=== PATIENT | female | born 1960 | race African-American/Black ===

== ENCOUNTER 2020-05-22 04:11 | Inpatient (IN) | payer MEDICAID, OTHER ==
[~2020-05-22] VITALS: Ht 162.6 cm; Wt 116.5 kg
[2020-05-22] MEDS ORDERED: ALBUTEROL SULF 2.5 MG/0.5ML(0.5%) NEB SOLN ONE (04:29)
[2020-05-22] MEDS ORDERED: ALBUTEROL SULF 2.5 MG/0.5ML(0.5%) NEB SOLN NEB ONE (04:30)
[2020-05-22] MEDS ORDERED: fentaNYL CITRATE 100 MCG/2 ML VL IV ONE (04:45)
[2020-05-22 05:14] LABS: Hematocrit 41.5 % (36.0-46.0); Hemoglobin 13.9 g/dL (12.2-16.2); Mean Corpuscular Hemoglobin 26.5 pg (28.0-32.0); Mean Corpuscular Hgb Conc. 33.5 g/dL (32.0-36.0); Mean Corpuscular Volume 79.2 fL (80.0-100.0); Platelet Count (auto) 163 10^3/uL (140-450); Red Blood Cells 5.24 10^6/uL (4.0-5.20); Red Cell Distribution Width 15.7 % (11.8-14.3); White Blood Cell 25.8 10^3/uL (4.4-10.8)
[2020-05-22 05:20] LABS: Basophils % (manual) 0 (0.0-2.0); Blast Cells 0; Metamyelocytes % 0; Myelocytes % 0; Promyelocytes % 0
[2020-05-22 05:32] LABS: Chloride 98 mmol/L (98-107); Potassium 3.7 mmol/L (3.5-5.1); Sodium 134 mmol/L (136-145)
[2020-05-22] MEDS ORDERED: fentaNYL CITRATE 100 MCG/2 ML VL IV STA (05:38)
[2020-05-22 05:41] LABS: Alanine Aminotransferase 26 U/L (13-56); Albumin 3.1 g/dL (3.4-5.0); Alkaline Phosphatase 82 U/L (45-117); Anion Gap 10 (5-15); Aspartate Aminotransferase 10 U/L (15-37); BUN/Creatinine Ratio 12.2; Bilirubin, Total 0.7 mg/dL (0.2-1.0); Blood Urea Nitrogen 12 mg/dL (7-18); Calcium 8.5 mg/dL (8.5-10.1); Carbon Dioxide 26 mmol/L (21-32); GFR African American 74 mL/min; GFR Non-African American 62 mL/min; Total Protein 7.6 g/dL (6.4-8.2)
[2020-05-22 05:46] LABS: INR 0.98 (0.9-1.15); Partial Thromboplastin Time 21.1 sec (23.0-31.2)
[2020-05-22 05:50] LABS: Band Neutrophils % (manual) 1; Eosinophils % (manual) 1 (0-7); Lymphocytes % (manual) 5 (10.0-50.0); Monocytes % (manual) 10 (0-12); Reactive Lymphocytes 1
[2020-05-22 05:57] LABS: Glucose 401 mg/dL (74-106)
[2020-05-22] MEDS ORDERED: IOHEXOL 350 MG/ML 100ML IJ ONE (06:06)
[2020-05-22] MEDS ORDERED: CEFEPIME 2 GM in SODIUM CHL 0.9% 50 ML IV ONE (06:15)
[2020-05-22] MEDS ORDERED: ENOXAPARIN SOD 100 MG/1 ML SYRINGE SC ONE (07:45)
[2020-05-22] MEDS ORDERED: levoFLOXacin 750MG 150 ML IV ONE (07:45)
[2020-05-22] MEDS ORDERED: MORPHINE SULF INJ 2 MG/ML SYRINGE 1ML IV ONE (07:45)
[2020-05-22] MEDS ORDERED: ONDANSETRON HCL 4 MG/2 ML VIAL IV ONE (07:45)
[2020-05-22] MEDS ORDERED: LORazepam 2MG/ML-1ML VIAL IV ONE (09:00)
[2020-05-22] MEDS ORDERED: NITROGLYCERIN 0.4 MG SL TAB SL PRN (10:30)
[2020-05-22] MEDS ORDERED: MORPHINE SULF INJ 2 MG/ML SYRINGE 1ML IV PRN (10:30)
[2020-05-22] MEDS ORDERED: REMDESIVIR PER PHARMACY 0 ML IV SCH (10:45)
[2020-05-22] MEDS ORDERED: DEXTROSE (50%) 50ML SYRG IV PRN ×2 (10:45→12:30)
[2020-05-22] MEDS ORDERED: ACETAMINOPHEN 325 MG TAB PO PRN (10:45)
[2020-05-22] MEDS ORDERED: HYDROmorphone HCL 2 MG/ML VL IV ONE (10:45)
[2020-05-22] MEDS ORDERED: ACCU-CHEK COMFORT CURVE STRIP VI SCH (11:30)
[2020-05-22] MEDS ORDERED: InsuLIN REG 1unit/0.01ml Soln (100units/ml) SC SCH (11:30)
[2020-05-22 11:58] LABS: CRP High Sensitivity 17.7 mg/dL (< 0.3)
[2020-05-22] MEDS ORDERED: ALBUAER3 IN (12:07)
[2020-05-22] MEDS ORDERED: DOCU1CAP31 PO (12:07)
[2020-05-22] MEDS ORDERED: LOSA25TA38 PO (12:07)
[2020-05-22] MEDS ORDERED: GLIM-5 PO (12:07)
[2020-05-22] MEDS: PIPERACILLIN-TAZOB 3.375GM 100 ML IV SCH ×2 (12:23→18:37)
[2020-05-22] MEDS ORDERED: INSULIN LANTUS (GLARGINE) 1 /0.01ml (100units/ml) SC ONE (12:30)
[2020-05-22 12:49] LABS: Urine Bacteria NONE SEEN /hpf (None Seen); Urine Blood 1+ /uL (Negative); Urine Specific Gravity 1.041 (1.001-1.035); Urine WBC 8 /hpf (0 - 5)
[2020-05-22 13:43] VITALS: BP 130/76
[2020-05-22] MEDS ORDERED: IOHEXOL 300 MG/ML 100ML BOTTLE IJ ONE (14:01)
[2020-05-22] MEDS ORDERED: REMDESIVIR 200 MG in NS 210ml LOADING DOSE ADULT IV ONE (15:00)
[2020-05-22] MEDS: ACCU-CHEK COMFORT CURVE STRIP VI SCH ×2 (16:31→20:25)
[2020-05-22] MEDS: InsuLIN REG 1unit/0.01ml Soln (100units/ml) SC SCH ×2 (16:35→20:36)
[2020-05-22] MEDS ORDERED: IPRATROPIUM BROM 0.5 MG/2.5ML INH SOL NEB SCH (18:45)
[2020-05-22] MEDS ORDERED: ALBUTEROL SULF 2.5 MG/0.5ML(0.5%) NEB SOLN NEB SCH (18:45)
[2020-05-22] MEDS: BUDESONIDE (INHALATION) 180 MCG IH IN SCH (19:04)
[2020-05-22] MEDS: ENOXAPARIN SOD 100 MG/1 ML SYRINGE SC SCH (22:01)
[2020-05-23] MEDS: ALBUTEROL SULF HFA 90MCG INH 200DOSE IN PRN ×3 (00:19→18:55)
[2020-05-23] MEDS: HYDROmorphone HCL 2 MG/ML VL IV PRN ×4 (00:20→22:00)
[2020-05-23] MEDS: InsuLIN REG 1unit/0.01ml Soln (100units/ml) SC SCH ×6 (04:00→20:00)
[2020-05-23] MEDS: ACCU-CHEK COMFORT CURVE STRIP VI SCH ×7 (04:06→23:56)
[2020-05-23 05:50] LABS: Basophils # (auto) 0 10 ^3/uL (0-0.2); Eosinophils # (auto) 0.2 10 ^3/uL (0-0.8); Lymphocytes # (auto) 1.1 10 ^3/uL (0.4-5.4); Red Cell Distribution Width 16.3 % (11.8-14.3)
[2020-05-23 05:52] LABS: Basophils % (auto) 0.2 % (0.0-2.0); Eosinophils % (auto) 0.8 % (0.0-7.0); Hematocrit 35.1 % (36.0-46.0); Hemoglobin 11.7 g/dL (12.2-16.2); Lymphocytes % (auto) 5.2 % (10.0-50.0); Mean Corpuscular Hemoglobin 26.2 pg (28.0-32.0); Mean Corpuscular Hgb Conc. 33.4 g/dL (32.0-36.0); Mean Corpuscular Volume 78.6 fL (80.0-100.0); Monocytes # (auto) 2.4 10 ^3/uL (0-1.3); Monocytes % (auto) 11.3 % (0.0-12.0); Neutrophils # (auto) 17.4 10 ^3/uL (1.6-8.6); Neutrophils % (auto) 82.5 % (37.0-80.0); Nucleated Red Blood Cells % 0.1 %; Platelet Count (auto) 156 10^3/uL (140-450); Red Blood Cells 4.47 10^6/uL (4.0-5.20)
[2020-05-23] MEDS ORDERED: VANCOMYCIN PER PHARMACY 0 MG IV SCH (06:00)
[2020-05-23] MEDS: PIPERACILLIN-TAZOB 3.375GM 100 ML IV SCH ×5 (06:01→23:44)
[2020-05-23 06:07] LABS: Albumin 2.4 g/dL (3.4-5.0); BUN/Creatinine Ratio 13.6; Calcium 8.2 mg/dL (8.5-10.1); Potassium 3.6 mmol/L (3.5-5.1)
[2020-05-23 06:10] LABS: Bilirubin, Total 0.5 mg/dL (0.2-1.0); Total Protein 6.5 g/dL (6.4-8.2)
[2020-05-23] MEDS ORDERED: IVERMECTIN 3 MG TAB PO ONE (07:00)
[2020-05-23] MEDS ORDERED: VANCOMYCIN 1GM/250ML 250 ML IV ONE (08:00)
[2020-05-23] MEDS: ONDANSETRON HCL 4 MG/2 ML VIAL IV PRN (10:03)
[2020-05-23] MEDS: DexAMETHasone SOD PHOS 10MG/1ML VIAL INJ IV SCH (10:04)
[2020-05-23] MEDS: ASCORBIC ACID 1,000 MG TAB PO SCH (10:06)
[2020-05-23] MEDS: ZINC SULFATE 220mg CAP or TAB PO SCH (10:06)
[2020-05-23] MEDS: FAMOTIDINE (10MG/ML) 2ML VL IV SCH (10:06)
[2020-05-23] MEDS: CHOLECALCIFEROL (VITD3) 2,000 UNIT CAP/TAB PO SCH (10:07)
[2020-05-23] MEDS: ENOXAPARIN SOD 100 MG/1 ML SYRINGE SC SCH ×2 (10:07→15:18)
[2020-05-23] MEDS: BUDESONIDE (INHALATION) 180 MCG IH IN SCH ×2 (10:39→18:54)
[2020-05-23] MEDS: REMDESIVIR 100mg 100 MG in SODIUM CHL 0.9% 230 ML IV SCH (15:48)
[2020-05-23] MEDS: VANCOMYCIN 750mg/250ml 250 ML IV SCH ×2 (16:17→23:45)
[2020-05-24] MEDS: ACCU-CHEK COMFORT CURVE STRIP VI SCH ×6 (04:00→23:52)
[2020-05-24] MEDS: InsuLIN REG 1unit/0.01ml Soln (100units/ml) SC SCH ×7 (04:13→23:49)
[2020-05-24] MEDS: PIPERACILLIN-TAZOB 3.375GM 100 ML IV SCH ×4 (06:31→23:52)
[2020-05-24] MEDS: BUDESONIDE (INHALATION) 180 MCG IH IN SCH ×2 (06:33→21:51)
[2020-05-24] MEDS: ALBUTEROL SULF HFA 90MCG INH 200DOSE IN PRN ×2 (06:33→21:51)
[2020-05-24] MEDS: HYDROmorphone HCL 2 MG/ML VL IV PRN ×3 (06:50→18:23)
[2020-05-24 08:57] LABS: Albumin 2.1 g/dL (3.4-5.0); Calcium 7.9 mg/dL (8.5-10.1); Potassium 3.8 mmol/L (3.5-5.1)
[2020-05-24 09:01] LABS: BUN/Creatinine Ratio 14.9; Bilirubin, Total 0.4 mg/dL (0.2-1.0); Total Protein 6.2 g/dL (6.4-8.2)
[2020-05-24] MEDS: VANCOMYCIN 750mg/250ml 250 ML IV SCH (09:30)
[2020-05-24] MEDS: FAMOTIDINE (10MG/ML) 2ML VL IV SCH (09:40)
[2020-05-24] MEDS: ASCORBIC ACID 1,000 MG TAB PO SCH (09:40)
[2020-05-24] MEDS: ZINC SULFATE 220mg CAP or TAB PO SCH (09:40)
[2020-05-24] MEDS: DexAMETHasone SOD PHOS 10MG/1ML VIAL INJ IV SCH (09:40)
[2020-05-24] MEDS: CHOLECALCIFEROL (VITD3) 2,000 UNIT CAP/TAB PO SCH (09:40)
[2020-05-24] MEDS: ENOXAPARIN SOD 100 MG/1 ML SYRINGE SC SCH ×2 (09:40→20:58)
[2020-05-24] MEDS: REMDESIVIR 100mg 100 MG in SODIUM CHL 0.9% 230 ML IV SCH (15:35)
[2020-05-24] MEDS: VANCOMYCIN 1GM/250ML 250 ML IV SCH ×2 (16:00→23:54)
[2020-05-24 22:00] VITALS: BP 118/68
[2020-05-25] MEDS: InsuLIN REG 1unit/0.01ml Soln (100units/ml) SC SCH ×6 (04:31→23:23)
[2020-05-25] MEDS: ACCU-CHEK COMFORT CURVE STRIP VI SCH ×6 (04:32→23:25)
[2020-05-25 05:00] VITALS: BP 133/60
[2020-05-25] MEDS: PIPERACILLIN-TAZOB 3.375GM 100 ML IV SCH ×4 (05:11→23:25)
[2020-05-25 07:03] LABS: Basophils # (auto) 0 10 ^3/uL (0-0.2); Basophils % (auto) 0.3 % (0.0-2.0); Eosinophils # (auto) 0 10 ^3/uL (0-0.8); Hematocrit 30.5 % (36.0-46.0); Monocytes # (auto) 1.3 10 ^3/uL (0-1.3); Nucleated Red Blood Cells % 0.1 %; Platelet Count (auto) 168 10^3/uL (140-450)
[2020-05-25 07:05] LABS: Eosinophils % (auto) 0.2 % (0.0-7.0); Hemoglobin 10.2 g/dL (12.2-16.2); Lymphocytes # (auto) 1.2 10 ^3/uL (0.4-5.4); Lymphocytes % (auto) 10.4 % (10.0-50.0); Mean Corpuscular Hemoglobin 26.4 pg (28.0-32.0); Mean Corpuscular Hgb Conc. 33.5 g/dL (32.0-36.0); Mean Corpuscular Volume 78.8 fL (80.0-100.0); Neutrophils # (auto) 9.3 10 ^3/uL (1.6-8.6); Neutrophils % (auto) 78.1 % (37.0-80.0); Red Blood Cells 3.87 10^6/uL (4.0-5.20); Red Cell Distribution Width 16.3 % (11.8-14.3); White Blood Cell 11.8 10^3/uL (4.4-10.8)
[2020-05-25] MEDS: ALBUTEROL SULF HFA 90MCG INH 200DOSE IN PRN ×3 (07:10→19:41)
[2020-05-25] MEDS: BUDESONIDE (INHALATION) 180 MCG IH IN SCH ×2 (07:10→19:41)
[2020-05-25 07:19] LABS: Potassium 3.8 mmol/L (3.5-5.1)
[2020-05-25 07:29] LABS: Albumin 2.1 g/dL (3.4-5.0); BUN/Creatinine Ratio 15.8; Calcium 8.3 mg/dL (8.5-10.1)
[2020-05-25 07:32] LABS: Bilirubin, Total 0.4 mg/dL (0.2-1.0); Total Protein 5.8 g/dL (6.4-8.2)
[2020-05-25] MEDS: VANCOMYCIN 1GM/250ML 250 ML IV SCH ×3 (08:35→21:20)
[2020-05-25 09:00] VITALS: BP 120/75
[2020-05-25] MEDS: ENOXAPARIN SOD 100 MG/1 ML SYRINGE SC SCH ×2 (09:14→21:20)
[2020-05-25] MEDS: FAMOTIDINE (10MG/ML) 2ML VL IV SCH (09:14)
[2020-05-25] MEDS: DexAMETHasone SOD PHOS 10MG/1ML VIAL INJ IV SCH (09:14)
[2020-05-25] MEDS: CHOLECALCIFEROL (VITD3) 2,000 UNIT CAP/TAB PO SCH (09:15)
[2020-05-25] MEDS: ASCORBIC ACID 1,000 MG TAB PO SCH (09:15)
[2020-05-25] MEDS: ZINC SULFATE 220mg CAP or TAB PO SCH (09:15)
[2020-05-25 13:00] VITALS: BP 114/60
[2020-05-25] MEDS: REMDESIVIR 100mg 100 MG in SODIUM CHL 0.9% 230 ML IV SCH (15:25)
[2020-05-25 17:00] VITALS: BP 145/65
[2020-05-25] MEDS: ONDANSETRON HCL 4 MG/2 ML VIAL IV PRN (18:57)
[2020-05-25 20:14] VITALS: BP 145/65
[2020-05-25 22:00] VITALS: BP 126/55
[2020-05-26] MEDS: InsuLIN REG 1unit/0.01ml Soln (100units/ml) SC SCH ×5 (04:00→19:30)
[2020-05-26] MEDS: ACCU-CHEK COMFORT CURVE STRIP VI SCH ×5 (04:21→19:31)
[2020-05-26 05:00] VITALS: BP 124/22
[2020-05-26] MEDS: PIPERACILLIN-TAZOB 3.375GM 100 ML IV SCH ×3 (05:12→17:50)
[2020-05-26] MEDS: BUDESONIDE (INHALATION) 180 MCG IH IN SCH ×2 (07:08→21:52)
[2020-05-26] MEDS: ALBUTEROL SULF HFA 90MCG INH 200DOSE IN PRN ×2 (07:08→21:52)
[2020-05-26 09:00] VITALS: BP 105/67
[2020-05-26] MEDS: VANCOMYCIN 1GM/250ML 250 ML IV SCH ×3 (09:15→21:12)
[2020-05-26] MEDS: ASCORBIC ACID 1,000 MG TAB PO SCH (09:16)
[2020-05-26] MEDS: DexAMETHasone SOD PHOS 10MG/1ML VIAL INJ IV SCH (09:16)
[2020-05-26] MEDS: ENOXAPARIN SOD 100 MG/1 ML SYRINGE SC SCH (09:16)
[2020-05-26] MEDS: ZINC SULFATE 220mg CAP or TAB PO SCH (09:16)
[2020-05-26] MEDS: FAMOTIDINE (10MG/ML) 2ML VL IV SCH (09:16)
[2020-05-26] MEDS: CHOLECALCIFEROL (VITD3) 2,000 UNIT CAP/TAB PO SCH (09:16)
[2020-05-26 10:27] LABS: Hematocrit 32.6 % (36.0-46.0); Red Blood Cells 4.14 10^6/uL (4.0-5.20)
[2020-05-26 10:29] LABS: Hemoglobin 10.8 g/dL (12.2-16.2); Mean Corpuscular Hemoglobin 26.1 pg (28.0-32.0); Mean Corpuscular Hgb Conc. 33.2 g/dL (32.0-36.0); Mean Corpuscular Volume 78.6 fL (80.0-100.0); Platelet Count (auto) 217 10^3/uL (140-450); White Blood Cell 11.5 10^3/uL (4.4-10.8)
[2020-05-26 10:32] LABS: Band Neutrophils % (manual) 0; Basophils % (manual) 0 (0.0-2.0); Blast Cells 0; Eosinophils % (manual) 0 (0-7); Myelocytes % 0; Promyelocytes % 0; Reactive Lymphocytes 0
[2020-05-26 10:50] LABS: Albumin 2.1 g/dL (3.4-5.0); Calcium 8.2 mg/dL (8.5-10.1); Potassium 3.7 mmol/L (3.5-5.1)
[2020-05-26 10:55] LABS: BUN/Creatinine Ratio 20.5; Bilirubin, Total 0.3 mg/dL (0.2-1.0); Total Protein 5.8 g/dL (6.4-8.2)
[2020-05-26 11:55] LABS: Lymphocytes % (manual) 13 (10.0-50.0); Metamyelocytes % 2; Monocytes % (manual) 14 (0-12)
[2020-05-26 13:00] VITALS: BP 119/61
[2020-05-26] MEDS: REMDESIVIR 100mg 100 MG in SODIUM CHL 0.9% 230 ML IV SCH (15:32)
[2020-05-26 16:42] LABS: Urine Bacteria FEW /hpf (None Seen); Urine Blood 3+ /uL (Negative); Urine Budding Yeast FEW /hpf (None Seen); Urine Specific Gravity 1.016 (1.001-1.035); Urine WBC 61 /hpf (0 - 5)
[2020-05-26 17:00] VITALS: BP 138/75
[2020-05-26] MEDS: APIXABAN 5 MG TAB PO SCH (21:13)
[2020-05-26 22:00] VITALS: BP 150/72
[2020-05-27] MEDS: ACCU-CHEK COMFORT CURVE STRIP VI SCH ×6 (00:13→20:41)
[2020-05-27] MEDS: PIPERACILLIN-TAZOB 3.375GM 100 ML IV SCH ×5 (00:13→23:53)
[2020-05-27] MEDS: InsuLIN REG 1unit/0.01ml Soln (100units/ml) SC SCH ×6 (00:16→20:39)
[2020-05-27 05:00] VITALS: BP 145/58
[2020-05-27 06:27] LABS: Potassium 3.9 mmol/L (3.5-5.1)
[2020-05-27] MEDS: BUDESONIDE (INHALATION) 180 MCG IH IN SCH ×2 (06:34→19:40)
[2020-05-27] MEDS: ALBUTEROL SULF HFA 90MCG INH 200DOSE IN PRN ×2 (06:34→19:41)
[2020-05-27 06:36] LABS: Albumin 2.1 g/dL (3.4-5.0); BUN/Creatinine Ratio 17.5; Bilirubin, Total 0.3 mg/dL (0.2-1.0); Calcium 7.8 mg/dL (8.5-10.1); Total Protein 5.5 g/dL (6.4-8.2)
[2020-05-27 09:00] VITALS: BP 139/78
[2020-05-27] MEDS: CHOLECALCIFEROL (VITD3) 2,000 UNIT CAP/TAB PO SCH (10:09)
[2020-05-27] MEDS: ZINC SULFATE 220mg CAP or TAB PO SCH (10:09)
[2020-05-27] MEDS: ASCORBIC ACID 1,000 MG TAB PO SCH (10:09)
[2020-05-27] MEDS: APIXABAN 5 MG TAB PO SCH ×2 (10:09→20:41)
[2020-05-27] MEDS: DexAMETHasone SOD PHOS 10MG/1ML VIAL INJ IV SCH (10:09)
[2020-05-27] MEDS: PANTOPRAZOLE 40 MG/10 ML VIAL INJ IV SCH (10:09)
[2020-05-27] MEDS: VANCOMYCIN 1GM/250ML 250 ML IV SCH ×3 (10:09→20:45)
[2020-05-27 13:00] VITALS: BP 148/80
[2020-05-27] MEDS ORDERED: DEXTROSE (50%) 50ML SYRG IV PRN (14:45)
[2020-05-27 17:00] VITALS: BP 150/76
[2020-05-27 22:00] VITALS: BP 127/74
[2020-05-28] VITALS (7 sets, daily range): BP systolic 130–161; BP diastolic 73–96
[2020-05-28] MEDS: ACCU-CHEK COMFORT CURVE STRIP VI SCH ×4 (05:12→21:38)
[2020-05-28] MEDS: InsuLIN REG 1unit/0.01ml Soln (100units/ml) SC SCH ×4 (05:12→21:44)
[2020-05-28] MEDS: PIPERACILLIN-TAZOB 3.375GM 100 ML IV SCH (05:12)
[2020-05-28] MEDS: ALBUTEROL SULF HFA 90MCG INH 200DOSE IN PRN ×2 (08:45→18:58)
[2020-05-28] MEDS: BUDESONIDE (INHALATION) 180 MCG IH IN SCH ×2 (08:45→18:58)
[2020-05-28] MEDS: VANCOMYCIN 1GM/250ML 250 ML IV SCH (10:00)
[2020-05-28] MEDS: PANTOPRAZOLE 40 MG/10 ML VIAL INJ IV SCH (10:00)
[2020-05-28] MEDS: DexAMETHasone SOD PHOS 10MG/1ML VIAL INJ IV SCH (10:00)
[2020-05-28] MEDS: ASCORBIC ACID 1,000 MG TAB PO SCH (10:01)
[2020-05-28] MEDS: APIXABAN 5 MG TAB PO SCH ×2 (10:01→21:30)
[2020-05-28] MEDS: ZINC SULFATE 220mg CAP or TAB PO SCH (10:01)
[2020-05-28] MEDS: CHOLECALCIFEROL (VITD3) 2,000 UNIT CAP/TAB PO SCH (10:02)
[2020-05-29 05:00] VITALS: BP 146/81
[2020-05-29] MEDS: InsuLIN REG 1unit/0.01ml Soln (100units/ml) SC SCH ×2 (05:57→11:30)
[2020-05-29] MEDS: ACCU-CHEK COMFORT CURVE STRIP VI SCH ×2 (05:57→11:30)
[2020-05-29] MEDS: BUDESONIDE (INHALATION) 180 MCG IH IN SCH (07:01)
[2020-05-29 09:00] VITALS: BP 143/72
[2020-05-29] MEDS: DexAMETHasone SOD PHOS 10MG/1ML VIAL INJ IV SCH (09:43)
[2020-05-29] MEDS: ASCORBIC ACID 1,000 MG TAB PO SCH (09:43)
[2020-05-29] MEDS: APIXABAN 5 MG TAB PO SCH (09:43)
[2020-05-29] MEDS: ZINC SULFATE 220mg CAP or TAB PO SCH (09:43)
[2020-05-29] MEDS: PANTOPRAZOLE 40 MG/10 ML VIAL INJ IV SCH (09:43)
[2020-05-29] MEDS: CHOLECALCIFEROL (VITD3) 2,000 UNIT CAP/TAB PO SCH (09:44)
[2020-05-29 12:30] VITALS: BP 133/69
[2020-05-29 13:21] VITALS: BP 143/72
[2020-06-02] MEDS ORDERED: APIXABAN 5 MG TAB PO SCH (10:00)
== END 2020-05-29 15:33 | disposition home or self-care (01) | DRG 720 ==
LOC: ER 04:11 → EDBD 04:11 → TELE 04:12 → TELE-WESTW 05-24 17:14
PROVIDERS: ADMIT Nurse Practitioner Acute Care; ATTEND Family Medicine
PROC: XW033E5 Introduction of Remdesivir Anti-infective into Peripheral Vein, Percutaneous Approach, New Technology Group 5 (ICD-10-PCS; principal; 2020-05-22)
DX: A41.89 Other specified sepsis (principal); U07.1 COVID-19; J12.82 Pneumonia due to coronavirus disease 2019; I26.99 Other pulmonary embolism without acute cor pulmonale; J96.01 Acute respiratory failure with hypoxia; J98.11 Atelectasis; E66.01 Morbid (severe) obesity due to excess calories; E78.5 Hyperlipidemia, unspecified; D25.9 Leiomyoma of uterus, unspecified; J44.0 Chronic obstructive pulmonary disease with (acute) lower respiratory infection; Z79.01 Long term (current) use of anticoagulants; Z79.4 Long term (current) use of insulin; Z86.718 Personal history of other venous thrombosis and embolism; Z95.828 Presence of other vascular implants and grafts; Z68.41 Body mass index [BMI] 40.0-44.9, adult; I10 Essential (primary) hypertension
CPT/HCPCS: 36415; 36600; 51702; 71045; 71275; 74177; 80053; 80202; 81001; 82306; 82728; 82805; 82962; 83036; 83605; 83615; 83735; 83880; 84443; 84484; 85007; 85025; 85027; 85379; 85610; 85730; 86141; 87040; 87077; 87081; 87186; 87426; 87804; 93005; 93306; 93970; 94640; 97116; C9113; G0378; J1100; J1815; J1956; J2405; J2543; J3490

== ENCOUNTER 2022-11-02 14:45 | Inpatient (IN) | payer MEDICAID ==
[~2022-11-02] VITALS: Ht 152.4 cm; Wt 114.0 kg
[~2022-11-02 14:45] MED LIST: ALBUAER3 IN; DOCU-209 PO; GLIM-38 PO; LOSA25TA15 PO
[2022-11-02] MEDS ORDERED: SODIUM CHLORIDE 0.9% 1,000 ML IV ONE (15:00)
[2022-11-02 16:01] LABS: Basophils # (auto) 0 10 ^3/uL (0-0.2); Basophils % (auto) 0.2 % (0.0-2.0); Eosinophils # (auto) 0 10 ^3/uL (0-0.8); Hemoglobin 13.2 g/dL (12.2-16.2); Lymphocytes # (auto) 1.3 10 ^3/uL (0.4-5.4); Lymphocytes % (auto) 9.2 % (10.0-50.0); Mean Corpuscular Hgb Conc. 32.9 g/dL (32.0-36.0); Mean Corpuscular Volume 78.8 fL (80.0-100.0); Monocytes # (auto) 1.8 10 ^3/uL (0-1.3); Monocytes % (auto) 12.5 % (0.0-12.0); Neutrophils # (auto) 11.4 10 ^3/uL (1.6-8.6); Neutrophils % (auto) 78.1 % (37.0-80.0); Nucleated Red Blood Cells % 0.1 %; Red Blood Cells 5.08 10^6/uL (4.0-5.20); Red Cell Distribution Width 16.9 % (11.8-14.3); White Blood Cell 14.6 10^3/uL (4.4-10.8)
[2022-11-02 16:24] LABS: Albumin 2.8 g/dL (3.4-5.0); Anion Gap 10 (5-15); Blood Urea Nitrogen 8 mg/dL (7-18); Calcium 7.8 mg/dL (8.5-10.1); Carbon Dioxide 28 mmol/L (21-32); Chloride 99 mmol/L (98-107); Glucose 98 mg/dL (74-106); Potassium 3.3 mmol/L (3.5-5.1); Sodium 137 mmol/L (136-145)
[2022-11-02 16:35] LABS: Alanine Aminotransferase 54 U/L (13-56); Alkaline Phosphatase 97 U/L (45-117); Aspartate Aminotransferase 67 U/L (15-37); Bilirubin, Total 0.6 mg/dL (0.2-1.0); Blood Alcohol < 3.0 mg/dL (<10); GFR African American 61 mL/min; GFR Non-African American 51 mL/min; Total Protein 6.6 g/dL (6.4-8.2)
[2022-11-02 17:02] LABS: Lactic Acid w/Reflex 2.1 mmol/L (0.4-2.0)
[2022-11-02] MEDS ORDERED: ONDANSETRON HCL 4 MG/2 ML VIAL IV PRN (17:15)
[2022-11-02] MEDS ORDERED: LACTATED RINGER'S 1,000 ML IV ONE ×2 (17:15→17:30)
[2022-11-02] MEDS ORDERED: DOCUSATE SOD 100 MG CAP PO PRN (17:15)
[2022-11-02] MEDS ORDERED: cefTRIAXone 1GM/50ML D5W 50 ML IV ONE (17:15)
[2022-11-02] MEDS ORDERED: hydrALAZINE HCL 20 MG/ML VL IV PRN (17:30)
[2022-11-02 18:26] LABS: Erythrocyte Sedimentation Rate 72 mm/hr (0-20)
[2022-11-02 21:00] VITALS: BP 147/80; PULSE 117; RESP 20; O2SAT 95
[2022-11-02] MEDS: DOCUSATE SOD 100 MG CAP PO SCH (22:00)
[2022-11-02] MEDS: SODIUM CHLOR 0.9% PF (SALINE LOCK) 10ML VIAL/SYR IV SCH (23:00)
[2022-11-03 00:19] VITALS: O2SAT 92
[2022-11-03] MEDS: ACETAMINOPHEN 325 MG TAB PO PRN ×3 (03:14→19:53)
[2022-11-03 03:55] LABS: Urine Bacteria MOD /hpf (None Seen); Urine Blood 2+ /uL (Negative); Urine Clarity HAZY (Clear); Urine Color Yellow (Yellow); Urine Protein, UAD 2+ (Negative); Urine Specific Gravity 1.016 (1.001-1.035); Urine WBC 3 /hpf (0 - 5)
[2022-11-03 04:09] LABS: Alcohol, Urine < 3.0 mg/dL (0-10); Amphetamine Screen, Urine NEGATIVE (NEGATIVE); Barbiturate Scree,Urine NEGATIVE (NEGATIVE); Benzodiazephine Screen, Urine NEGATIVE (NEGATIVE); Cannabinoid Screen, Urine NEGATIVE (NEGATIVE); Cocaine Screen, Urine NEGATIVE (NEGATIVE); Opiate Scree,Urine NEGATIVE (NEGATIVE); Phencyclidine Screen, Urine NEGATIVE (NEGATIVE)
[2022-11-03 04:11] LABS: Creatinine, Urine 269 mg/dL (30.0-125.0); Sodium Urine 8 mmol/L (40-220)
[2022-11-03 06:00] VITALS: O2SAT 95
[2022-11-03] MEDS: SODIUM CHLOR 0.9% PF (SALINE LOCK) 10ML VIAL/SYR IV SCH ×3 (06:00→22:15)
[2022-11-03 07:35] VITALS: PULSE 60; RESP 14; O2SAT 98
[2022-11-03] MEDS ORDERED: cefTRIAXone 1GM/50ML D5W 50 ML IV SCH (10:00)
[2022-11-03] MEDS: DOCUSATE SOD 100 MG CAP PO SCH ×2 (10:00→22:15)
[2022-11-03] MEDS ORDERED: LOSARTAN POTASSIUM 25 MG TAB PO SCH (10:00)
[2022-11-03] MEDS: ENOXAPARIN SOD 40 MG/0.4 ML SYRINGE SC SCH (10:05)
[2022-11-03] MEDS ORDERED: DEXTROSE (50%) 50ML SYRG IV PRN (11:00)
[2022-11-03 11:14] LABS: Basophils # (auto) 0 10 ^3/uL (0-0.2); Eosinophils # (auto) 0 10 ^3/uL (0-0.8); Hematocrit 38.9 % (36.0-46.0)
[2022-11-03 11:17] LABS: Basophils % (auto) 0.3 % (0.0-2.0); Lymphocytes % (auto) 6.1 % (10.0-50.0); Mean Corpuscular Hemoglobin 26.4 pg (28.0-32.0); Mean Corpuscular Hgb Conc. 33.4 g/dL (32.0-36.0); Mean Corpuscular Volume 79.1 fL (80.0-100.0); Monocytes % (auto) 12.3 % (0.0-12.0); Neutrophils # (auto) 12.9 10 ^3/uL (1.6-8.6); Neutrophils % (auto) 81.3 % (37.0-80.0); Red Blood Cells 4.91 10^6/uL (4.0-5.20); Red Cell Distribution Width 16.5 % (11.8-14.3); White Blood Cell 15.8 10^3/uL (4.4-10.8)
[2022-11-03 11:52] LABS: BUN/Creatinine Ratio 9.6 (10.0-20.0); Magnesium 2.2 mg/dL (1.6-2.6); Potassium 3.4 mmol/L (3.5-5.1)
[2022-11-03] MEDS: ACCU-CHEK COMFORT CURVE STRIP VI SCH ×3 (12:04→22:20)
[2022-11-03] MEDS: InsuLIN REG 1unit/0.01ml Soln (100units/ml) SC SCH ×3 (12:04→22:25)
[2022-11-03] MEDS ORDERED: amLODIPine BESYLATE 5 MG TAB PO ONE (13:45)
[2022-11-03] MEDS: SODIUM CHLORIDE 0.9% 1,000 ML IV SCH (14:23)
[2022-11-03] MEDS ORDERED: GLIP10TA9 PO (16:22)
[2022-11-03] MEDS ORDERED: LOSA50TA46 PO (16:23)
[2022-11-03] MEDS ORDERED: ATOR10TA52 PO (16:25)
[2022-11-03] MEDS ORDERED: GABA-339 PO (16:26)
[2022-11-03] MEDS ORDERED: SEMA2INJ3 SC (16:29)
[2022-11-03] MEDS ORDERED: TRAM-711 PO (16:31)
[2022-11-03] MEDS ORDERED: DICL1GEL73 TOP (16:55)
[2022-11-03 18:05] VITALS: O2SAT 96
[2022-11-03] MEDS: PIPERACILLIN-TAZOB 3.375GM 100 ML IV SCH (18:46)
[2022-11-03 22:20] VITALS: BP 119/61; PULSE 99; RESP 26; TEMP 98; O2SAT 91
[2022-11-03 23:00] VITALS: BP 119/61; PULSE 99; RESP 18; TEMP 98; O2SAT 91
[2022-11-03 23:01] LABS: COVID19 ANTIGEN SOFIA FIA NEGATIVE (NEGATIVE); Rapid Influenza A Negative (Negative); Rapid Influenza B Negative (Negative)
[2022-11-04] VITALS (11 sets, daily range): BP systolic 84–129; BP diastolic 40–60; PULSE 71–100; RESP 16–20; TEMP 98.7–100.9; O2SAT 92–100
[2022-11-04] MEDS: PIPERACILLIN-TAZOB 3.375GM 100 ML IV SCH ×3 (02:15→17:33)
[2022-11-04] MEDS: SODIUM CHLORIDE 0.9% 1,000 ML IV SCH ×3 (03:05→20:45)
[2022-11-04 05:55] LABS: Basophils # (auto) 0 10 ^3/uL (0-0.2); Eosinophils # (auto) 0 10 ^3/uL (0-0.8); Mean Corpuscular Hemoglobin 26.1 pg (28.0-32.0); Monocytes # (auto) 1.4 10 ^3/uL (0-1.3)
[2022-11-04 05:57] LABS: Basophils % (auto) 0.2 % (0.0-2.0); Eosinophils % (auto) 0.1 % (0.0-7.0); Hematocrit 35.4 % (36.0-46.0); Hemoglobin 11.7 g/dL (12.2-16.2); Lymphocytes # (auto) 0.9 10 ^3/uL (0.4-5.4); Lymphocytes % (auto) 6.6 % (10.0-50.0); Mean Corpuscular Hgb Conc. 33.2 g/dL (32.0-36.0); Mean Corpuscular Volume 78.5 fL (80.0-100.0); Monocytes % (auto) 9.6 % (0.0-12.0); Neutrophils # (auto) 11.8 10 ^3/uL (1.6-8.6); Neutrophils % (auto) 83.5 % (37.0-80.0); White Blood Cell 14.2 10^3/uL (4.4-10.8)
[2022-11-04 06:03] LABS: Albumin 2.1 g/dL (3.4-5.0); Calcium 7.6 mg/dL (8.5-10.1)
[2022-11-04 06:08] LABS: BUN/Creatinine Ratio 8.2 (10.0-20.0); Bilirubin, Total 0.6 mg/dL (0.2-1.0); Total Protein 6.8 g/dL (6.4-8.2)
[2022-11-04] MEDS: SODIUM CHLOR 0.9% PF (SALINE LOCK) 10ML VIAL/SYR IV SCH ×3 (06:24→22:23)
[2022-11-04] MEDS: ACCU-CHEK COMFORT CURVE STRIP VI SCH ×4 (06:24→22:24)
[2022-11-04] MEDS: InsuLIN REG 1unit/0.01ml Soln (100units/ml) SC SCH ×4 (06:35→22:00)
[2022-11-04 06:36] LABS: Potassium 2.9 mmol/L (3.5-5.1)
[2022-11-04] MEDS ORDERED: POTASSIUM CHL 20 Meq TABLET PO ONE ×2 (07:00→10:45)
[2022-11-04] MEDS: ENOXAPARIN SOD 40 MG/0.4 ML SYRINGE SC SCH (09:01)
[2022-11-04] MEDS: amLODIPine BESYLATE 5 MG TAB PO SCH (09:02)
[2022-11-04] MEDS: ACETAMINOPHEN 325 MG TAB PO PRN (09:03)
[2022-11-04] MEDS: DOCUSATE SOD 100 MG CAP PO SCH ×2 (09:03→22:00)
[2022-11-04] MEDS: ALBUTEROL MEDNEB 2.5 mg/3ml NEB NEB PRN (10:19)
[2022-11-04] MEDS ORDERED: VANCOMYCIN PER PHARMACY 0 MG IV SCH (11:45)
[2022-11-04] MEDS ORDERED: VANCOMYCIN 1GM/250ML 250 ML IV ONE (12:00)
[2022-11-04] MEDS: HYDROcodone-ACET 5/325MG TAB PO PRN ×2 (17:11→22:16)
[2022-11-04 18:56] LABS: BUN/Creatinine Ratio 9.9 (10.0-20.0); Calcium 7.6 mg/dL (8.5-10.1); Potassium 3.1 mmol/L (3.5-5.1)
[2022-11-05] VITALS (14 sets, daily range): BP systolic 112–133; BP diastolic 55–70; PULSE 78–101; RESP 18–22; TEMP 97.9–99.2; O2SAT 94–99
[2022-11-05] MEDS: PIPERACILLIN-TAZOB 3.375GM 100 ML IV SCH ×3 (02:27→20:30)
[2022-11-05] MEDS ORDERED: VANCOMYCIN 1GM/250ML 250 ML IV SCH (04:00)
[2022-11-05] MEDS: SODIUM CHLOR 0.9% PF (SALINE LOCK) 10ML VIAL/SYR IV SCH ×3 (06:11→22:05)
[2022-11-05 06:23] LABS: Eosinophils # (auto) 0.1 10 ^3/uL (0-0.8); Monocytes # (auto) 1.2 10 ^3/uL (0-1.3); Monocytes % (auto) 8.1 % (0.0-12.0); White Blood Cell 15.4 10^3/uL (4.4-10.8)
[2022-11-05 06:25] LABS: Basophils # (auto) 0.1 10 ^3/uL (0-0.2); Basophils % (auto) 0.4 % (0.0-2.0); Eosinophils % (auto) 0.8 % (0.0-7.0); Hematocrit 33.5 % (36.0-46.0); Hemoglobin 11.1 g/dL (12.2-16.2); Lymphocytes # (auto) 1.4 10 ^3/uL (0.4-5.4); Lymphocytes % (auto) 9.3 % (10.0-50.0); Mean Corpuscular Hemoglobin 26.1 pg (28.0-32.0); Mean Corpuscular Volume 78.9 fL (80.0-100.0); Neutrophils # (auto) 12.5 10 ^3/uL (1.6-8.6); Neutrophils % (auto) 81.4 % (37.0-80.0); Red Blood Cells 4.24 10^6/uL (4.0-5.20); Red Cell Distribution Width 17.2 % (11.8-14.3)
[2022-11-05 06:27] LABS: Albumin 1.9 g/dL (3.4-5.0); Calcium 7.4 mg/dL (8.5-10.1); Potassium 3.2 mmol/L (3.5-5.1)
[2022-11-05 06:31] LABS: BUN/Creatinine Ratio 9.4 (10.0-20.0); Bilirubin, Total 0.6 mg/dL (0.2-1.0); Total Protein 6.6 g/dL (6.4-8.2)
[2022-11-05] MEDS: SODIUM CHLORIDE 0.9% 1,000 ML IV SCH ×2 (06:45→16:45)
[2022-11-05] MEDS: ACCU-CHEK COMFORT CURVE STRIP VI SCH ×4 (06:45→21:03)
[2022-11-05] MEDS: InsuLIN REG 1unit/0.01ml Soln (100units/ml) SC SCH ×4 (06:46→22:09)
[2022-11-05] MEDS: amLODIPine BESYLATE 5 MG TAB PO SCH (09:35)
[2022-11-05] MEDS: ENOXAPARIN SOD 40 MG/0.4 ML SYRINGE SC SCH (09:35)
[2022-11-05] MEDS: DOCUSATE SOD 100 MG CAP PO SCH ×2 (09:35→20:44)
[2022-11-05 09:45] LABS: Hepatitis B Surface Antibody Negative (Negative)
[2022-11-05] MEDS ORDERED: POTASSIUM CHL 20 Meq TABLET PO ONE ×2 (10:00→11:30)
[2022-11-05 10:10] LABS: Hepatitis A Total Antibody Negative (Negative)
[2022-11-05] MEDS ORDERED: ALBUTEROL SULF 2.5 MG/0.5ML(0.5%) NEB SOLN ONE ×2 (10:27→23:05)
[2022-11-05 11:08] LABS: Hepatitis B Surface Antigen Negative (Negative)
[2022-11-05 11:09] LABS: Hepatitis B Core Total AB Negative (Negative); Hepatitis C Antibody Negative (Negative)
[2022-11-05] MEDS: ACETAMINOPHEN 325 MG TAB PO PRN (21:03)
[2022-11-05] MEDS ORDERED: IPRATROPIUM BROM 0.5 MG/2.5ML INH SOL ONE (23:05)
[2022-11-06] VITALS (9 sets, daily range): BP systolic 130–159; BP diastolic 59–80; PULSE 88–101; RESP 18–20; TEMP 98–98.2; O2SAT 93–96
[2022-11-06] MEDS: PIPERACILLIN-TAZOB 3.375GM 100 ML IV SCH ×3 (02:13→18:54)
[2022-11-06] MEDS: SODIUM CHLORIDE 0.9% 1,000 ML IV SCH ×3 (02:17→23:20)
[2022-11-06 05:31] LABS: Calcium 7.8 mg/dL (8.5-10.1); Potassium 3.1 mmol/L (3.5-5.1)
[2022-11-06 05:35] LABS: Albumin 1.9 g/dL (3.4-5.0); BUN/Creatinine Ratio 8.5 (10.0-20.0)
[2022-11-06 05:38] LABS: Bilirubin, Total 0.7 mg/dL (0.2-1.0); Total Protein 6.9 g/dL (6.4-8.2)
[2022-11-06] MEDS: SODIUM CHLOR 0.9% PF (SALINE LOCK) 10ML VIAL/SYR IV SCH ×3 (05:56→21:24)
[2022-11-06] MEDS: ACCU-CHEK COMFORT CURVE STRIP VI SCH ×4 (05:56→21:21)
[2022-11-06] MEDS: InsuLIN REG 1unit/0.01ml Soln (100units/ml) SC SCH ×4 (06:05→21:27)
[2022-11-06 06:11] LABS: Hematocrit 33.4 % (36.0-46.0); Lymphocytes # (auto) 1.3 10 ^3/uL (0.4-5.4); Mean Corpuscular Volume 78.6 fL (80.0-100.0); Monocytes # (auto) 1.5 10 ^3/uL (0-1.3); Red Blood Cells 4.25 10^6/uL (4.0-5.20)
[2022-11-06 06:13] LABS: Basophils # (auto) 0.1 10 ^3/uL (0-0.2); Basophils % (auto) 0.4 % (0.0-2.0); Eosinophils # (auto) 0.1 10 ^3/uL (0-0.8); Eosinophils % (auto) 0.9 % (0.0-7.0); Hemoglobin 11.1 g/dL (12.2-16.2); Lymphocytes % (auto) 8.1 % (10.0-50.0); Mean Corpuscular Hemoglobin 26.1 pg (28.0-32.0); Mean Corpuscular Hgb Conc. 33.3 g/dL (32.0-36.0); Monocytes % (auto) 9.1 % (0.0-12.0); Neutrophils # (auto) 13.3 10 ^3/uL (1.6-8.6); Neutrophils % (auto) 81.5 % (37.0-80.0); White Blood Cell 16.4 10^3/uL (4.4-10.8)
[2022-11-06] MEDS: DOCUSATE SOD 100 MG CAP PO SCH ×2 (09:46→21:23)
[2022-11-06] MEDS: amLODIPine BESYLATE 5 MG TAB PO SCH (09:47)
[2022-11-06] MEDS: ENOXAPARIN SOD 40 MG/0.4 ML SYRINGE SC SCH ×2 (09:48→21:30)
[2022-11-06] MEDS ORDERED: POTASSIUM CHL 20 Meq TABLET PO ONE (10:00)
[2022-11-06 13:02] LABS: Urine Bacteria NONE SEEN /hpf (None Seen); Urine Blood 1+ /uL (Negative); Urine Clarity Clear (Clear); Urine Color Yellow (Yellow); Urine Protein, UAD TRACE (Negative); Urine Specific Gravity 1.012 (1.001-1.035); Urine Urobilinogen Normal (Negative); Urine WBC 4 /hpf (0 - 5)
[2022-11-07] VITALS (9 sets, daily range): BP systolic 110–126; BP diastolic 50–65; PULSE 88–101; RESP 16–20; TEMP 96.9–98.3; O2SAT 91–98
[2022-11-07] MEDS: PIPERACILLIN-TAZOB 3.375GM 100 ML IV SCH ×3 (01:41→18:43)
[2022-11-07] MEDS: ACCU-CHEK COMFORT CURVE STRIP VI SCH ×4 (06:08→22:10)
[2022-11-07] MEDS: SODIUM CHLOR 0.9% PF (SALINE LOCK) 10ML VIAL/SYR IV SCH ×3 (06:08→22:11)
[2022-11-07 06:22] LABS: Hematocrit 30.8 % (36.0-46.0); Hemoglobin 10.4 g/dL (12.2-16.2); Mean Corpuscular Hemoglobin 26.4 pg (28.0-32.0); Mean Corpuscular Hgb Conc. 33.7 g/dL (32.0-36.0); Mean Corpuscular Volume 78.4 fL (80.0-100.0); Red Blood Cells 3.93 10^6/uL (4.0-5.20); White Blood Cell 19.1 10^3/uL (4.4-10.8)
[2022-11-07] MEDS: InsuLIN REG 1unit/0.01ml Soln (100units/ml) SC SCH ×4 (06:27→22:19)
[2022-11-07 06:34] LABS: Potassium 3.1 mmol/L (3.5-5.1)
[2022-11-07 06:53] LABS: Basophils % (manual) 0 (0.0-2.0); Blast Cells 0; Promyelocytes % 0; Reactive Lymphocytes 0
[2022-11-07 06:57] LABS: Albumin 1.8 g/dL (3.4-5.0); BUN/Creatinine Ratio 7.5 (10.0-20.0); Bilirubin, Total 0.6 mg/dL (0.2-1.0); Calcium 7.8 mg/dL (8.5-10.1); Total Protein 6.5 g/dL (6.4-8.2)
[2022-11-07] MEDS ORDERED: POTASSIUM EFFERVESENT TAB 25 MEQ PO ONE (08:30)
[2022-11-07] MEDS: ENOXAPARIN SOD 40 MG/0.4 ML SYRINGE SC SCH ×2 (08:36→22:11)
[2022-11-07] MEDS: amLODIPine BESYLATE 5 MG TAB PO SCH (08:38)
[2022-11-07] MEDS: DOCUSATE SOD 100 MG CAP PO SCH ×2 (10:00→22:00)
[2022-11-07 11:14] LABS: Band Neutrophils % (manual) 7; Eosinophils % (manual) 2 (0-7); Lymphocytes % (manual) 7 (10.0-50.0); Metamyelocytes % 3; Monocytes % (manual) 5 (0-12); Myelocytes % 4; Platelet Estimate Adequate
[2022-11-07 13:52] LABS: Calcium 8.1 mg/dL (8.5-10.1); Magnesium 2.5 mg/dL (1.6-2.6); Potassium 3.7 mmol/L (3.5-5.1)
[2022-11-07] MEDS ORDERED: IOHEXOL 350 MG/ML 100ML IJ ONE (17:10)
[2022-11-07] MEDS: SODIUM CHLORIDE 0.9% 1,000 ML IV SCH (17:57)
[2022-11-08] VITALS (10 sets, daily range): BP systolic 114–122; BP diastolic 56–64; PULSE 79–116; RESP 15–19; TEMP 97.4–98.5; O2SAT 93–100
[2022-11-08] MEDS: PIPERACILLIN-TAZOB 3.375GM 100 ML IV SCH ×3 (02:29→17:04)
[2022-11-08] MEDS: ACETAMINOPHEN 325 MG TAB PO PRN (02:30)
[2022-11-08] MEDS: SODIUM CHLORIDE 0.9% 1,000 ML IV SCH (02:30)
[2022-11-08] MEDS: InsuLIN REG 1unit/0.01ml Soln (100units/ml) SC SCH ×5 (06:13→23:12)
[2022-11-08] MEDS: SODIUM CHLOR 0.9% PF (SALINE LOCK) 10ML VIAL/SYR IV SCH ×3 (06:13→23:09)
[2022-11-08] MEDS: ACCU-CHEK COMFORT CURVE STRIP VI SCH ×4 (06:14→23:10)
[2022-11-08 07:06] LABS: Hemoglobin 10.2 g/dL (12.2-16.2)
[2022-11-08 07:08] LABS: Basophils # (auto) 0 10 ^3/uL (0-0.2); Basophils % (auto) 0.2 % (0.0-2.0); Eosinophils # (auto) 0.3 10 ^3/uL (0-0.8); Eosinophils % (auto) 1.6 % (0.0-7.0); Hematocrit 30.9 % (36.0-46.0); Lymphocytes # (auto) 1.7 10 ^3/uL (0.4-5.4); Mean Corpuscular Hemoglobin 25.8 pg (28.0-32.0); Mean Corpuscular Volume 78.4 fL (80.0-100.0); Monocytes # (auto) 1.4 10 ^3/uL (0-1.3); Monocytes % (auto) 8.6 % (0.0-12.0); Neutrophils # (auto) 13.4 10 ^3/uL (1.6-8.6); Neutrophils % (auto) 79.6 % (37.0-80.0); Red Blood Cells 3.95 10^6/uL (4.0-5.20); Red Cell Distribution Width 16.8 % (11.8-14.3); White Blood Cell 16.8 10^3/uL (4.4-10.8)
[2022-11-08 07:45] LABS: Potassium 3.4 mmol/L (3.5-5.1)
[2022-11-08 08:00] LABS: Albumin 1.6 g/dL (3.4-5.0); Bilirubin, Total 0.4 mg/dL (0.2-1.0); Calcium 7.9 mg/dL (8.5-10.1); Total Protein 6.4 g/dL (6.4-8.2)
[2022-11-08] MEDS: DOCUSATE SOD 100 MG CAP PO SCH ×2 (10:00→22:00)
[2022-11-08] MEDS: amLODIPine BESYLATE 5 MG TAB PO SCH (10:44)
[2022-11-08] MEDS: ENOXAPARIN SOD 40 MG/0.4 ML SYRINGE SC SCH ×2 (10:44→23:10)
[2022-11-08] MEDS ORDERED: POTASSIUM CHL 20 Meq TABLET PO ONE (12:45)
[2022-11-08] MEDS ORDERED: ALBUTEROL SULF 2.5 MG/0.5ML(0.5%) NEB SOLN ONE (23:49)
[2022-11-08] MEDS: ALBUTEROL MEDNEB 2.5 mg/3ml NEB NEB PRN (23:55)
[2022-11-09] VITALS (10 sets, daily range): BP systolic 124–157; BP diastolic 46–102; PULSE 82–94; RESP 15–20; TEMP 97.4–98.3; O2SAT 91–100
[2022-11-09] MEDS: PIPERACILLIN-TAZOB 3.375GM 100 ML IV SCH ×3 (02:56→17:55)
[2022-11-09] MEDS: ACCU-CHEK COMFORT CURVE STRIP VI SCH ×4 (06:07→22:26)
[2022-11-09] MEDS: SODIUM CHLOR 0.9% PF (SALINE LOCK) 10ML VIAL/SYR IV SCH ×3 (06:07→22:30)
[2022-11-09] MEDS: InsuLIN REG 1unit/0.01ml Soln (100units/ml) SC SCH ×4 (06:07→22:27)
[2022-11-09 07:11] LABS: Basophils # (auto) 0.1 10 ^3/uL (0-0.2); Eosinophils # (auto) 0.3 10 ^3/uL (0-0.8); Eosinophils % (auto) 1.9 % (0.0-7.0); Hematocrit 32.2 % (36.0-46.0); Monocytes # (auto) 1.2 10 ^3/uL (0-1.3); Monocytes % (auto) 7.6 % (0.0-12.0)
[2022-11-09 07:14] LABS: Basophils % (auto) 0.7 % (0.0-2.0); Hemoglobin 10.6 g/dL (12.2-16.2); Lymphocytes # (auto) 1.8 10 ^3/uL (0.4-5.4); Lymphocytes % (auto) 11.8 % (10.0-50.0); Mean Corpuscular Hemoglobin 25.8 pg (28.0-32.0); Mean Corpuscular Hgb Conc. 32.8 g/dL (32.0-36.0); Mean Corpuscular Volume 78.5 fL (80.0-100.0); Nucleated Red Blood Cells % 0.2 %; Red Blood Cells 4.11 10^6/uL (4.0-5.20); Red Cell Distribution Width 16.9 % (11.8-14.3); White Blood Cell 15.3 10^3/uL (4.4-10.8)
[2022-11-09 07:25] LABS: Potassium 3.6 mmol/L (3.5-5.1)
[2022-11-09 07:56] LABS: Albumin 1.8 g/dL (3.4-5.0); BUN/Creatinine Ratio 9.7 (10.0-20.0); Bilirubin, Total 0.3 mg/dL (0.2-1.0); Total Protein 6.4 g/dL (6.4-8.2)
[2022-11-09] MEDS: levoFLOXacin 750MG 150 ML IV SCH (09:20)
[2022-11-09] MEDS: ENOXAPARIN SOD 40 MG/0.4 ML SYRINGE SC SCH ×2 (09:20→22:31)
[2022-11-09] MEDS: amLODIPine BESYLATE 5 MG TAB PO SCH (09:20)
[2022-11-09] MEDS: DOCUSATE SOD 100 MG CAP PO SCH ×2 (10:00→22:00)
[2022-11-09 15:06] LABS: Base Excess 3.3 mmol/L (-2.0-2.0)
[2022-11-09] MEDS: Pro-Stat SF 30ml Vanilla PO SCH (17:55)
[2022-11-10] VITALS (9 sets, daily range): BP systolic 131–154; BP diastolic 55–93; PULSE 87–97; RESP 16–20; TEMP 97.5–98; O2SAT 95–100
[2022-11-10] MEDS: PIPERACILLIN-TAZOB 3.375GM 100 ML IV SCH ×2 (02:13→11:58)
[2022-11-10] MEDS: SODIUM CHLOR 0.9% PF (SALINE LOCK) 10ML VIAL/SYR IV SCH ×2 (05:56→14:00)
[2022-11-10] MEDS: InsuLIN REG 1unit/0.01ml Soln (100units/ml) SC SCH ×3 (06:01→17:00)
[2022-11-10] MEDS: ACCU-CHEK COMFORT CURVE STRIP VI SCH ×3 (06:01→17:00)
[2022-11-10 06:12] LABS: Hematocrit 34.2 % (36.0-46.0); Hemoglobin 11.4 g/dL (12.2-16.2); Mean Corpuscular Hemoglobin 26.3 pg (28.0-32.0); Mean Corpuscular Hgb Conc. 33.3 g/dL (32.0-36.0); Mean Corpuscular Volume 78.9 fL (80.0-100.0); Red Blood Cells 4.34 10^6/uL (4.0-5.20); Red Cell Distribution Width 16.9 % (11.8-14.3); White Blood Cell 14.2 10^3/uL (4.4-10.8)
[2022-11-10 06:22] LABS: Basophils % (manual) 0 (0.0-2.0); Metamyelocytes % 0; Myelocytes % 0; Promyelocytes % 0
[2022-11-10 06:23] LABS: BUN/Creatinine Ratio 9.7 (10.0-20.0); Blast Cells 0; Calcium 8.3 mg/dL (8.5-10.1); Potassium 3.6 mmol/L (3.5-5.1); Reactive Lymphocytes 0
[2022-11-10] MEDS: Pro-Stat SF 30ml Vanilla PO SCH ×2 (08:00→18:00)
[2022-11-10] MEDS: DOCUSATE SOD 100 MG CAP PO SCH (10:00)
[2022-11-10] MEDS ORDERED: LOSARTAN POTASSIUM 50 MG TAB PO SCH (10:00)
[2022-11-10] MEDS: levoFLOXacin 750MG 150 ML IV SCH (10:14)
[2022-11-10] MEDS: amLODIPine BESYLATE 5 MG TAB PO SCH (10:18)
[2022-11-10] MEDS: ENOXAPARIN SOD 40 MG/0.4 ML SYRINGE SC SCH (10:19)
[2022-11-10 10:47] LABS: Band Neutrophils % (manual) 1; Eosinophils % (manual) 4 (0-7); Lymphocytes % (manual) 12 (10.0-50.0); Monocytes % (manual) 7 (0-12)
[2022-11-10 10:48] LABS: Platelet Estimate Increased
[2022-11-10] MEDS ORDERED: LEVO500T91 PO (17:11)
[2022-11-10] MEDS ORDERED: FERROUS SULFATE 325mg EC TAB PO SCH (18:00)
== END 2022-11-10 20:15 | disposition home health service (06) | DRG 720 ==
LOC: ER 14:45 → OVERFLOW 17:15 → EAST 11-03 22:15 → TELE-EAST 11-04 12:06 → EAST 11-09 16:33
PROVIDERS: ADMIT Internal Medicine; ATTEND Student in an Organized Health Care Education/Training Program
DX: A41.9 Sepsis, unspecified organism (principal); J96.01 Acute respiratory failure with hypoxia; G93.41 Metabolic encephalopathy; N17.9 Acute kidney failure, unspecified; J18.9 Pneumonia, unspecified organism; E11.649 Type 2 diabetes mellitus with hypoglycemia without coma; E11.40 Type 2 diabetes mellitus with diabetic neuropathy, unspecified; D50.9 Iron deficiency anemia, unspecified; N39.0 Urinary tract infection, site not specified; I10 Essential (primary) hypertension; Z20.822 Contact with and (suspected) exposure to COVID-19; E66.01 Morbid (severe) obesity due to excess calories; E87.6 Hypokalemia; R74.01 Elevation of levels of liver transaminase levels; J44.9 Chronic obstructive pulmonary disease, unspecified; Z68.42 Body mass index [BMI] 45.0-49.9, adult; Z88.5 Allergy status to narcotic agent; Z79.899 Other long term (current) drug therapy; Z80.8 Family history of malignant neoplasm of other organs or systems
CPT/HCPCS: 36415; 70450; 71045; 71275; 76775; 80048; 80053; 80061; 80307; 80320; 81001; 82565; 82570; 82728; 82962; 83036; 83540; 83550; 83605; 83735; 83880; 84300; 84484; 85007; 85025; 85027; 85379; 85652; 86141; 86704; 86706; 86708; 86803; 87040; 87081; 87086; 87340; 87426; 87804; 93306; 93970; 94640; 97110; 97116; 97163; 97530; 99291; G0378; J0696; J1815; J1956; J2405; J2543

== ENCOUNTER 2024-01-11 10:57 | Inpatient (IN) | payer MEDICAID ==
[~2024-01-11] VITALS: Ht 149.9 cm; Wt 126.2 kg
[~2024-01-11 10:57] MED LIST changes: +ATOR10TA52 PO; +DICL1GEL73 TOP; +GABA-339 PO; -GLIM-38 PO; +GLIP10TA9 PO; +LEVO500T91 PO; +LOSA-534 PO; -LOSA25TA15 PO; +SEMA2INJ3 SC; +TRAM-711 PO
--- NOTE | 2024-01-11 11:07 | ED.PDOC ---
SOB-HPI HPI Comments 63 year old female presents to the ED with chief complaint of SOB. Patient reports that she was going to have surgery today for a hysterectomy in [place], however, due to being noted to have Afib, she was monitored then advised to see her PCP for further work up. Patient relays that she visited her PCP who reviewed her paperwork from [place] and was advised to come to the ED for further evaluation. Patient states she has been experiencing SOB with associated leg swelling for a few days now. Patient notes she has history of COPD and asthma. Patient denies any N/V/D, fever, chills, dizziness, headache, or chest pain. 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 Family History Family History: Reviewed,noncontributory to illness Social History Smoker: Non-Smoker Alcohol: Denies ETOH Use Drugs: Marijuana Lives In: Home Constitutional: denies: chills, diaphoresis, fatigue, fever, malaise, sweats, weakness, others EENTM: denies: blurred vision, double vision, ear bleeding, ear discharge, ear drainage, ear pain, ear ringing, eye pain, eye redness, hearing loss, mouth pain, mouth swelling, nasal discharge, nose bleeding, nose congestion, nose p ain, photophobia, tearing, throat pain, throat swelling, voice changes, others Respiratory: reports: shortness of breath; denies: cough, hemoptysis, orthopnea, SOB at rest, SOB with excertion, stridor, wheezing, others Cardiovascular: reports: edema; denies: chest pain, dizzy spells, diaphoresis, Dyspnea on exertion, irregular heart beat, left arm pain, lightheadedness, palpitations, PND, syncope, others Gastrointestinal: denies: abdomen distended, abdominal pain, blood streaked bowels, constipated, diarrhea, dysphagia, difficulty swallowing, hematemesis, melena, nausea, poor appetite, poor fluid intake, rectal bleeding, rectal pain, vomiting, others Genitourinary: denies: abnormal vagina bleeding, burning, dyspareunia, dysuria, flank pain, frequency, hematuria, incontinence, pain, , vagina discharge, urgency, others Neurological: denies: dizziness, fainting, headache, left sided numbness, left sided weakness, numbness, paresthesia, pre-existing deficit, right sided numbness, right sided weakness, seizure, speech problems, tingling, tremors, weakness, others Musculoskeletal: denies: back pain, gout, joint pain, joint swelling, muscle pain, muscle stiffness, neck pain, others Integumetry: denies: bruises, change in color, change in hair/nails, dryness, laceration, lesions, lumps, rash, wounds, others Allergic/Immunocompromised: denies: Difficulty Healing, Frequent Infections, Hives, Itching, others Hematologic/Lymphatic: denies: anemia, blood clots, easy bleeding, easy bruising, swollen glands, others Endocrine: denies: excessive hunger, excessive sweating, excessive thirst, excessive urination, flushing, intolerance to cold, intolerance to heat, unexplained weight gain, unexplained weight loss, others Psychiatric: denies: anxiety, bipolar disorder, depression, hopeless, panic disorder, schizophrenia, sleepless, suicidal, others All Other Systems: Reviewed and Negative Physical Exam General Appearance: No Apparent Distress, Obese HEENT: Normal ENT Inspection, PERRL/EOMI Neck: Full Range of Motion, Non-Tender, Normal, Normal Inspection Respiratory: Chest Non-Tender, Lungs Clear, No Accessory Muscle Use, No Resp iratory Distress, Normal Breath Sounds, Rhonchi (Fine rhonchi in bilateral lung crocker) Cardiovascular: No Edema, No JVD, No Murmur, No Gallop, Normal Peripheral Pulses, Regular Rate/Rhythm Breast Exam: Deferred Gastrointestinal: No Organomegaly, Non Tender, No Pulsatile Mass, Normal Bowel Sounds, Soft Genitalia: Deferred Pelvic: Deferred Rectal: Deferred Extremities: No calf tenderness, Normal capillary refill, Normal inspection, Normal range of motion, Non-tender, No pedal edema Musculoskeletal : Apperance: Normal Neurologic: Alert, hr administrator II-XII nml as Tested, No Motor Deficits, Normal Affect, Normal Mood, No Sensory Deficits Cerebellar Function: Normal Reflexes: Normal Skin: Dry, Normal Color, Warm Lymphatic: No Adenopathy Was a procedure done? Was a procedure done?: No Differential Dx Differential Diagnosis: Asthma, Bronchitis, COPD X-Ray, Labs, Meds, VS Vital Signs Date Time Temp Pulse Resp B/P (MAP) Pulse Ox O2 Delivery O2 Flow Rate FiO2 01/11/24 12:00 129 16 94 Room Air* 0 21 01/11/24 12:00 89 01/11/24 11:43 98.2 76 20 150/97 (114) 96 98.2 01/11/24 11:23 14 98 Room Air* 0 21 01/11/24 11:18 97.2 115 19 149/93 (111) 97 01/11/24 11:14 141 Lab Test 01/11/24 12:58 01/11/24 11:11 Range/Units Troponin I High Sensitivity 3 L < 3 L </=34 ng/L White Blood Count 10.4 4.4-10.8 10^3/uL Red Blood Count 5.17 4.0-5.20 10^6/uL Hemoglobin 13.9 12.2-16.2 g/dL Hematocrit 41.9 36.0-46.0 % Mean Corpuscular Volume 81.0 80.0-100.0 fL Mean Corpuscular Hemoglobin 26.8 L 28.0-32.0 pg Mean Corpuscular Hemoglobin Concent 33.1 32.0-36.0 g/dL Red Cell Distribution Width 16.8 H 11.8-14.3 % Platelet Count 307 140-450 10^3/uL Mean Platelet Volume 7.5 6.9-10.8 fL Neutrophils (%) (Auto) 59.8 37.0-80.0 % Lymphocytes (%) (Auto) 28.5 10.0-50.0 % Monocytes (%) (Auto) 8.6 0.0-12.0 % Eosinophils (%) (Auto) 2.5 0.0-7.0 % Basophils (%) (Auto) 0.6 0.0-2.0 % Neutrophils # (Auto) 6.2 1.6-8.6 10 ^3/uL Lymphocytes # (Auto) 3.0 0.4-5.4 10 ^3/uL Monocytes # (Auto) 0.9 0-1.3 10 ^3/uL Eosinophils # (Auto) 0.3 0-0.8 10 ^3/uL Basophils # (Auto) 0.1 0-0.2 10 ^3/uL Nucleated Red Blood Cells 0.1 % D-Dimer, Quantitative 0.80 H 0.0-0.49 mg/L FEU Sodium Level 141 136-145 mmol/L Potassium Level 3.9 3.5-5.1 mmol/L Chloride Level 107 98-107 mmol/L Carbon Dioxide Level 26 20-31 mmol/L Anion Gap 8 5-15 Blood Urea Nitrogen 12 9-23 mg/dL Creatinine 1.02 0.550-1.02 mg/dL Glomerular Filtration Rate Calc 62 >90 mL/min BUN/Creatinine Ratio 11.8 10.0-20.0 Serum Glucose 171 H 74-106 mg/dL Calcium Level 9.5 8.7-10.4 mg/dL Total Bilirubin 0.5 0.2-1.0 mg/dL Aspartate Amino Transferase (AST) 11 L 13-40 U/L Alanine Aminotransferase (ALT) 21 7-40 U/L Alkaline Phosphatase 92 46-116 U/L Total Protein 6.9 5.7-8.2 g/dL Albumin 4.3 3.2-4.8 g/dL Current Medications Medications (Trade) Dose Ordered Sig/Mahogany Route Start Time Stop Time Status Last Admin Albuterol (Ventolin Medneb) 5 mg ONCE ONCE NEB 01/11/24 11:15 01/11/24 11:16 DC 01/11/24 11:24 Diltiazem HCl (Cardizem Injection) 15 mg ONCE ONCE IV 01/11/24 11:30 01/11/24 11:31 DC 01/11/24 11:57 Chest XR: No acute disease. CT Angio Chest: No pulmonary embolism. No aortic aneurysm or dissection. Bibasilar atelectasis. Otherwise, no evidence of acute intrathoracic abnormalities. Mesenteric lymphadenopathy which may be reactive. Mild gastric wall thickening. Correlate for gastritis. Mild cardiomegaly with trace pericardial effusion. Images Reviewed?: Images reviewed and evaluated by me Time of 1ST Reevaluation: 12:04 Reevaluation 1ST: Unchanged Patient Education/Counseling: Diagnosis, Treatment Family Education/Counseling: No Family Present Departure 1 Departure Time of Disposition: 15:07 Impression: Primary Impression: Atrial fibrillation Additional Impression: COPD exacerbation Disposition: 09 ADMITTED INPATIENT Admit to: Tele Condition: Guarded Comments Patient was given albuterol treatment Solu-Medrol 125 mg IV and patient will be admitted to the hospital and also had a CT angio that was negative patient was in atrial fibrillation upon arrival was given 15 mg of diltiazem Critical Care Note Critical Care Time?: No Stability Stability form required: No Heart Score Heart Score: Heart Score Response (Comments) Value History N/A 0 EKG N/A 0 Age N/A 0 Risk Factors N/A 0 Troponin N/A 0 Total 0 I personally scribed for FERNIE ELIAS MD ([email or web address]) on 01/11/24 at 11:07. Electronically submitted by Hemant Mistry ([email or web address]). I personally scribed for FERNIE ELIAS MD ([email or web address]) on 01/11/24 at 11:42. Electronically submitted by Hemant Mistry ([email or web address]). I personally scribed for FERNIE ELIAS MD ([email or web address]) on 01/11/24 at 15:05. Electronically submitted by Hemant Mistry ([email or web address]). FERNIE ELIAS MD Jan 11, 2024 11:07
[2024-01-11 11:24] LABS: Basophils # (auto) 0.1 10 ^3/uL (0-0.2); Basophils % (auto) 0.6 % (0.0-2.0); Eosinophils # (auto) 0.3 10 ^3/uL (0-0.8); Hemoglobin 13.9 g/dL (12.2-16.2); Monocytes # (auto) 0.9 10 ^3/uL (0-1.3); White Blood Cell 10.4 10^3/uL (4.4-10.8)
[2024-01-11] MEDS: ALBUTEROL SULF 2.5 MG/0.5ML(0.5%) NEB SOLN NEB ONE (11:24)
[2024-01-11 11:26] LABS: Eosinophils % (auto) 2.5 % (0.0-7.0); Hematocrit 41.9 % (36.0-46.0); Lymphocytes % (auto) 28.5 % (10.0-50.0); Mean Corpuscular Hemoglobin 26.8 pg (28.0-32.0); Mean Corpuscular Hgb Conc. 33.1 g/dL (32.0-36.0); Monocytes % (auto) 8.6 % (0.0-12.0); Neutrophils # (auto) 6.2 10 ^3/uL (1.6-8.6); Neutrophils % (auto) 59.8 % (37.0-80.0); Nucleated Red Blood Cells % 0.1 %; Platelet Count (auto) 307 10^3/uL (140-450); Red Blood Cells 5.17 10^6/uL (4.0-5.20); Red Cell Distribution Width 16.8 % (11.8-14.3)
--- NOTE | 2024-01-11 11:38 | DVH ---
CHEST RADIOGRAPH Indication:sob Technique: Single frontal view of the chest was obtained COMPARISON: XY CHEST PORTABLE on DOS: 11/02/22, CHEST PORTABLE on DOS: 05/26/20, CHEST PORTABLE on DOS: 05/24/20 FINDINGS: Lines and Tubes: None Lungs: Clear Pleura: No effusion. No pneumothorax. Cardiomediastinal contours: Unremarkable Bones: Unremarkable IMPRESSION: No acute disease.
[2024-01-11 11:45] LABS: Alanine Aminotransferase 21 U/L (7-40); Alkaline Phosphatase 92 U/L (46-116); Anion Gap 8 (5-15); Aspartate Aminotransferase 11 U/L (13-40); BUN/Creatinine Ratio 11.8 (10.0-20.0); Blood Urea Nitrogen 12 mg/dL (9-23); Calcium 9.5 mg/dL (8.7-10.4); Carbon Dioxide 26 mmol/L (20-31); Chloride 107 mmol/L (98-107); Glucose 171 mg/dL (74-106); Potassium 3.9 mmol/L (3.5-5.1); Sodium 141 mmol/L (136-145)
[2024-01-11 11:46] LABS: Albumin 4.3 g/dL (3.2-4.8); Bilirubin, Total 0.5 mg/dL (0.2-1.0); Total Protein 6.9 g/dL (5.7-8.2)
[2024-01-11] MEDS: dilTIAZem 25 MG/5 ML VIAL IV ONE (11:57)
[2024-01-11 12:00] VITALS: PULSE 129; RESP 16; O2SAT 94
--- NOTE | 2024-01-11 13:47 | DVH ---
CHEST RADIOGRAPH Indication:Shortness of breath Technique: Single frontal view of the chest was obtained Comparison: XY CHEST PORTABLE on DOS: 01/11/24, XY CHEST PORTABLE on DOS: 11/02/22, CHEST PORTABLE on D OS: 05/26/20, CHEST PORTABLE on DOS: 05/24/20, CHEST PORTABLE on DOS: 05/22/20 FINDINGS: Lines and Tubes: None Lungs: No focal consolidation. Pleura: No effusion. No pneumothorax. Cardiomediastinal contours: Mild cardiomegaly Bones: No acute osseous abnormality. IMPRESSION: No acute cardiopulmonary disease.
--- NOTE | 2024-01-11 14:54 | DVH ---
EXAM: CT CT ANGIO CHEST CONTRAST HISTORY: sob COMPARISON: CT CT ANGIO CHEST CONTRAST on DOS: 11/07/22, CT ANGIO CHEST CONTRAST on DOS: 05/22/20 TECHNIQUE: Axial images of the chest were obtained and reformatted in coronal and sagittal planes pos tcontrast. 3D maximum intensity projection images provided and evaluated.. All CT scans at this medical facility are performed using dose modulation techniques as appropriate t o a performed exam including the following: Automated exposure control was utilized; adjustment of th e MA and/or KV according to patient size; and use of iterative reconstruction technique. CT Dose: CTDI volume is 29.2 mGy. Dose-length product is 932.89 mGy*cm FINDINGS: The thyroid gland is unremarkable. No pulmonary embolism. No aortic aneurysm or dissection. Mild cardiomegaly with trace pericardial effusion. Mesenteric lymphadenopathy measuring up to 11 mm. No pneumothorax, pleural effusion or focal airspace consolidation. Bibasilar atelectasis. Mild gastric wall thickening. Otherwise, partial view of the upper abdomen is unremarkable. The soft tissues are unremarkable. No destructive osseous lesions are noted. IMPRESSION: No pulmonary embolism. No aortic aneurysm or dissection. Bibasilar atelectasis. Otherwise, no evidence of acute intrathoracic abnormalities. Mesenteric lymphadenopathy which may be reactive. Mild gastric wall thickening. Correlate for gastritis. Mild cardiomegaly with trace pericardial effusion.
[2024-01-11] MEDS ORDERED: ONDANSETRON HCL 4 MG/2 ML VIAL IV PRN (16:00)
[2024-01-11] MEDS ORDERED: NITROGLYCERIN 0.4 MG SL TAB SL PRN (16:00)
[2024-01-11] MEDS ORDERED: HYDROcodone-ACET 5/325MG TAB PO PRN (16:00)
[2024-01-11] MEDS ORDERED: DOCUSATE SOD 100 MG CAP PO PRN (16:00)
[2024-01-11] MEDS ORDERED: DEXTROSE (50%) 50ML SYRG IV PRN (16:00)
[2024-01-11] MEDS ORDERED: MORPHINE SULFATE INJ 2 MG/ml SYRG IV PRN (16:00)
[2024-01-11] MEDS ORDERED: AMIT-399 PO (16:01)
--- NOTE | 2024-01-11 16:06 | DVHHP2 ---
History of Present Illness Reason for Visit: New onset atrial fibrillation History of Present Illness Miriam Agrawal is a 63-year-old female with past medical history of COPD, asthma, diabetes, neuropathy, PE's, and hypertension, who was sent to the hospital by her primary care provider for new onset atrial fibrillation with RV R. Patient went to [place] today to have a hysterectomy. During the pre-op assessment they noticed her to be in atrial fibrillation with RVR. They canceled her surgery and told her to go to the hospital or her primary care provider to be seen by a web marketing assistant. Patient went to her primary care provider and she sent her to the hospital. Patient is currently not being followed by a web marketing assistant. Patient states that she did not feel any symptoms this morning, but as they day went on she began to feel palpitations and fluttering in her chest. Cardiovascular: HTN Pulmonary: Asthma, COPD, Pulmonary embolus Endocrine: Diabetes Past Surgical History: Cataract Removal, , Other (IVC filter) Family History: None Smoke: No ALCOHOL: rare Drugs: None Lives: with Family Domestic Violence: Neg Review of Systems Constitutional: No: Fever, Chills, Sweats, Weakness, Malaise, Other Eyes: No: Pain, Vision change, Conjunctivae inflammation, Eyelid inflammation, Other, Redness ENT: No: Ear pain, Ear discharge, Nose pain, Nose discharge, Nose congestion, Mouth pain, Mouth swelling, Throat pain, Throat swelling, Other Respiratory: No: Cough, Dry, Shortness of breath, SOB with excertion, Wheezing, Hemoptysis, Pleuritic Pain, Sputum, Wheezing, Other Cardiovascular: Palpitations; No: Chest Pain, Orthopnea, Paroxysmal Noc. Dyspnea, Edema, Lt Headedness, Other Gastrointestinal: No: Nausea, Vomiting, Abdominal Pain, Diarrhea, Constipation, Melena, Hematochezia, Other Genitourinary: No Dysuria, No Frequency, No Incontinence, No Hematuria, No Retention, No Other Musculoskeletal: No: other, neck pain, shoulder pain, arm pain, back pain, hand pain, leg pain, foot pain Skin: No: Rash, Lesions, Jaundice, Bruising, Other Neurological: No: Weakness, Numbness, Incoordination, Change in speech, Confusion, Seizures, Other Allergies: Coded Allergies: Codeine (Verified Allergy, Unknown, 05/22/20) Medications Current Medications Medications Dose Ordered Sig/Mahogany Route Start Time Stop Time Status Last Admin Dose Admin Sodium Chloride 10 ml Q8HR IV 01/11/24 22:00 UNV Acetaminophen/ Hydrocodone Bitart 1 tab Q4HP PRN PO 01/11/24 16:00 UNV Ondansetron HCl 4 mg Q4HP PRN IV 01/11/24 16:00 UNV Docusate Sodium 100 mg BIDPRN PRN PO 01/11/24 16:00 UNV Acetaminophen 650 mg Q6HP PRN PO 01/11/24 16:00 UNV Nitroglycerin 0.4 mg Q5MINP PRN SL 01/11/24 16:00 UNV Morphine Sulfate 2 mg Q30M PRN IV 01/11/24 16:00 UNV Diagnostic Test (Pha) 1 strip ACHS 01/11/24 17:00 UNV Insulin Human Regular AC SC 01/11/24 17:00 UNV Dextrose 50 ml UD PRN IV 01/11/24 16:00 UNV Losartan Potassium 50 mg DAILY PO 01/12/24 10:00 UNV Patient Own Medication 1 tab DAILY PO 01/12/24 10:00 UNV Patient Own Medication 20 mg BID PO 01/11/24 22:00 UNV Exam Vital Signs Vital Signs Date Time Temp Pulse Resp B/P (MAP) Pulse Ox O2 Delivery O2 Flow Rate FiO2 01/11/24 12:00 129 16 94 Room Air* 0 21 01/11/24 11:43 98.2 150/97 (114) 98.2 General Appearance: Alert, Oriented X3, Cooperative, moderate distress HEENT: Atraumatic, PERRLA Respiratory: Clear to auscultation Cardiovascular: Regular rate, Normal S1, Normal S2 Abdominal: Normal bowel sounds, Soft, No tenderness Extremities: No clubbing, No cyanosis, No edema, Normal pulses Skin: No rashes, No breakdown, No significant lesion Neuro: Normal gait, Normal speech, Strength at 5/5 X4 ext Psych/Mental Status: Mental status NL, Mood NL Labs/Xrays Labs Test 01/11/24 15:00 01/11/24 11:11 Range/Units Troponin I High Sensitivity 3 L </=34 ng/L White Blood Count 10.4 4.4-10.8 10^3/uL Red Blood Count 5.17 4.0-5.20 10^6/uL Hemoglobin 13.9 12.2-16.2 g/dL Hematocrit 41.9 36.0-46.0 % Mean Corpuscular Volume 81.0 80.0-100.0 fL Mean Corpuscular Hemoglobin 26.8 L 28.0-32.0 pg Mean Corpuscular Hemoglobin Concent 33.1 32.0-36.0 g/dL Red Cell Distribution Width 16.8 H 11.8-14.3 % Platelet Count 307 140-450 10^3/uL Mean Platelet Volume 7.5 6.9-10.8 fL Neutrophils (%) (Auto) 59.8 37.0-80.0 % Lymphocytes (%) (Auto) 28.5 10.0-50.0 % Monocytes (%) (Auto) 8.6 0.0-12.0 % Eosinophils (%) (Auto) 2.5 0.0-7.0 % Basophils (%) (Auto) 0.6 0.0-2.0 % Neutrophils # (Auto) 6.2 1.6-8.6 10 ^3/uL Lymphocytes # (Auto) 3.0 0.4-5.4 10 ^3/uL Monocytes # (Auto) 0.9 0-1.3 10 ^3/uL Eosinophils # (Auto) 0.3 0-0.8 10 ^3/uL Basophils # (Auto) 0.1 0-0.2 10 ^3/uL Nucleated Red Blood Cells 0.1 % D-Dimer, Quantitative 0.80 H 0.0-0.49 mg/L FEU Sodium Level 141 136-145 mmol/L Potassium Level 3.9 3.5-5.1 mmol/L Chloride Level 107 98-107 mmol/L Carbon Dioxide Level 26 20-31 mmol/L Anion Gap 8 5-15 Blood Urea Nitrogen 12 9-23 mg/dL Creatinine 1.02 0.550-1.02 mg/dL Glomerular Filtration Rate Calc 62 >90 mL/min BUN/Creatinine Ratio 11.8 10.0-20.0 Serum Glucose 171 H 74-106 mg/dL Calcium Level 9.5 8.7-10.4 mg/dL Total Bilirubin 0.5 0.2-1.0 mg/dL Aspartate Amino Transferase (AST) 11 L 13-40 U/L Alanine Aminotransferase (ALT) 21 7-40 U/L Alkaline Phosphatase 92 46-116 U/L Total Protein 6.9 5.7-8.2 g/dL Albumin 4.3 3.2-4.8 g/dL EXAM: CT CT ANGIO CHEST CONTRAST FINDINGS: The thyroid gland is unremarkable. No pulmonary embolism. No aortic aneurysm or dissection. Mild cardiomegaly with trace pericardial effusion. Mesenteric lymphadenopathy measuring up to 11 mm. No pneumothorax, pleural effusion or focal airspace consolidation. Bibasilar atelectasis. Mild gastric wall thickening. Otherwise, partial view of the upper abdomen is unremarkable. The soft tissues are unremarkable. No destructive osseous lesions are noted. IMPRESSION: No pulmonary embolism. No aortic aneurysm or dissection. Bibasilar atelectasis. Otherwise, no evidence of acute intrathoracic abnormalities. Mesenteric lymphadenopathy which may be reactive. Mild gastric wall thickening. Correlate for gastritis. Mild cardiomegaly with trace pericardial effusion. CHEST RADIOGRAPH FINDINGS: Lines and Tubes: None Lungs: No focal consolidation. Pleura: No effusion. No pneumothorax. Cardiomediastinal contours: Mild cardiomegaly Bones: No acute osseous abnormality. IMPRESSION: No acute cardiopulmonary disease. Assessment/Plan Assessment/Plan Assessment: New onset atrial fibrillation with RVR, Elevated D-dimer, Hypertension, Diabetes, COPD, Obesity, Plan: Admit to Tele, Cardiology consult, ECHO, Start metoprolol, Breathing treatments as needed, A1c, Accu checks Q AC&HS with sliding scale, Home medications reconciled, Plan discussed with: Patient My Orders Orders - ASHELY ARCHIBALD Procedure Category Date Status Time Admit ADMIT 01/11/24 Transmitted 15:48 Code Status CODE 01/11/24 Transmitted 15:48 Sodium Chloride Lock PHA 01/11/24 Logged (Saline Lock Ns) 22:00 Hydrocodone-Acet PHA 01/11/24 Logged 5/325mg Tab ([place] 16:00 Ondansetron Hcl PHA 01/11/24 Logged (Zofran) 16:00 Docusate Sodium PHA 01/11/24 Logged Capsule (Colace 16:00 Complete Blood Count LAB 01/12/24 Verified 04:00 Comprehensive LAB 01/12/24 Verified Metabolic Panel 04:00 Cardiac DIET 01/11/24 Transmitted Diet-2gna,Lofat,Lochol Dinner Echo 2d Mode Cardiac US 01/11/24 Logged DOP 15:48 Condition: Serious NICKI 01/11/24 In Process 15:48 Acetaminophen Tablet PHA 01/11/24 Logged (Tylenol Tablet) 16:00 Nitroglycerin PHA 01/11/24 Logged Sublingual (Ntrostat 16:00 Morphine Sulfate PHA 01/11/24 Transmitted Injection 16:00 Stat Ekg For Chest NICKI 01/11/24 In Process Pain 15:48 Notify Of Changes NICKI 01/11/24 In Process From Base 15:48 Respiratory Therapy Director For NICKI 01/11/24 In Process 24 Hours 15:48 Emergency Dysrhythmia NICKI 01/11/24 In Process Protocol 15:48 Rhythm Strips Once NICKI 01/11/24 In Process Every Shift 15:48 Oxygen By Nasal RT 01/11/24 Transmitted Cannula 15:48 Glucose Blood PHA 01/11/24 Transmitted (Accu-Chek Comfort 17:00 Bedtime Insulin Scale PHA 01/11/24 Transmitted 22:00 Moderate Insulin Ss PHA 01/11/24 Transmitted 17:00 Dextrose 50% Syringe PHA 01/11/24 Transmitted 16:00 * Cardiology Consult CONS 01/11/24 Transmitted 15:48 Losartan Tablet PHA 01/12/24 Transmitted (Cozaar Tablet) 10:00 (Nf) Atorvastatin PHA 01/12/24 Transmitted Calcium 10:00 (Nf) Glipizide PHA 01/11/24 Transmitted 22:00 Hemoglobin A1c LAB 01/12/24 Verified 04:00 Date of Service: Jan 11, 2024 Billing Provider: ASHELY ARCHIBALD Common Visit Codes: [id number] INP/OBS CARE (HIGH) ASHELY ARCHIBALD Jan 11, 2024 16:06
[2024-01-11] MEDS ORDERED: ALBUTEROL SULF 2.5 MG/0.5ML(0.5%) NEB SOLN NEB PRN (16:15)
[2024-01-11] MEDS ORDERED: IPRATROPIUM BROM 0.5 MG/2.5ML INH SOL NEB PRN (16:15)
[2024-01-11 16:17] VITALS: BP 150/97; PULSE 76; RESP 20; TEMP 98.2; O2SAT 96
[2024-01-11] MEDS: ACCU-CHEK COMFORT CURVE STRIP VI SCH (17:33)
[2024-01-11] MEDS: InsuLIN REG 1unit/0.01ml Soln (100units/ml) SC SCH ×2 (17:33→21:53)
[2024-01-11] MEDS: glipiZIDE 5 MG TAB PO SCH (18:05)
--- NOTE | 2024-01-11 19:10 | ECG ---
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
[2024-01-11 19:50] VITALS: O2SAT 96
[2024-01-11] MEDS ORDERED: AMLO1TAB22 PO (20:42)
[2024-01-11] MEDS ORDERED: PREG25CA28 PO (20:42)
[2024-01-11] MEDS ORDERED: PERCOT PO (20:42)
[2024-01-11] MEDS ORDERED: MELO7.5T7 PO (20:42)
[2024-01-11] MEDS: ACETAMINOPHEN 325 MG TAB PO PRN (21:07)
[2024-01-11] MEDS: METOPROLOL TARTRATE 25 MG TAB PO SCH (21:43)
[2024-01-11] MEDS: SODIUM CHLOR 0.9% PF (SALINE LOCK) 10ML VIAL/SYR IV SCH (21:44)
[2024-01-11] MEDS: ATORVASTATIN 20 MG TAB PO SCH (21:44)
[2024-01-11] MEDS: PREGABALIN 25 MG CAP PO SCH (22:14)
[2024-01-11] MEDS: AMITRIPTYLINE HCL 10 MG TAB PO SCH (22:15)
[2024-01-11 22:17] VITALS: BP 136/68; PULSE 85; RESP 20; TEMP 97.8; O2SAT 94
[2024-01-12] VITALS (11 sets, daily range): BP systolic 112–137; BP diastolic 49–71; PULSE 64–85; RESP 17–20; TEMP 92.2–98.2; O2SAT 92–99
[2024-01-12] MEDS ORDERED: CHOL20007 OR (03:21)
[2024-01-12] MEDS ORDERED: GLIP10TA9 PO (03:32)
[2024-01-12] MEDS ORDERED: LOSA-534 PO (03:35)
[2024-01-12 05:16] LABS: Basophils # (auto) 0.1 10 ^3/uL (0-0.2); Eosinophils # (auto) 0.3 10 ^3/uL (0-0.8); Hematocrit 40.1 % (36.0-46.0); Hemoglobin 13.4 g/dL (12.2-16.2); Lymphocytes # (auto) 2.1 10 ^3/uL (0.4-5.4); Lymphocytes % (auto) 25.4 % (10.0-50.0); Mean Corpuscular Hgb Conc. 33.4 g/dL (32.0-36.0); Mean Corpuscular Volume 80.9 fL (80.0-100.0); Monocytes # (auto) 0.9 10 ^3/uL (0-1.3); Monocytes % (auto) 10.9 % (0.0-12.0); Neutrophils # (auto) 4.8 10 ^3/uL (1.6-8.6); Neutrophils % (auto) 58.7 % (37.0-80.0); Nucleated Red Blood Cells % 0.1 %; Platelet Count (auto) 255 10^3/uL (140-450); Red Blood Cells 4.96 10^6/uL (4.0-5.20); Red Cell Distribution Width 16.9 % (11.8-14.3); White Blood Cell 8.2 10^3/uL (4.4-10.8)
[2024-01-12 05:27] LABS: Alanine Aminotransferase 19 U/L (7-40); Albumin 4.1 g/dL (3.2-4.8); Alkaline Phosphatase 80 U/L (46-116); Anion Gap 7 (5-15); Aspartate Aminotransferase 10 U/L (13-40); BUN/Creatinine Ratio 9.6 (10.0-20.0); Bilirubin, Total 0.5 mg/dL (0.2-1.0); Blood Urea Nitrogen 9 mg/dL (9-23); Calcium 9.2 mg/dL (8.7-10.4); Carbon Dioxide 27 mmol/L (20-31); Chloride 109 mmol/L (98-107); Glucose 81 mg/dL (74-106); Potassium 3.8 mmol/L (3.5-5.1); Sodium 143 mmol/L (136-145)
[2024-01-12 05:28] LABS: Total Protein 6.4 g/dL (5.7-8.2)
[2024-01-12] MEDS: LOSARTAN POTASSIUM 50 MG TAB PO SCH (08:43)
[2024-01-12] MEDS: amLODIPine BESYLATE 5 MG TAB PO SCH (08:44)
[2024-01-12] MEDS: OXYCODONE W/ ACETAMINOPHEN 5/325MG TABLET PO PRN (08:48)
[2024-01-12] MEDS: CYANOCOBALAMIN (B-12) 1000 MCG/1 ML VIAL IM ONE (12:04)
[2024-01-12 12:48] LABS: Urine Bacteria None Seen /hpf (None Seen)
[2024-01-12 13:45] LABS: Urine Blood Negative /uL (Negative); Urine Clarity Clear (Clear); Urine Color Light-Yellow (Yellow); Urine Protein, UAD Negative (Negative); Urine Specific Gravity 1.019 (1.001-1.035); Urine Urobilinogen Normal (Negative); Urine WBC 1 /hpf (0 - 5)
[2024-01-12 13:46] LABS: Amphetamine Screen, Urine Neg (NEGATIVE); Barbiturate Scree,Urine Neg (NEGATIVE); Benzodiazephine Screen, Urine Neg (NEGATIVE); Cannabinoid Screen, Urine Neg (NEGATIVE); Cocaine Screen, Urine Neg (NEGATIVE); Opiate Scree,Urine Neg (NEGATIVE); Phencyclidine Screen, Urine Neg (NEGATIVE)
[2024-01-12] MEDS: AMIODARONE HCL 200 MG TAB PO ONE (13:56)
--- NOTE | 2024-01-12 16:12 | DVHINCON2 ---
Date Seen: Jan 12, 2024 Referring Physician Catrachito Bean NP Reason for Consultation New onset atrial fibrillation with rapid ventricular rate History of Present Illness Patient is 63 years old female with past medical history not limited to asthma, COPD, pulmonary embolism, on inferior vena caval filter-IVC, hypertension, diabetes mellitus, diabetic neuropathy, microcytic anemia, morbid obesity was sent to the ER from primary care physician's office. As per patient patient went to [facility] for hysterectomy and on vital checkup patient's heart rate was high and patient was sent to ER. ER found patient with atrial fibrillation with rapid ventricular rate. Then patient was sent to her PCP and PCP recommended patient to go to the ER. In the ER patient was found to have atrial fibrillation with rapid ventricular rate. Patient was given IV Cardizem and EKG reverted to sinus rhythm. Patient denied any chest pain, short of breath, palpitation, dizziness, loss of consciousness, cough, constipation, diarrhea, dysarthria. Initial lab workup revealed D-dimer 0.8, WBC 10.4, hemoglobin 13.9, platelet 304, sodium 14.1, potassium 3.9, serum creatinine 1.02, HGB A1c 6, magnesium 2, AST/ALT/alkaline phosphatase within normal limits, TSH to 189, troponin I 3> 3> 3. CT angio revealed No pulmonary embolism. No aortic aneurysm or dissection. Bibasilar atelectasis. Otherwise, no evidence of acute intrathoracic abnormalities. mesenteric lymphadenopathy which may be reactive. Mild gastric wall thickening. Correlate for gastritis. Mild cardiomegaly with trace pericardial effusion. CXR-No acute cardiopulmonary disease. Home medications albuterol inhaler, amitriptyline 10 mg p.o. daily, amlodipine 5 mg daily, atorvastatin 10 mg daily, cholecalciferol 2000 unit daily, glipizide 10 mg p.o. daily, docusate 100 mg p.o. b.i.d., losartan 50 mg p.o. daily, meloxicam 7.5 mg daily, oxycodone with the acetaminophen, pregabalin 25 mg p.o. b.i.d., semaglutide 2 mg per 3 mL injection 2 mg subcutaneously every week, Past Medical History asthma, COPD, pulmonary embolism, hypertension, diabetes mellitus, diabetic neuropathy, microcytic anemia, morbid obesity Past Surgical History Cataract surgery, , inferior vena cava filter, Family History: Diabetes mellitus G8 MOTHER G8 FATHER FH: Parkinson's disease G8 MOTHER FH: uterine cancer G8 MOTHER Ischemic heart disease G8 FATHER Kidney stones G8 FATHER Social History Lives with daughter, ex-smoker, occasional alcoholic, no drug abuser Allergies: Coded Allergies: Codeine (Verified Allergy, Unknown, 05/22/20) Home Meds Reported Medications Losartan Potassium (Losartan Potassium) 50 Mg Tab, 50 MG PO BID for 30 Days, MG 01/12/24 Glipizide (Glipizide) 10 Mg Tab, 10 MG PO QID for 30 Days, MG 01/12/24 Cholecalciferol (VITAMIN D3) 2,000 Unit Tab, 65686 UNIT OR QWEEKLY, TAB 01/12/24 Oxycodone W/ Acetaminophen (Percocet 5/325MG) 1 Tab Tb, 5-325 MG PO BIDPRN PRN 01/11/24 Pregabalin (Pregabalin) 25 Mg Cap, 1-2 CAP PO BID 01/11/24 Meloxicam (Meloxicam) 7.5 Mg Tab, 1 TAB PO DAILY 01/11/24 Amlodipine Besylate (Amlodipine Besylate) 5 Mg Tab, 1 TAB PO DAILY 01/11/24 Amitriptyline HCl (Amitriptyline HCl) 10 Mg Tab, 1 TAB PO HS 01/11/24 Diclofenac Sodium (Topical) (Diclofenac Sodium) 1 % Gel, 1 % TOP TID 11/03/22 Semaglutide (Ozempic) 2 Mg/3 Ml Inj, 2 MG SC QWEEKLY 11/03/22 Atorvastatin Calcium (ATORVASTATIN CALCIUM) 10 Mg Tab, 1 TAB PO DAILY 11/03/22 Docusate Sodium (Dok) 100 Mg Cap, 100 MG PO BID 05/22/20 Albuterol Sulfate (VENTOLIN MDI) 90 Mcg Ih, 2 PUFF IN QIDP PRN for SHORTNESS OF BREATH 05/22/20 Discontinued Reported Medications Losartan Potassium (Losartan Potassium) 50 Mg Tab, 50 MG PO DAILY 11/03/22 Glipizide (Glipizide) 10 Mg Tab, 20 MG PO BID, MG 11/03/22 Tramadol HCl (Tramadol Hydrochloride) 50 Mg Tab, 100 MG PO BID, TAB 11/03/22 Gabapentin (Gabapentin) 600 Mg Tab, 600 MG PO TID, MG 11/03/22 Discontinued Scripts Levofloxacin Hemihydrate (LEVAQUIN 500 MG) 500 Mg Tab, 1 TAB PO DAILY, #5 TAB Prov:MILE MCDONALD MD 11/10/22 Current Medications Current Medications Medications (Trade) Dose Ordered Sig/Mahogany Route PRN Reason Start Time Stop Time Status Last Admin Sodium Chloride (Saline Lock Ns) 10 ml Q8HR IV 01/11/24 22:00 01/12/24 14:02 Acetaminophen/ Hydrocodone Bitart ([place] 5/325MG Tab) 1 tab Q4HP PRN PO MODERATE PAIN (4-6 PAIN SCALE) 01/11/24 16:00 Ondansetron HCl (Zofran) 4 mg Q4HP PRN IV NAUSEA / VOMITING 01/11/24 16:00 Docusate Sodium (Colace Capsule) 100 mg BIDPRN PRN PO FOR CONSTIPATION 01/11/24 16:00 Acetaminophen (Tylenol Tablet) 650 mg Q6HP PRN PO PAIN SCALE 1-3 OR TEMP>100.4 01/11/24 16:00 01/11/24 21:07 Nitroglycerin (Ntrostat Sublingual) 0.4 mg Q5MINP PRN SL FOR CHEST PAIN 01/11/24 16:00 Morphine Sulfate 2 mg Q30M PRN IV FOR CHEST PAIN 01/11/24 16:00 Diagnostic Test (Pha) (Accu-Chek Comfort Curve T) 1 strip ACHS 01/11/24 17:00 01/12/24 11:10 Insulin Human Regular (InsuLIN R) HS SC 01/11/24 22:00 01/11/24 21:53 Insulin Human Regular (InsuLIN R) AC SC 01/11/24 17:00 Dextrose 50 ml UD PRN IV Blood Sugar LESS THAN 60 01/11/24 16:00 Losartan Potassium (Cozaar Tablet) 50 mg DAILY PO 01/12/24 10:00 01/12/24 08:43 Atorvastatin Calcium (Lipitor) 10 mg HS PO 01/11/24 22:00 01/12/24 12:34 DC 01/11/24 21:44 Glipizide (Glucotrol Tablet) 20 mg IBID PO 01/11/24 18:00 01/12/24 08:33 DC 01/12/24 06:22 Metoprolol Tartrate (Lopressor Tablet) 25 mg BID PO 01/11/24 22:00 01/12/24 08:42 Albuterol (Ventolin Medneb) 2.5 mg Q6HPRN PRN NEB SHORTNESS OF BREATH 01/11/24 16:15 Ipratropium [place] (Atrovent Medneb) 0.5 mg Q6HPRN PRN NEB SHORTNESS OF BREATH 01/11/24 16:15 Amitriptyline HCl (Elavil Tablet) 10 mg HS PO 01/11/24 22:00 01/11/24 22:15 Amlodipine Besylate (Norvasc Tablet) 5 mg DAILY PO 01/12/24 10:00 01/12/24 08:44 Oxycodone/ Acetaminophen (Percocet 5/ 325MG Tablet) 1 tab BIDPRN PRN PO PAIN SCALE 7 THRU 10 01/11/24 20:45 01/12/24 08:48 Patient Own Medication 1 tab DAILY PO 01/12/24 10:00 Pregabalin (Lyrica Capsule) 25 mg BID PO 01/11/24 22:00 01/12/24 08:43 Cyanocobalamin (Vitamin B-12) 1,000 mcg DAILY PO 01/13/24 10:00 Apixaban (Eliquis) 5 mg BID PO 01/12/24 22:00 01/12/24 13:09 DC Atorvastatin Calcium (Lipitor) 40 mg HS PO 01/12/24 22:00 Apixaban (Eliquis) 5 mg BID PO 01/12/24 22:00 Amiodarone HCl (Cordarone Tablet) 200 mg DAILY PO 01/13/24 10:00 Review of Systems Patient was seen today at the bedside. Patient reports doing okay, denies acute complaints Cardiovascular- deny acute chest pain or shortness of breath or cough or palpitation Respiratory- denies cough or short of breath or wheezing Gastrointestinal- denies any rectal bleeding, nausea or vomiting Musculoskeletal-denies acute joint swelling or tenderness or redness Neurological- denies acute dysarthria, dysphagia, change in vision Psychiatry- denies depression or SI or HI Skin- denies acute rash or purpura Vital Signs Vital Signs Date Time Temp Pulse Resp B/P (MAP) Pulse Ox O2 Delivery O2 Flow Rate FiO2 01/12/24 13:00 92.2 64 19 117/71 (86) 98 92.2 01/12/24 11:20 Room Air 01/12/24 11:20 0 21 Physical Exam General examination- awake, alert, oriented, conversant HEENT- PEERLA, no acute nasal discharge Cardiovascular- S1-S2 audible, rate and rhythm regular, no murmur Respiratory- CTAB, no wheeze or rhonchi Gastrointestinal-nontender, bowel sound+. Nondistended Musculoskeletal-no acute joint swelling or tenderness or redness# Lower extremity- no leg edema Neurological- cranial nerves intact, no acute dysarthria or dysphagia Psychiatry- denies depression or SI or HI Skin- no acute rash or purpura Labs/Diagnostic Data Labs Test 01/12/24 12:30 01/12/24 11:00 01/12/24 04:43 01/11/24 15:00 Range/Units Urine Color Light-yellow Yellow Urine Clarity Clear Clear Urine pH 6.0 5.0-9.0 Urine Specific [place] 1.019 1.001-1.035 Urine Protein Negative Negative Urine Ketones Negative Negative Urine Blood Negative Negative /uL Urine Nitrite Negative Negative Urine Bilirubin Negative Negative Urine Urobilinogen Normal Negative mg/dL Urine Leukocyte Esterase Negative Negative /uL Urine RBC 1 0 - 4 /hpf Urine WBC 1 0 - 5 /hpf Urine Squamous Epithelial Cells Few <5 /hpf Urine Bacteria None seen None Seen /hpf Urine Glucose Normal Normal mg/dL Urine Opiates Screen Neg NEGATIVE Urine Fentanyl Screen Neg NEGATIVE Urine Barbiturates Screen Neg NEGATIVE Urine Phencyclidine Screen Neg NEGATIVE Urine Amphetamines Screen Neg NEGATIVE Urine Benzodiazepines Screen Neg NEGATIVE Urine Cocaine Screen Neg NEGATIVE Urine Cannabinoids Screen Neg NEGATIVE POC Glucose 92 70-106 mg/dl White Blood Count 8.2 4.4-10.8 10^3/uL Red Blood Count 4.96 4.0-5.20 10^6/uL Hemoglobin 13.4 12.2-16.2 g/dL Hematocrit 40.1 36.0-46.0 % Mean Corpuscular Volume 80.9 80.0-100.0 fL Mean Corpuscular Hemoglobin 27.0 L 28.0-32.0 pg Mean Corpuscular Hemoglobin Concent 33.4 32.0-36.0 g/dL Red Cell Distribution Width 16.9 H 11.8-14.3 % Platelet Count 255 140-450 10^3/uL Mean Platelet Volume 7.6 6.9-10.8 fL Neutrophils (%) (Auto) 58.7 37.0-80.0 % Lymphocytes (%) (Auto) 25.4 10.0-50.0 % Monocytes (%) (Auto) 10.9 0.0-12.0 % Eosinophils (%) (Auto) 4.0 0.0-7.0 % Basophils (%) (Auto) 1.0 0.0-2.0 % Neutrophils # (Auto) 4.8 1.6-8.6 10 ^3/uL Lymphocytes # (Auto) 2.1 0.4-5.4 10 ^3/uL Monocytes # (Auto) 0.9 0-1.3 10 ^3/uL Eosinophils # (Auto) 0.3 0-0.8 10 ^3/uL Basophils # (Auto) 0.1 0-0.2 10 ^3/uL Nucleated Red Blood Cells 0.1 % Sodium Level 143 136-145 mmol/L Potassium Level 3.8 3.5-5.1 mmol/L Chloride Level 109 H 98-107 mmol/L Carbon Dioxide Level 27 20-31 mmol/L Anion Gap 7 5-15 Blood Urea Nitrogen 9 9-23 mg/dL Creatinine 0.94 0.550-1.02 mg/dL Glomerular Filtration Rate Calc 68 >90 mL/min BUN/Creatinine Ratio 9.6 L 10.0-20.0 Serum Glucose 81 74-106 mg/dL Hemoglobin A1c 6.0 H <5.7 % A1C Calcium Level 9.2 8.7-10.4 mg/dL Magnesium Level 2.0 1.6-2.6 mg/dL Total Bilirubin 0.5 0.2-1.0 mg/dL Aspartate Amino Transferase (AST) 10 L 13-40 U/L Alanine Aminotransferase (ALT) 19 7-40 U/L Alkaline Phosphatase 80 46-116 U/L Total Protein 6.4 5.7-8.2 g/dL Albumin 4.1 3.2-4.8 g/dL Vitamin B12 Level 277 211-911 pg/mL Vitamin D 25-Hydroxy 87.8 30.0-100 ng/mL Thyroid Stimulating Hormone (TSH) 2.89 0.55-4.78 uIU/mL Troponin I High Sensitivity 3 L </=34 ng/L Test 01/11/24 11:11 Range/Units D-Dimer, Quantitative 0.80 H 0.0-0.49 mg/L FEU Signed PATIENT: WILIAM PRASAD ACCT: [id number] UNIT: [id number] : 1960 LOC: ER ROOM / BED: / AGE / SEX: 63 / F ADM STATUS: REG ER SERVICE 1408 ORDERING PHYSICIAN: FERNIE ELIAS MD PROCEDURE(s): CTACH - CT ANGIO CHEST CONTRAST REASON: sob ORDER NUMBER(s): [id number], ACCESSION NUMBER(s): [id number] EXAM: CT CT ANGIO CHEST CONTRAST HISTORY: sob COMPARISON: CT CT ANGIO CHEST CONTRAST on DOS: 11/07/22, CT ANGIO CHEST CONTRAST on DOS: 05/22/20 TECHNIQUE: Axial images of the chest were obtained and reformatted in coronal and sagittal planes postcontrast. 3D maximum intensity projection images provided and evaluated.. All CT scans at this medical facility are performed using dose modulation techniques as appropriate to a performed exam including the following: Automated exposure control was utilized; adjustment of the MA and/or KV according to patient size; and use of iterative reconstruction technique. CT Dose: CTDI volume is 29.2 mGy. Dose-length product is 932.89 mGy*cm FINDINGS: The thyroid gland is unremarkable. No pulmonary embolism. No aortic aneurysm or dissection. Mild cardiomegaly with trace pericardial effusion. Mesenteric lymphadenopathy measuring up to 11 mm. No pneumothorax, pleural effusion or focal airspace consolidation. Bibasilar atelectasis. Mild gastric wall thickening. Otherwise, partial view of the upper abdomen is unremarkable. The soft tissues are unremarkable. No destructive osseous lesions are noted. IMPRESSION: No pulmonary embolism. No aortic aneurysm or dissection. Bibasilar atelectasis. Otherwise, no evidence of acute intrathoracic abnormalities. Mesenteric lymphadenopathy which may be reactive. Mild gastric wall thickening. Correlate for gastritis. Mild cardiomegaly with trace pericardial effusion. ATED BY: NANCY LONDON DO DICTATED DATE/TIME: 01/11/24 145 SIGNED BY: NANCY LONDON DO SIGNED DATE/TIME: 10/08/24 1452 CC: Diagnostic Imaging Report : [id number] Signed PATIENT: WILIAM PRASAD ACCT: [id number] UNIT: [id number] : 1960 LOC: ER ROOM / BED: / AGE / SEX: 63 / F ADM STATUS: REG ER SERVICE 1211 ORDERING PHYSICIAN: FERNIE ELIAS MD PROCEDURE(s): CXRP - CHEST PORTABLE REASON: Shortness of breath ORDER NUMBER(s): [id number], ACCESSION NUMBER(s): [id number] CHEST RADIOGRAPH Indication:Shortness of breath Technique: Single frontal view of the chest was obtained Comparison: XY CHEST PORTABLE on DOS: 01/11/24, XY CHEST PORTABLE on DOS: 11/02/22, CHEST PORTABLE on DOS: 05/26/20, CHEST PORTABLE on DOS: 05/24/20, CHEST PORTABLE on DOS: 05/22/20 FINDINGS: Lines and Tubes: None Lungs: No focal consolidation. Pleura: No effusion. No pneumothorax. Cardiomediastinal contours: Mild cardiomegaly Bones: No acute osseous abnormality. IMPRESSION: No acute cardiopulmonary disease. ATED BY: NANCY LONDON DO DICTATED DATE/TIME: 01/11/24 134 SIGNED BY: NANCY LONDON DO SIGNED DATE/TIME: 01/11/24 1344 CC: Assessment New onset atrial fibrillation with RVR-reverted to sinus rhythm after IV Cardizem h/o pulmonary embolism, on inferior vena caval filter-IVC- ruled out acute pulmonary embolism asthma-no acute exacerbation COPD-no acute exacerbation hypertension, diabetes mellitus, diabetic neuropathy, microcytic anemia, morbid obesity Plan/Recommendation Pending echo 2D-plan is to rule out any valvular or myocardial abnormality that could lead to this arrhythmia. Ordered amiodarone 200 mg p.o. daily Ordered Eliquis 5 mg b.i.d. Continue metoprolol 25 mg p.o. b.i.d. Atorvastatin 40 mg p.o. q.h.s. Amlodipine 5 mg p.o. daily Insulin sliding scale as per primary care team Other treatment as per primary care team Plan is to continue with the current management as prescribed. Cardiology team will follow up this patient outpatient. Discussed with Dr. Balderrama. Thank you for the opportunity to consult with your patient. Please call cardiology team he have any concern or question Critical Care time spent 37 minutes. Plan discussed with: Patient, RN, primary team Plan discussed with: Patient, Other (RN, PRIMARY TEAM) Date of Service: Jan 12, 2024 Billing Provider: MIHIR BALDERRAMA MD Cardiology Common Codes: [id number] INP/OBS CARE (High) SHERRIE MABRY RESIDENT Jan 12, 2024 16:12
--- NOTE | 2024-01-12 16:58 | DVHPNRES ---
Progress Note Date Seen: Jan 12, 2024 Resident Creating Document: VERONICA QUINTERO RESIDENT Medical Necessity Reason Pt with a Central, PICC or Fol: No Subjective Review of Systems This is a 63-year-old female with past medical history of COPD, asthma, diabetes, neuropathy, PE's, and hypertension, who was sent to the hospital by her primary care provider for new onset atrial fibrillation with RVR. Patient went to [place] yesterday to have a hysterectomy. During the pre-op assessment they noticed her to be in atrial fibrillation with RVR. They canceled her surgery and told her to go to the hospital or her primary care provider to be seen by a mortgage loan processor. Patient states that she did not feel any symptoms this morning, but as they day went on she began to feel palpitations and fluttering in her chest. Patient was seen and examined on the bedside. She is alert oriented x3. currently in sinus rhythm with controlled heart rate 80. No active complaint Review of system: Constitutional: No: Fever, Chills, Sweats, Weakness, Malaise, Other Eyes: No: Pain, Vision change, Conjunctivae inflammation, Eyelid inflammation, Other, Redness ENT: No: Ear pain, Ear discharge, Nose pain, Nose discharge, Nose congestion, Mouth pain, Mouth swelling, Throat pain, Throat swelling, Other Respiratory: Shortness of breath, improving No: Cough, Dry,Wheezing, Hemoptysis, Pleuritic Pain, Sputum, Wheezing, Other Cardiovascular: No: Chest Pain, Palpitations, Orthopnea, Paroxysmal Noc. Dyspnea, Edema, Lt Headedness, Other Gastrointestinal: No: Nausea, Vomiting, Abdominal Pain, Diarrhea, Constipation, Melena, Hematochezia, Other Musculoskeletal: No: other, neck pain, shoulder pain, arm pain, back pain, hand pain, leg pain, foot pain Neurological:; No: Weakness, Numbness, Incoordination, Change in speech, Confusion, Seizures Objective vital signs Vital Sign Date Time Temp Pulse Resp B/P (MAP) Pulse Ox O2 Delivery O2 Flow Rate FiO2 01/12/24 16:21 97.9 72 18 126/64 (84) 97 97.9 01/12/24 11:20 Room Air 01/12/24 11:20 0 21 Total Intake and Output 01/11/24 01/11/24 01/12/24 15:00 23:00 07:00 Intake Total 0 ml Balance 0 ml medications Current Medications Medications Dose Ordered Sig/Mahogany Route Start Time Stop Time Status Last Admin Dose Admin Sodium Chloride 10 ml Q8HR IV 01/11/24 22:00 01/12/24 14:02 10 ML Acetaminophen/ Hydrocodone Bitart 1 tab Q4HP PRN PO 01/11/24 16:00 Ondansetron HCl 4 mg Q4HP PRN IV 01/11/24 16:00 Docusate Sodium 100 mg BIDPRN PRN PO 01/11/24 16:00 Acetaminophen 650 mg Q6HP PRN PO 01/11/24 16:00 01/11/24 21:07 650 MG Nitroglycerin 0.4 mg Q5MINP PRN SL 01/11/24 16:00 Morphine Sulfate 2 mg Q30M PRN IV 01/11/24 16:00 Diagnostic Test (Pha) 1 strip ACHS 01/11/24 17:00 01/12/24 11:10 1 STRIP Insulin Human Regular HS SC 01/11/24 22:00 01/11/24 21:53 2 UNITS Insulin Human Regular AC SC 01/11/24 17:00 Dextrose 50 ml UD PRN IV 01/11/24 16:00 Losartan Potassium 50 mg DAILY PO 01/12/24 10:00 01/12/24 08:43 50 MG Metoprolol Tartrate 25 mg BID PO 01/11/24 22:00 01/12/24 08:42 25 MG Albuterol 2.5 mg Q6HPRN PRN NEB 01/11/24 16:15 Ipratropium [place] 0.5 mg Q6HPRN PRN NEB 01/11/24 16:15 Amitriptyline HCl 10 mg HS PO 01/11/24 22:00 01/11/24 22:15 10 MG Amlodipine Besylate 5 mg DAILY PO 01/12/24 10:00 01/12/24 08:44 5 MG Oxycodone/ Acetaminophen 1 tab BIDPRN PRN PO 01/11/24 20:45 01/12/24 08:48 1 TAB Patient Own Medication 1 tab DAILY PO 01/12/24 10:00 Pregabalin 25 mg BID PO 01/11/24 22:00 01/12/24 08:43 25 MG Cyanocobalamin 1,000 mcg DAILY PO 01/13/24 10:00 Atorvastatin Calcium 40 mg HS PO 01/12/24 22:00 Apixaban 5 mg BID PO 01/12/24 22:00 Amiodarone HCl 200 mg DAILY PO 01/13/24 10:00 Examination Physical examination: General Appearance: Alert, Oriented X3, Cooperative, No acute distress HEENT: Atraumatic, PERRLA, EOMI, Mucous membrane moist/pink Respiratory: Clear to auscultation, Normal air movement Cardiovascular: Regular rate, Normal S1, Normal S2, No murmurs, no chest wall tenderness Abdominal: Normal bowel sounds, Soft, No tenderness, No hepatospenomegaly, No masses Extremities: No clubbing, No cyanosis, No edema, Normal pulses, No tenderness/swelling Skin: No rashes, No breakdown, No significant lesion Neuro:, Normal speech, Strength at 5/5 X4 ext, Normal tone, Sensation intact. Psych/Mental Status: Mental status NL, Mood NL laboratory and microbiology Laboratory Tests 01/12/24 04:43 Test 01/12/24 04:43 Range/Units Serum Glucose 81 74-106 mg/dL Labs and/or images reviewed: Labs reviewed by me, Image(s) reviewed by me Problem List/Assessment/Plan Problem List/Assessment/Plan Assessment and plan: # New onset atrial fibrillation with RVR with secondary hypercoagulable state. - Currently in sinus rhythm with controlled heart rate 80 - [id number] score is 5 - Amiodarone 200 mg daily and Eliquis 5 mg b.i.d. - Metoprolol tartrate 25 mg b.i.d. - Atorvastatin 40 mg q.h.s. daily - Cardiology on board. # Pulmonary embolism ruled out - History of provoked pulmonary embolism and patient was on Eliquis for six- month. - D-dimer was 0.80 - CT angio ruled out the possibility of pulmonary embolism and demonstrated reactive mesenteric lymphadenopathy ,bibasilar atelectasis and mild cardiomegaly with trace pericardial effusion. # Hypertensive heart disease with chronic diastolic heart failure - Echo on 2022 revealed ejection fraction 50% with mild diastolic dysfunction. - Amlodipine 5 mg p.o. daily and losartan potassium 50 mg daily p.o. # History of COPD - med neb treatment with albuterol and ipratropium q.6 p.r.n. # Type 2 Diabetes mellitus; HbA1C- 6 - moderate sliding scale of insulin - counseled patient regarding healthy diet, lifestyle modification and physical exercise # Morbid obesity ( BMI- 55.5 kg/m2) - Counseled patient regarding healthy diet and physical exercise. # DVT prophylaxis - Patient is on Eliquis Goal of care discussed with the patient for more than 15 minutes full code Plan of treatment discussed with Dr. Russell Plan discussed with: Patient, Other My Orders My Orders Orders - VERONICA QUINTERO Procedure Category Date Status Time Cyanocobalamin PHA 01/13/24 In Process (Vitamin B-12) 10:00 Date of Service: Jan 12, 2024 Billing Provider: LIONEL RUSSELL MD Common Visit Codes: [id number] INP/OBS CARE(HIGH) VERONICA QUINTERO RESIDENT Jan 12, 2024 16:58 LIONEL RUSSELL MD Jan 13, 2024 08:12
--- NOTE | 2024-01-12 21:14 | DVHSR ---
APPROVED REPORT EXAM: LIMITED Two-dimensional and M-mode echocardiogram with Doppler and color Doppler. Blood Pressure: 122/62 mmHg INDICATION new onset afib with rvr RISK FACTORS Obesity: Height: 4'11, Weight: 274 DIMENSIONS LVDd4.5 (3.8-5.7cm)LA (2D)2.9 (1.9-4.0cm)Aortic Root2.8 (2.0-3.7cm) LVDs3.0 (2.5-4.0cm)LA (MM) (1.9-4.0cm)Aortic Cusp Exc1.7 (1.5-2.0cm) EF (%) 63.0 (55-70%)Rt. Atrium3.6 (1.9-4.0cm)Asc. Aorta2.8 cm IVSd1.1 (0.7-1.1cm)RV (D) (1.8-2.4cm) PWd1.0 (0.7-1.1cm) Mitral Valve MitralMitral Stenosis E wave0.60m/sMV Mean GR.mmHg A wave0.93m/sMV Peak GR.110mmHg E/A ratio0.62D MVAcm2 DECEL [id number] 1/2 Tim[place] Aortic Valve Aortic ValveAortic Stenosis LVOT Diameter1.9 (1.8-2.4cm)Doppler AVAcm2 Pulmonic Valve V20.69m/s Tricuspid Valve [id number] Other Information Quality : LimitedRhythm : Technically limited study due to patient position.body habitus. Conclusion Technically challenging study due to patient body habitus and position. Overall preserved left ventricular systolic function estimated ejection fraction 55%. There is a gra de 1 diastolic dysfunction. Normal right ventricular size and dimension. Normal right ventricular systolic function. Normal biatrial size and dimension. Normal aortic valve structure and function. Normal mitral valve structure and function. Normal tricuspid valve structure and function. The pulmonary valve is grossly normal. No pericardial effusion.
[2024-01-12] MEDS: ATORVASTATIN 20 MG TAB PO SCH (21:38)
[2024-01-12] MEDS: APIXABAN 5 MG TAB PO SCH (21:39)
[2024-01-12] MEDS ORDERED: APIXABAN 5 MG TAB PO SCH (22:00)
[2024-01-13 01:00] VITALS: BP 137/50; PULSE 69; RESP 20; TEMP 98; O2SAT 94
[2024-01-13 05:00] VITALS: BP 116/71; PULSE 70; RESP 20; TEMP 97.9; O2SAT 95
--- NOTE | 2024-01-13 07:47 | DVHDSRES ---
Discharge Summary Date of Admission Resident Creating Document: VERONICA QUINTERO RESIDENT Jan 11, 2024 at 16:01 Date of Discharge: Jan 13, 2024 Admitting Diagnosis # New onset atrial fibrillation with RVR with secondary hypercoagulable state. Wounds: No wound was present. Labs/Diagnostic Data: Laboratory Results Test 01/13/24 06:08 01/12/24 12:30 01/12/24 04:43 01/11/24 15:00 POC Glucose 90 mg/dl (70-106) Urine Color Light-yellow (Yellow) Urine Clarity Clear (Clear) Urine pH 6.0 (5.0-9.0) Urine Specific Jbphh 1.019 (1.001-1.035) Urine Protein Negative (Negative) Urine Ketones Negative (Negative) Urine Blood Negative /uL (Negative) Urine Nitrite Negative (Negative) Urine Bilirubin Negative (Negative) Urine Urobilinogen Normal mg/dL (Negative) Urine Leukocyte Esterase Negative /uL (Negative) Urine RBC 1 /hpf (0 - 4) Urine WBC 1 /hpf (0 - 5) Urine Squamous Epithelial Cells Few /hpf (<5) Urine Bacteria None seen /hpf (None Seen) Urine Glucose Normal mg/dL (Normal) Urine Opiates Screen Neg (NEGATIVE) Urine Fentanyl Screen Neg (NEGATIVE) Urine Barbiturates Screen Neg (NEGATIVE) Urine Phencyclidine Screen Neg (NEGATIVE) Urine Amphetamines Screen Neg (NEGATIVE) Urine Benzodiazepines Screen Neg (NEGATIVE) Urine Cocaine Screen Neg (NEGATIVE) Urine Cannabinoids Screen Neg (NEGATIVE) White Blood Count 8.2 10^3/uL (4.4-10.8) Red Blood Count 4.96 10^6/uL (4.0-5.20) Hemoglobin 13.4 g/dL (12.2-16.2) Hematocrit 40.1 % (36.0-46.0) Mean Corpuscular Volume 80.9 fL (80.0-100.0) Mean Corpuscular Hemoglobin 27.0 pg (28.0-32.0) Mean Corpuscular Hemoglobin Concent 33.4 g/dL (32.0-36.0) Red Cell Distribution Width 16.9 % (11.8-14.3) Platelet Count 255 10^3/uL (140-450) Mean Platelet Volume 7.6 fL (6.9-10.8) Neutrophils (%) (Auto) 58.7 % (37.0-80.0) Lymphocytes (%) (Auto) 25.4 % (10.0-50.0) Monocytes (%) (Auto) 10.9 % (0.0-12.0) Eosinophils (%) (Auto) 4.0 % (0.0-7.0) Basophils (%) (Auto) 1.0 % (0.0-2.0) Neutrophils # (Auto) 4.8 10 ^3/uL (1.6-8.6) Lymphocytes # (Auto) 2.1 10 ^3/uL (0.4-5.4) Monocytes # (Auto) 0.9 10 ^3/uL (0-1.3) Eosinophils # (Auto) 0.3 10 ^3/uL (0-0.8) Basophils # (Auto) 0.1 10 ^3/uL (0-0.2) Nucleated Red Blood Cells 0.1 % Sodium Level 143 mmol/L (136-145) Potassium Level 3.8 mmol/L (3.5-5.1) Chloride Level 109 mmol/L (98-107) Carbon Dioxide Level 27 mmol/L (20-31) Anion Gap 7 (5-15) Blood Urea Nitrogen 9 mg/dL (9-23) Creatinine 0.94 mg/dL (0.550-1.02) Glomerular Filtration Rate Calc 68 mL/min (>90) BUN/Creatinine Ratio 9.6 (10.0-20.0) Serum Glucose 81 mg/dL (74-106) Hemoglobin A1c 6.0 % A1C (<5.7) Calcium Level 9.2 mg/dL (8.7-10.4) Magnesium Level 2.0 mg/dL (1.6-2.6) Total Bilirubin 0.5 mg/dL (0.2-1.0) Aspartate Amino Transferase (AST) 10 U/L (13-40) Alanine Aminotransferase (ALT) 19 U/L (7-40) Alkaline Phosphatase 80 U/L (46-116) Total Protein 6.4 g/dL (5.7-8.2) Albumin 4.1 g/dL (3.2-4.8) Vitamin B12 Level 277 pg/mL (211-911) Vitamin D 25-Hydroxy 87.8 ng/mL (30.0-100) Thyroid Stimulating Hormone (TSH) 2.89 uIU/mL (0.55-4.78) Troponin I High Sensitivity 3 ng/L (</=34) Test 01/11/24 11:11 D-Dimer, Quantitative 0.80 mg/L FEU (0.0-0.49) Other Laboratory Tests 01/12/24 04:43 Brief Hx & Hospital Course: This is a 63-year-old female with past medical history of COPD, asthma, diabetes, neuropathy, PE's, and hypertension, who was sent to the hospital by her primary care provider for new onset atrial fibrillation with RVR. Patient went to [place] yesterday to have a hysterectomy. During the pre-op assessment they noticed her to be in atrial fibrillation with RVR. They canceled her surgery and told her to go to the hospital or her primary care provider to be seen by a research professional. Patient states that she did not feel any symptoms this morning, but as they day went on she began to feel palpitations and fluttering in her chest. Patient's heart rate was 140 and rhythm was irregular was treated with 1 dose of IV Cardizem in the ED. Patient was converted to sinus rhythm with controlled rate 80 and cardiology was also on the case and recommended amiodarone 200 mg daily and Eliquis 5 mg b.i.d and resumed all her home medications. Discharge plan was discussed with the patient and all questions were answered. Patient is being discharged to home with amiodarone 200 mg day and Eliquis 500 mg b.i.d. and advised to reschedule the date of hysterectomy and discontinue eliquis 48 hr before surgery. Patient was also advised to follow up with PCP in 1 week. Physical examination: General Appearance: Alert, Oriented X3, Cooperative, No acute distress HEENT: Atraumatic, PERRLA, EOMI, Mucous membrane moist/pink Respiratory: Clear to auscultation, Normal air movement Cardiovascular: Regular rate, Normal S1, Normal S2, No murmurs, no chest wall tenderness Abdominal: Normal bowel sounds, Soft, No tenderness, No hepatospenomegaly, No masses Extremities: No clubbing, No cyanosis, No edema, Normal pulses, No tenderness/swelling Skin: No rashes, No breakdown, No significant lesion Neuro: Normal gait, Normal speech, Strength at 5/5 X4 ext, Normal tone, Sensation intact. Psych/Mental Status: Mental status NL, Mood NL Consults/Reason for consult Cardiology was consulted. Operations or Procedures EXAM: CT CT ANGIO CHEST CONTRAST HISTORY: sob COMPARISON: CT CT ANGIO CHEST CONTRAST on DOS: 11/07/22, CT ANGIO CHEST CONTRAST on DOS: 05/22/20 TECHNIQUE: Axial images of the chest were obtained and reformatted in coronal and sagittal planes postcontrast. 3D maximum intensity projection images provided and evaluated.. All CT scans at this medical facility are performed using dose modulation techniques as appropriate to a performed exam including the following: Automated exposure control was utilized; adjustment of the MA and/or KV according to patient size; and use of iterative reconstruction technique. CT Dose: CTDI volume is 29.2 mGy. Dose-length product is 932.89 mGy*cm FINDINGS: The thyroid gland is unremarkable. No pulmonary embolism. No aortic aneurysm or dissection. Mild cardiomegaly with trace pericardial effusion. Mesenteric lymphadenopathy measuring up to 11 mm. No pneumothorax, pleural effusion or focal airspace consolidation. Bibasilar atelectasis. Mild gastric wall thickening. Otherwise, partial view of the upper abdomen is unremarkable. The soft tissues are unremarkable. No destructive osseous lesions are noted. IMPRESSION: No pulmonary embolism. No aortic aneurysm or dissection. Bibasilar atelectasis. Otherwise, no evidence of acute intrathoracic abnormalities. Mesenteric lymphadenopathy which may be reactive. Mild gastric wall thickening. Correlate for gastritis. Mild cardiomegaly with trace pericardial effusion. CHEST RADIOGRAPH Indication:Shortness of breath Technique: Single frontal view of the chest was obtained Comparison: XY CHEST PORTABLE on DOS: 01/11/24, XY CHEST PORTABLE on DOS: 11/02/22, CHEST PORTABLE on DOS: 05/26/20, CHEST PORTABLE on DOS: 05/24/20, CHEST PORTABLE on DOS: 05/22/20 FINDINGS: Lines and Tubes: None Lungs: No focal consolidation. Pleura: No effusion. No pneumothorax. Cardiomediastinal contours: Mild cardiomegaly Bones: No acute osseous abnormality. IMPRESSION: No acute cardiopulmonary disease. Condition at Discharge: Stable Final Diagnosis/Problems List # New onset atrial fibrillation with RVR with secondary hypercoagulable state. # Pulmonary embolism ruled out # Hypertensive heart disease with chronic diastolic heart failure # History of COPD # Type 2 Diabetes mellitus; HbA1C- 6 # Morbid obesity ( BMI- 55.5 kg/m2) Discharge Disposition: Home Discharge Instruct/Medications Diet: Consistent carbohydrate Activity: No Restrictions, As Tolerated Follow Up/Referral: - Follow up with PCP and Cardiology in 1 week. Medications: - Amiodarone 200 mg daily - Eliquis 5 mg 12 hrly Discharge Statement: "Patient was advised to return to the ER or call 911 if any headaches, dizziness, shortness of breath, chest pain, abdominal pain, bleeding, fevers, or worsening of medical condition. Patient was counseled about treatment plan, medications, possible side effects, patientverbalized understanding. All questions were answered to the best of my ability. This discharge took greater then 30 minutes in planning, reviewing documentation, counseling the patient, and discussing with other team members." ASSESSMENT ASSESSMENT Assessment # New onset atrial fibrillation with RVR with secondary hypercoagulable state. # Pulmonary embolism ruled out # Hypertensive heart disease with chronic diastolic heart failure # History of COPD # Type 2 Diabetes mellitus; HbA1C- 6 # Morbid obesity ( BMI- 55.5 kg/m2) Date of Service: Jan 13, 2024 Billing Provider: LIONEL ASENCIO MD Common Visit Codes: 72621-XMO/OBS DISCH DAY >30min VERONICA QUINTERO RESIDENT Jan 13, 2024 07:46 LIONEL ASENCIO MD Jan 14, 2024 16:50
[2024-01-13 08:10] VITALS: PULSE 69; PULSE 72; RESP 20; O2SAT 96
[2024-01-13 08:36] VITALS: BP 120/73; PULSE 72; RESP 20; TEMP 98.8; O2SAT 96
[2024-01-13 08:42] VITALS: O2SAT 97
[2024-01-13] MEDS ORDERED: AMIO200T13 PO (08:51)
[2024-01-13] MEDS ORDERED: MET25T PO (08:51)
[2024-01-13] MEDS ORDERED: APIX5TAB PO (08:51)
[2024-01-13] MEDS: AMIODARONE HCL 200 MG TAB PO SCH (10:53)
[2024-01-13] MEDS: CYANOCOBALAMIN 500 MCG TAB PO SCH (11:01)
--- NOTE | 2024-01-13 11:55 | DVHPN2 ---
Progress Note Date Seen: Jan 13, 2024 Resident Creating Document: SHERRIE MABRY Medical Necessity Reason Pt with a Central, PICC or Fol: No Subjective Review of Systems Patient is 63 years old female with past medical history not limited to asthma, COPD, pulmonary embolism, on inferior vena caval filter-IVC, hypertension, diabetes mellitus, diabetic neuropathy, microcytic anemia, morbid obesity was sent to the ER from primary care physician's office. As per patient patient went to [facility] for hysterectomy and on vital checkup patient's heart rate was high and patient was sent to ER. ER found patient with atrial fibrillation with rapid ventricular rate. Then patient was sent to her PCP and PCP recommended patient to go to the ER. In the ER patient was found to have atrial fibrillation with rapid ventricular rate. Patient was given IV Cardizem and EKG reverted to sinus rhythm. Patient denied any chest pain, short of breath, palpitation, dizziness, loss of consciousness, cough, constipation, diarrhea, dysarthria. Initial lab workup revealed D-dimer 0.8, WBC 10.4, hemoglobin 13.9, platelet 304, sodium 14.1, potassium 3.9, serum creatinine 1.02, HGB A1c 6, magnesium 2, AST/ALT/alkaline phosphatase within normal limits, TSH to 189, troponin I 3> 3> 3. CT angio revealed No pulmonary embolism. No aortic aneurysm or dissection. Bibasilar atelectasis. Otherwise, no evidence of acute intrathoracic abnormalities. mesenteric lymphadenopathy which may be reactive. Mild gastric wall thickening. Correlate for gastritis. Mild cardiomegaly with trace pericardial effusion. CXR-No acute cardiopulmonary disease. Home medications albuterol inhaler, amitriptyline 10 mg p.o. daily, amlodipine 5 mg daily, atorvastatin 10 mg daily, cholecalciferol 2000 unit daily, glipizide 10 mg p.o. daily, docusate 100 mg p.o. b.i.d., losartan 50 mg p.o. daily, meloxicam 7.5 mg daily, oxycodone with the acetaminophen, pregabalin 25 mg p.o. b.i.d., semaglutide 2 mg per 3 mL injection 2 mg subcutaneously every week, Past Medical History-asthma, COPD, pulmonary embolism, hypertension, diabetes mellitus, diabetic neuropathy, microcytic anemia, morbid obesity Past Surgical History-Cataract surgery, , inferior vena cava filter, Social History-Lives with daughter, ex-smoker, occasional alcoholic, no drug abuser Allergies: Codeine Patient was seen today at the bedside. Patient reports doing well, denies acute symptom patient reports ready to go home Cardiovascular- deny acute chest pain or shortness of breath or cough or palpitation Respiratory- denies cough or short of breath or wheezing Gastrointestinal- denies any rectal bleeding, nausea or vomiting Musculoskeletal-denies acute joint swelling or tenderness or redness Neurological- denies acute dysarthria, dysphagia, change in vision Psychiatry- denies depression or SI or HI Skin- denies acute rash or purpura Objective vital signs Vital Sign Date Time Temp Pulse Resp B/P (MAP) Pulse Ox O2 Delivery O2 Flow Rate FiO2 01/13/24 11:00 126/76 01/13/24 10:57 78 01/13/24 08:42 97 Room Air* 0 21 01/13/24 08:36 98.8 20 98.8 Total Intake and Output 01/12/24 01/12/24 01/13/24 15:00 23:00 07:00 Intake Total 1000 ml 300 ml Balance 1000 ml 300 ml medications Current Medications Medications Dose Ordered Sig/Mahogany Route Start Time Stop Time Status Last Admin Dose Admin Sodium Chloride 10 ml Q8HR IV 01/11/24 22:00 01/13/24 05:27 10 ML Acetaminophen/ Hydrocodone Bitart 1 tab Q4HP PRN PO 01/11/24 16:00 Ondansetron HCl 4 mg Q4HP PRN IV 01/11/24 16:00 Docusate Sodium 100 mg BIDPRN PRN PO 01/11/24 16:00 Acetaminophen 650 mg Q6HP PRN PO 01/11/24 16:00 01/11/24 21:07 650 MG Nitroglycerin 0.4 mg Q5MINP PRN SL 01/11/24 16:00 Morphine Sulfate 2 mg Q30M PRN IV 01/11/24 16:00 Diagnostic Test (Pha) 1 strip ACHS 01/11/24 17:00 01/13/24 06:12 1 STRIP Insulin Human Regular HS SC 01/11/24 22:00 01/12/24 21:46 2 UNITS Insulin Human Regular AC SC 01/11/24 17:00 Dextrose 50 ml UD PRN IV 01/11/24 16:00 Losartan Potassium 50 mg DAILY PO 01/12/24 10:00 01/13/24 10:57 50 MG Metoprolol Tartrate 25 mg BID PO 01/11/24 22:00 01/13/24 10:57 25 MG Albuterol 2.5 mg Q6HPRN PRN NEB 01/11/24 16:15 Ipratropium [place] 0.5 mg Q6HPRN PRN NEB 01/11/24 16:15 Amitriptyline HCl 10 mg HS PO 01/11/24 22:00 01/12/24 21:53 10 MG Amlodipine Besylate 5 mg DAILY PO 01/12/24 10:00 01/13/24 11:00 5 MG Oxycodone/ Acetaminophen 1 tab BIDPRN PRN PO 01/11/24 20:45 01/12/24 21:53 1 TAB Patient Own Medication 1 tab DAILY PO 01/12/24 10:00 Pregabalin 25 mg BID PO 01/11/24 22:00 01/13/24 10:57 25 MG Cyanocobalamin 1,000 mcg DAILY PO 01/13/24 10:00 01/13/24 11:01 1,000 MCG Atorvastatin Calcium 40 mg HS PO 01/12/24 22:00 01/12/24 21:38 40 MG Apixaban 5 mg BID PO 01/12/24 22:00 01/13/24 10:59 5 MG Amiodarone HCl 200 mg DAILY PO 01/13/24 10:00 01/13/24 10:53 200 MG Examination General examination- awake, alert, oriented, conversant HEENT- PEERLA, no acute nasal discharge Cardiovascular- S1-S2 audible, rate and rhythm regular, no murmur Respiratory- CTAB, no wheeze or rhonchi Gastrointestinal-nontender, bowel sound+. Nondistended Musculoskeletal-no acute joint swelling or tenderness or redness# Lower extremity- no leg edema Neurological- cranial nerves intact, no acute dysarthria or dysphagia Psychiatry- denies depression or SI or HI Skin- no acute rash or purpura laboratory and microbiology Laboratory Tests 01/12/24 04:43 Test 01/12/24 04:43 Range/Units Serum Glucose 81 74-106 mg/dL Signed PATIENT: WILIAM PRASAD ACCT: [id number] UNIT: [id number] : 1960 LOC: ER ROOM / BED: / AGE / SEX: 63 / F ADM STATUS: REG ER SERVICE ORDERING PHYSICIAN: FERNIE ELIAS MD PROCEDURE(s): CTACH - CT ANGIO CHEST CONTRAST REASON: sob ORDER NUMBER(s): [id number], ACCESSION NUMBER(s): [id number] EXAM: CT CT ANGIO CHEST CONTRAST HISTORY: sob COMPARISON: CT CT ANGIO CHEST CONTRAST on DOS: 11/07/22, CT ANGIO CHEST CONTRAST on DOS: 05/22/20 TECHNIQUE: Axial images of the chest were obtained and reformatted in coronal and sagittal planes postcontrast. 3D maximum intensity projection images provided and evaluated.. All CT scans at this medical facility are performed using dose modulation techniques as appropriate to a performed exam including the following: Automated exposure control was utilized; adjustment of the MA and/or KV according to patient size; and use of iterative reconstruction technique. CT Dose: CTDI volume is 29.2 mGy. Dose-length product is 932.89 mGy*cm FINDINGS: The thyroid gland is unremarkable. No pulmonary embolism. No aortic aneurysm or dissection. Mild cardiomegaly with trace pericardial effusion. Mesenteric lymphadenopathy measuring up to 11 mm. No pneumothorax, pleural effusion or focal airspace consolidation. Bibasilar atelectasis. Mild gastric wall thickening. Otherwise, partial view of the upper abdomen is unremarkable. The soft tissues are unremarkable. No destructive osseous lesions are noted. IMPRESSION: No pulmonary embolism. No aortic aneurysm or dissection. Bibasilar atelectasis. Otherwise, no evidence of acute intrathoracic abnormalities. Mesenteric lymphadenopathy which may be reactive. Mild gastric wall thickening. Correlate for gastritis. Mild cardiomegaly with trace pericardial effusion. ATED BY: NANCY LONDON DO DICTATED DATE/TIME: 01/11/241451 SIGNED BY: NANCY LONDON DO SIGNED DATE/TIME: 01/11/241451 CC: Diagnostic Imaging Report : [id number] Signed PATIENT: WILIAM PRASAD ACCT: [id number] UNIT: [id number] : 1960 LOC: ER ROOM / BED: / AGE / SEX: 63 / F ADM STATUS: REG ER SERVICE 1211 ORDERING PHYSICIAN: FERNIE ELIAS MD PROCEDURE(s): CXRP - CHEST PORTABLE REASON: Shortness of breath ORDER NUMBER(s): [id number], ACCESSION NUMBER(s): [id number] CHEST RADIOGRAPH Indication:Shortness of breath Technique: Single frontal view of the chest was obtained Comparison: XY CHEST PORTABLE on DOS: 01/11/24, XY CHEST PORTABLE on DOS: 11/02/22, CHEST PORTABLE on DOS: 05/26/20, CHEST PORTABLE on DOS: 05/24/20, CHEST PORTABLE on DOS: 05/22/20 FINDINGS: Lines and Tubes: None Lungs: No focal consolidation. Pleura: No effusion. No pneumothorax. Cardiomediastinal contours: Mild cardiomegaly Bones: No acute osseous abnormality. IMPRESSION: No acute cardiopulmonary disease. ATED BY: NANCY LONDON DO DICTATED DATE/TIME: 01/11/24 134 SIGNED BY: NANCY LONDON DO SIGNED DATE/TIME: 01/11/24 134 PATIENT: WILIAM PRASAD ACCT: [id number] UNIT: [id number] : 1960 [facility] AGE / SEX: 63 / F ADM STATUS: ADM IN SERVICE 1548 ORDERING PHYSICIAN: ASHELY ARCHIBALD PROCEDURE(s): ECIDC - ECHO 2D MODE CARDIAC DOP REASON: New onset atrial fibrillation with RVR ORDER NUMBER(s): [id number], ACCESSION NUMBER(s): [id number] APPROVED REPORT EXAM: LIMITED Two-dimensional and M-mode echocardiogram with Doppler and color Doppler. Blood Pressure: 122/62 mmHg INDICATION new onset afib with rvr RISK FACTORS Obesity: Height: 4'11, Weight: 274 DIMENSIONS LVDd 4.5 (3.8-5.7cm) LA (2D) 2.9 (1.9-4.0cm) Aortic Root 2.8 (2.0- 3.7cm) LVDs 3.0 (2.5-4.0cm) LA (MM) (1.9-4.0cm) Aortic Cusp Exc 1.7 (1.5- 2.0cm) EF (%) 63.0 (55-70%) Rt. Atrium 3.6 (1.9-4.0cm) Asc. Aorta 2.8 cm IVSd 1.1 (0.7-1.1cm) RV (D) (1.8-2.4cm) PWd 1.0 (0.7-1.1cm) Mitral Valve Mitral Mitral Stenosis E wave 0.60m/s MV Mean GR. mmHg A wave 0.93m/s MV Peak GR. 110mmHg E/A ratio 0.6 2D MVA cm2 DECEL Time 185ms PRESS 1/2 Time ms Aortic Valve Aortic Valve Aortic Stenosis LVOT Diameter 1.9 (1.8-2.4cm) Doppler DIAZ cm2 Pulmonic Valve V2 0.69m/s Tricuspid Valve RVSP 3mmHg Other Information Quality : Limited Rhythm : Technically limited study due to patient position.body habitus. Conclusion Technically challenging study due to patient body habitus and position. Overall preserved left ventricular systolic function estimated ejection fraction 55%. There is a grade 1 diastolic dysfunction. Normal right ventricular size and dimension. Normal right ventricular systolic function. Normal biatrial size and dimension. Normal aortic valve structure and function. Normal mitral valve structure and function. Normal tricuspid valve structure and function. The pulmonary valve is grossly normal. No pericardial effusion. SIGNED BY: MIHIR BALDERRAMA MD SIGNED DATE/TIME: 01/12/24 3858 CC: Problem List/Assessment/Plan Problem List/Assessment/Plan New onset atrial fibrillation with RVR-reverted to sinus rhythm after IV Cardizem h/o pulmonary embolism, on inferior vena caval filter-IVC- ruled out acute pulmonary embolism asthma-no acute exacerbation COPD-no acute exacerbation hypertension, diabetes mellitus, diabetic neuropathy, microcytic anemia, morbid obesity Plan/Recommendation Echo 2D-Overall preserved left ventricular systolic function estimated ejection fraction 55%. There is a grade 1 diastolic dysfunction. Ordered amiodarone 200 mg p.o. daily Ordered Eliquis 5 mg b.i.d. Continue metoprolol 25 mg p.o. b.i.d. Atorvastatin 40 mg p.o. q.h.s. Amlodipine 5 mg p.o. daily Insulin sliding scale as per primary care team Other treatment as per primary care team Plan is to continue with the current management as prescribed. Patient can be discharged home. Patient was advised to follow up with Cardiology outpatient. Discussed with Dr. Balderrama. Thank you for the opportunity to consult with your patient. Please call cardiology team he have any concern or question Plan discussed with: Patient, RN, primary team Plan discussed with: Patient, Other (RN, PRIMARY TEAM) Plan discussed with: Patient, Other (RN) My Orders My Orders Orders - SHERRIE MABRY Procedure Category Date Status Time Atorvastatin (Lipitor) PHA 01/12/24 In Process 22:00 Apixaban (Eliquis) PHA 01/12/24 In Process 22:00 Amiodarone Tablet PHA 01/13/24 In Process (Cordarone Tablet) 10:00 Date of Service: Jan 14, 2024 Billing Provider: MIHIR BALDERRAMA MD Common Visit Codes: [id number] INP/OBS CARE(HIGH) SHERRIE MABRY Jan 13, 2024 11:55 MIHIR BALDERRAMA MD Jan 14, 2024 08:47
[2024-01-13 12:34] VITALS: BP 135/69; PULSE 71; RESP 18; TEMP 98.6; O2SAT 96
== END 2024-01-13 13:50 | disposition home or self-care (01) | DRG 201 ==
LOC: ER 10:57 → TELE 16:01 → TELE-WESTW 22:20
PROVIDERS: ADMIT Internal Medicine; ATTEND Surgery
DX: I48.91 Unspecified atrial fibrillation (principal); D68.59 Other primary thrombophilia; E11.40 Type 2 diabetes mellitus with diabetic neuropathy, unspecified; Z68.43 Body mass index [BMI] 50.0-59.9, adult; I50.32 Chronic diastolic (congestive) heart failure; D50.9 Iron deficiency anemia, unspecified; I11.0 Hypertensive heart disease with heart failure; E66.01 Morbid (severe) obesity due to excess calories; R79.89 Other specified abnormal findings of blood chemistry; J98.11 Atelectasis; Z90.710 Acquired absence of both cervix and uterus; Z88.5 Allergy status to narcotic agent; Z79.1 Long term (current) use of non-steroidal anti-inflammatories (NSAID); Z79.899 Other long term (current) drug therapy; Z79.84 Long term (current) use of oral hypoglycemic drugs; Z79.85 Long-term (current) use of injectable non-insulin antidiabetic drugs; Z86.711 Personal history of pulmonary embolism; Z83.3 Family history of diabetes mellitus; Z82.0 Family history of epilepsy and other diseases of the nervous system; Z80.49 Family history of malignant neoplasm of other genital organs; Z87.891 Personal history of nicotine dependence
CPT/HCPCS: 36415; 71045; 71275; 80053; 80307; 81001; 82306; 82607; 82962; 83036; 83735; 84443; 84484; 85025; 85379; 93005; 93306; 94640; 96372; 96374; G0378; J1815

== ENCOUNTER → 2024-03-22 | Outpatient (CLI) | payer MEDICAID ==
[~2024-03-22] VITALS: Ht 149.9 cm; Wt 126.1 kg
[~2024-03-22] MED LIST changes: +AMIO200T13 PO; +AMIT-399 PO; +AMLO1TAB22 PO; +APIX5TAB PO; +CHOL20007 OR; -GABA-339 PO; -LEVO500T91 PO; +MELO7.5T7 PO; +MET25T PO; +PERCOT PO; +PREG25CA28 PO; -TRAM-711 PO
[2024-03-22] MEDS: REGADENOSON 0.4 MG/5 ML SYRG IV ONE ×2 (14:28→14:39)
--- NOTE | 2024-03-22 15:39 | DVHSR ---
APPROVED REPORT Exam: Nuclear Stress Test BMI: 0 Stress Test Details HR Max Heart Rate (APMHR): 156.552571 bpm Target HR (85% APMHR): 132.621357 bpm BP ECG Stress ECG Conclusion Resting ECG shows normal sinus rhythm with low voltage criteria. No dynamic EKG changes was noted at peak stress level to suggest ischemia. Resting images shows near homogeneous uptake of radioactive tracer throughout the myocardium without evidence of myocardial infarction. Stress images shows near homogeneous uptake of radioactive tracer throughout the myocardium without e vidence of myocardial ischemia. Well-preserved left ventricular systolic function at 76%. Impression: Negative stress test for ischemia, low risk study NM EXAM: Myocardial Perfusion REST/STRESS Imaging Protocol: Rest Tc-99m/Stress Tc-99m 1 day Resting Data Rest SPECT myocardial perfusion imaging was performed in supine position 60 minutes following the int ravenous injection of 12.9 mCi of Tc-99m Sestamibi. Time of rest injection: 1310 Time of rest imagin Administration Route: IV Administration Site: Left AC Pharmacologic Stress Pharmacologic stress test was performed by injecting Regadenoson 0.4 mg IV push followed by the intra venous injection of 31.2 mCi of Tc-99m Sestamibi. Time of stress injection: 1441 Time of stress imagin Administration Route: IV Administration Site: Left AC Gated Stress SPECT was performed 60 minutes after stress injection. The images were gated to evaluate regional wall motion and calculate left ventricular ejection fracti on. Stress only was performed in the Supine position. Nuclear Conclusion ECG Findings: negative for ischemia Clinical Findings: negative for ischemia Nuclear Findings: negative for ischemia Exercise Capacity: normal Left Ventricular Function: normal Risk Study: low Resting ECG shows normal sinus rhythm with low voltage criteria. No dynamic EKG changes was noted at peak stress level to suggest ischemia. Resting images shows near homogeneous uptake of radioactive tracer throughout the myocardium without evidence of myocardial infarction. Stress images shows near homogeneous uptake of radioactive tracer throughout the myocardium without e vidence of myocardial ischemia. Well-preserved left ventricular systolic function at 76%. Impression: Negative stress test for ischemia, low risk study
== END | disposition home or self-care (01) ==
LOC: XYW 12:57
PROVIDERS: ATTEND Student in an Organized Health Care Education/Training Program
DX: Z01.810 Encounter for preprocedural cardiovascular examination (principal); R94.31 Abnormal electrocardiogram [ECG] [EKG]; I48.0 Paroxysmal atrial fibrillation; D25.9 Leiomyoma of uterus, unspecified
CPT/HCPCS: 78452; 93017; A9500; J2785

== ENCOUNTER 2024-05-22 15:37 | Inpatient (IN) | payer MEDICAID ==
[~2024-05-22] VITALS: Ht 149.9 cm; Wt 117.2 kg
--- NOTE | 2024-05-22 16:14 | ED.PDOC ---
SOB-HPI HPI Comments 64-year-old female with PMHx COPD, A-Fib brought in by EMS presents with a chief complaint of SOB x 4 days with associated cough and hemoptysis. Patient was being seen at [facility] down the street and staff called EMS due to patient sating at 79% on room air. Patient mentions that she has been coughing since April and that it "really has not gone away". Patient was given a total of 3 breathing treatments with some improvement in symptoms. Patient is complaining of blood coming from her cough and states that she has a history of pneumonia. Patient is also reporting 10/10 head pressure pain. 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 Family History Family History: Reviewed,noncontributory to illness Social History Smoker: Non-Smoker Alcohol: Denies ETOH Use Drugs: Marijuana Lives In: Home Constitutional: denies: chills, diaphoresis, fatigue, fever, malaise, sweats, weakness, others EENTM: denies: blurred vision, double vision, ear bleeding, ear discharge, ear drainage, ear pain, ear ringing, eye pain, eye redness, hearing loss, mouth pain, mouth swelling, nasal discharge, nose bleeding, nose congestion, nose pain, photophobia, tearing, throat pain, throat swelling, voice changes, others Respiratory: reports: cough, hemoptysis, shortness of breath; denies: orthopnea, SOB at rest, SOB with excertion, stridor, wheezing, others Cardiovascular: denies: chest pain, dizzy spells, diaphoresis, Dyspnea on exertion, edema, irregular heart beat, left arm pain, lightheadedness, palpitations, PND, syncope, others Gastrointestinal: denies: abdomen distended, abdominal pain, blood streaked bowels, constipated, diarrhea, dysphagia, difficulty swallowing, hematemesis, melena, nausea, poor appetite, poor fluid intake, rectal bleeding, rectal pain, vomiting, others Genitourinary: denies: abnormal vagina bleeding, burning, dyspareunia, dysuria, flank pain, frequency, hematuria, incontinence, pain, , vagina discharge, urgency, others Neurological: denies: dizziness, fainting, headache, left sided numbness, left sided weakness, numbness, paresthesia, pre-existing deficit, right sided numbness, right sided weakness, seizure, speech problems, tingling, tremors, weakness, others Musculoskeletal: denies: back pain, gout, joint pain, joint swelling, muscle pain, muscle stiffness, neck pain, others Integumetry: denies: bruises, change in color, change in hair/nails, dryness, laceration, lesions, lumps, rash, wounds, others Allergic/Immunocompromised: denies: Difficulty Healing, Frequent Infections, Hives, Itching, others Hematologic/Lymphatic: denies: anemia, blood clots, easy bleeding, easy bruising, swollen glands, others Endocrine: denies: excessive hunger, excessive sweating, excessive thirst, excessive urination, flushing, intolerance to cold, intolerance to heat, unexplained weight gain, unexplained weight loss, others Psychiatric: denies: anxiety, bipolar disorder, depression, hopeless, panic disorder, schizophrenia, sleepless, suicidal, others All Other Systems: Reviewed and Negative Physical Exam General Appearance: Mild Distress, Obese HEENT: NOT DONE Neck: NOT DONE Respiratory: Respiratory Distress, Rhonchi Cardiovascular: NOT DONE Breast Exam: Deferred Gastrointestinal: Non Tender, No Pulsatile Mass, Normal Bowel Sounds, Soft Genitalia: Deferred Pelvic: Deferred Rectal: Deferred Extremities: No calf tenderness, Normal capillary refill, Normal inspection, Normal range of motion, Non-tender, No pedal edema Neurologic: Alert, analyst market intelligence II-XII nml as Tested, No Motor Deficits, Normal Affect, Normal Mood, No Sensory Deficits Cerebellar Function: Normal Reflexes: NOT DONE Skin: Dry, Normal Color Lymphatic: NOT DONE Was a procedure done? Was a procedure done?: No Differential Dx Differential Diagnosis: Anxiety, Asthma, Bronchitis, COPD, Myocardial infarction, Pneumonia X-Ray, Labs, Meds, VS Vital Signs Date Time Temp Pulse Resp B/P (MAP) Pulse Ox O2 Delivery O2 Flow Rate FiO2 05/22/24 18:11 93 05/22/24 16:43 19 95 Non-Rebreather 10 N/A 05/22/24 16:30 99.1 98 16 119/66 (83) 98 99.1 05/22/24 16:30 98 16 98 Non-Rebreather 10 N/A 05/22/24 15:37 99.5 110 20 165/89 (114) 97 Lab Test 05/22/24 17:11 Range/Units White Blood Count 15.9 H 4.4-10.8 10^3/uL Red Blood Count 4.35 4.0-5.20 10^6/uL Hemoglobin 11.2 L 12.2-16.2 g/dL Hematocrit 33.8 L 36.0-46.0 % Mean Corpuscular Volume 77.6 L 80.0-100.0 fL Mean Corpuscular Hemoglobin 25.6 L 28.0-32.0 pg Mean Corpuscular Hemoglobin Concent 33.0 32.0-36.0 g/dL Red Cell Distribution Width 17.2 H 11.8-14.3 % Platelet Count 247 140-450 10^3/uL Mean Platelet Volume 7.9 6.9-10.8 fL Neutrophils (%) (Auto) 37.0-80.0 % Lymphocytes (%) (Auto) 10.0-50.0 % Monocytes (%) (Auto) 0.0-12.0 % Basophils (%) (Auto) 0.0-2.0 % Neutrophils # (Auto) 1.6-8.6 10 ^3/uL Lymphocytes # (Auto) 0.4-5.4 10 ^3/uL Monocytes # (Auto) 0-1.3 10 ^3/uL Differential Total Cells Counted 100.0 100 Neutrophils % (Manual) 82 H 37.0-80.0 Band Neutrophils % (Manual) 4 Lymphocytes % (Manual) 8 L 10.0-50.0 Monocytes % (Manual) 6 0-12 Eosinophils % (Manual) 0 0-7 Basophils % (Manual) 0 0.0-2.0 Metamyelocytes % (manual) 0 Myelocytes % (Manual) 0 Promyelocytes % (Manual) 0 Blast Cells % (Manual) 0 Reactive Lymphocytes 0 Platelet Estimate Adequate Microcytosis Slight Sodium Level 137 136-145 mmol/L Potassium Level 3.3 L 3.5-5.1 mmol/L Chloride Level 100 98-107 mmol/L Carbon Dioxide Level 27 20-31 mmol/L Anion Gap 10 5-15 Blood Urea Nitrogen 15 9-23 mg/dL Creatinine 1.24 H 0.550-1.02 mg/dL Glomerular Filtration Rate Calc 49 >90 mL/min BUN/Creatinine Ratio 12.1 10.0-20.0 Serum Glucose 205 H 74-106 mg/dL Calcium Level 9.3 8.7-10.4 mg/dL Total Bilirubin 0.9 0.2-1.0 mg/dL Aspartate Amino Transferase (AST) 11 L 13-40 U/L Alanine Aminotransferase (ALT) 25 7-40 U/L Alkaline Phosphatase 63 46-116 U/L B-Type Natriuretic Peptide 164.66 0-100 pg/mL Total Protein 6.9 5.7-8.2 g/dL Albumin 4.3 3.2-4.8 g/dL Current Medications Medications (Trade) Dose Ordered Sig/Mahogany Route Start Time Stop Time Status Last Admin Albuterol (Ventolin Medneb) 2.5 mg ONCE ONCE NEB 05/22/24 16:30 05/22/24 16:31 DC 05/22/24 16:37 Ipratropium [place] (Atrovent Medneb) 0.5 mg ONCE ONCE NEB 05/22/24 16:30 05/22/24 16:31 DC 05/22/24 16:37 Methylprednisolone Sodium Succinate (Solu Medrol) 125 mg ONCE ONCE IM 05/22/24 16:30 05/22/24 16:31 DC 05/22/24 16:40 X-Ray, Labs, Meds, VS Comment Imaging: X-rays and CT scans were reviewed and interpreted by this provider, imaging shows no fractures and no pathological disease. Pending radiology review. Laboratory: Labs reviewed and interpreted by this provider. Elevated white count Patient has prior medical visits reviewed. Med reconciliation performed Vital signs reviewed Patient will be admitted for hypoxia, COPD exacerbation Patient maintained 93% oxygenation on 10 L Patient will be given breathing treatments he was azithromycin Solu-Medrol Time of 1ST Reevaluation: 16:38 Reevaluation 1ST: Unchanged Patient Education/Counseling: Diagnosis, Treatment, Prognosis Family Education/Counseling: Diagnosis, Treatment, Prognosis Departure 1 Departure Time of Disposition: 18:22 Impression: Primary Impression: COPD exacerbation Additional Impressions: Shortness of breath Hypoxia Disposition: ADMITTED INPATIENT Condition: Stable Discharged With: Self Critical Care Note Critical Care Time?: No Stability Stability form required: No Heart Score Heart Score: Heart Score Response (Comments) Value History N/A 0 EKG N/A 0 Age N/A 0 Risk Factors N/A 0 Troponin N/A 0 Total 0 I personally scribed for LAVON LARSON ([email or web address]) on 05/22/24 at 16:14. Electronically submitted by Jimi Noble ([email or web address]). LAVON LARSON May 22, 2024 16:14
[2024-05-22 16:30] VITALS: PULSE 98; RESP 16; O2SAT 98
[2024-05-22] MEDS: IPRATROPIUM BROM 0.5 MG/2.5ML INH SOL NEB ONE ×2 (16:37→18:48)
[2024-05-22] MEDS: ALBUTEROL SULF 2.5 MG/0.5ML(0.5%) NEB SOLN NEB ONE ×2 (16:37→18:47)
[2024-05-22] MEDS: methylPREDNISolone SOD SUCC 125 MG/2 ML VL IM ONE (16:40)
--- NOTE | 2024-05-22 17:02 | DVH ---
EXAM: XR Chest, 1 View CLINICAL INDICATION: sob TECHNIQUE: Frontal view of the chest. COMPARISON: XY CHEST PORTABLE on DOS: 01/11/24, XY CHEST PORTABLE on DOS: 01/11/24, XY CHEST PORTABLE on DOS: 11/02/22, CHEST PORTABLE on DOS: 05/26/20, CHEST PORTABLE on DOS: 05/24/20 FINDINGS: LUNGS AND PLEURAL SPACES: See below. HEART: Cardiomegaly with mild congestion. MEDIASTINUM: Unremarkable. Normal mediastinal contour. BONES/JOINTS: Unremarkable. No acute fracture. OTHER FINDINGS: . . . .. IMPRESSION: Cardiomegaly with mild congestion.
[2024-05-22 17:29] LABS: Hemoglobin 11.2 g/dL (12.2-16.2)
[2024-05-22 17:30] LABS: Hematocrit 33.8 % (36.0-46.0); Mean Corpuscular Hemoglobin 25.6 pg (28.0-32.0); Mean Corpuscular Volume 77.6 fL (80.0-100.0); Platelet Count (auto) 247 10^3/uL (140-450); Red Blood Cells 4.35 10^6/uL (4.0-5.20); Red Cell Distribution Width 17.2 % (11.8-14.3); White Blood Cell 15.9 10^3/uL (4.4-10.8)
[2024-05-22 17:40] LABS: Basophils % (manual) 0 (0.0-2.0); Blast Cells 0; Eosinophils % (manual) 0 (0-7); Metamyelocytes % 0; Myelocytes % 0; Promyelocytes % 0; Reactive Lymphocytes 0
[2024-05-22 17:43] LABS: Alanine Aminotransferase 25 U/L (7-40); Albumin 4.3 g/dL (3.2-4.8); Alkaline Phosphatase 63 U/L (46-116); Anion Gap 10 (5-15); BUN/Creatinine Ratio 12.1 (10.0-20.0); Blood Urea Nitrogen 15 mg/dL (9-23); Calcium 9.3 mg/dL (8.7-10.4); Carbon Dioxide 27 mmol/L (20-31); Chloride 100 mmol/L (98-107); Sodium 137 mmol/L (136-145)
[2024-05-22 17:44] LABS: Bilirubin, Total 0.9 mg/dL (0.2-1.0); Total Protein 6.9 g/dL (5.7-8.2)
[2024-05-22 17:45] LABS: Aspartate Aminotransferase 11 U/L (13-40); Glucose 205 mg/dL (74-106); Potassium 3.3 mmol/L (3.5-5.1)
[2024-05-22 18:05] LABS: Band Neutrophils % (manual) 4; Lymphocytes % (manual) 8 (10.0-50.0); Monocytes % (manual) 6 (0-12); Platelet Estimate Adequate
[2024-05-22] MEDS ORDERED: methylPREDNISolone SOD SUCC 125 MG/2 ML VL IM ONE (18:30)
[2024-05-22] MEDS: AZITHROMYCIN 500MG/ 250ML 250 ML IV ONE (18:38)
[2024-05-22 18:48] VITALS: O2SAT 98
[2024-05-22] MEDS ORDERED: ONDANSETRON HCL 4 MG/2 ML VIAL IV PRN (19:00)
[2024-05-22] MEDS: POTASSIUM CHL 20 Meq TABLET PO ONE (20:01)
[2024-05-22] MEDS: FUROSEMIDE 20 MG/2 ML VIAL IV ONE (20:02)
[2024-05-22 20:42] VITALS: BP 110/51; PULSE 87; RESP 22; TEMP 99.1; O2SAT 98
[2024-05-22] MEDS: METOPROLOL TARTRATE 25 MG TAB PO SCH (22:34)
[2024-05-22 23:48] LABS: Urine Bacteria FEW /hpf (None Seen); Urine Blood Negative /uL (Negative); Urine Clarity Turbid (Clear); Urine Color Light-Yellow (Yellow); Urine Protein, UAD TRACE (Negative); Urine Specific Gravity 1.011 (1.001-1.035); Urine Squamous Epithelial Cell MOD /hpf (<5); Urine Urobilinogen Normal (Negative); Urine WBC 1 /HPF (0-5)
[2024-05-23] VITALS (10 sets, daily range): BP systolic 131; BP diastolic 75; PULSE 65–86; RESP 19–24; TEMP 98.3; O2SAT 92–98
--- NOTE | 2024-05-23 00:34 | DVHHP2 ---
History of Present Illness Reason for Visit: Shortness for breath History of Present Illness 64-year-old female presents for evaluation of shortness for breath. Patient reports a four day history of worsening shortness for breath not being relieved by her inhaler at home. She has a history of COPD. She also reports chest tig htness/pressure and a nonproductive cough. Denies fever or chills. No other acute complaints at the moment. Past Medical History Diabetes mellitus, hypertension, COPD, asthma Past Surgical History Denies Family History Noncontributory Smoke: No ALCOHOL: none Drugs: None Lives: with Family Review of Systems Review of Systems Review of systems are currently negative otherwise addressed HPI. Allergies: Coded Allergies: Codeine (Verified Allergy, Unknown, 03/22/24) Medications Current Medications Medications Dose Ordered Sig/Mahogany Route Start Time Stop Time Status Last Admin Dose Admin Albuterol 2.5 mg Q6HPRN PRN NEB 05/22/24 19:00 Ipratropium [place] 0.5 mg Q6HPRN PRN NEB 05/22/24 19:00 Aspirin 81 mg DAILY PO 05/23/24 10:00 Amlodipine Besylate 5 mg DAILY PO 05/23/24 10:00 Metoprolol Tartrate 25 mg BID PO 05/22/24 22:00 05/22/24 22:34 25 MG Amiodarone HCl 200 mg DAILY PO 05/23/24 10:00 Losartan Potassium 25 mg DAILY PO 05/23/24 10:00 Furosemide 20 mg DAILY IV 05/23/24 10:00 Ondansetron HCl 4 mg Q4HP PRN IV 05/22/24 19:00 Enoxaparin Sodium 40 mg DAILY SC 05/23/24 10:00 Acetaminophen 650 mg Q6HP PRN PO 05/22/24 19:00 Exam Vital Signs Vital Signs Date Time Temp Pulse Resp B/P (MAP) Pulse Ox O2 Delivery O2 Flow Rate FiO2 05/23/24 00:00 67 20 128/68 (88) 97 05/22/24 20:42 99.1 8.0 64 99.1 05/22/24 19:30 Oxymizer Exam Gen: 64-year-old female in mild distress, morbidly obese Skin: Warm, dry, normal color and texture, no rash. HEENT: Normocephalic atraumatic, mucous membranes moist and pink. Neck: Cervical and supraclavicular nodes normal without enlargement, trachea is midline, thyroid gland is normal without masses. Pulmonary: Bilateral wheeze Cardiac: Regular rate and rhythm. No murmur Abdomen: Soft, nontender, nondistended, bowel sounds present all 4 quadrants, no guarding, no rigidity, no organomegaly. Extremities: No cyanosis, clubbing, no edema Neuro: Cranial nerves II through XII grossly intact, normal affect and speech, no focal motor deficits. Labs/Xrays ORDERING PHYSICIAN: LAVON LARSON PROCEDURE(s): CXRP - CHEST PORTABLE REASON: sob ORDER NUMBER(s): [id number], ACCESSION NUMBER(s): [id number] EXAM: XR Chest, 1 View CLINICAL INDICATION: sob TECHNIQUE: Frontal view of the chest. COMPARISON: XY CHEST PORTABLE on DOS: 01/11/24, XY CHEST PORTABLE on DOS: 01/11/24, XY CHEST PORTABLE on DOS: 11/02/22, CHEST PORTABLE on DOS: 05/26/20, CHEST PORTABLE on DOS: 05/24/20 FINDINGS: LUNGS AND PLEURAL SPACES: See below. HEART: Cardiomegaly with mild congestion. MEDIASTINUM: Unremarkable. Normal mediastinal contour. BONES/JOINTS: Unremarkable. No acute fracture. OTHER FINDINGS: . . . .. IMPRESSION: Cardiomegaly with mild congestion. Labs Test 05/22/24 20:49 05/22/24 17:11 Range/Units Urine Color Light-yellow Yellow Urine Clarity Turbid H Clear Urine pH 5.0 5.0-9.0 Urine Specific [place] 1.011 1.001-1.035 Urine Protein Trace H Negative Urine Ketones Negative Negative Urine Blood Negative Negative /uL Urine Nitrite Negative Negative Urine Bilirubin Negative Negative Urine Urobilinogen Normal Negative mg/dL Urine Leukocyte Esterase Negative Negative /uL Urine RBC <1 0 - 4 /hpf Urine Microscopic WBC 1 0-5 /HPF Urine Squamous Epithelial Cells Mod <5 /hpf Urine Bacteria Few H None Seen /hpf Urine Glucose Trace Normal mg/dL White Blood Count 15.9 H 4.4-10.8 10^3/uL Red Blood Count 4.35 4.0-5.20 10^6/uL Hemoglobin 11.2 L 12.2-16.2 g/dL Hematocrit 33.8 L 36.0-46.0 % Mean Corpuscular Volume 77.6 L 80.0-100.0 fL Mean Corpuscular Hemoglobin 25.6 L 28.0-32.0 pg Mean Corpuscular Hemoglobin Concent 33.0 32.0-36.0 g/dL Red Cell Distribution Width 17.2 H 11.8-14.3 % Platelet Count 247 140-450 10^3/uL Mean Platelet Volume 7.9 6.9-10.8 fL Neutrophils (%) (Auto) 37.0-80.0 % Lymphocytes (%) (Auto) 10.0-50.0 % Monocytes (%) (Auto) 0.0-12.0 % Basophils (%) (Auto) 0.0-2.0 % Neutrophils # (Auto) 1.6-8.6 10 ^3/uL Lymphocytes # (Auto) 0.4-5.4 10 ^3/uL Monocytes # (Auto) 0-1.3 10 ^3/uL Differential Total Cells Counted 100.0 100 Neutrophils % (Manual) 82 H 37.0-80.0 Band Neutrophils % (Manual) 4 Lymphocytes % (Manual) 8 L 10.0-50.0 Monocytes % (Manual) 6 0-12 Eosinophils % (Manual) 0 0-7 Basophils % (Manual) 0 0.0-2.0 Metamyelocytes % (manual) 0 Myelocytes % (Manual) 0 Promyelocytes % (Manual) 0 Blast Cells % (Manual) 0 Reactive Lymphocytes 0 Platelet Estimate Adequate Microcytosis Slight Sodium Level 137 136-145 mmol/L Potassium Level 3.3 L 3.5-5.1 mmol/L Chloride Level 100 98-107 mmol/L Carbon Dioxide Level 27 20-31 mmol/L Anion Gap 10 5-15 Blood Urea Nitrogen 15 9-23 mg/dL Creatinine 1.24 H 0.550-1.02 mg/dL Glomerular Filtration Rate Calc 49 >90 mL/min BUN/Creatinine Ratio 12.1 10.0-20.0 Serum Glucose 205 H 74-106 mg/dL Calcium Level 9.3 8.7-10.4 mg/dL Total Bilirubin 0.9 0.2-1.0 mg/dL Aspartate Amino Transferase (AST) 11 L 13-40 U/L Alanine Aminotransferase (ALT) 25 7-40 U/L Alkaline Phosphatase 63 46-116 U/L B-Type Natriuretic Peptide 164.66 0-100 pg/mL Total Protein 6.9 5.7-8.2 g/dL Albumin 4.3 3.2-4.8 g/dL Assessment/Plan Assessment/Plan Assessment Acute on chronic hypoxic respiratory failure COPD exacerbation Cardiomegaly Morbid obesity Hypertension Plan Admit the patient to telemetry to the hospitalist Resume home medications IV Lasix Continue treatment per orders. Plan discussed with: Patient My Orders Orders - TORRES BECKMAN Procedure Category Date Status Time Albuterol Medneb PHA 05/22/24 In Process (Ventolin Medneb) 19:00 Ipratropium Medneb PHA 05/22/24 In Process (Atrovent Medneb) 19:00 Aspirin Tablet PHA 05/23/24 In Process 10:00 Amlodipine Tablet PHA 05/23/24 In Process (Norvasc Tablet) 10:00 Metoprolol Tartrate PHA 05/22/24 In Process Tablet (Lopressor Ta 22:00 Amiodarone Tablet PHA 05/23/24 In Process (Cordarone Tablet) 10:00 Losartan Tablet PHA 05/23/24 In Process (Cozaar Tablet) 10:00 Furosemide Injection PHA 05/23/24 In Process (Lasix Injection) 10:00 Echo 2d Mode Cardiac US 05/22/24 Logged DOP 18:53 Admit ADMIT 05/22/24 Transmitted 18:53 Ondansetron Hcl PHA 05/22/24 In Process (Zofran) 19:00 Enoxaparin Sodium PHA 05/23/24 In Process (Lovenox) 10:00 Complete Blood Count LAB 05/23/24 Logged 04:00 Cardiac DIET 05/23/24 Transmitted Diet-2gna,Lofat,Lochol Breakfast Condition: Stable NICKI 05/22/24 In Process 18:53 Acetaminophen Tablet PHA 05/22/24 In Process (Tylenol Tablet) 19:00 Bedrest With Bathroom NICKI 05/22/24 In Process Privileg 18:53 Basic Metabolic Panel LAB 05/23/24 Logged 04:00 Date of Service: May 22, 2024 Billing Provider: TORRES BECKMAN Common Visit Codes: [id number] INP/OBS CARE (HIGH) TORRES BECKMANP May 23, 2024 00:34
[2024-05-23 01:31] LABS: COVID19 ANTIGEN SOFIA FIA NEGATIVE (NEGATIVE); Rapid Influenza A Negative (Negative); Rapid Influenza B Negative (Negative)
[2024-05-23] MEDS: ALBUTEROL SULF 2.5 MG/0.5ML(0.5%) NEB SOLN NEB PRN (06:19)
[2024-05-23] MEDS: IPRATROPIUM BROM 0.5 MG/2.5ML INH SOL NEB PRN (06:19)
[2024-05-23 07:41] LABS: Hematocrit 35.1 % (36.0-46.0); Hemoglobin 11.3 g/dL (12.2-16.2); Mean Corpuscular Hemoglobin 25.4 pg (28.0-32.0); Mean Corpuscular Hgb Conc. 32.3 g/dL (32.0-36.0); Mean Corpuscular Volume 78.8 fL (80.0-100.0); Platelet Count (auto) 219 10^3/uL (140-450); Red Blood Cells 4.46 10^6/uL (4.0-5.20); Red Cell Distribution Width 17.7 % (11.8-14.3); White Blood Cell 16.5 10^3/uL (4.4-10.8)
[2024-05-23 07:48] LABS: Band Neutrophils % (manual) 0; Basophils % (manual) 0 (0.0-2.0); Blast Cells 0; Eosinophils % (manual) 0 (0-7); Metamyelocytes % 0; Myelocytes % 0; Promyelocytes % 0; Reactive Lymphocytes 0
[2024-05-23 08:11] LABS: Lymphocytes % (manual) 2 (10.0-50.0); Monocytes % (manual) 3 (0-12); Platelet Estimate Adequate
[2024-05-23 09:18] LABS: Anion Gap 8 (5-15)
[2024-05-23 09:24] LABS: Calcium 9.5 mg/dL (8.7-10.4); Carbon Dioxide 29 mmol/L (20-31); Chloride 101 mmol/L (98-107); Potassium 4.9 mmol/L (3.5-5.1); Sodium 138 mmol/L (136-145)
[2024-05-23 09:30] LABS: Glucose 290 mg/dL (74-106)
[2024-05-23] MEDS: ASPirin 81 mg TAB PO SCH (10:00)
[2024-05-23] MEDS: LOSARTAN POTASSIUM 25 MG TAB PO SCH (10:12)
[2024-05-23] MEDS: AMIODARONE HCL 200 MG TAB PO SCH (10:12)
[2024-05-23] MEDS: ENOXAPARIN SOD 40 MG/0.4 ML SYRINGE SC SCH (10:13)
[2024-05-23] MEDS: amLODIPine BESYLATE 5 MG TAB PO SCH (10:13)
[2024-05-23] MEDS: FUROSEMIDE 20 MG/2 ML VIAL IV SCH (10:13)
[2024-05-23] MEDS: IPRATROPIUM BROM 0.5 MG/2.5ML INH SOL ONE (11:42)
[2024-05-23] MEDS: ALBUTEROL SULF 2.5 MG/0.5ML(0.5%) NEB SOLN ONE (11:42)
[2024-05-23] MEDS: ALBUTEROL SULF 2.5 MG/0.5ML(0.5%) NEB SOLN NEB SCH (11:44)
[2024-05-23] MEDS: IPRATROPIUM BROM 0.5 MG/2.5ML INH SOL NEB SCH (11:44)
[2024-05-23 11:57] LABS: BUN/Creatinine Ratio 18.2 (10.0-20.0); Blood Urea Nitrogen 22 mg/dL (9-23)
--- NOTE | 2024-05-23 13:56 | DVHPN2 ---
Subjective 64-year-old female with a history of COPD on home O2, diabetes, hypertension, atrial fibrillation came with 4 days of shortness of breaths and cough She has COPD exacerbation She has also some mild pulmonary edema, she denies history of heart failure Changes from previous H/P or p: Changes Objective Vitals Vital Signs Date Time Temp Pulse Resp B/P (MAP) Pulse Ox O2 Delivery O2 Flow Rate FiO2 05/23/24 12:00 65 24 92 Oxymizer 8 N/A 05/23/24 12:00 126/64 (84) 05/22/24 20:42 99.1 99.1 Intake/Output Intake and Output 05/23/24 07:00 Intake Total 500 ml Balance 500 ml Intake IV Total 500 ml General Appearance: Alert, Oriented X3, Cooperative Lungs: Other (Diffuse wheezing) Cardiovascular: Regular rate, Normal S1, Normal S2 Abdomen: Normal bowel sounds, Soft, No tenderness Extremities: No edema Medications Current Medications Medications Dose Ordered Sig/Mahogany Route Start Time Stop Time Status Last Admin Dose Admin Aspirin 81 mg DAILY PO 05/23/24 10:00 Amlodipine Besylate 5 mg DAILY PO 05/23/24 10:00 05/23/24 10:13 5 MG Metoprolol Tartrate 25 mg BID PO 05/22/24 22:00 05/23/24 10:13 25 MG Amiodarone HCl 200 mg DAILY PO 05/23/24 10:00 05/23/24 10:12 200 MG Losartan Potassium 25 mg DAILY PO 05/23/24 10:00 05/23/24 10:12 25 MG Furosemide 20 mg DAILY IV 05/23/24 10:00 05/23/24 10:13 20 MG Ondansetron HCl 4 mg Q4HP PRN IV 05/22/24 19:00 Enoxaparin Sodium 40 mg DAILY SC 05/23/24 10:00 05/23/24 10:13 40 MG Acetaminophen 650 mg Q6HP PRN PO 05/22/24 19:00 Albuterol 2.5 mg Q6HR NEB 05/23/24 12:00 05/23/24 11:44 2.5 MG Ipratropium [place] 0.5 mg Q6HR NEB 05/23/24 12:00 05/23/24 11:44 0.5 MG Laboratory Results Laboratory Tests 05/23/24 06:33 05/23/24 08:50 Chemistry Test 05/22/24 17:11 05/23/24 08:50 Albumin 4.3 g/dL (3.2-4.8) Calcium Level 9.3 mg/dL (8.7-10.4) 9.5 mg/dL (8.7-10.4) Total Protein 6.9 g/dL (5.7-8.2) Coagulation Test 05/23/24 00:46 D-Dimer, Quantitative 0.45 mg/L FEU (0.0-0.49) Cardiac Markers Test 05/22/24 17:11 B-Type Natriuretic Peptide 164.66 pg/mL (0-100) LFT Test 05/22/24 17:11 Alanine Aminotransferase (ALT) 25 U/L (7-40) Alkaline Phosphatase 63 U/L (46-116) Aspartate Amino Transferase (AST) 11 U/L (13-40) L Total Bilirubin 0.9 mg/dL (0.2-1.0) Urinalysis Test 05/22/24 20:49 Urine Color Light-yellow (Yellow) Urine Clarity Turbid (Clear) H Urine pH 5.0 (5.0-9.0) Urine Specific [place] 1.011 (1.001-1.035) Urine Protein Trace (Negative) H Urine Ketones Negative (Negative) Urine Blood Negative /uL (Negative) Urine Nitrite Negative (Negative) Urine Bilirubin Negative (Negative) Urine Urobilinogen Normal mg/dL (Negative) Urine Leukocyte Esterase Negative /uL (Negative) Urine RBC <1 /hpf (0 - 4) Urine Microscopic WBC 1 /HPF (0-5) Urine Squamous Epithelial Cells Mod /hpf (<5) Urine Bacteria Few /hpf (None Seen) H Urine Glucose Trace mg/dL (Normal) Assessment/Plan Assessment/Plan Acute hypoxic respiratory failure COPD exacerbation Rule out heart failure Pulmonary edema Atrial fibrillation, chronic, controlled rate Morbid obesity Type 2 diabetes Hypertension Plan Oxygen as needed Oxymizer Med neb treatments IV steroids Lasix IV Echocardiogram Resume the home medications IV Zithromax Continue amiodarone and Eliquis Full code Advance directives discussed for 20 minutes Plan discussed with: Patient My Orders Orders - ANABELL WYATT MD Procedure Category Date Status Time Albuterol Medneb PHA 05/23/24 In Process (Ventolin Medneb) 12:00 Ipratropium Medneb PHA 05/23/24 In Process (Atrovent Medneb) 12:00 Date of Service: May 23, 2024 Billing Provider: ANABELL WYATT MD Common Visit Codes: [id number] INP/OBS CARE(HIGH) Secondary Visit Codes: [id number] CARE PLAN 30 MINUTES ANABELL WYATT MD May 23, 2024 13:56
[2024-05-23] MEDS ORDERED: DEXTROSE (50%) 50ML SYRG IV PRN (14:00)
[2024-05-23] MEDS: AZITHROMYCIN 500MG/ 250ML 250 ML IV ONE (14:30)
[2024-05-23] MEDS: methylPREDNISolone SOD SUCC 125 MG/2 ML VL IV ONE (14:30)
[2024-05-23] MEDS: ACCU-CHEK COMFORT CURVE STRIP VI SCH (16:59)
[2024-05-23] MEDS: InsuLIN REG 1unit/0.01ml Soln (100units/ml) SC SCH ×2 (17:15→22:56)
[2024-05-23] MEDS: methylPREDNISolone SOD SUCC 125 MG/2 ML VL IV SCH (22:54)
[2024-05-24] VITALS (18 sets, daily range): BP systolic 116–142; BP diastolic 55–77; PULSE 60–86; RESP 15–19; TEMP 97.9–98.4; O2SAT 92–100
[2024-05-24] MEDS ORDERED: ACET325T82 PO (00:45)
[2024-05-24] MEDS ORDERED: TIZA4CAP PO (00:45)
[2024-05-24] MEDS ORDERED: APIX5TAB PO (00:45)
[2024-05-24] MEDS ORDERED: METH-1181 PO (00:45)
[2024-05-24] MEDS ORDERED: IBUP-1454 PO (00:45)
[2024-05-24] MEDS: OXYCODONE W/ ACETAMINOPHEN 5/325MG TABLET PO PRN (00:52)
[2024-05-24] MEDS: PANTOPRAZOLE 40 MG TAB PO SCH (06:15)
[2024-05-24] MEDS ORDERED: AZITHROMYCIN 500MG/ 250ML 250 ML IV SCH (10:00)
--- NOTE | 2024-05-24 12:04 | DVHPN2 ---
Subjective Feels somewhat better She is still on 5 L nasal cannula Oxymizer Changes from previous H/P or p: Changes Objective Vitals Vital Signs Date Time Temp Pulse Resp B/P (MAP) Pulse Ox O2 Delivery O2 Flow Rate FiO2 05/24/24 11:53 72 18 99 05/24/24 11:43 Oxymizer 5.0 05/24/24 11:43 N/A 05/24/24 11:30 130/57 05/24/24 09:00 98.0 98.0 Intake/Output Intake and Output 05/24/24 07:00 Intake Total 700 ml Balance 700 ml Intake Oral 700 ml # Voids 1 General Appearance: Alert, Oriented X3, Cooperative Lungs: Other (Diffuse wheezing) Cardiovascular: Regular rate, Normal S1, Normal S2 Abdomen: Normal bowel sounds, Soft, No tenderness Extremities: No edema Medications Current Medications Medications Dose Ordered Sig/[place]og[place] Route Start Time Stop Time Status Last Admin Dose Admin Aspirin 81 mg DAILY PO 05/23/24 10:00 Amlodipine Besylate 5 mg DAILY PO 05/23/24 10:00 05/24/24 11:29 5 MG Metoprolol Tartrate 25 mg BID PO 05/22/24 22:00 05/24/24 11:28 25 MG Amiodarone HCl 200 mg DAILY PO 05/23/24 10:00 05/24/24 11:27 200 MG Losartan Potassium 25 mg DAILY PO 05/23/24 10:00 05/24/24 11:29 25 MG Furosemide 20 mg DAILY IV 05/23/24 10:00 05/24/24 11:30 20 MG Ondansetron HCl 4 mg Q4HP PRN IV 05/22/24 19:00 Acetaminophen 650 mg Q6HP PRN PO 05/22/24 19:00 Albuterol 2.5 mg Q6HR NEB 05/23/24 12:00 05/24/24 11:43 2.5 MG Ipratropium [place] 0.5 mg Q6HR NEB 05/23/24 12:00 05/24/24 11:43 0.5 MG Methylprednisolone Sodium Succinate 80 mg BID IV 05/23/24 22:00 05/24/24 11:31 80 MG Azithromycin 250 ml @ 125 mls/hr DAILY IV 05/24/24 10:00 Hold Pantoprazole Sodium 40 mg DAILY@0600 PO 05/24/24 06:00 05/24/24 06:15 40 MG Diagnostic Test (Pha) 1 strip ACHS 05/23/24 17:00 05/24/24 11:51 1 STRIP Insulin Human Regular HS SC 05/23/24 22:00 05/23/24 22:56 10 UNITS Insulin Human Regular AC SC 05/23/24 17:00 05/24/24 11:52 9 UNITS Dextrose 50 ml UD PRN IV 05/23/24 14:00 Oxycodone/ Acetaminophen 1 tab Q6HP PRN PO 05/23/24 14:00 05/24/24 00:52 1 TAB Laboratory Results Laboratory Tests 05/23/24 06:33 05/23/24 08:50 Urinalysis Test 05/22/24 20:49 Urine Color Light-yellow (Yellow) Urine Clarity Turbid (Clear) H Urine pH 5.0 (5.0-9.0) Urine Specific [place] 1.011 (1.001-1.035) Urine Protein Trace (Negative) H Urine Ketones Negative (Negative) Urine Blood Negative /uL (Negative) Urine Nitrite Negative (Negative) Urine Bilirubin Negative (Negative) Urine Urobilinogen Normal mg/dL (Negative) Urine Leukocyte Esterase Negative /uL (Negative) Urine RBC <1 /hpf (0 - 4) Urine Microscopic WBC 1 /HPF (0-5) Urine Squamous Epithelial Cells Mod /hpf (<5) Urine Bacteria Few /hpf (None Seen) H Urine Glucose Trace mg/dL (Normal) Assessment/Plan Assessment/Plan Acute hypoxic respiratory failure COPD exacerbation Rule out heart failure Pulmonary edema Atrial fibrillation, chronic, controlled rate Morbid obesity Type 2 diabetes Hypertension Plan Oxygen as needed Oxymizer Med neb treatments IV steroids Lasix IV Echocardiogram Resume the home medications IV Zithromax Continue amiodarone and Eliquis Full code Advance directives discussed for 20 minutes 05/24/2024: Continue current management with IV steroids and IV antibiotics and oxygen Tapered down the oxygen as tolerated She had a recent echocardiogram which was normal Monitor closely The rest of the management will depend on the hospital course Plan discussed with: Patient My Orders Orders - ANABELL WYATT MD Procedure Category Date Status Time Code Status CODE 05/23/24 Transmitted 13:46 Methylprednisolone PHA 05/23/24 In Process Sod Succ (Solu Medrol 22:00 Azithromycin 500mg/ PHA 05/24/24 In Process 250ml (Zithromax 50 10:00 Pantoprazole Tablet PHA 05/24/24 In Process (Protonix Tablet) 06:00 Glucose Blood PHA 05/23/24 In Process (Accu-Chek Comfort 17:00 Insulin R (Human) PHA 05/23/24 In Process (Insulin R) 22:00 Insulin R (Human) PHA 05/23/24 In Process (Insulin R) 17:00 Dextrose 50% Syringe PHA 05/23/24 In Process 14:00 Oxycodone W/ Acet PHA 05/23/24 In Process 5/325mg Tab (Percocet 14:00 Date of Service: May 24, 2024 Billing Provider: ANABELL WYATT MD Common Visit Codes: [id number] INP/OBS CARE(HIGH) ANABELL WYATT MD May 24, 2024 12:04
[2024-05-24] MEDS: AZITHROMYCIN 500MG/ 250ML 250 ML IV SCH (17:50)
[2024-05-25] VITALS (18 sets, daily range): BP systolic 113–133; BP diastolic 52–68; PULSE 53–103; RESP 17–20; TEMP 97.6–98.2; O2SAT 60–100
[2024-05-25 05:38] LABS: Basophils # (auto) 0 10 ^3/uL (0-0.2); Eosinophils # (auto) 0 10 ^3/uL (0-0.8); Hemoglobin 11.2 g/dL (12.2-16.2); Monocytes # (auto) 0.6 10 ^3/uL (0-1.3); Nucleated Red Blood Cells % 0.4 %
[2024-05-25 05:41] LABS: Hematocrit 34.3 % (36.0-46.0); Lymphocytes # (auto) 0.6 10 ^3/uL (0.4-5.4); Lymphocytes % (auto) 4.7 % (10.0-50.0); Mean Corpuscular Hemoglobin 25.7 pg (28.0-32.0); Mean Corpuscular Hgb Conc. 32.5 g/dL (32.0-36.0); Mean Corpuscular Volume 78.8 fL (80.0-100.0); Monocytes % (auto) 5.1 % (0.0-12.0); Neutrophils # (auto) 11.1 10 ^3/uL (1.6-8.6); Neutrophils % (auto) 90.2 % (37.0-80.0); Platelet Count (auto) 282 10^3/uL (140-450); Red Blood Cells 4.35 10^6/uL (4.0-5.20); Red Cell Distribution Width 17.1 % (11.8-14.3); White Blood Cell 12.3 10^3/uL (4.4-10.8)
[2024-05-25 07:25] LABS: Alanine Aminotransferase 18 U/L (7-40); Albumin 4.5 g/dL (3.2-4.8); Alkaline Phosphatase 58 U/L (46-116); Anion Gap 11 (5-15); BUN/Creatinine Ratio 28.5 (10.0-20.0); Calcium 9.1 mg/dL (8.7-10.4); Carbon Dioxide 26 mmol/L (20-31); Chloride 100 mmol/L (98-107); Potassium 4.3 mmol/L (3.5-5.1); Sodium 137 mmol/L (136-145)
[2024-05-25 07:26] LABS: Bilirubin, Total 0.4 mg/dL (0.2-1.0)
[2024-05-25 07:31] LABS: Glucose 328 mg/dL (74-106)
[2024-05-25 07:32] LABS: Aspartate Aminotransferase < 8 U/L (13-40); Blood Urea Nitrogen 39 mg/dL (9-23); Magnesium 2.6 mg/dL (1.6-2.6)
[2024-05-25 07:35] LABS: Total Protein 7.1 g/dL (5.7-8.2)
[2024-05-25] MEDS: ACETAMINOPHEN 325 MG TAB PO PRN (11:03)
--- NOTE | 2024-05-25 12:05 | DVHPN2 ---
Subjective Better She is on 4 L nasal cannula Changes from previous H/P or p: Changes Objective Vitals Vital Signs Date Time Temp Pulse Resp B/P (MAP) Pulse Ox O2 Delivery O2 Flow Rate FiO2 05/25/24 11:27 94 Nasal Cannula 4.0 05/25/24 11:27 100 18 05/25/24 11:27 36 05/25/24 10:45 129/68 05/25/24 09:00 97.7 97.7 Intake/Output Intake and Output 05/25/24 07:00 Intake Total 2205 ml Balance 2205 ml Intake Oral 1955 ml IV Total 250 ml # Voids 4 # Bowel Movements 2 General Appearance: Alert, Oriented X3, Cooperative Lungs: Other (Diffuse wheezing) Cardiovascular: Regular rate, Normal S1, Normal S2 Abdomen: Normal bowel sounds, Soft, No tenderness Extremities: No edema Medications Current Medications Medications Dose Ordered Sig/Mahogany Route Start Time Stop Time Status Last Admin Dose Admin Aspirin 81 mg DAILY PO 05/23/24 10:00 Amlodipine Besylate 5 mg DAILY PO 05/23/24 10:00 05/25/24 10:45 5 MG Metoprolol Tartrate 25 mg BID PO 05/22/24 22:00 05/24/24 11:28 25 MG Amiodarone HCl 200 mg DAILY PO 05/23/24 10:00 05/25/24 10:44 200 MG Losartan Potassium 25 mg DAILY PO 05/23/24 10:00 05/25/24 10:44 25 MG Furosemide 20 mg DAILY IV 05/23/24 10:00 05/25/24 10:45 20 MG Ondansetron HCl 4 mg Q4HP PRN IV 05/22/24 19:00 Acetaminophen 650 mg Q6HP PRN PO 05/22/24 19:00 05/25/24 11:03 650 MG Albuterol 2.5 mg Q6HR NEB 05/23/24 12:00 05/25/24 11:21 2.5 MG Ipratropium [place] 0.5 mg Q6HR NEB 05/23/24 12:00 05/25/24 11:21 0.5 MG Methylprednisolone Sodium Succinate 80 mg BID IV 05/23/24 22:00 05/25/24 10:47 80 MG Pantoprazole Sodium 40 mg DAILY@0600 PO 05/24/24 06:00 05/25/24 06:37 40 MG Diagnostic Test (Pha) 1 strip ACHS 05/23/24 17:00 05/25/24 11:59 1 STRIP Insulin Human Regular HS SC 05/23/24 22:00 05/24/24 21:34 10 UNITS Insulin Human Regular AC SC 05/23/24 17:00 05/25/24 06:36 15 UNITS Dextrose 50 ml UD PRN IV 05/23/24 14:00 Oxycodone/ Acetaminophen 1 tab Q6HP PRN PO 05/23/24 14:00 05/24/24 17:51 1 TAB Azithromycin 250 ml @ 125 mls/hr DAILY IV 05/24/24 16:00 05/25/24 10:45 125 MLS/HR Laboratory Results Laboratory Tests 05/25/24 04:30 Chemistry Test 05/25/24 04:30 Albumin 4.5 g/dL (3.2-4.8) Calcium Level 9.1 mg/dL (8.7-10.4) Magnesium Level 2.6 mg/dL (1.6-2.6) Total Protein 7.1 g/dL (5.7-8.2) LFT Test 05/25/24 04:30 Alanine Aminotransferase (ALT) 18 U/L (7-40) Alkaline Phosphatase 58 U/L (46-116) Aspartate Amino Transferase (AST) < 8 U/L (13-40) L Total Bilirubin 0.4 mg/dL (0.2-1.0) Urinalysis Test 05/22/24 20:49 Urine Color Light-yellow (Yellow) Urine Clarity Turbid (Clear) H Urine pH 5.0 (5.0-9.0) Urine Specific [place] 1.011 (1.001-1.035) Urine Protein Trace (Negative) H Urine Ketones Negative (Negative) Urine Blood Negative /uL (Negative) Urine Nitrite Negative (Negative) Urine Bilirubin Negative (Negative) Urine Urobilinogen Normal mg/dL (Negative) Urine Leukocyte Esterase Negative /uL (Negative) Urine RBC <1 /hpf (0 - 4) Urine Microscopic WBC 1 /HPF (0-5) Urine Squamous Epithelial Cells Mod /hpf (<5) Urine Bacteria Few /hpf (None Seen) H Urine Glucose Trace mg/dL (Normal) Assessment/Plan Assessment/Plan Acute hypoxic respiratory failure COPD exacerbation Rule out heart failure Pulmonary edema Atrial fibrillation, chronic, controlled rate Morbid obesity Type 2 diabetes Hypertension Plan Oxygen as needed Oxymizer Med neb treatments IV steroids Lasix IV Echocardiogram Resume the home medications IV Zithromax Continue amiodarone and Eliquis Full code Advance directives discussed for 20 minutes 05/24/2024: Continue current management with IV steroids and IV antibiotics and oxygen Tapered down the oxygen as tolerated She had a recent echocardiogram which was normal Monitor closely The rest of the management will depend on the hospital course 05/25/2024: Continue the current management Continue to taper down the oxygen as tolerated Monitor closely Plan discussed with: Patient My Orders Orders - ANABELL WYATT MD Procedure Category Date Status Time Azithromycin 500mg/ PHA 05/24/24 In Process 250ml (Zithromax 50 16:00 Cardiac DIET 05/25/24 Transmitted Diet-2gna,Lofat,Lochol Breakfast Date of Service: May 25, 2024 Billing Provider: ANABELL WYATT MD Common Visit Codes: [id number] INP/OBS CARE(MOD) ANABELL WYATT MD May 25, 2024 12:05
[2024-05-26] VITALS (18 sets, daily range): BP systolic 116–141; BP diastolic 46–73; PULSE 61–103; RESP 17–20; TEMP 97.7–98.4; O2SAT 95–100
[2024-05-26] MEDS: INSULIN LANTUS (GLARGINE) 1 /0.01ml (100units/ml) SC ONE (13:00)
[2024-05-26] MEDS: ENOXAPARIN SOD 40 MG/0.4 ML SYRINGE SC ONE (18:14)
--- NOTE | 2024-05-26 20:58 | DVHPN2 ---
Subjective Better She is on 3 L nasal cannula Changes from previous H/P or p: Changes Objective Vitals Vital Signs Date Time Temp Pulse Resp B/P (MAP) Pulse Ox O2 Delivery O2 Flow Rate FiO2 05/26/24 20:00 69 19 95 Nasal Cannula* 5 40 05/26/24 17:05 98.4 136/73 (94) 98.4 Intake/Output Intake and Output 05/26/24 07:00 Intake Total 1600 ml Balance 1600 ml Intake Oral 1600 ml # Voids 3 General Appearance: Alert, Oriented X3, Cooperative Lungs: Other (Diffuse wheezing) Cardiovascular: Regular rate, Normal S1, Normal S2 Abdomen: Normal bowel sounds, Soft, No tenderness Extremities: No edema Medications Current Medications Medications Dose Ordered Sig/Mahogany Route Start Time Stop Time Status Last Admin Dose Admin Aspirin 81 mg DAILY PO 05/23/24 10:00 Amlodipine Besylate 5 mg DAILY PO 05/23/24 10:00 05/26/24 09:44 5 MG Metoprolol Tartrate 25 mg BID PO 05/22/24 22:00 05/26/24 09:46 25 MG Amiodarone HCl 200 mg DAILY PO 05/23/24 10:00 05/26/24 09:43 200 MG Losartan Potassium 25 mg DAILY PO 05/23/24 10:00 05/26/24 09:45 25 MG Furosemide 20 mg DAILY IV 05/23/24 10:00 05/25/24 10:45 20 MG Ondansetron HCl 4 mg Q4HP PRN IV 05/22/24 19:00 Acetaminophen 650 mg Q6HP PRN PO 05/22/24 19:00 05/25/24 11:03 650 MG Albuterol 2.5 mg Q6HR NEB 05/23/24 12:00 05/26/24 18:28 2.5 MG Ipratropium [place] 0.5 mg Q6HR NEB 05/23/24 12:00 05/26/24 18:28 0.5 MG Pantoprazole Sodium 40 mg DAILY@0600 PO 05/24/24 06:00 05/26/24 06:36 40 MG Diagnostic Test (Pha) 1 strip ACHS 05/23/24 17:00 05/26/24 18:11 1 STRIP Insulin Human Regular HS SC 05/23/24 22:00 05/25/24 22:24 8 UNITS Insulin Human Regular AC SC 05/23/24 17:00 05/26/24 18:10 15 UNITS Dextrose 50 ml UD PRN IV 05/23/24 14:00 Oxycodone/ Acetaminophen 1 tab Q6HP PRN PO 05/23/24 14:00 05/25/24 21:05 1 TAB Azithromycin 250 ml @ 125 mls/hr DAILY IV 05/24/24 16:00 05/26/24 09:46 125 MLS/HR Methylprednisolone Sodium Succinate 40 mg BID IV 05/26/24 22:00 Insulin Glargine 20 units BID@0700,2200 SC 05/27/24 07:00 Enoxaparin Sodium 40 mg DAILY SC 05/27/24 10:00 Laboratory Results Laboratory Tests 05/25/24 04:30 Urinalysis Test 05/22/24 20:49 Urine Color Light-yellow (Yellow) Urine Clarity Turbid (Clear) H Urine pH 5.0 (5.0-9.0) Urine Specific [place] 1.011 (1.001-1.035) Urine Protein Trace (Negative) H Urine Ketones Negative (Negative) Urine Blood Negative /uL (Negative) Urine Nitrite Negative (Negative) Urine Bilirubin Negative (Negative) Urine Urobilinogen Normal mg/dL (Negative) Urine Leukocyte Esterase Negative /uL (Negative) Urine RBC <1 /hpf (0 - 4) Urine Microscopic WBC 1 /HPF (0-5) Urine Squamous Epithelial Cells Mod /hpf (<5) Urine Bacteria Few /hpf (None Seen) H Urine Glucose Trace mg/dL (Normal) Assessment/Plan Assessment/Plan Acute hypoxic respiratory failure COPD exacerbation Rule out heart failure Pulmonary edema Atrial fibrillation, chronic, controlled rate Morbid obesity Type 2 diabetes Hypertension Plan Oxygen as needed Oxymizer Med neb treatments IV steroids Lasix IV Echocardiogram Resume the home medications IV Zithromax Continue amiodarone and Eliquis Full code Advance directives discussed for 20 minutes 05/24/2024: Continue current management with IV steroids and IV antibiotics and oxygen Tapered down the oxygen as tolerated She had a recent echocardiogram which was normal Monitor closely The rest of the management will depend on the hospital course 05/25/2024: Continue the current management Continue to taper down the oxygen as tolerated Monitor closely 05/26/24: Continue current Tx Lower Solu-Medrol Add LAntus SS Plan discussed with: Patient My Orders Orders - ANABELL WYATT MD Procedure Category Date Status Time Insulin Lantus PHA 05/27/24 In Process (Glargine) (Lantus) 07:00 Methylprednisolone PHA 05/26/24 In Process Sod Succ (Solu Medrol 22:00 Pt Request For Service PT 05/26/24 Logged 16:14 Enoxaparin Sodium PHA 05/27/24 In Process (Lovenox) 10:00 Date of Service: May 26, 2024 Billing Provider: ANABELL WYATT MD Common Visit Codes: [id number] INP/OBS CARE(HIGH) ANABELL WYATT MD May 26, 2024 20:58
[2024-05-26] MEDS: methylPREDNISolone SOD SUCC 40 MG/ML VL IV SCH (21:51)
[2024-05-27] VITALS (17 sets, daily range): BP systolic 119–150; BP diastolic 62–76; PULSE 53–99; RESP 12–20; TEMP 97.4–98.5; O2SAT 94–100
[2024-05-27] MEDS: INSULIN LANTUS (GLARGINE) 1 /0.01ml (100units/ml) SC SCH (05:38)
[2024-05-27] MEDS: ENOXAPARIN SOD 40 MG/0.4 ML SYRINGE SC SCH (08:58)
--- NOTE | 2024-05-27 16:09 | DVHPN2 ---
Subjective c/o dry cough and wheezing/did not get her flu vaccine this winter Changes from previous H/P or p: No Changes Objective Vitals Vital Signs Date Time Temp Pulse Resp B/P (MAP) Pulse Ox O2 Delivery O2 Flow Rate FiO2 05/27/24 13:00 98.1 65 17 141/76 (97) 98 98.1 05/27/24 12:31 Nasal Cannula* 3 32 Intake/Output Intake and Output 05/27/24 07:00 Intake Total 525 ml Balance 525 ml Intake Oral 525 ml # Voids 3 # Bowel Movements 1 General Appearance: Alert, Oriented X3, Cooperative Lungs: Other (Diffuse wheezing) Cardiovascular: Regular rate, Normal S1, Normal S2 Abdomen: Normal bowel sounds, Soft, No tenderness Extremities: No edema Medications Current Medications Medications Dose Ordered Sig/Mahogany Route Start Time Stop Time Status Last Admin Dose Admin Aspirin 81 mg DAILY PO 05/23/24 10:00 05/27/24 08:57 81 MG Amlodipine Besylate 5 mg DAILY PO 05/23/24 10:00 05/27/24 08:56 5 MG Metoprolol Tartrate 25 mg BID PO 05/22/24 22:00 05/27/24 08:56 25 MG Amiodarone HCl 200 mg DAILY PO 05/23/24 10:00 05/27/24 08:56 200 MG Losartan Potassium 25 mg DAILY PO 05/23/24 10:00 05/27/24 08:57 25 MG Furosemide 20 mg DAILY IV 05/23/24 10:00 05/27/24 08:58 20 MG Ondansetron HCl 4 mg Q4HP PRN IV 05/22/24 19:00 Acetaminophen 650 mg Q6HP PRN PO 05/22/24 19:00 05/25/24 11:03 650 MG Albuterol 2.5 mg Q6HR NEB 05/23/24 12:00 05/27/24 12:31 2.5 MG Ipratropium [place] 0.5 mg Q6HR NEB 05/23/24 12:00 05/27/24 12:31 0.5 MG Pantoprazole Sodium 40 mg DAILY@0600 PO 05/24/24 06:00 05/27/24 05:31 40 MG Diagnostic Test (Pha) 1 strip ACHS 05/23/24 17:00 05/27/24 11:53 1 STRIP Insulin Human Regular HS SC 05/23/24 22:00 05/26/24 21:57 8 UNITS Insulin Human Regular AC SC 05/23/24 17:00 05/27/24 11:54 15 UNITS Dextrose 50 ml UD PRN IV 05/23/24 14:00 Oxycodone/ Acetaminophen 1 tab Q6HP PRN PO 05/23/24 14:00 05/25/24 21:05 1 TAB Azithromycin 250 ml @ 125 mls/hr DAILY IV 05/24/24 16:00 05/27/24 08:58 125 MLS/HR Methylprednisolone Sodium Succinate 40 mg BID IV 05/26/24 22:00 05/27/24 08:57 40 MG Insulin Glargine 20 units BID@0700,2200 SC 05/27/24 07:00 05/27/24 05:38 20 UNITS Enoxaparin Sodium 40 mg DAILY SC 05/27/24 10:00 05/27/24 08:58 40 MG Laboratory Results Laboratory Tests 05/25/24 04:30 Urinalysis Test 05/22/24 20:49 Urine Color Light-yellow (Yellow) Urine Clarity Turbid (Clear) H Urine pH 5.0 (5.0-9.0) Urine Specific [place] 1.011 (1.001-1.035) Urine Protein Trace (Negative) H Urine Ketones Negative (Negative) Urine Blood Negative /uL (Negative) Urine Nitrite Negative (Negative) Urine Bilirubin Negative (Negative) Urine Urobilinogen Normal mg/dL (Negative) Urine Leukocyte Esterase Negative /uL (Negative) Urine RBC <1 /hpf (0 - 4) Urine Microscopic WBC 1 /HPF (0-5) Urine Squamous Epithelial Cells Mod /hpf (<5) Urine Bacteria Few /hpf (None Seen) H Urine Glucose Trace mg/dL (Normal) Labs and/or images reviewed: Labs reviewed by me, Image(s) reviewed by me Assessment/Plan Assessment/Plan acute respiratory failure copd exacerbation- more likely caused by recent viral urti chf/rt herat failure secondary to above chronic diastolic chf-NORMAL ECHO 01/26 obesity Plan discussed with: Patient, Other Date of Service: May 27, 2024 Billing Provider: JERROD SIDHU MD Common Visit Codes: [id number] INP/OBS CARE(MOD) JERROD SIDHU MD May 27, 2024 16:09
[2024-05-28] VITALS (14 sets, daily range): BP systolic 117–153; BP diastolic 38–69; PULSE 56–114; RESP 16–20; TEMP 97.3–98.2; O2SAT 90–98
--- NOTE | 2024-05-28 19:32 | DVHPN2 ---
Subjective c/o dry cough and wheezing/did not get her flu vaccine this winter Changes from previous H/P or p: No Changes Objective Vitals Vital Signs Date Time Temp Pulse Resp B/P (MAP) Pulse Ox O2 Delivery O2 Flow Rate FiO2 05/28/24 16:30 98.0 74 16 137/68 (91) 95 98.0 05/28/24 11:33 Nasal Cannula 2.0 05/28/24 11:33 28 Intake/Output Intake and Output 05/28/24 07:00 Intake Total 900 ml Balance 900 ml Intake Oral 650 ml IV Total 250 ml # Voids 5 # Bowel Movements 1 General Appearance: Alert, Oriented X3, Cooperative Lungs: Other (Diffuse wheezing/better than yesterday) Cardiovascular: Regular rate, Normal S1, Normal S2 Abdomen: Normal bowel sounds, Soft, No tenderness Extremities: No edema Medications Current Medications Medications Dose Ordered Sig/Mahogany Route Start Time Stop Time Status Last Admin Dose Admin Aspirin 81 mg DAILY PO 05/23/24 10:00 05/27/24 08:57 81 MG Amlodipine Besylate 5 mg DAILY PO 05/23/24 10:00 05/27/24 08:56 5 MG Metoprolol Tartrate 25 mg BID PO 05/22/24 22:00 05/28/24 10:41 25 MG Amiodarone HCl 200 mg DAILY PO 05/23/24 10:00 05/28/24 10:39 200 MG Losartan Potassium 25 mg DAILY PO 05/23/24 10:00 05/27/24 08:57 25 MG Furosemide 20 mg DAILY IV 05/23/24 10:00 05/27/24 08:58 20 MG Ondansetron HCl 4 mg Q4HP PRN IV 05/22/24 19:00 Acetaminophen 650 mg Q6HP PRN PO 05/22/24 19:00 05/25/24 11:03 650 MG Albuterol 2.5 mg Q6HR NEB 05/23/24 12:00 05/28/24 11:32 2.5 MG Ipratropium [place] 0.5 mg Q6HR NEB 05/23/24 12:00 05/28/24 11:33 0.5 MG Pantoprazole Sodium 40 mg DAILY@0600 PO 05/24/24 06:00 05/28/24 06:00 40 MG Diagnostic Test (Pha) 1 strip ACHS 05/23/24 17:00 05/28/24 17:00 1 STRIP Insulin Human Regular HS SC 05/23/24 22:00 05/27/24 21:50 10 UNITS Insulin Human Regular AC SC 05/23/24 17:00 05/28/24 17:00 12 UNITS Dextrose 50 ml UD PRN IV 05/23/24 14:00 Oxycodone/ Acetaminophen 1 tab Q6HP PRN PO 05/23/24 14:00 05/25/24 21:05 1 TAB Azithromycin 250 ml @ 125 mls/hr DAILY IV 05/24/24 16:00 05/28/24 16:13 125 MLS/HR Methylprednisolone Sodium Succinate 40 mg BID IV 05/26/24 22:00 05/28/24 10:39 40 MG Insulin Glargine 20 units BID@0700,2200 SC 05/27/24 07:00 05/28/24 06:11 20 UNITS Enoxaparin Sodium 40 mg DAILY SC 05/27/24 10:00 05/28/24 10:29 40 MG Laboratory Results Laboratory Tests 05/25/24 04:30 Urinalysis Test 05/22/24 20:49 Urine Color Light-yellow (Yellow) Urine Clarity Turbid (Clear) H Urine pH 5.0 (5.0-9.0) Urine Specific [place] 1.011 (1.001-1.035) Urine Protein Trace (Negative) H Urine Ketones Negative (Negative) Urine Blood Negative /uL (Negative) Urine Nitrite Negative (Negative) Urine Bilirubin Negative (Negative) Urine Urobilinogen Normal mg/dL (Negative) Urine Leukocyte Esterase Negative /uL (Negative) Urine RBC <1 /hpf (0 - 4) Urine Microscopic WBC 1 /HPF (0-5) Urine Squamous Epithelial Cells Mod /hpf (<5) Urine Bacteria Few /hpf (None Seen) H Urine Glucose Trace mg/dL (Normal) Assessment/Plan Assessment/Plan acute respiratory failure copd exacerbation- more likely caused by recent viral urti chf/rt herat failure secondary to above chronic diastolic chf-NORMAL ECHO 01/26 obesity Plan discussed with: Patient, Other Date of Service: May 28, 2024 Billing Provider: JERROD SIDHU MD Common Visit Codes: [id number] INP/OBS CARE(MOD) JERROD SIDHU MD May 28, 2024 19:32
[2024-05-29] VITALS (16 sets, daily range): BP systolic 125–140; BP diastolic 66–77; PULSE 52–109; RESP 14–20; TEMP 97.4–98.3; O2SAT 90–98
--- NOTE | 2024-05-29 10:25 | DVH ---
XY CHEST TWO VIEWS ROUTINE CLINICAL HISTORY: f/u on bronchitis/chf COMPARISON: None TECHNIQUE: Frontal and lateral view of the chest was obtained FINDINGS: Lines and Tubes: None Lungs: No focal consolidation. Pleura: No effusion. No pneumothorax. Cardiomediastinal contours: Unremarkable Bones: No acute osseous abnormality. IMPRESSION: No acute cardiopulmonary disease.
--- NOTE | 2024-05-29 12:06 | DVHPN2 ---
Subjective She is feeling better Lung sounds are almost no wheezing She is on 2-3 L nasal cannula She is very weak and therefore she is starting physical therapy today Changes from previous H/P or p: Changes Objective Vitals Vital Signs Date Time Temp Pulse Resp B/P (MAP) Pulse Ox O2 Delivery O2 Flow Rate FiO2 05/29/24 11:52 58 18 98 05/29/24 11:46 Nasal Cannula 2.0 05/29/24 11:46 28 05/29/24 10:34 131/67 05/29/24 08:30 98.3 98.3 Intake/Output Intake and Output 05/29/24 07:00 Intake Total 1150 ml Balance 1150 ml Intake Oral 900 ml IV Total 250 ml # Voids 2 # Bowel Movements 1 General Appearance: Alert, Oriented X3, Cooperative Lungs: Other (Diffuse wheezing/better than yesterday) Cardiovascular: Regular rate, Normal S1, Normal S2 Abdomen: Normal bowel sounds, Soft, No tenderness Extremities: No edema Medications Current Medications Medications Dose Ordered Sig/Mahogany Route Start Time Stop Time Status Last Admin Dose Admin Aspirin 81 mg DAILY PO 05/23/24 10:00 05/27/24 08:57 81 MG Amlodipine Besylate 5 mg DAILY PO 05/23/24 10:00 05/29/24 10:33 5 MG Metoprolol Tartrate 25 mg BID PO 05/22/24 22:00 05/29/24 10:33 25 MG Amiodarone HCl 200 mg DAILY PO 05/23/24 10:00 05/29/24 10:31 200 MG Losartan Potassium 25 mg DAILY PO 05/23/24 10:00 05/29/24 10:33 25 MG Furosemide 20 mg DAILY IV 05/23/24 10:00 05/29/24 10:34 20 MG Ondansetron HCl 4 mg Q4HP PRN IV 05/22/24 19:00 Acetaminophen 650 mg Q6HP PRN PO 05/22/24 19:00 05/25/24 11:03 650 MG Albuterol 2.5 mg Q6HR NEB 05/23/24 12:00 05/29/24 11:46 2.5 MG Ipratropium [place] 0.5 mg Q6HR NEB 05/23/24 12:00 05/29/24 11:46 0.5 MG Pantoprazole Sodium 40 mg DAILY@0600 PO 05/24/24 06:00 05/29/24 06:00 40 MG Diagnostic Test (Pha) 1 strip ACHS 05/23/24 17:00 05/29/24 06:00 1 STRIP Insulin Human Regular HS SC 05/23/24 22:00 05/28/24 21:18 6 UNITS Insulin Human Regular AC SC 05/23/24 17:00 05/29/24 06:02 6 UNITS Dextrose 50 ml UD PRN IV 05/23/24 14:00 Oxycodone/ Acetaminophen 1 tab Q6HP PRN PO 05/23/24 14:00 05/25/24 21:05 1 TAB Azithromycin 250 ml @ 125 mls/hr DAILY IV 05/24/24 16:00 05/29/24 10:34 125 MLS/HR Methylprednisolone Sodium Succinate 40 mg BID IV 05/26/24 22:00 05/29/24 10:35 40 MG Insulin Glargine 20 units BID@0700,2200 SC 05/27/24 07:00 05/29/24 06:02 20 UNITS Enoxaparin Sodium 40 mg DAILY SC 05/27/24 10:00 05/29/24 10:34 40 MG Laboratory Results Laboratory Tests 05/25/24 04:30 Urinalysis Test 05/22/24 20:49 Urine Color Light-yellow (Yellow) Urine Clarity Turbid (Clear) H Urine pH 5.0 (5.0-9.0) Urine Specific [place] 1.011 (1.001-1.035) Urine Protein Trace (Negative) H Urine Ketones Negative (Negative) Urine Blood Negative /uL (Negative) Urine Nitrite Negative (Negative) Urine Bilirubin Negative (Negative) Urine Urobilinogen Normal mg/dL (Negative) Urine Leukocyte Esterase Negative /uL (Negative) Urine RBC <1 /hpf (0 - 4) Urine Microscopic WBC 1 /HPF (0-5) Urine Squamous Epithelial Cells Mod /hpf (<5) Urine Bacteria Few /hpf (None Seen) H Urine Glucose Trace mg/dL (Normal) Assessment/Plan Assessment/Plan Acute hypoxic respiratory failure COPD exacerbation Rule out heart failure Pulmonary edema Atrial fibrillation, chronic, controlled rate Morbid obesity Type 2 diabetes Hypertension Plan Oxygen as needed Oxymizer Med neb treatments IV steroids Lasix IV Echocardiogram Resume the home medications IV Zithromax Continue amiodarone and Eliquis Full code Advance directives discussed for 20 minutes 05/24/2024: Continue current management with IV steroids and IV antibiotics and oxygen Tapered down the oxygen as tolerated She had a recent echocardiogram which was normal Monitor closely The rest of the management will depend on the hospital course 05/25/2024: Continue the current management Continue to taper down the oxygen as tolerated Monitor closely 05/26/24: Continue current Tx Lower Solu-Medrol Add LAntus SS 05/29/2024: Start physical therapy ambulate as tolerated Oxygen as needed IV antibiotics: Discontinue Zithromax, she received 6 doses IV steroids: Lower the dose to 30 mg twice a day Discharge planning for tomorrow Increase Lantus to 25 units twice a day Plan discussed with: Patient Date of Service: May 29, 2024 Billing Provider: ANABELL WYATT MD Common Visit Codes: [id number] INP/OBS CARE(HIGH) ANABELL WYATT MD May 29, 2024 12:06
[2024-05-29] MEDS: methylPREDNISolone SOD SUCC 40 MG/ML VL IV SCH (21:24)
[2024-05-29] MEDS: INSULIN LANTUS (GLARGINE) 1 /0.01ml (100units/ml) SC SCH (21:28)
[2024-05-30] VITALS (13 sets, daily range): BP systolic 123–144; BP diastolic 43–79; PULSE 53–114; RESP 14–20; TEMP 36.2; O2SAT 92–99
[2024-05-30] MEDS ORDERED: METH4PAK PO (11:28)
--- NOTE | 2024-05-30 11:31 | DVHDS2 ---
Discharge Summary Date of Admission May 22, 2024 at 18:53 Date of Discharge: May 30, 2024 Labs/Diagnostic Data: Laboratory Results Test 05/30/24 06:13 05/25/24 04:30 05/23/24 06:33 05/23/24 00:46 POC Glucose 228 mg/dl (70-106) White Blood Count 12.3 10^3/uL (4.4-10.8) Red Blood Count 4.35 10^6/uL (4.0-5.20) Hemoglobin 11.2 g/dL (12.2-16.2) Hematocrit 34.3 % (36.0-46.0) Mean Corpuscular Volume 78.8 fL (80.0-100.0) Mean Corpuscular Hemoglobin 25.7 pg (28.0-32.0) Mean Corpuscular Hemoglobin Concent 32.5 g/dL (32.0-36.0) Red Cell Distribution Width 17.1 % (11.8-14.3) Platelet Count 282 10^3/uL (140-450) Mean Platelet Volume 8.2 fL (6.9-10.8) Neutrophils (%) (Auto) 90.2 % (37.0-80.0) Lymphocytes (%) (Auto) 4.7 % (10.0-50.0) Monocytes (%) (Auto) 5.1 % (0.0-12.0) Eosinophils (%) (Auto) 0.0 % (0.0-7.0) Basophils (%) (Auto) 0.0 % (0.0-2.0) Neutrophils # (Auto) 11.1 10 ^3/uL (1.6-8.6) Lymphocytes # (Auto) 0.6 10 ^3/uL (0.4-5.4) Monocytes # (Auto) 0.6 10 ^3/uL (0-1.3) Eosinophils # (Auto) 0 10 ^3/uL (0-0.8) Basophils # (Auto) 0 10 ^3/uL (0-0.2) Nucleated Red Blood Cells 0.4 % Sodium Level 137 mmol/L (136-145) Potassium Level 4.3 mmol/L (3.5-5.1) Chloride Level 100 mmol/L (98-107) Carbon Dioxide Level 26 mmol/L (20-31) Anion Gap 11 (5-15) Blood Urea Nitrogen 39 mg/dL (9-23) Creatinine 1.37 mg/dL (0.550-1.02) Glomerular Filtration Rate Calc 43 mL/min (>90) BUN/Creatinine Ratio 28.5 (10.0-20.0) Serum Glucose 328 mg/dL (74-106) Calcium Level 9.1 mg/dL (8.7-10.4) Magnesium Level 2.6 mg/dL (1.6-2.6) Total Bilirubin 0.4 mg/dL (0.2-1.0) Aspartate Amino Transferase (AST) < 8 U/L (13-40) Alanine Aminotransferase (ALT) 18 U/L (7-40) Alkaline Phosphatase 58 U/L (46-116) Total Protein 7.1 g/dL (5.7-8.2) Albumin 4.5 g/dL (3.2-4.8) Differential Total Cells Counted 100.0 (100) Neutrophils % (Manual) 95 (37.0-80.0) Band Neutrophils % (Manual) 0 Lymphocytes % (Manual) 2 (10.0-50.0) Monocytes % (Manual) 3 (0-12) Eosinophils % (Manual) 0 (0-7) Basophils % (Manual) 0 (0.0-2.0) Metamyelocytes % (manual) 0 Myelocytes % (Manual) 0 Promyelocytes % (Manual) 0 Blast Cells % (Manual) 0 Reactive Lymphocytes 0 Platelet Estimate Adequate D-Dimer, Quantitative 0.45 mg/L FEU (0.0-0.49) Test 05/23/24 00:37 05/22/24 20:49 05/22/24 17:11 Influenza Type A Antigen Negative (Negative) Influenza Type B Antigen Negative (Negative) SARS-CoV-2 Antigen (Rapid) Negative (NEGATIVE) Urine Color Light-yellow (Yellow) Urine Clarity Turbid (Clear) Urine pH 5.0 (5.0-9.0) Urine Specific [place] 1.011 (1.001-1.035) Urine Protein Trace (Negative) Urine Ketones Negative (Negative) Urine Blood Negative /uL (Negative) Urine Nitrite Negative (Negative) Urine Bilirubin Negative (Negative) Urine Urobilinogen Normal mg/dL (Negative) Urine Leukocyte Esterase Negative /uL (Negative) Urine RBC <1 /hpf (0 - 4) Urine Microscopic WBC 1 /HPF (0-5) Urine Squamous Epithelial Cells Mod /hpf (<5) Urine Bacteria Few /hpf (None Seen) Urine Glucose Trace mg/dL (Normal) Microcytosis Slight B-Type Natriuretic Peptide 164.66 pg/mL (0-100) Other Laboratory Tests 05/25/24 04:30 Brief Hx & Hospital Course: Final diagnoses: Acute hypoxic respiratory failure COPD exacerbation Rule out heart failure Pulmonary edema Atrial fibrillation, chronic, controlled rate Morbid obesity Type 2 diabetes Hypertension 64-year-old female with a history of COPD was admitted for acute respiratory failure and COPD exacerbation with severe wheezing and hypoxia She was treated with IV steroids and IV antibiotics She was given oxygen with a Oxymizer in the beginning and then she improved slowly until she is on 2 L today She already has home O2 The patient can be discharged home today on a tapered dose prednisone She finished a full course of antibiotics here Follow up with the primary care physician in 1 week as soon as possible Resume the home medications Condition at Discharge: Stable Final Diagnosis/Problems List Acute hypoxic respiratory failure COPD exacerbation Rule out heart failure Pulmonary edema Atrial fibrillation, chronic, controlled rate Morbid obesity Type 2 diabetes Hypertension Discharge Disposition: Home SNF Discharge Will this Physician continue t: No Discharge Instruct/Medications Diet: Consistent carbohydrate, Cardiac 2g Na,low cholest Activity: No Restrictions, As Tolerated Follow Up/Referral: PCP as soon as possible Medications: Medrol Dosepak Resume the home meds Discharge Statement: "Patient was advised to return to the ER or call 911 if any headaches, dizziness, shortness of breath, chest pain, abdominal pain, bleeding, fevers, or worsening of medical condition. Patient was counseled about treatment plan, medications, possible side effects, patientverbalized understanding. All questions were answered to the best of my ability. This discharge took greater then 30 minutes in planning, reviewing documentation, counseling the patient, and discussing with other team members." ASSESSMENT ASSESSMENT Assessment Acute hypoxic respiratory failure COPD exacerbation Rule out heart failure Pulmonary edema Atrial fibrillation, chronic, controlled rate Morbid obesity Type 2 diabetes Hypertension Date of Service: May 30, 2024 Billing Provider: ANABELL WYATT MD Common Visit Codes: 26406-LMA/OBS DISCH DAY >30min ANABELL WYATT MD May 30, 2024 11:31
== END 2024-05-30 19:58 | disposition home or self-care (01) | DRG 194 ==
LOC: ER 15:37 → EDUNIT# 15:37 → EDBD 15:37 → OVERFLOW 18:53 → WEST WING 05-23 21:35
PROVIDERS: ADMIT Internal Medicine Geriatric Medicine; ATTEND Internal Medicine Geriatric Medicine
DX: I11.0 Hypertensive heart disease with heart failure (principal); J96.01 Acute respiratory failure with hypoxia; R65.11 Systemic inflammatory response syndrome (SIRS) of non-infectious origin with acute organ dysfunction; J44.1 Chronic obstructive pulmonary disease with (acute) exacerbation; I48.20 Chronic atrial fibrillation, unspecified; E11.9 Type 2 diabetes mellitus without complications; E66.01 Morbid (severe) obesity due to excess calories; Z20.822 Contact with and (suspected) exposure to COVID-19; Z88.5 Allergy status to narcotic agent; Z99.81 Dependence on supplemental oxygen; Z68.43 Body mass index [BMI] 50.0-59.9, adult; I50.31 Acute diastolic (congestive) heart failure
CPT/HCPCS: 36415; 71045; 71046; 80048; 80053; 81001; 82962; 83735; 83880; 85007; 85025; 85027; 85379; 87426; 87804; 94640; 97116; 97163; 97530; G0378; J1815

== ENCOUNTER 2024-08-16 12:31 | Inpatient (IN) | payer MEDICAID ==
[~2024-08-16] VITALS: Ht 149.9 cm; Wt 132.5 kg
[2024-08-16] VITALS (37 sets, daily range): BP systolic 100–151; BP diastolic 57–83; PULSE 103–138; RESP 16–33; TEMP 97–101.3; O2SAT 95–100
[~2024-08-16 12:31] MED LIST changes: +ACET325T82 PO; -CHOL20007 OR; +IBUP-1454 PO; -MELO7.5T7 PO; +METH-1181 PO; +METH4PAK PO; -SEMA2INJ3 SC; +TIZA4CAP PO
[2024-08-16] MEDS: ROCURONIUM 10MG/ML 10ML VIAL IV ONE ×2 (12:37→12:58)
[2024-08-16] MEDS: ETOMIDATE (2MG/ML) 20ML VIAL IV ONE ×2 (12:37→12:58)
[2024-08-16] MEDS: MIDAZOLAM DRIP 50 mg/50mL 50 ML IV SCH (12:38)
--- NOTE | 2024-08-16 12:39 | ED.PDOC ---
Altered Mental Status HPI Comments 64 year old female ANA presents to the ED with chief complaint of ALOC and SOB. EMS reports that the patient was last seen well at 7am with patient complaining of some SOB, but went back to sleep. EMS relays that the patient was found by family 30 minutes ago gurgling in her sleep and unable to respond. EMS states that the patient is not able to move or answer questions, only opening her eyes to painful stimuli. EMS notes patient was at 64% O2 saturation on RA, but went up to 94% on 15L continuous. EMS reports that the patient's BP was 207/102, HR 129, and patient was given Nitroglycerin on route to the ED. Patient unable to answer any questions at this time due to her altered status. Time Seen by MD: 12:34 Primary Care Provider: UNKNOWN Reviewed Notes: Nurses Notes, Advisor Consultant Notes, Medications, Allergies Allergies: Coded Allergies: Codeine (Verified Allergy, Unknown, 03/22/24) Home Meds Active Scripts Methylprednisolone (Medrol Dosepak) 4 Mg Jose, 4 MG PO UD, #21 TAB UAD Prov:ANABELL WYATT MD 05/30/24 Metoprolol Tartrate (Lopressor) 25 Mg Tb, 25 MG PO BID for 60 Days, #120 TAB Prov:CHAPIN ZEPEDA RESIDENT 01/13/24 Apixaban Base (ELIQUIS) 5 Mg Tab, 5 MG PO BID for 30 Days, #60 TAB Prov:CHAPIN ZEPEDA RESIDENT 01/13/24 Amiodarone HCl (Amiodarone HCl) 200 Mg Tab, 200 MG PO DAILY for 90 Days, #90 TAB Prov:CHAPIN ZEPEDA RESIDENT 01/13/24 Reported Medications Acetaminophen (Apap) 325 Mg Tab, 325 MG PO, TAB 05/24/24 Ibuprofen (Ibuprofen) 600 Mg Tab, 600 MG PO, TAB 05/24/24 Apixaban Base (ELIQUIS) 5 Mg Tab, 5 MG PO BID, TAB 05/24/24 Tizanidine Hydrochloride (Zanaflex) 4 Mg Cap, 1 CAP PO QPM, #30 CAP 05/24/24 Methocarbamol (Methocarbamol) 500 Mg Tab, 500 MG PO, TAB 05/24/24 Losartan Potassium (Losartan Potassium) 50 Mg Tab, 50 MG PO BID for 30 Days, MG 01/12/24 Glipizide (Glipizide) 10 Mg Tab, 10 MG PO QID for 30 Days, MG 01/12/24 Oxycodone W/ Acetaminophen (Percocet 5/325MG) 1 Tab Tb, 5-325 MG PO BIDPRN PRN 01/11/24 Pregabalin (Pregabalin) 25 Mg Cap, 1-2 CAP PO BID 01/11/24 Amlodipine Besylate (Amlodipine Besylate) 5 Mg Tab, 1 TAB PO DAILY 01/11/24 Amitriptyline HCl (Amitriptyline HCl) 10 Mg Tab, 1 TAB PO HS 01/11/24 Diclofenac Sodium (Topical) (Diclofenac Sodium) 1 % Gel, 1 % TOP TID 11/03/22 Atorvastatin Calcium (ATORVASTATIN CALCIUM) 10 Mg Tab, 1 TAB PO DAILY 11/03/22 Docusate Sodium (Dok) 100 Mg Cap, 100 MG PO BID 05/22/20 Albuterol Sulfate (VENTOLIN MDI) 90 Mcg Ih, 2 PUFF IN QIDP PRN for SHORTNESS OF BREATH 05/22/20 Information Source: Emergency Med Personnel Mode of Arrival: EMS Severity: Severe, Unresponsive Timing: Hours Duration: Since onset Prehospital treatment: Oxygen Quality: Decreased Alertness, Change in Behavior Recent: None History of: None Past Medical History PAST MEDICAL HISTORY: Asthma, COPD, DM, HTN Surgical History: Denies all surgeries 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 Hx Family History Family History: Reviewed,noncontributory to illness Social History Smoker: Non-Smoker Alcohol: Denies ETOH Use Drugs: Marijuana Lives In: Home Constitutional: denies: chills, diaphoresis, fatigue, fever, malaise, sweats, weakness, others EENTM: denies: blurred vision, double vision, ear bleeding, ear discharge, ear drainage, ear pain, ear ringing, eye pain, eye redness, hearing loss, mouth pain, mouth swelling, nasal discharge, nose bleeding, nose congestion, nose pain, photophobia, tearing, throat pain, throat swelling, voice changes, others Respiratory: reports: shortness of breath; denies: cough, hemoptysis, orthopnea, SOB at rest, SOB with excertion, stridor, wheezing, others Cardiovascular: denies: chest pain, dizzy spells, diaphoresis, Dyspnea on exertion, edema, irregular heart beat, left arm pain, lightheadedness, palpitations, PND, syncope, others Gastrointestinal: denies: abdomen distended, abdominal pain, blood streaked bowels, constipated, diarrhea, dysphagia, difficulty swallowing, hematemesis, melena, nausea, poor appetite, poor fluid intake, rectal bleeding, rectal pain, vomiting, others Genitourinary: denies: abnormal vagina bleeding, burning, dyspareunia, dysuria, flank pain, frequency, hematuria, incontinence, pain, , vagina discharge, urgency, others Neurological: denies: dizziness, fainting, headache, left sided numbness, left sided weakness, numbness, paresthesia, pre-existing deficit, right sided numbness, right sided weakness, seizure, speech problems, tingling, tremors, weakness, others Musculoskeletal: denies: back pain, gout, joint pain, joint swelling, muscle pain, muscle stiffness, neck pain, others Integumetry: denies: bruises, change in color, change in hair/nails, dryness, laceration, lesions, lumps, rash, wounds, others Allergic/Immunocompromised: denies: Difficulty Healing, Frequent Infections, Hives, Itching, others Hematologic/Lymphatic: denies: anemia, blood clots, easy bleeding, easy bruising, swollen glands, others Endocrine: denies: excessive hunger, excessive sweating, excessive thirst, excessive urination, flushing, intolerance to cold, intolerance to heat, unexplained weight gain, unexplained weight loss, others Psychiatric: denies: anxiety, bipolar disorder, depression, hopeless, panic disorder, schizophrenia, sleepless, suicidal, others Unable to Obtain due to: Altered Mental Status All Other Systems: Reviewed and Negative Physical Exam General Appearance: Obese, Severe Distress HEENT: Normal ENT Inspection, Pharynx Normal, TMs Normal Neck: Full Range of Motion, Non-Tender, Normal, Normal Inspection Respiratory: Accessory Muscle Use, Respiratory Distress, Other (Coarse breath sounds ) Cardiovascular: No Edema, No JVD, No Murmur, No Gallop, Normal Peripheral Pulses, Regular Rate/Rhythm Breast Exam: Deferred Gastrointestinal: No Organomegaly, Non Tender, No Pulsatile Mass, Normal Bowel Sounds, Soft Genitalia: Deferred Pelvic: Deferred Rectal: Deferred Extremities: No calf tenderness, Normal capillary refill, Normal inspection, Normal range of motion, Non-tender, No pedal edema Musculoskeletal : Apperance: Normal Neurologic: Disoriented Cerebellar Function: NOT DONE Reflexes: NOT DONE Skin: Dry, Normal Color, Warm Peripheral Pulses: 3+ Radial (R), 3+ Radial (L) Lymphatic: No Adenopathy EKG EKG : Cardiac Rhythm: Afib Was a procedure done? Was a procedure done?: Yes Sedation Sedation?: Yes Informed consent obtained: No Sedation start time: 12:35 Sedation end time: 12:40 Sedation total time: 5 min Central Line Recorder of insertion practice: Cartography Professor Occupation of major general: Attending Physician Indication: CVP monitoring, Volume resuscitation, Suspected infection Room prepared for procedure: Yes Cartography Professor performed hand hygien: Yes Maximal sterile barrier precau: Mask/Eye shield, Sterile gown, Cap, Sterlie gloves, Large sterlie drape Skin Preparation: Chlorhexidine gluconate Skin preparation completely dr: Yes Insertion site: Right, Internal jugular Central line catheter type: Hys-dejrxzzm-rnd dialysis Number of lumens: 3 Post Assessment: Chest X-Ray, Proper placement Informed consent obtained: No Risks/benefits/alt described: No Intubation Indication: Respiratory Insufficiency, Altered Mental Status, Airway Protection Prep: Preoxygenation Pretreated with: Sedation Intubation Approach: Orotracheal Intubation size: cm (8) Informed consent obtained: Yes Risks/benefits/alt described: Yes Notes Patient given 20mg of Etomidate and 100mg of Rocuronium. Differential Diagnosis (ALOC) Differential Diagnosis: Dehydration, Encephalopathy, Sepsis, Hypoxemia, Heart Failure X-Ray, Labs, Meds, VS Vital Signs Date Time Temp Pulse Resp B/P (MAP) Pulse Ox O2 Delivery O2 Flow Rate FiO2 08/16/24 13:04 102.9 08/16/24 12:51 135 08/16/24 12:49 133 16 188/97 (127) 97 100 08/16/24 12:39 138 16 96 Non-Rebreather 15 N/A 08/16/24 12:39 102.9 138 16 161/78 (105) 88 102.9 08/16/24 12:38 161/78 08/16/24 12:37 161/78 08/16/24 12:36 123 08/16/24 12:31 102.9 136 24 171/101 (124) 94 102.9 Lab Test 5/14/25 13:41 08/16/24 12:58 08/16/24 12:57 Range/Units Blood Gas Specimen Type Arterial Blood Gas Sample Site Right radial Blood Gas Patient Temperature 37.0 Arterial Blood Date Drawn [id number] Arterial Blood pH 7.370 7.350-7.450 Arterial Blood Partial Pressure CO2 41.7 32.0-45.0 mmHg Arterial Blood Partial Pressure O2 103.9 83.0-108.0 mmHg Arterial Blood HCO3 23.6 21.0-28.0 mmol/L Arterial Blood Oxygen Saturation 97.3 94.0-98.0 % Arterial Blood Base Excess -1.7 -2.0-3.0 mmol/L Arterial Blood Oxyhemoglobin 96.2 94.0-98.0 % Arterial Blood Carboxyhemoglobin 0.3 L 0.5-1.5 % Arterial Blood Methemoglobin 0.8 0.0-1.5 % Nathan Test Modified Blood Gas Total Hemoglobin 13.10 12.0-16.0 g/dL Blood Gas Set Respiration Rate 16.0 Blood Gas Modality Vent - ac FiO2 % 100.0 Blood Gas Tidal Volume 500.0 Blood Gas PEEP or CPAP 5.0 White Blood Count 23.3 H 4.4-10.8 10^3/uL Red Blood Count 4.61 4.0-5.20 10^6/uL Hemoglobin 11.9 L 12.2-16.2 g/dL Hematocrit 35.8 L 36.0-46.0 % Mean Corpuscular Volume 77.5 L 80.0-100.0 fL Mean Corpuscular Hemoglobin 25.9 L 28.0-32.0 pg Mean Corpuscular Hemoglobin Concent 33.4 32.0-36.0 g/dL Red Cell Distribution Width 19.0 H 11.8-14.3 % Platelet Count 302 140-450 10^3/uL Mean Platelet Volume 7.9 6.9-10.8 fL Neutrophils (%) (Auto) 89.9 H 37.0-80.0 % Lymphocytes (%) (Auto) 3.2 L 10.0-50.0 % Monocytes (%) (Auto) 6.2 0.0-12.0 % Eosinophils (%) (Auto) 0.0 0.0-7.0 % Basophils (%) (Auto) 0.7 0.0-2.0 % Neutrophils # (Auto) 20.9 H 1.6-8.6 10 ^3/uL Lymphocytes # (Auto) 0.7 0.4-5.4 10 ^3/uL Monocytes # (Auto) 1.5 H 0-1.3 10 ^3/uL Eosinophils # (Auto) 0 0-0.8 10 ^3/uL Basophils # (Auto) 0.2 0-0.2 10 ^3/uL Nucleated Red Blood Cells 0.5 % Sodium Level 141 136-145 mmol/L Potassium Level 2.5 *L 3.5-5.1 mmol/L Chloride Level 100 98-107 mmol/L Carbon Dioxide Level 27 20-31 mmol/L Anion Gap 14 5-15 Blood Urea Nitrogen 12 9-23 mg/dL Creatinine 0.98 0.550-1.02 mg/dL Glomerular Filtration Rate Calc 64 >90 mL/min BUN/Creatinine Ratio 12.2 10.0-20.0 Serum Glucose 201 H 74-106 mg/dL Lactic Acid Level 5.0 *H 0.4-2.0 mmol/L Calcium Level 9.8 8.7-10.4 mg/dL Total Bilirubin 1.1 H 0.2-1.0 mg/dL Aspartate Amino Transferase (AST) 27 13-40 U/L Alanine Aminotransferase (ALT) 49 H 7-40 U/L Alkaline Phosphatase 107 46-116 U/L Troponin I High Sensitivity 336 *H </=34 ng/L B-Type Natriuretic Peptide 280.79 0-100 pg/mL Total Protein 7.4 5.7-8.2 g/dL Albumin 4.7 3.2-4.8 g/dL Urine Color Colorless Yellow Urine Clarity Clear Clear Urine pH 7.0 5.0-9.0 Urine Specific [place] 1.007 1.001-1.035 Urine Protein Negative Negative Urine Ketones Trace Negative Urine Blood Negative Negative /uL Urine Nitrite Negative Negative Urine Bilirubin Negative Negative Urine Urobilinogen Normal Negative mg/dL Urine Leukocyte Esterase Negative Negative /uL Urine RBC 1 0 - 4 /hpf Urine Microscopic WBC 1 0-5 /HPF Urine Squamous Epithelial Cells None seen <5 /hpf Urine Bacteria None seen None Seen /hpf Urine Glucose Normal Normal mg/dL Current Medications Medications (Trade) Dose Ordered Sig/[place] Route Start Time Stop Time Status Last Admin Acetaminophen (Tylenol Suppository) 650 mg ONCE ONCE [place] 08/16/24 12:45 08/16/24 12:46 DC 08/16/24 13:04 Rocuronium [place] 100 mg ONCE ONCE IV 08/16/24 12:35 08/16/24 12:50 DC 08/16/24 12:37 Etomidate 20 mg ONCE ONCE IV 08/16/24 12:35 08/16/24 12:50 DC 08/16/24 12:37 Midazolam HCl 50 ml @ 1 mls/hr Q24H IV 08/16/24 13:00 08/16/24 12:38 Ceftriaxone Sodium 50 ml @ 100 mls/hr ONCE ONCE IV 08/16/24 13:30 08/16/24 13:59 DC 08/16/24 13:29 Azithromycin 250 ml @ 125 mls/hr ONCE ONCE IV 08/16/24 13:30 08/16/24 15:29 08/16/24 14:45 Potassium Chloride 100 ml @ 50 mls/hr Q2H IV 08/16/24 14:15 08/16/24 18:14 08/16/24 14:09 Patient altered. Unable to get a good history from the patient. Respiratory distress. Placed on oxygen. Had to intubate the patient. Placed a central line. Was given Rocephin. Was given azithromycin. Potassium is low. Was given potassium. Lactic acid elevated. Sepsis protocol. Had to hold fluids because of possible CHF. WBC elevated. Continue monitoring. Waiting for family. EKG reviewed atrial fibrillation. BNP elevated pain Cardiac marker elevated. Was given Lovenox. Time of 1ST Reevaluation: 13:34 Reevaluation 1ST: Unchanged Patient Education/Counseling: Pt Unresponsive Family Education/Counseling: No Family Present Additional Information The following tests were ordered, and results were reviewed by me: Additional Information was gathered from interviewing the following independent historians: EMS I reviewed and agreed with the following test results read by other providers: I discussed treatment and results with medical personnel and: patient Comprehensive systems review obtained and negative except for what is stated in the HPI. Departure 1 Departure Time of Disposition: 14:44 Impression: Primary Impression: Atrial fibrillation Qualified Codes: I48.0 - Paroxysmal atrial fibrillation Additional Impressions: Metabolic encephalopathy Acute respiratory failure Qualified Codes: J96.01 - Acute respiratory failure with hypoxia Sepsis Qualified Codes: A41.9 - Sepsis, unspecified organism Demand ischemia Hypokalemia Disposition: 09 ADMITTED INPATIENT Admit to: ICU Condition: Guarded Comments Spoke to EMS and examined patient at 1234, discussing treatment plan at this time. Critical Care Note Critical Care Time?: Yes (90 min-critical care time only) Critical care comment: Intubated Stability Stability form required: No Heart Score Heart Score: Heart Score Response (Comments) Value History Slightly Suspicious 0 EKG Normal 0 Age 45-64 1 Risk Factors >3 or Hx ASHD 2 Troponin >3 x's Normal limit 2 Total 5 I personally scribed for ANTONIETTA LARA MD ([email or web address]) on 08/16/24 at 12:39. Electronically submitted by Hemant Mistry ([email or web address]). I personally scribed for ANTONIETTA LARA MD ([email or web address]) on 08/16/24 at 12:43. Electronically submitted by Hemant Mistry ([email or web address]). ANTONIETTA LARA MD August 16, 2024 12:39
[2024-08-16 12:59] LABS: Urine Bacteria None Seen /hpf (None Seen)
[2024-08-16] MEDS: MIDAZOLAM DRIP 50 mg/50mL 50 ML IV ONE (13:00)
[2024-08-16] MEDS: ACETAMINOPHEN 650 MG RECT SUPP PR ONE ×2 (13:04→15:17)
[2024-08-16 13:06] LABS: Urine Blood Negative /uL (Negative); Urine Clarity Clear (Clear); Urine Color Colorless (Yellow); Urine Protein, UAD Negative (Negative); Urine Specific Gravity 1.007 (1.001-1.035); Urine Squamous Epithelial Cell None Seen /hpf (<5); Urine Urobilinogen Normal (Negative); Urine WBC 1 /HPF (0-5)
[2024-08-16] MEDS: SODIUM CHLORIDE 0.9% 1,000 ML IV ONE ×3 (13:24→17:22)
--- NOTE | 2024-08-16 13:28 | DVH ---
EXAM: XY CHEST XRAY 1 VIEW Indication: INTUBATION AND CENTRAL LINE PLACEMENT Technique: Single frontal view of the chest was obtained Comparison: XY CHEST PORTABLE on DOS: 05/22/24, XY CHEST PORTABLE on DOS: 01/11/24, XY CHEST PORTABLE o n DOS: 01/11/24, XY CHEST PORTABLE on DOS: 11/02/22, CHEST PORTABLE on DOS: 05/26/20 FINDINGS: Lines and Tubes: Endotracheal tube projects 1 cm above level the karissa. Recommend retraction. Ente tanvi tube tip projects over the expected region of the stomach. Right internal jugular central venous catheter tip projects over the superior vena cava. Lungs: Multifocal consolidative opacities. Pleura: No effusion. No pneumothorax. Cardiomediastinal contours: Cardiomegaly. Bones: No acute osseous abnormality. IMPRESSION: Multifocal consolidative opacities. Cardiomegaly.
[2024-08-16] MEDS: cefTRIAXone 1GM/50ML D5W 50 ML IV ONE (13:29)
[2024-08-16 13:33] LABS: Eosinophils # (auto) 0 10 ^3/uL (0-0.8); Hemoglobin 11.9 g/dL (12.2-16.2); Lymphocytes # (auto) 0.7 10 ^3/uL (0.4-5.4); Monocytes # (auto) 1.5 10 ^3/uL (0-1.3)
[2024-08-16 13:46] LABS: Albumin 4.7 g/dL (3.2-4.8); Alkaline Phosphatase 107 U/L (46-116); Anion Gap 14 (5-15); Aspartate Aminotransferase 27 U/L (13-40); BUN/Creatinine Ratio 12.2 (10.0-20.0); Basophils # (auto) 0.2 10 ^3/uL (0-0.2); Basophils % (auto) 0.7 % (0.0-2.0); Bilirubin, Total 1.1 mg/dL (0.2-1.0); Blood Urea Nitrogen 12 mg/dL (9-23); Calcium 9.8 mg/dL (8.7-10.4); Carbon Dioxide 27 mmol/L (20-31); Chloride 100 mmol/L (98-107); Hematocrit 35.8 % (36.0-46.0); Lymphocytes % (auto) 3.2 % (10.0-50.0); Mean Corpuscular Hemoglobin 25.9 pg (28.0-32.0); Mean Corpuscular Hgb Conc. 33.4 g/dL (32.0-36.0); Mean Corpuscular Volume 77.5 fL (80.0-100.0); Monocytes % (auto) 6.2 % (0.0-12.0); Neutrophils # (auto) 20.9 10 ^3/uL (1.6-8.6); Neutrophils % (auto) 89.9 % (37.0-80.0); Nucleated Red Blood Cells % 0.5 %; Platelet Count (auto) 302 10^3/uL (140-450); Red Blood Cells 4.61 10^6/uL (4.0-5.20); Sodium 141 mmol/L (136-145); Total Protein 7.4 g/dL (5.7-8.2); White Blood Cell 23.3 10^3/uL (4.4-10.8)
[2024-08-16 13:48] LABS: Alanine Aminotransferase 49 U/L (7-40); Glucose 201 mg/dL (74-106); Potassium 2.5 mmol/L (3.5-5.1)
[2024-08-16 13:51] LABS: Base Excess -1.7 mmol/L (-2.0-3.0)
[2024-08-16] MEDS ORDERED: POTASSIUM CHLORIDE 40 MEQ, LIDOCAINE 1% (LOCAL ANESTH.) 4 ML in SODIUM CHL 0.9% 250 ML IV ONE (14:00)
[2024-08-16] MEDS: POTASSIUM CHL 20MEQ/100ML 100 ML IV ONE (14:04)
[2024-08-16] MEDS: POTASSIUM CHL 20MEQ/100ML 100 ML IV SCH (14:09)
[2024-08-16] MEDS: AZITHROMYCIN 500MG/ 250ML 250 ML IV ONE (14:45)
[2024-08-16] MEDS: PROPOFOL 100 ML IV SCH (15:18)
[2024-08-16] MEDS: ENOXAPARIN SOD 120 MG/0.8 ML SYRINGE SC ONE (15:18)
--- NOTE | 2024-08-16 15:28 | DVH ---
CHEST RADIOGRAPH Indication: PATIENT ATTEMPTED TO PULL OUT ET TUBE Technique: Single frontal view of the chest was obtained COMPARISON: XY CHEST XRAY 1 VIEW on DOS: 08/16/24, XY CHEST PORTABLE on DOS: 05/22/24, XY CHEST PORTABL E on DOS: 01/11/24, XY CHEST PORTABLE on DOS: 01/11/24, XY CHEST PORTABLE on DOS: 11/02/22 FINDINGS: Lines and Tubes: Endotracheal tube is low in position above the level of the karissa. Right central v enous catheter and enteric catheter in satisfactory position. Lungs: Multifocal airspace disease. Pleura: No effusion. No pneumothorax. Cardiomediastinal contours: Unremarkable Bones: Unremarkable IMPRESSION: Recommend retraction of endotracheal tube by 1 cm.
[2024-08-16] MEDS: NOREPINEPHRINE 8 MG/250ML KIT 250 ML IV SCH (15:45)
[2024-08-16] MEDS ORDERED: VANCOMYCIN PER PHARMACY 0 MG IV SCH (16:45)
[2024-08-16] MEDS ORDERED: DEXTROSE (50%) 50ML SYRG IV PRN (16:45)
[2024-08-16] MEDS ORDERED: SODIUM CHLORIDE 0.9% 1,000 ML IV SCH (16:45)
[2024-08-16] MEDS ORDERED: ENOXAPARIN SOD 40 MG/0.4 ML SYRINGE SC ONE (16:45)
--- NOTE | 2024-08-16 16:48 | DVH ---
EXAM: CT HEAD WITHOUT CONTRAST INDICATION: ALOC TECHNIQUE: CT of the head without intravenous contrast. Radiation Dose : 1. Head: CT Dose: CTDI volume is 66.06 mGy. Dose-length product is 1301.58 mGy*cm The dose indicators for CT are the volume Computed Tomography (CT) Dose Index (CTDIvol) and the Dose Length Product (DLP), and are measured in units of mGy and mGy-cm, respectively. These indicators are not patient dose, but values generated from the CT scanner acquisition factors. The report includes radiation exposure data for exposures received during this examination. COMPARISON: CT HEAD WITHOUT CONTRAST on DOS: 11/02/22 FINDINGS: There is no evidence of acute intracranial hemorrhage, extra-axial collection, mass effect, midline s hift, herniation or hydrocephalus. The ventricles, sulci and cisterns are age appropriate. The elizabeth-white differentiation is intact. Mild mucosal opacification of the ethmoid air cells. Endotracheal tube and enteric catheter, partial ly visualized. The surrounding soft tissues and osseous structures are unremarkable. IMPRESSION: No acute intracranial abnormality. Radiation optimization: All CT scans at this facility use at least one of these dose optimization jere hniques: automated exposure control mA and/or kV adjustment per patient size (includes targeted exam s where dose is matched to clinical indication) or iterative reconstruction.
--- NOTE | 2024-08-16 17:08 | DVH ---
Procedure: CT CHEST WITHOUT CONTRAST Study Date and Requested Time: 08/16 04:10 PM history: R/O PNEUMONIA Comparison: Chest radiograph 08/17/2023 Dose: CTDI: 29.08 mGy DLP: 1030.29 mGycm Technique: Multiplanar images obtained through the chest without contrast Findings: Mild prominence of the right thyroid lobe. Otherwise, the thyroid gland is unremarkable. The endotracheal tube extends into the right mainstem bronchus. Recommend pulling back about 3 cm fo r more optimal positioning. Enteric tube is in satisfactory position. Mild cardiomegaly. No evidence of aortic aneurysm. Pulmonary trunk is normal in size. Trace pericardi al effusion. Mediastinal lymphadenopathy measuring up to 1.7 cm. Ground-glass patchy opacities of bilateral lungs with ground-glass and patchy opacities of the left u pper lobe and left lower lobe consolidation. There is elevation of the left hemidiaphragm. No pneumot horax or pleural effusion. Mild gastric wall thickening. Otherwise, Partial view of the upper abdomen is unremarkable. Soft tissues are unremarkable. No destructive osseous lesions are noted. Impression: Malpositioned endotracheal tube within the right mainstem bronchus. Recommend pulling back about 3 c m. Enteric tube is in satisfactory position. Ground-glass and patchy opacities of bilateral lungs with left lower lobe consolidation which may rep resent multifocal pneumonia / pulmonary edema and suggested left lower lobe atelectasis with elevatio n of the left hemidiaphragm. Mediastinal lymphadenopathy which may be reactive/neoplastic. Critical Result: Malpositioned ET tube Findings discussed with ANTONIETTA LARA at 08/16/2024 05:04 PM, and acknowledged receipt and under standing of the findings. ..
[2024-08-16 17:14] LABS: INR 1.08 (0.9-1.15); Prothrombin Time 11.4 sec (9.3-11.8)
[2024-08-16] MEDS: MEROPENEM 1GM IVPB 50 ML IV ONE (17:20)
[2024-08-16] MEDS: PANTOPRAZOLE 40 MG/10 ML VIAL INJ IV ONE (17:21)
[2024-08-16] MEDS: methylPREDNISolone SOD SUCC 40 MG/ML VL IV ONE (17:21)
[2024-08-16 17:29] LABS: Eosinophils # (auto) 0 10 ^3/uL (0-0.8); Monocytes # (auto) 2.1 10 ^3/uL (0-1.3); Monocytes % (auto) 8.3 % (0.0-12.0); Neutrophils # (auto) 21.8 10 ^3/uL (1.6-8.6)
[2024-08-16] MEDS: SODIUM CHLORIDE 0.9% 1,000 ML IV SCH (17:30)
[2024-08-16 17:31] LABS: Basophils # (auto) 0.1 10 ^3/uL (0-0.2); Basophils % (auto) 0.4 % (0.0-2.0); Hemoglobin 10.9 g/dL (12.2-16.2); Lymphocytes # (auto) 1.1 10 ^3/uL (0.4-5.4); Lymphocytes % (auto) 4.3 % (10.0-50.0); Mean Corpuscular Hemoglobin 25.8 pg (28.0-32.0); Mean Corpuscular Hgb Conc. 32.9 g/dL (32.0-36.0); Mean Corpuscular Volume 78.5 fL (80.0-100.0); Nucleated Red Blood Cells % 0.4 %; Platelet Count (auto) 305 10^3/uL (140-450); Red Blood Cells 4.21 10^6/uL (4.0-5.20); Red Cell Distribution Width 19.2 % (11.8-14.3)
[2024-08-16 17:49] LABS: Albumin 4.1 g/dL (3.2-4.8); Alkaline Phosphatase 89 U/L (46-116); Anion Gap 13 (5-15); Aspartate Aminotransferase 24 U/L (13-40); Blood Urea Nitrogen 11 mg/dL (9-23); Calcium 9.2 mg/dL (8.7-10.4); Carbon Dioxide 27 mmol/L (20-31); Chloride 101 mmol/L (98-107); LDL Cholesterol 50 mg/dL (< 100); Sodium 141 mmol/L (136-145); Total Protein 6.5 g/dL (5.7-8.2); Triglycerides 141 mg/dL (< 150)
[2024-08-16 17:50] LABS: Bilirubin, Total 0.8 mg/dL (0.2-1.0); Cholesterol 126 mg/dL (< 200); HDL Cholesterol 53 mg/dL (40-59); Phosphorus 2.9 mg/dL (2.4-5.1)
[2024-08-16 18:07] LABS: Alanine Aminotransferase 42 U/L (7-40); Glucose 233 mg/dL (74-106); Magnesium 1.5 mg/dL (1.6-2.6); Potassium 3.4 mmol/L (3.5-5.1)
[2024-08-16 18:16] LABS: Lactic Acid w/Reflex 3.5 mmol/L (0.4-2.0)
--- NOTE | 2024-08-16 18:22 | DVHHPRES ---
History of Present Illness Resident Creating Document: VERONICA QUINTERO RESIDENT History of Present Illness This is a 64-year-old female with past medical history of COPD on home oxygen, asthma ,TRENT, hypertension, DVT, PE, atrial fibrillation , chronic back pain, questionable heart failure, type 2 diabetes mellitus presented to the ED via EMS with chief complaint of ALOC and SOB. According to the daughter she went to the java technical manager yesterday and java technical manager mentioned that the patient blood pressure is uncontrolled and fluid overload and prescribed new antihypertensive with Bumex and later patient woke up middle of the night with gurgling and again went back to sleep. EMS reports that the patient was last seen well at 7am with patient complaining of some SOB, but went back to sleep. EMS relays that the patient was found by family 30 minutes ago gurgling in her sleep and unable to respond. EMS states that the patient is not able to move or answer questions, only opening her eyes to painful stimuli. EMS notes patient was at 64% O2 saturation on RA, but went up to 94% on 15L continuous. EMS reports that the patient's BP was 207/102, HR 129, and patient was given Nitroglycerin on route to the ED. Patient unable to answer any questions at this time due to her altered status. Patient underwent endotracheal intubation and started on me chanical ventilation to protect the airway. Daughter also mentioned the patient had a recent admission in [facility] in May, with exacerbation of COPD and after discharged the patient had intermittent vomiting and diarrhea for last 2 months and did not seek any medical attention for these symptoms. Patient was seen and examined on the bedside. she is on mechanical ventilation with FiO2 50%,, respiratory rate 17, tidal volume 514 mL. PMH: COPD on home oxygen, asthma , TRENT, hypertension, DVT, PE, atrial fibrillation , chronic back pain, questionable heart failure, type 2 diabetes mellitus PSH: Hysterectomy, status post IVC filter in 2020 and cataract surgery. Family history: Significant for heart disease, chronic kidney disease. Home medications: Acetaminophen 325 mg daily, amiodarone 200 mg daily, albuterol sulfate, amitriptyline 10 mg at HS, amlodipine 5 mg daily, Eliquis 5 mg b.i.d., atorvastatin 10 mg at HS, diclofenac sodium 1% gel topical TID, Colace 100 mg b.i.d., glipizide 10 mg q.i.d., ibuprofen 600 mg p.o. daily, losartan potassium 50 mg b.i.d., methocarbamol 500 mg p.o., Medrol Dosepak, metoprolol tartrate 25 mg b.i.d., Percocet 5/325 mg b.i.d., pregabalin 25 mg 1-2 capsules p.o. b.i.d., tizanidine hydrochloride 4 mg at q.p.m. Past Medical History PMH: COPD on home oxygen, asthma , TRENT, hypertension, DVT, PE, atrial fibrill ation , chronic back pain, questionable heart failure, type 2 diabetes mellitus Past Surgical History PSH: Hysterectomy, status post IVC filter in 2020 and cataract surgery. Family History Family history: Significant for heart disease, chronic kidney disease Past Social History Lives with family Former Smoker, 40 pack year smoking history, nonalcoholic and never tried any drugs Review of Systems Review of Systems Could not be assessed as patient is on mechanical ventilation Allergies: Coded Allergies: Codeine (Verified Allergy, Unknown, 03/22/24) Medications Current Medications Medications Dose Ordered Sig/Mah[place] Route Start Time Stop Time Status Last Admin Dose Admin Midazolam HCl 50 ml @ 1 mls/hr Q24H IV 08/16/24 13:00 08/16/24 12:38 1 MLS/HR Potassium Chloride 100 ml @ 50 mls/hr Q2H IV 08/16/24 14:15 08/16/24 18:14 08/16/24 17:21 50 MLS/HR Norepinephrine Bitartrate 250 ml @ 3.75 mls/hr Q24H IV 08/16/24 15:45 Fentanyl Citrate 250 ml @ 2.5 mls/hr Q24H IV 08/16/24 16:45 Meropenem 50 ml @ 17 mls/hr Q8H IV 08/17/24 00:00 Vancomycin HCl 0 ml @ 0 mls/hr UD IV 08/16/24 16:45 UNV Pantoprazole Sodium 40 mg DAILY IV 08/17/24 10:00 Diagnostic Test (Pha) 1 strip IQ4HR 08/16/24 20:00 Insulin Human Regular IQ4HR SC 08/16/24 20:00 Dextrose 50 ml UD PRN IV 08/16/24 16:45 Levalbuterol HCl 0.625 mg Q6HR NEB 08/16/24 18:00 Ipratropium [place] 0.5 mg Q6HWA NEB 08/16/24 18:00 Methylprednisolone Sodium Succinate 40 mg BID IV 08/16/24 22:00 Enoxaparin Sodium 120 mg Q12HR SC 08/16/24 22:00 UNV Acetaminophen 650 mg Q6HP PRN PO 08/16/24 17:30 UNV Amiodarone HCl 200 mg DAILY PO 08/17/24 10:00 UNV Patient Own Medication 1 tab DAILY PO 08/17/24 10:00 UNV Sodium Chloride 1,000 ml @ 100 mls/hr Q10H IV 08/16/24 17:30 UNV Exam Vital Signs Vital Signs Date Time Temp Pulse Resp B/P (MAP) Pulse Ox O2 Delivery O2 Flow Rate FiO2 08/16/24 16:40 114 17 102/65 (77) 95 50 08/16/24 16:00 101.7 101.7 08/16/24 12:39 Non-Rebreather 15 Exam Physical exam: General: RASS -3, afebrile, mucosae are moist Cardiovascular: Normal S1 and S2. No murmurs, gallops or rubs Respiratory: Mechanically assisted ventilation, equal bilateral airway entree. Bilateral crackles and wheezing. Abdomen: Soft, nontender, no organomegaly, normal bowel sounds MSK/skin: edema +, Mobilization of limbs cannot be evaluated. Skin is dry and warm. Neurological: Orientation cannot be assessed. No apparent motor no sensitive deficits. Pupils are isocoric and reactive Labs/Xrays Labs Test 08/16/24 17:04 08/16/24 17:02 08/16/24 12:58 08/16/24 12:57 Range/Units Blood Gas Specimen Type Arterial Blood Gas Sample Site Right radial Blood Gas Patient Temperature 37.0 Arterial Blood Date Drawn [id number] Arterial Blood pH 7.453 H 7.350-7.450 Arterial Blood Partial Pressure CO2 32.6 32.0-45.0 mmHg Arterial Blood Partial Pressure O2 76.2 L 83.0-108.0 mmHg Arterial Blood HCO3 22.3 21.0-28.0 mmol/L Arterial Blood Oxygen Saturation 94.6 94.0-98.0 % Arterial Blood Base Excess -1.0 -2.0-3.0 mmol/L Arterial Blood Oxyhemoglobin 93.7 L 94.0-98.0 % Arterial Blood Carboxyhemoglobin 0.3 L 0.5-1.5 % Arterial Blood Methemoglobin 0.7 0.0-1.5 % Nathan Test Modified Blood Gas Total Hemoglobin 11.80 L 12.0-16.0 g/dL Blood Gas Set Respiration Rate 16.0 Blood Gas Modality Vent - ac FiO2 % 50.0 Blood Gas Tidal Volume 500.0 Blood Gas PEEP or CPAP 5.0 White Blood Count 25.0 H 4.4-10.8 10^3/uL Red Blood Count 4.21 4.0-5.20 10^6/uL Hemoglobin 10.9 L 12.2-16.2 g/dL Hematocrit 33.0 L 36.0-46.0 % Mean Corpuscular Volume 78.5 L 80.0-100.0 fL Mean Corpuscular Hemoglobin 25.8 L 28.0-32.0 pg Mean Corpuscular Hemoglobin Concent 32.9 32.0-36.0 g/dL Red Cell Distribution Width 19.2 H 11.8-14.3 % Platelet Count 305 140-450 10^3/uL Mean Platelet Volume 7.6 6.9-10.8 fL Neutrophils (%) (Auto) 87.0 H 37.0-80.0 % Lymphocytes (%) (Auto) 4.3 L 10.0-50.0 % Monocytes (%) (Auto) 8.3 0.0-12.0 % Eosinophils (%) (Auto) 0.0 0.0-7.0 % Basophils (%) (Auto) 0.4 0.0-2.0 % Neutrophils # (Auto) 21.8 H 1.6-8.6 10 ^3/uL Lymphocytes # (Auto) 1.1 0.4-5.4 10 ^3/uL Monocytes # (Auto) 2.1 H 0-1.3 10 ^3/uL Eosinophils # (Auto) 0 0-0.8 10 ^3/uL Basophils # (Auto) 0.1 0-0.2 10 ^3/uL Nucleated Red Blood Cells 0.4 % Sodium Level 141 136-145 mmol/L Potassium Level 3.4 L 3.5-5.1 mmol/L Chloride Level 101 98-107 mmol/L Carbon Dioxide Level 27 20-31 mmol/L Anion Gap 13 5-15 Blood Urea Nitrogen 11 9-23 mg/dL Creatinine 1.10 H 0.550-1.02 mg/dL Glomerular Filtration Rate Calc 56 >90 mL/min BUN/Creatinine Ratio 10.0 10.0-20.0 Serum Glucose 233 H 74-106 mg/dL Lactic Acid Level 3.5 *H 0.4-2.0 mmol/L Calcium Level 9.2 8.7-10.4 mg/dL Phosphorus Level 2.9 2.4-5.1 mg/dL Magnesium Level 1.5 L 1.6-2.6 mg/dL Total Bilirubin 0.8 0.2-1.0 mg/dL Aspartate Amino Transferase (AST) 24 13-40 U/L Alanine Aminotransferase (ALT) 42 H 7-40 U/L Alkaline Phosphatase 89 46-116 U/L Ammonia < 10 L 11-32 umol/L Troponin I High Sensitivity 1404 *H </=34 ng/L Total Protein 6.5 5.7-8.2 g/dL Albumin 4.1 3.2-4.8 g/dL Triglycerides Level 141 < 150 mg/dL Cholesterol Level 126 < 200 mg/dL LDL Cholesterol 50 < 100 mg/dL HDL Cholesterol 53 40-59 mg/dL Prothrombin Time 11.4 9.3-11.8 sec Prothrombin Time INR 1.08 0.9-1.15 Activated Partial Thromboplast Time 26.0 24.5-34.5 SEC Hemoglobin A1c 7.0 H <5.7 % A1C B-Type Natriuretic Peptide 280.79 0-100 pg/mL Vitamin B12 Level 351 211-911 pg/mL Vitamin D 25-Hydroxy 40.5 30.0-100 ng/mL Thyroid Stimulating Hormone (TSH) 2.42 0.55-4.78 uIU/mL Urine Color Colorless Yellow Urine Clarity Clear Clear Urine pH 7.0 5.0-9.0 Urine Specific [place] 1.007 1.001-1.035 Urine Protein Negative Negative Urine Ketones Trace Negative Urine Blood Negative Negative /uL Urine Nitrite Negative Negative Urine Bilirubin Negative Negative Urine Urobilinogen Normal Negative mg/dL Urine Leukocyte Esterase Negative Negative /uL Urine RBC 1 0 - 4 /hpf Urine Microscopic WBC 1 0-5 /HPF Urine Squamous Epithelial Cells None seen <5 /hpf Urine Bacteria None seen None Seen /hpf Urine Glucose Normal Normal mg/dL Microbiology Date/Time Source Procedure Growth Status 08/16/24 12:57 Sputum Expectorated Sputum Gram Stain - Final Resulted 08/16/24 12:57 Sputum Expectorated Sputum Respiratory Culture Pending Resulted Assessment/Plan Assessment/Plan Assessment and plan: NEURO: Acute metabolic encephalopathy likely due to sepsis On mechanical ventilation RASS score: - 3 CARDIOVASCULAR: Possible acute on chronic diastolic heart failure NSTEMI type 2 likely due to above Paroxysmal Atrial fibrillation with secondary hypercoagulable state Hypertensive emergency on admission - [id number] score 6 - Currently Patient is in sinus tachycardia - Holding all antihypertensive because blood pressure is on the lower side and patient is in sepsis - Echo on 08/27 showed EF 63% and left ventricular function is preserved. RV function is normal - Mildly elevated BNP -CxR showed Multifocal consolidative opacities and Cardiomegaly. - Troponin trends are 336>801 - Resumed amiodarone 200 mg p.o. daily and Atorvastatin 10 mg at HS - Therapeutic Lovenox 120 mg b.i.d. PULMONARY: Acute hypoxic respiratory failure likely due to aspiration pneumonia Possible multifocal pneumonia On Mechanical ventilation History of DVT and PE, status post IVC filter in 2020 and was on Eliquis - CxR showed Multifocal consolidative opacities and Cardiomegaly. - CT chest revealed ground-glass and patchy opacities of bilateral lungs with left lower lobe consolidation which may represent multifocal pneumonia / pulmonary edema and suggested left lower lobe atelectasis with elevation of the left hemidiaphragm.Mediastinal lymphadenopathy which may be reactive/neoplastic. - Medneb with levalbuterol and ipratropium q.6 hours - Pending blood culture, sputum culture and urine culture - IV methylprednisolone 40 mg b.i.d. - IV vancomycin per pharmacy and IV meropenem 1 g Q 8 hours GASTROINTESTINAL: Hyperbilirubinemia and transaminitis likely due to sepsis Chronic vomiting and diarrhoea ,rule out cholelithiasis - Ordered stool bacterial culture, stool WBC, and U/S of W/A ENDOCRINE: Type 2 diabetes mellitus, HbA1C 7% - Mild sliding scale of insulin METABOLIC: HypoKalemia and hypomagnesemia - Replenished -Morbid obesity HEME: Chronic Microcytic hypochromic anemia INFECTIOUS DISEASE: Sepsis likely due to aspiration pneumonia Leukocytosis and lactic acidosis likely due to sepsis - Pending blood culture, sputum culture and urine culture - IV bolus at 30 mL/hours given - IV normal saline @ 100 mL/hours - IV vancomycin as per pharmacy and IV meropenem 1 g Q 8 HR MUSCULOSKELETAL: Chronic back pain DIET: NPO DVT prophylax: Enoxaparin GI prophylaxis: Protonix Bowel regimen: Code status: Full code LINES/DRAINS/ACCESS: Rt triple lumen central venous catheter placed on 08/16/24 ETT: Intubated on 08/16/24 IV access: Drips: Fentanyl, norepinephrine and versed Gray catheter: placed on 08/16/24 DISPOSITION: ICU Patient's status discussed with RN, Daughter Critical care time spent more than 83 minutes, including patient care, chart review, and updating the family. Excluding any procedures. Case discussed with Dr. Allen Plan discussed with: Daughter, Other (RN) My Orders Orders - VERONICA QUINTERO Procedure Category Date Status Time Acetaminophen Tablet PHA 08/16/24 In Process (Tylenol Tablet) 17:30 Abdomen Complete US 08/16/24 Logged Sonogram 17:17 Amiodarone Tablet PHA 08/17/24 In Process (Cordarone Tablet) 10:00 Atorvastatin (Lipitor) PHA 08/17/24 In Process 10:00 Sodium Chloride 0.9% PHA 08/16/24 In Process 17:30 Stool Bacterial CLAY 08/16/24 Uncollected Culture 17:36 Stool Wbc LAB 08/16/24 Logged 17:36 Date of Service: August 16, 2024 Billing Provider: TORRES ALLEN MD Common Visit Codes: 68190-QPQSBIVA CARE 30-74 MIN, 49213-[id number] CARE-EACH +30MIN VERONICA QUINTERO August 16, 2024 18:22 TORRES ALLEN MD August 17, 2024 11:31
[2024-08-16 18:25] LABS: Lipase 26 U/L (12-53)
--- NOTE | 2024-08-16 18:27 | DVH ---
Technique: Real-time ultrasound imaging of the abdomen was performed with grayscale and color Doppler . Indication: Nausea and vomiting for prolonged period Comparison: None Findings: Liver measures 15.5 cm. It is increased echogenicity and echotexture without focal mass. Portal vein is normal in caliber and demonstrates normal hepatopetal flow. Gallbladder demonstrates no evidence for cholelithiasis. There is no pericholecystic fluid. The wall thickness is normal. The common bile duct measures 5 mm. No intrahepatic biliary ductal dilatation. The right kidney measures 8.7 cm. The left kidney measures 9.2 cm. No hydronephrosis or sonographic e vidence of nephrolithiasis. Kidneys are echogenic. The visualized portion of the pancreas is unremarkable. Spleen measures 8.2 cm. The visualized portion of the IVC is unremarkable. Impression: 1. Echogenic liver which can be seen with hepatic steatosis, cirrhosis. 2. Small and echogenic kidneys, suggesting medical renal disease.
[2024-08-16] MEDS: fentaNYL Drip 2500mCg/250mlNS 250 ML IV SCH (18:31)
[2024-08-16 18:55] LABS: Amphetamine Screen, Urine Neg (NEGATIVE); Barbiturate Scree,Urine Neg (NEGATIVE); Benzodiazephine Screen, Urine Neg (NEGATIVE); Cannabinoid Screen, Urine Neg (NEGATIVE); Cocaine Screen, Urine Neg (NEGATIVE); Opiate Scree,Urine Neg (NEGATIVE); Phencyclidine Screen, Urine Neg (NEGATIVE)
[2024-08-16] MEDS ORDERED: POTASSIUM CHL 20MEQ/100ML 100 ML IV ONE (19:00)
[2024-08-16] MEDS: LEVALBUTEROL HCL 1.25 MG/3 ML NEB NEB SCH (19:13)
[2024-08-16] MEDS: IPRATROPIUM BROM 0.5 MG/2.5ML INH SOL NEB SCH (19:13)
[2024-08-16] MEDS: InsuLIN REG 1unit/0.01ml Soln (100units/ml) SC SCH (20:00)
[2024-08-16] MEDS: ACCU-CHEK COMFORT CURVE STRIP VI SCH (20:00)
--- NOTE | 2024-08-16 20:06 | DVH ---
BILATERAL LOWER EXTREMITY VENOUS DOPPLER ULTRASOUND CLINICAL HISTORY: To rule out DVT TECHNIQUE: Grayscale ultrasound with compression, color Doppler flow imaging with pulsed duplex sonog michelle of the bilateral lower extremity deep venous system from the common femoral veins through the p opliteal veins is performed. COMPARISON: US BILAT LOWER DVT on DOS: 11/07/22 FINDINGS: Right common femoral vein: Negative. Right greater saphenous vein: Negative. Right deep femoral vein: Negative. Right femoral vein: Negative. Right popliteal vein: Negative. Left common femoral vein: Negative. Left greater saphenous vein: Negative. Left deep femoral vein: Negative. Left femoral vein: Negative. Left popliteal vein: Negative. Other: Visualized bilateral popliteal trifurcation and posterior tibial veins demonstrate color flow. IMPRESSION: No sonographic evidence of deep venous thrombosis in either lower extremity at this time.
[2024-08-16] MEDS: ACETAMINOPHEN 325 MG TAB PO PRN (20:17)
[2024-08-16] MEDS: MAGNESIUM SULFATE 1GM/100ML 100 ML IV ONE (20:17)
[2024-08-16] MEDS: VANCOMYCIN 1GM/200ML PM 250 ML IV SCH (20:18)
[2024-08-16 21:18] LABS: COVID19 ANTIGEN SOFIA FIA NEGATIVE (NEGATIVE); Rapid Influenza A Negative (Negative); Rapid Influenza B Negative (Negative)
[2024-08-16] MEDS: methylPREDNISolone SOD SUCC 40 MG/ML VL IV SCH (21:22)
[2024-08-17] VITALS (108 sets, daily range): BP systolic 111–178; BP diastolic 31–119; PULSE 98–133; RESP 12–20; TEMP 98.1–100.8; O2SAT 70–100
[2024-08-17] MEDS: MEROPENEM 1GM IVPB 50 ML IV SCH (00:09)
--- NOTE | 2024-08-17 00:10 | DVH ---
CHEST RADIOGRAPH Indication: ET function Technique: Single frontal view of the chest was obtained COMPARISON: XY CHEST XRAY 1 VIEW on DOS: 08/16/24, XY CHEST XRAY 1 VIEW on DOS: 08/16/24, XY CHEST PORT ABLE on DOS: 05/22/24, XY CHEST PORTABLE on DOS: 01/11/24, XY CHEST PORTABLE on DOS: 01/11/24 FINDINGS: Lines and Tubes: Endotracheal tube tip projects approximately 1.6 cm above the level of the karissa. E nteric catheter courses below the level of the diaphragm and terminates beyond the inferior margin of the image within the left upper quadrant, presumably within the gastric lumen. Right internal jugula r central venous catheter terminates within the superior vena cava. Lungs: Clear Pleura: No effusion. No pneumothorax. Cardiomediastinal contours: Unremarkable Bones: Unremarkable IMPRESSION: 1. No acute disease. 2. Lines and tubes as above.
[2024-08-17 03:47] LABS: Hematocrit 33.6 % (36.0-46.0); Mean Corpuscular Hemoglobin 25.6 pg (28.0-32.0); Mean Corpuscular Hgb Conc. 32.7 g/dL (32.0-36.0); Mean Corpuscular Volume 78.3 fL (80.0-100.0); Platelet Count (auto) 269 10^3/uL (140-450); Red Blood Cells 4.29 10^6/uL (4.0-5.20); Red Cell Distribution Width 19.6 % (11.8-14.3); White Blood Cell 28.3 10^3/uL (4.4-10.8)
[2024-08-17 03:55] LABS: Alkaline Phosphatase 81 U/L (46-116); Anion Gap 12 (5-15); BUN/Creatinine Ratio 13.3 (10.0-20.0); Blood Urea Nitrogen 13 mg/dL (9-23); Carbon Dioxide 25 mmol/L (20-31); Chloride 103 mmol/L (98-107); Magnesium 1.8 mg/dL (1.6-2.6); Potassium 3.9 mmol/L (3.5-5.1); Sodium 140 mmol/L (136-145); Total Protein 6.8 g/dL (5.7-8.2)
[2024-08-17 03:56] LABS: Albumin 4.3 g/dL (3.2-4.8); Bilirubin, Total 0.9 mg/dL (0.2-1.0); Phosphorus 3.2 mg/dL (2.4-5.1)
[2024-08-17 04:01] LABS: Lactic Acid w/Reflex 2.5 mmol/L (0.4-2.0)
[2024-08-17 04:04] LABS: Alanine Aminotransferase 68 U/L (7-40); Aspartate Aminotransferase 48 U/L (13-40); Calcium 8.2 mg/dL (8.7-10.4); Glucose 295 mg/dL (74-106)
[2024-08-17 04:22] LABS: Basophils % (manual) 0 (0.0-2.0); Blast Cells 0; Eosinophils % (manual) 0 (0-7); Metamyelocytes % 0; Myelocytes % 0; Promyelocytes % 0; Reactive Lymphocytes 0
[2024-08-17 05:01] LABS: Band Neutrophils % (manual) 2; Giant Platelets Few; Lymphocytes % (manual) 4 (10.0-50.0); Monocytes % (manual) 6 (0-12)
[2024-08-17 05:02] LABS: Large Platelets FEW; Platelet Estimate Adequa
[2024-08-17] MEDS: ENOXAPARIN SOD 120 MG/0.8 ML SYRINGE SC SCH (05:26)
--- NOTE | 2024-08-17 05:32 | DVH ---
EXAM: XR Chest, 1 View CLINICAL INDICATION: Mechanical ventilation TECHNIQUE: Frontal view of the chest. COMPARISON: XY CHEST PORTABLE on DOS: 08/16/24, XY CHEST XRAY 1 VIEW on DOS: 08/16/24, XY CHEST XRAY 1 VIEW on DOS: 08/16/24, XY CHEST PORTABLE on DOS: 05/22/24, XY CHEST PORTABLE on DOS: 01/11/24 FINDINGS: LUNGS AND PLEURAL SPACES: Congestive heart failure, unchanged. No consolidation. No pneumothorax. HEART: Unremarkable. No cardiomegaly. MEDIASTINUM: Unremarkable. Normal mediastinal contour. BONES/JOINTS: Unremarkable. No acute fracture. TUBES, LINES AND DEVICES: Right internal jugular central venous catheter tip in the superior vena c giovanny. The endotracheal tube (ETT) is in satisfactory position. Enteric tube tip in the stomach. OTHER FINDINGS: . IMPRESSION: Congestive heart failure, unchanged.
[2024-08-17 06:50] LABS: Base Excess -0.8 mmol/L (-2.0-3.0)
[2024-08-17] MEDS: PANTOPRAZOLE 40 MG/10 ML VIAL INJ IV SCH (07:54)
[2024-08-17] MEDS: AMIODARONE HCL 200 MG TAB PO SCH (07:55)
[2024-08-17] MEDS ORDERED: ATORVASTATIN 20 MG TAB PO SCH (10:00)
[2024-08-17] MEDS ORDERED: ENOXAPARIN SOD 40 MG/0.4 ML SYRINGE SC SCH (10:00)
--- NOTE | 2024-08-17 10:36 | ECG ---
[facility] Test Date: 2024-08-16 Test Time: 12:36:01 Pat Name: WILIAM PRASAD Department: ED Room: [address] [place] [address] A Gender: F Subsystems Engineer: niles : [id number] Requested By: ANTONIETTA LARA Order Number: [id number] Reading MD: Nhan Regan Measurements Intervals [place] Rate: 123 P: 0 [place]: 0 QRS: 19 QRSD: 85 T: 43 QT: 349 QTc: 500 Interpretive Statements Atrial fibrillation Low voltage, extremity leads Borderline prolonged QT interval Electronically Signed On 08-17-2024 13:13:52 PDT by Nhan Regan Please click the below link to view image of tracing.
--- NOTE | 2024-08-17 11:11 | DVHPNRES ---
Progress Note Date Seen: August 17, 2024 Resident Creating Document: VERONICA QUINTERO RESIDENT Medical Necessity Reason Pt with a Central, PICC or Fol: Yes The following are medically ne: Central Line, Gray Catheter Subjective Review of Systems This is a 64-year-old female with past medical history of COPD on home oxygen, asthma ,TRENT, hypertension, DVT, PE, atrial fibrillation , chronic back pain, questionable heart failure, type 2 diabetes mellitus presented to the ED via EMS with chief complaint of ALOC and SOB. the daughter she went to the software project manager yesterday and software project manager mentioned that the patient blood pressure is uncontrolled and fluid overload and prescribed new antihypertensive with Bumex and later patient woke up middle of the night with gurgling and again went back to sleep. EMS reports that the patient was last seen well at 7am with patient complaining of some SOB, but went back to sleep. EMS relays that the patient was found by family 30 minutes ago gurgling in her sleep and unable to respond. EMS states that the patient is not able to move or answer questions, only opening her eyes to painful stimuli. EMS notes patient was at 64% O2 saturation on RA, but went up to 94% on 15L continuous. EMS reports that the patient's BP was 207/102, HR 129, and patient was given Nitroglycerin on route to the ED. Patient unable to answer any questions at this time due to her altered status. Patient underwent endotracheal intubation and started on mechanical ventilation to protect the airway. PMH: COPD on home oxygen, asthma , TRENT, hypertension, DVT, PE, atrial fibrillation , chronic back pain, questionable heart failure, type 2 diabetes mellitus PSH: Hysterectomy, status post IVC filter in 2020 and cataract surgery. Family history: Significant for heart disease, chronic kidney disease. Home medications: Acetaminophen 325 mg daily, amiodarone 200 mg daily, albuterol sulfate, amitriptyline 10 mg at HS, amlodipine 5 mg daily, Eliquis 5 mg b.i.d., atorvastatin 10 mg at HS, diclofenac sodium 1% gel topical TID, Colace 100 mg b.i.d., glipizide 10 mg q.i.d., ibuprofen 600 mg p.o. daily, losartan potassium 50 mg b.i.d., methocarbamol 500 mg p.o., Medrol Dosepak, metoprolol tartrate 25 mg b.i.d., Percocet 5/325 mg b.i.d., pregabalin 25 mg 1-2 capsules p.o. b.i.d., tizanidine hydrochloride 4 mg at q.p.m. Patient was seen and examined on the bedside. She is on mechanical ventilation with FiO2 40%,, respiratory rate 18, tidal volume 500 mL. Objective vital signs Vital Sign Date Time Temp Pulse Resp B/P (MAP) Pulse Ox O2 Delivery O2 Flow Rate FiO2 08/17/24 10:08 98 17 130/76 (94) 96 40 08/17/24 09:43 Mechanical Ventilator+ 08/17/24 09:30 99.0 210.2 08/16/24 12:39 15 Total Intake and Output 08/16/24 08/16/24 08/17/24 15:00 23:00 07:00 Intake Total 835.0 ml 988.0 ml Output Total 800 ml 1300 ml Balance 35.0 ml -312.0 ml medications Current Medications Medications Dose Ordered Sig/Mahogany Route Start Time Stop Time Status Last Admin Dose Admin Midazolam HCl 50 ml @ 1 mls/hr Q24H IV 08/16/24 13:00 08/17/24 05:25 6 MLS/HR Norepinephrine Bitartrate 250 ml @ 3.75 mls/hr Q24H IV 08/16/24 15:45 Fentanyl Citrate 250 ml @ 2.5 mls/hr Q24H IV 08/16/24 16:45 08/16/24 18:31 2.5 MLS/HR Meropenem 50 ml @ 17 mls/hr Q8H IV 08/17/24 00:00 08/17/24 07:54 17 MLS/HR Vancomycin HCl 0 ml @ 0 mls/hr UD IV 08/16/24 16:45 Pantoprazole Sodium 40 mg DAILY IV 08/17/24 10:00 08/17/24 07:54 40 MG Diagnostic Test (Pha) 1 strip IQ4HR 08/16/24 20:00 08/17/24 08:29 1 STRIP Insulin Human Regular IQ4HR SC 08/16/24 20:00 08/17/24 08:27 6 UNITS Dextrose 50 ml UD PRN IV 08/16/24 16:45 Levalbuterol HCl 0.625 mg Q6HR NEB 08/16/24 18:00 08/17/24 05:56 0.625 MG Ipratropium [place] 0.5 mg Q6HWA NEB 08/16/24 18:00 08/17/24 05:56 0.5 MG Methylprednisolone Sodium Succinate 40 mg BID IV 08/16/24 22:00 08/17/24 07:55 40 MG Enoxaparin Sodium 120 mg Q12H SC 08/17/24 06:00 08/17/24 05:26 120 MG Acetaminophen 650 mg Q6HP PRN PO 08/16/24 17:30 08/16/24 20:17 650 MG Amiodarone HCl 200 mg DAILY PO 08/17/24 10:00 08/17/24 07:55 200 MG Sodium Chloride 1,000 ml @ 100 mls/hr Q10H IV 08/16/24 17:30 08/17/24 04:06 100 MLS/HR Atorvastatin Calcium 10 mg HS PO 08/17/24 22:00 Examination Physical exam: General: RASS -3, afebrile, mucosae are moist Cardiovascular: Normal S1 and S2. No murmurs, gallops or rubs Respiratory: Mechanically assisted ventilation, equal bilateral airway entree. Bilateral crackles and wheezing. Abdomen: Soft, nontender, no organomegaly, normal bowel sounds MSK/skin: edema +, Mobilization of limbs cannot be evaluated. Skin is dry and warm. Neurological: Orientation cannot be assessed. No apparent motor no sensitive deficits. Pupils are isocoric and reactive laboratory and microbiology Laboratory Tests 08/17/24 03:15 Test 08/17/24 03:15 Range/Units Serum Glucose 295 H 74-106 mg/dL Microbiology Date/Time Source Procedure Growth Status 08/16/24 12:58 Blood Blood Culture - Preliminary Resulted 08/16/24 12:57 Sputum Expectorated Sputum Gram Stain - Final Resulted 08/16/24 12:57 Sputum Expectorated Sputum Respiratory Culture - Preliminary Resulted Labs and/or images reviewed: Labs reviewed by me, Image(s) reviewed by me Problem List/Assessment/Plan Problem List/Assessment/Plan Assessment and plan: NEURO: Acute metabolic encephalopathy likely due to sepsis On mechanical ventilation RASS score: - 3 CARDIOVASCULAR: Possible acute on chronic diastolic heart failure NSTEMI type 2 likely due to above Paroxysmal Atrial fibrillation with secondary hypercoagulable state Hypertensive emergency on admission - [id number] score 6 - Currently Patient is in sinus tachycardia - Holding all antihypertensive because blood pressure is on the lower side and patient is in sepsis - Echo on 08/27 showed EF 63% and left ventricular function is preserved. RV function is normal - Mildly elevated BNP -CxR showed Multifocal consolidative opacities and Cardiomegaly. - Troponin trends are 336>801 - Resumed amiodarone 200 mg p.o. daily and Atorvastatin 10 mg at HS - Therapeutic Lovenox 120 mg b.i.d. PULMONARY: Acute hypoxic respiratory failure likely due to aspiration pneumonia Possible multifocal pneumonia On Mechanical ventilation History of DVT and PE, status post IVC filter in 2020 and was on Eliquis - CxR showed Multifocal consolidative opacities and Cardiomegaly. - CT chest revealed ground-glass and patchy opacities of bilateral lungs with left lower lobe consolidation which may represent multifocal pneumonia / pulmonary edema and suggested left lower lobe atelectasis with elevation of the left hemidiaphragm.Mediastinal lymphadenopathy which may be reactive/neoplastic. - Medneb with levalbuterol and ipratropium q.6 hours - Pending blood culture, sputum culture and urine culture - IV methylprednisolone 40 mg b.i.d. - IV vancomycin per pharmacy and IV meropenem 1 g Q 8 hours GASTROINTESTINAL: Hyperbilirubinemia and transaminitis likely due to sepsis Chronic vomiting and diarrhoea ,rule out cholelithiasis - U/S of abdomen showed echogenic liver possible hepatic steatosis/cirrhosis - CT abdomen pelvis revealed no acute intra-abdominal abnormality, moderate colonic diverticulosis and bibasilar atelectasis. ENDOCRINE: Type 2 diabetes mellitus, HbA1C 7% - Mild sliding scale of insulin METABOLIC: HypoKalemia and hypomagnesemia Morbid obesity, BMI 57.2 kg/m2 - Replenished HEME: Chronic Microcytic hypochromic anemia INFECTIOUS DISEASE: Sepsis likely due to aspiration pneumonia Leukocytosis and lactic acidosis likely due to sepsis - Pending blood culture, sputum culture and urine culture - IV bolus at 30 mL/hours given - IV vancomycin as per pharmacy and IV meropenem 1 g Q 8 HR MUSCULOSKELETAL: Chronic back pain DIET: Glucerna DVT prophylax: Enoxaparin GI prophylaxis: Protonix Bowel regimen: Code status: Full code LINES/DRAINS/ACCESS: Rt triple lumen central venous catheter placed on 08/16/24 ETT: Intubated on 08/16/24 IV access: Drips: Fentanyl and versed Gray catheter: placed on 08/16/24 DISPOSITION: ICU Patient's status discussed with RN, Daughter Critical care time spent more than 81 minutes, including patient care, chart review, and updating the family. Excluding any procedures. Case discussed with Dr. Allen Plan discussed with: Other (RN) My Orders My Orders Orders - VERONICA QUINTERO Procedure Category Date Status Time Acetaminophen Tablet PHA 08/16/24 In Process (Tylenol Tablet) 17:30 Abdomen Complete US 08/16/24 Resulted Sonogram 17:17 Amiodarone Tablet PHA 08/17/24 In Process (Cordarone Tablet) 10:00 Sodium Chloride 0.9% PHA 08/16/24 In Process 17:30 Stool Bacterial CLAY 08/16/24 Uncollected Culture 17:36 Stool Wbc LAB 08/16/24 Logged 17:36 Bilat Lower Dvt US 08/16/24 Resulted 18:44 Chest Portable XY 08/17/24 Resulted 04:00 Abg W/ Co-Ox RT 08/17/24 Logged 04:00 Atorvastatin (Lipitor) PHA 08/17/24 In Process 22:00 Date of Service: August 17, 2024 Billing Provider: TORRES ALLEN MD Common Visit Codes: 47227-AMMWGUCO CARE 30-74 MIN, [id number] CARE-EACH +30MIN VERONICA QUINTERO August 17, 2024 11:11 TORRES ALLEN MD August 19, 2024 22:29
--- NOTE | 2024-08-17 12:18 | DVH ---
CT CT AB PEL WO CON-NO ORAL OR IV INDICATION: N/V/D EXAM DATE: 08/17/2024 11:43 AM COMPARISON: 08/16/24 RADIATION DOSE: CTDIvol: 26 mGy, DLP: 1600 mGy*cm PROCEDURE: Helical CT images were obtained of the abdomen and pelvis without IV contrast Sagittal and coronal reconstructions are provided. ORAL CONTRAST: None. ADDITIONAL IMAGES / REFORMATS: None All C T scans at this medical facility are performed using dose modulation techniques as appropriate to a p erformed exam including the following: Automated exposure control was utilized; adjustment of the MA and/or KV according to patient size; and use of iterative reconstruction technique. FINDINGS: LUNG BASE: Bibasilar consolidation. LIVER: Normal. GALLBLADDER AND BILIARY TREE: No calcified gallstones. Normal caliber wall. No intra- or extrahepatic biliary ductal dilation. PANCREAS: Normal. SPLEEN: Normal. BOWEL: Moderate colonic diverticulosis. Normal appendix. ADRENALS: Normal. KIDNEYS AND URETER: Normal. BLADDER: Gray. REPRODUCTIVE ORGANS: Absent. LYMPH NODES:No lymphadenopathy. PERITONEUM: No ascites or free air. No other fluid collection. VESSELS: Scattered atherosclerotic calcifications are noted. IVC filter is seen. RETROPERITONEUM: Normal. ABDOMINAL WALL: Normal. BONES: Scattered osseous degenerative changes are noted. IMPRESSION: No acute intraabdominal abnormality. Moderate colonic diverticulosis. Normal appendix. Bibasilar consolidation.
[2024-08-17] MEDS: VANCOMYCIN 1.25GM/250ML 250 ML IV SCH (15:34)
[2024-08-17] MEDS: Glucerna 1.2 Cal 1Liter BOTTLE GT SCH (20:51)
[2024-08-17] MEDS: ATORVASTATIN 20 MG TAB PO SCH (22:04)
[2024-08-17] MEDS: MUPIROCIN 2% OINT 15gm or 22gm FOR MRSA NARES EACHNOSTRI SCH (22:04)
[2024-08-18] VITALS (108 sets, daily range): BP systolic 81–163; BP diastolic 34–106; PULSE 79–114; RESP 8–26; TEMP 98.2–100.8; O2SAT 88–100
[2024-08-18 03:32] LABS: Hemoglobin 9.5 g/dL (12.2-16.2)
[2024-08-18 03:36] LABS: Hematocrit 28.8 % (36.0-46.0); Mean Corpuscular Hemoglobin 25.6 pg (28.0-32.0); Mean Corpuscular Hgb Conc. 33.1 g/dL (32.0-36.0); Mean Corpuscular Volume 77.5 fL (80.0-100.0); Platelet Count (auto) 224 10^3/uL (140-450); Red Blood Cells 3.72 10^6/uL (4.0-5.20); Red Cell Distribution Width 19.2 % (11.8-14.3); White Blood Cell 26.4 10^3/uL (4.4-10.8)
[2024-08-18 03:53] LABS: Anion Gap 9 (5-15); Carbon Dioxide 27 mmol/L (20-31); Chloride 105 mmol/L (98-107); Potassium 3.6 mmol/L (3.5-5.1); Sodium 141 mmol/L (136-145)
[2024-08-18 03:54] LABS: Basophils % (manual) 0 (0.0-2.0); Blast Cells 0; Eosinophils % (manual) 0 (0-7); Metamyelocytes % 0; Myelocytes % 0; Promyelocytes % 0; Reactive Lymphocytes 0
[2024-08-18 03:56] LABS: Calcium 8.2 mg/dL (8.7-10.4)
[2024-08-18 03:59] LABS: Blood Urea Nitrogen 18 mg/dL (9-23)
[2024-08-18 04:20] LABS: Glucose 193 mg/dL (74-106)
[2024-08-18 04:55] LABS: Band Neutrophils % (manual) 1; Large Platelets FEW; Lymphocytes % (manual) 5 (10.0-50.0); Monocytes % (manual) 4 (0-12); Platelet Estimate Adequate
--- NOTE | 2024-08-18 05:59 | DVH ---
EXAM: XR Chest, 1 View CLINICAL INDICATION: Mechanical ventilation TECHNIQUE: Frontal view of the chest. COMPARISON: XY CHEST PORTABLE on DOS: 08/17/24, XY CHEST PORTABLE on DOS: 08/16/24, XY CHEST XRAY 1 V IEW on DOS: 08/16/24, XY CHEST XRAY 1 VIEW on DOS: 08/16/24, XY CHEST PORTABLE on DOS: 05/22/24 FINDINGS: LUNGS AND PLEURAL SPACES: See below. HEART: Cardiomegaly with pulmonary congestion and edema. Superimposed pneumonia cannot be excluded. MEDIASTINUM: Unremarkable. Normal mediastinal contour. BONES/JOINTS: Unremarkable. No acute fracture. TUBES, LINES AND DEVICES: Right internal jugular central venous catheter tip in the superior vena c giovanny. The endotracheal tube (ETT) is in satisfactory position. Enteric tube tip cannot be seen but i s below the diaphragm. OTHER FINDINGS: . . . IMPRESSION: Cardiomegaly with pulmonary congestion and edema. Superimposed pneumonia cannot be excluded.
[2024-08-18 06:34] LABS: Base Excess 0.9 mmol/L (-2.0-3.0)
[2024-08-18] MEDS: ROCURONIUM 10MG/ML 10ML VIAL IV PRN (11:01)
[2024-08-18] MEDS: PROPOFOL 100 ML IV SCH (11:02)
[2024-08-18] MEDS ORDERED: ROCURONIUM 10MG/ML 10ML VIAL IV ONE (12:00)
--- NOTE | 2024-08-18 12:23 | DVH ---
EXAM: XY CHEST PORTABLE HISTORY: RESP DISTRESS, DESATURATION COMPARISON: XY CHEST PORTABLE on DOS: 08/18/24, XY CHEST PORTABLE on DOS: 08/17/24, XY CHEST PORTABLE o n DOS: 08/16/24, XY CHEST XRAY 1 VIEW on DOS: 08/16/24, XY CHEST XRAY 1 VIEW on DOS: 08/16/24 TECHNIQUE: Portable AP view of the chest was performed. FINDINGS: Endotracheal tube is re-identified with its tip 2.9 cm above the karissa. OG tube and right IJ centra l line are re-identified. There are diffuse bilateral interstitial opacities, although this appearanc e is likely exaggerated by the patient's large body habitus and abundant overlying adipose tissue. N o pneumothorax or new consolidative infiltrates. The heart is enlarged. IMPRESSION: 1. Mechanical ventilation with tubes and lines as above. 2. Cardiomegaly and diffuse interstitial opacities which may be due to CHF. This appearance is likel y exaggerated by the patient's large body habitus.
[2024-08-18] MEDS: methylPREDNISolone SOD SUCC 125 MG/2 ML VL IV ONE (13:05)
[2024-08-18] MEDS ORDERED: ACETAMINOPHEN 650 MG RECT SUPP PR PRN ×2 (14:00→14:15)
[2024-08-18] MEDS ORDERED: ROCURONIUM 10MG/ML 10ML VIAL IV PRN (15:45)
[2024-08-18] MEDS: FUROSEMIDE 40 MG/4 ML VIAL IV ONE (16:33)
--- NOTE | 2024-08-18 17:31 | DVHPNRES ---
Progress Note Date Seen: August 18, 2024 Resident Creating Document: VERONICA QUINTERO RESIDENT Medical Necessity Reason Pt with a Central, PICC or Fol: Yes The following are medically ne: Central Line, Gray Catheter Subjective Review of Systems This is a 64-year-old female with past medical history of COPD on home oxygen, asthma ,TRENT, hypertension, DVT, PE, atrial fibrillation , chronic back pain, questionable heart failure, type 2 diabetes mellitus presented to the ED via EMS with chief complaint of ALOC and SOB. the daughter she went to the career coach yesterday and career coach mentioned that the patient blood pressure is uncontrolled and fluid overload and prescribed new antihypertensive with Bumex and later patient woke up middle of the night with gurgling and again went back to sleep. EMS reports that the patient was last seen well at 7am with patient complaining of some SOB, but went back to sleep. EMS relays that the patient was found by family 30 minutes ago gurgling in her sleep and unable to respond. EMS states that the patient is not able to move or answer questions, only opening her eyes to painful stimuli. EMS notes patient was at 64% O2 saturation on RA, but went up to 94% on 15L continuous. EMS reports that the patient's BP was 207/102, HR 129, and patient was given Nitroglycerin on route to the ED. Patient unable to answer any questions at this time due to her altered status. Patient underwent endotracheal intubation and started on mechanical ventilation to protect the airway. PMH: COPD on home oxygen, asthma , TRENT, hypertension, DVT, PE, atrial fibrillation , chronic back pain, questionable heart failure, type 2 diabetes mellitus PSH: Hysterectomy, status post IVC filter in 2020 and cataract surgery. Family history: Significant for heart disease, chronic kidney disease. Home medications: Acetaminophen 325 mg daily, amiodarone 200 mg daily, albuterol sulfate, amitriptyline 10 mg at HS, amlodipine 5 mg daily, Eliquis 5 mg b.i.d., atorvastatin 10 mg at HS, diclofenac sodium 1% gel topical TID, Colace 100 mg b.i.d., glipizide 10 mg q.i.d., ibuprofen 600 mg p.o. daily, losartan potassium 50 mg b.i.d., methocarbamol 500 mg p.o., Medrol Dosepak, metoprolol tartrate 25 mg b.i.d., Percocet 5/325 mg b.i.d., pregabalin 25 mg 1-2 capsules p.o. b.i.d., tizanidine hydrochloride 4 mg at q.p.m. Patient was seen and examined on the bedside. She is on mechanical ventilation with FiO2 30%,, respiratory rate 18, tidal volume 500 mL. Objective vital signs Vital Sign Date Time Temp Pulse Resp B/P (MAP) Pulse Ox O2 Delivery O2 Flow Rate FiO2 08/18/24 17:00 99.7 92 16 116/53 (74) 96 211.5 08/18/24 16:00 30 08/18/24 16:00 Mechanical Ventilator+ 08/16/24 12:39 15 Total Intake and Output 08/17/24 08/17/24 08/18/24 15:00 23:00 07:00 Intake Total 600.5 ml 534.5 ml 846 ml Output Total 900 ml 350 ml Balance 600.5 ml -365.5 ml 496 ml medications Current Medications Medications Dose Ordered Sig/Mahogany Route Start Time Stop Time Status Last Admin Dose Admin Midazolam HCl 50 ml @ 1 mls/hr Q24H IV 08/16/24 13:00 08/18/24 16:21 15 MLS/HR Norepinephrine Bitartrate 250 ml @ 3.75 mls/hr Q24H IV 08/16/24 15:45 Fentanyl Citrate 250 ml @ 2.5 mls/hr Q24H IV 08/16/24 16:45 08/18/24 14:15 25 MLS/HR Meropenem 50 ml @ 17 mls/hr Q8H IV 08/17/24 00:00 08/18/24 16:32 17 MLS/HR Vancomycin HCl 0 ml @ 0 mls/hr UD IV 08/16/24 16:45 Pantoprazole Sodium 40 mg DAILY IV 08/17/24 10:00 08/18/24 07:50 40 MG Diagnostic Test (Pha) 1 strip IQ4HR 08/16/24 20:00 08/18/24 15:57 1 STRIP Insulin Human Regular IQ4HR SC 08/16/24 20:00 08/18/24 16:14 2 UNITS Dextrose 50 ml UD PRN IV 08/16/24 16:45 Levalbuterol HCl 0.625 mg Q6HR NEB 08/16/24 18:00 08/18/24 11:29 0.625 MG Ipratropium [place] 0.5 mg Q6HWA NEB 08/16/24 18:00 08/18/24 11:28 0.5 MG Acetaminophen 650 mg Q6HP PRN PO 08/16/24 17:30 08/18/24 11:03 650 MG Amiodarone HCl 200 mg DAILY PO 08/17/24 10:00 08/18/24 07:51 200 MG Atorvastatin Calcium 10 mg HS PO 08/17/24 22:00 08/17/24 22:04 10 MG Enteral Nutritional Formula 1,000 ml 20ML/HR GT 08/17/24 14:15 08/17/24 20:51 1,000 ML Vancomycin HCl 250 ml @ 200 mls/hr Q12H IV 08/17/24 15:00 08/18/24 14:56 200 MLS/HR Mupirocin 1 applic BID EACHNOSTRI 08/17/24 22:00 08/22/24 21:59 08/18/24 07:51 1 APPLIC Propofol 100 ml @ 3.705 mls/ hr Q24H IV 08/18/24 10:15 08/18/24 11:02 3.705 MLS/HR Acetaminophen 650 mg Q6HP PRN [place] 08/18/24 14:15 Rocuronium [place] 50 mg Q1HR PRN IV 08/18/24 15:45 Examination Physical exam: General: RASS -3, afebrile, mucosae are moist Cardiovascular: Normal S1 and S2. No murmurs, gallops or rubs Respiratory: Mechanically assisted ventilation, equal bilateral airway entree. Bilateral crackles and wheezing. Abdomen: Soft, nontender, no organomegaly, normal bowel sounds MSK/skin: edema +, Mobilization of limbs cannot be evaluated. Skin is dry and warm. Neurological: Orientation cannot be assessed. No apparent motor no sensitive deficits. Pupils are isocoric and reactive laboratory and microbiology Laboratory Tests 08/18/24 03:00 Test 08/18/24 03:00 Range/Units Serum Glucose 193 H 74-106 mg/dL Microbiology Date/Time Source Procedure Growth Status 08/16/24 16:50 Nose MRSA Screen - Final Methicillin Resistant S.aureus Complete 08/16/24 12:58 Blood Blood Culture - Preliminary Resulted 08/16/24 12:57 Urine - [place] Urine Culture - Preliminary Resulted 08/16/24 12:57 Sputum Expectorated Sputum Gram Stain - Final Complete 08/16/24 12:57 Sputum Expectorated Sputum Respiratory Culture - Final Complete Labs and/or images reviewed: Labs reviewed by me, Image(s) reviewed by me Problem List/Assessment/Plan Problem List/Assessment/Plan Assessment and plan: NEURO: Acute metabolic encephalopathy likely due to sepsis On mechanical ventilation RASS score: - 3 CARDIOVASCULAR: Possible acute on chronic diastolic heart failure NSTEMI type 2 likely due to above Paroxysmal Atrial fibrillation with secondary hypercoagulable state Hypertensive emergency on admission - [id number] score 6 - Currently Patient is in sinus tachycardia - Holding all antihypertensive because blood pressure is on the lower side and patient is in sepsis - Echo on 08/27 showed EF 63% and left ventricular function is preserved. RV function is normal - Mildly elevated BNP -CxR showed Multifocal consolidative opacities and Cardiomegaly. - Troponin trends are 336>801 - Resumed amiodarone 200 mg p.o. daily and Atorvastatin 10 mg at HS - Discontinued therapeutic Lovenox due to superficial bleeding from central line site - Monitor H&H PULMONARY: Acute hypoxic respiratory failure likely due to aspiration pneumonia Possible multifocal pneumonia On Mechanical ventilation History of DVT and PE, status post IVC filter in 2020 and was on Eliquis - CxR showed Multifocal consolidative opacities and Cardiomegaly. - CT chest revealed ground-glass and patchy opacities of bilateral lungs with left lower lobe consolidation which may represent multifocal pneumonia / pulmonary edema and suggested left lower lobe atelectasis with elevation of the left hemidiaphragm.Mediastinal lymphadenopathy which may be reactive/neoplastic. - Medneb with levalbuterol and ipratropium q.6 hours - Preliminary blood culture revealed Enterococcus and urine and sputum culture are pending - IV methylprednisolone 60 mg once. - IV vancomycin per pharmacy and IV meropenem 1 g Q 8 hours GASTROINTESTINAL: Hyperbilirubinemia and transaminitis likely due to sepsis Chronic vomiting and diarrhoea ,rule out cholelithiasis - U/S of abdomen showed echogenic liver possible hepatic steatosis/cirrhosis - CT abdomen pelvis revealed no acute intra-abdominal abnormality, moderate colonic diverticulosis and bibasilar atelectasis. ENDOCRINE: Type 2 diabetes mellitus, HbA1C 7% - Mild sliding scale of insulin METABOLIC: HypoKalemia and hypomagnesemia Morbid obesity, BMI 57.2 kg/m2 - Replenished HEME: Chronic Microcytic hypochromic anemia INFECTIOUS DISEASE: Sepsis likely due to aspiration pneumonia Leukocytosis and lactic acidosis likely due to sepsis - Preliminary blood culture revealed Enterococcus and urine and sputum culture are pending - IV bolus at 30 mL/hours given - IV vancomycin as per pharmacy and IV meropenem 1 g Q 8 HR MUSCULOSKELETAL: Chronic back pain DIET: Glucerna DVT prophylax: SCD GI prophylaxis: Protonix Bowel regimen: Code status: Full code LINES/DRAINS/ACCESS: Rt triple lumen central venous catheter placed on 08/16/24 ETT: Intubated on 08/16/24 IV access: Drips: Fentanyl , versed and propofol Gray catheter: placed on 08/16/24 DISPOSITION: ICU Patient's status discussed with RN, Daughter Critical care time spent more than 73 minutes, including patient care, chart review, and updating the family. Excluding any procedures. Case discussed with Dr. Hilliard Plan discussed with: Daughter, Other (RN) My Orders My Orders Orders - VERONICA QUINTERO RESIDENT Procedure Category Date Status Time Chest Portable XY 08/18/24 Resulted 04:00 Abg W/ Co-Ox RT 08/18/24 Logged 04:00 Propofol (Diprivan) PHA 08/18/24 In Process 10:15 Rass Sedation Scale NICKI 08/18/24 In Process 10:03 Acetaminophen PHA 08/18/24 In Process Suppository (Tylenol 14:15 Rocuronium [place] PHA 08/18/24 In Process 15:45 Hemoglobin & LAB 08/18/24 Logged Hematocrit 17:18 Dietary Evaluation Review Comments: 1. TF Glucerna 1.2Cal @ 70ml/hr along with Pro-stat 1 pk daily. Start @ 20ml/hr, increase 10ml/hr until goal is reached. Water flush 50ml q6h if allowed. 2. TPN if NPO x 7 days 3. Monitor labs, NPO status, BW, skin integrity, and I/O Expected Outcomes/Goals: To meet at least 75% of estimated needs within 7 days Fu 2-3 days VERONICA QUINTERO RESIDENT August 18, 2024 17:31
[2024-08-18 18:18] LABS: Hematocrit 29.7 % (36.0-46.0); Hemoglobin 9.6 g/dL (12.2-16.2)
[2024-08-18] MEDS: ACETAMINOPHEN 650 MG RECT SUPP PR PRN (20:22)
[2024-08-19] VITALS (104 sets, daily range): BP systolic 89–133; BP diastolic 32–70; PULSE 73–105; RESP 14–19; TEMP 97.9–99.1; O2SAT 91–100
[2024-08-19 02:08] LABS: Eosinophils # (auto) 0 10 ^3/uL (0-0.8); Red Blood Cells 3.29 10^6/uL (4.0-5.20)
[2024-08-19 02:10] LABS: Basophils # (auto) 0.1 10 ^3/uL (0-0.2); Basophils % (auto) 0.3 % (0.0-2.0); Hematocrit 25.6 % (36.0-46.0); Hemoglobin 8.3 g/dL (12.2-16.2); Lymphocytes # (auto) 0.9 10 ^3/uL (0.4-5.4); Lymphocytes % (auto) 4.7 % (10.0-50.0); Mean Corpuscular Hemoglobin 25.4 pg (28.0-32.0); Mean Corpuscular Hgb Conc. 32.6 g/dL (32.0-36.0); Mean Corpuscular Volume 77.8 fL (80.0-100.0); Monocytes % (auto) 5.2 % (0.0-12.0); Neutrophils # (auto) 17.2 10 ^3/uL (1.6-8.6); Neutrophils % (auto) 89.8 % (37.0-80.0); Nucleated Red Blood Cells % 0.1 %; Platelet Count (auto) 199 10^3/uL (140-450); Red Cell Distribution Width 19.5 % (11.8-14.3); White Blood Cell 19.1 10^3/uL (4.4-10.8)
[2024-08-19 02:16] LABS: Chloride 105 mmol/L (98-107); Potassium 3.8 mmol/L (3.5-5.1); Sodium 141 mmol/L (136-145)
[2024-08-19 02:17] LABS: Anion Gap 7 (5-15); Carbon Dioxide 29 mmol/L (20-31)
[2024-08-19 02:22] LABS: BUN/Creatinine Ratio 23.8 (10.0-20.0)
[2024-08-19 02:36] LABS: Blood Urea Nitrogen 25 mg/dL (9-23); Calcium 8.2 mg/dL (8.7-10.4); Glucose 208 mg/dL (74-106)
[2024-08-19] MEDS: ROCURONIUM 10MG/ML 10ML VIAL IV PRN (02:45)
--- NOTE | 2024-08-19 05:31 | DVH ---
CHEST RADIOGRAPH Indication: Mechanical ventilation Technique: Single frontal view of the chest was obtained Comparison: XY CHEST PORTABLE on DOS: 08/18/24, XY CHEST PORTABLE on DOS: 08/18/24, XY CHEST PORTABLE o n DOS: 08/17/24 IMPRESSION: Heart is prominent size. Endotracheal tube, enteric tube, and right IJ catheter tip appear similar a nd satisfactory position. Moderate pulmonary vascular congestion. Possible trace left pleural effusi on.
[2024-08-19 07:09] LABS: Base Excess 0.6 mmol/L (-2.0-3.0)
--- NOTE | 2024-08-19 09:17 | DVHPN2 ---
Subjective This is a 64-year-old female with past medical history of COPD on home oxygen, asthma ,TRENT, hypertension, DVT, PE, atrial fibrillation , chronic back pain, questionable heart failure, type 2 diabetes mellitus presented to the ED via EMS with chief complaint of ALOC and SOB. the daughter she went to the hose coupling joiner yesterday and hose coupling joiner mentioned that the patient blood pressure is uncontrolled and fluid overload and prescribed new antihypertensive with Bumex and later patient woke up middle of the night with gurgling and again went back to sleep. EMS reports that the patient was last seen well at 7am with patient complaining of some SOB, but went back to sleep. EMS relays that the patient was found by family 30 minutes ago gurgling in her sleep and unable to respond. EMS states that the patient is not able to move or answer questions, only opening her eyes to painful stimuli. EMS notes patient was at 64% O2 saturation on RA, but went up to 94% on 15L continuous. EMS reports that the patient's BP was 207/102, HR 129, and patient was given Nitroglycerin on route to the ED. Patient unable to answer any questions at this time due to her altered status. Patient underwent endotracheal intubation and started on mechanical ventilation to protect the airway. PMH: COPD on home oxygen, asthma , TRENT, hypertension, DVT, PE, atrial fibrillation , chronic back pain, questionable heart failure, type 2 diabetes mellitus PSH: Hysterectomy, status post IVC filter in 2020 and cataract surgery. Family history: Significant for heart disease, chronic kidney disease. Home medications: Acetaminophen 325 mg daily, amiodarone 200 mg daily, albuterol sulfate, amitriptyline 10 mg at HS, amlodipine 5 mg daily, Eliquis 5 mg b.i.d., atorvastatin 10 mg at HS, diclofenac sodium 1% gel topical TID, Colace 100 mg b.i.d., glipizide 10 mg q.i.d., ibuprofen 600 mg p.o. daily, losartan potassium 50 mg b.i.d., methocarbamol 500 mg p.o., Medrol Dosepak, metoprolol tartrate 25 mg b.i.d., Percocet 5/325 mg b.i.d., pregabalin 25 mg 1-2 capsules p.o. b.i.d., tizanidine hydrochloride 4 mg at q.p.m. Patient was seen and examined on the bedside. Reviewed: Care Plan, H&P Changes from previous H/P or p: No Changes General: Per HPI Objective Vitals Vital Signs Date Time Temp Pulse Resp B/P (MAP) Pulse Ox O2 Delivery O2 Flow Rate FiO2 08/19/24 08:00 35 08/19/24 08:00 92 16 96 Mechanical Ventilator+ 08/19/24 07:19 112/52 (72) 08/19/24 04:15 99.0 99.0 Intake/Output Intake and Output 08/19/24 07:00 Intake Total 2035.495 ml Output Total 1400 ml Balance 635.495 ml Intake Oral 110 ml IV Total 1445.495 ml Tube Feeding 480 ml Output Urine Total 1400 ml Stool Total 0 ml Exam General: RASS -3, afebrile, mucosae are moist Cardiovascular: Normal S1 and S2. No murmurs, gallops or rubs Respiratory: Mechanically assisted ventilation, equal bilateral airway entree. Bilateral crackles and wheezing. Abdomen: Soft, nontender, no organomegaly, normal bowel sounds MSK/skin: edema +, Mobilization of limbs cannot be evaluated. Skin is dry and warm. Neurological: Orientation cannot be assessed. No apparent motor no sensitive deficits. Pupils are isocoric and reactive Medications Current Medications Medications Dose Ordered Sig/[place] Route Start Time Stop Time Status Last Admin Dose Admin Midazolam HCl 50 ml @ 1 mls/hr Q24H IV 08/16/24 13:00 08/19/24 07:50 15 MLS/HR Norepinephrine Bitartrate 250 ml @ 3.75 mls/hr Q24H IV 08/16/24 15:45 Fentanyl Citrate 250 ml @ 2.5 mls/hr Q24H IV 08/16/24 16:45 08/19/24 07:51 22.5 MLS/HR Meropenem 50 ml @ 17 mls/hr Q8H IV 08/17/24 00:00 08/19/24 07:50 17 MLS/HR Vancomycin HCl 0 ml @ 0 mls/hr UD IV 08/16/24 16:45 Pantoprazole Sodium 40 mg DAILY IV 08/17/24 10:00 08/18/24 07:50 40 MG Diagnostic Test (Pha) 1 strip IQ4HR 08/16/24 20:00 08/19/24 07:59 1 STRIP Insulin Human Regular IQ4HR SC 08/16/24 20:00 08/19/24 08:01 3 UNITS Dextrose 50 ml UD PRN IV 08/16/24 16:45 Levalbuterol HCl 0.625 mg Q6HR NEB 08/16/24 18:00 08/19/24 06:17 0.625 MG Ipratropium [place] 0.5 mg Q6HWA NEB 08/16/24 18:00 08/19/24 06:17 0.5 MG Acetaminophen 650 mg Q6HP PRN PO 08/16/24 17:30 08/18/24 11:03 650 MG Amiodarone HCl 200 mg DAILY PO 08/17/24 10:00 08/18/24 07:51 200 MG Atorvastatin Calcium 10 mg HS PO 08/17/24 22:00 08/18/24 22:20 10 MG Enteral Nutritional Formula 1,000 ml 20ML/HR GT 08/17/24 14:15 08/17/24 20:51 1,000 ML Vancomycin HCl 250 ml @ 200 mls/hr Q12H IV 08/17/24 15:00 08/18/24 14:56 200 MLS/HR Mupirocin 1 applic BID EACHNOSTRI 08/17/24 22:00 08/22/24 21:59 08/18/24 22:20 1 APPLIC Propofol 100 ml @ 3.705 mls/ hr Q24H IV 08/18/24 10:15 08/19/24 06:27 7.41 MLS/HR Acetaminophen 650 mg Q6HP PRN CA 08/18/24 18:00 08/18/24 20:22 650 MG Rocuronium [place] 50 mg PRN PRN IV 08/18/24 19:00 08/19/24 06:55 50 MG Laboratory Results Laboratory Tests 08/19/24 02:00 Chemistry Test 08/19/24 02:00 Calcium Level 8.2 mg/dL (8.7-10.4) L Urinalysis Test 08/16/24 12:57 Urine Color Colorless (Yellow) Urine Clarity Clear (Clear) Urine pH 7.0 (5.0-9.0) Urine Specific [place] 1.007 (1.001-1.035) Urine Protein Negative (Negative) Urine Ketones Trace (Negative) Urine Blood Negative /uL (Negative) Urine Nitrite Negative (Negative) Urine Bilirubin Negative (Negative) Urine Urobilinogen Normal mg/dL (Negative) Urine Leukocyte Esterase Negative /uL (Negative) Urine RBC 1 /hpf (0 - 4) Urine Microscopic WBC 1 /HPF (0-5) Urine Squamous Epithelial Cells None seen /hpf (<5) Urine Bacteria None seen /hpf (None Seen) Urine Glucose Normal mg/dL (Normal) Blood Gas Results Test 08/19/24 06:57 Arterial Blood pH 7.458 (7.350-7.450) FiO2 % 40.0 Microbiology Microbiology Date/Time Source Procedure Growth Status 08/16/24 16:50 Nose MRSA Screen - Final Methicillin Resistant S.aureus Complete 08/16/24 12:58 Blood Blood Culture - Preliminary Resulted 08/16/24 12:57 Urine - [place] Urine Culture - Final Complete 08/16/24 12:57 Sputum Expectorated Sputum Gram Stain - Final Complete 08/16/24 12:57 Sputum Expectorated Sputum Respiratory Culture - Final Complete Labs and/or images reviewed: Labs reviewed by me, Image(s) reviewed by me Assessment/Plan Assessment/Plan 08/19 patient here for sepsis aspiration pneumonia blood cultures with Enterococcus getting IV antibiotics vanc/meropenem status post sepsis fluids. Patient was bleeding from central line access site in Lovenox was held she is on SCDs. Patient has history of diastolic heart failure COPD, history DVT on Eliquis with IVC filter. We need to get CVP to guide diuresis as x-rays have shown significant vascular congestion. Vascular congestion may have been from the IV fluids from sepsis.. Maintain patient deviated ventilated sedated. Ventilated a.c. 500/16/5.0/35%, patient drips include Diprivan, fentanyl, worsen. Weaned off Levophed. NEURO: Acute metabolic encephalopathy likely due to sepsis On mechanical ventilation RASS score: - 3 CARDIOVASCULAR: Possible acute on chronic diastolic heart failure NSTEMI type 2 likely due to above Paroxysmal Atrial fibrillation with secondary hypercoagulable state Hypertensive emergency on admission - [id number] score 6 - Currently Patient is in sinus tachycardia - Holding all antihypertensive because blood pressure is on the lower side and patient is in sepsis - Echo on 08/27 showed EF 63% and left ventricular function is preserved. RV function is normal - Mildly elevated BNP -CxR showed Multifocal consolidative opacities and Cardiomegaly. - Troponin trends are 336>801 - Resumed amiodarone 200 mg p.o. daily and Atorvastatin 10 mg at HS - Discontinued therapeutic Lovenox due to superficial bleeding from central line site - Monitor H&H PULMONARY: Acute hypoxic respiratory failure likely due to aspiration pneumonia Possible multifocal pneumonia On Mechanical ventilation History of DVT and PE, status post IVC filter in 2020 and was on Eliquis - CxR showed Multifocal consolidative opacities and Cardiomegaly. - CT chest revealed ground-glass and patchy opacities of bilateral lungs with left lower lobe consolidation which may represent multifocal pneumonia / pulmonary edema and suggested left lower lobe atelectasis with elevation of the left hemidiaphragm.Mediastinal lymphadenopathy which may be reactive/neoplastic. - Medneb with levalbuterol and ipratropium q.6 hours - Preliminary blood culture revealed Enterococcus and urine and sputum culture are pending - IV methylprednisolone 60 mg once. - IV vancomycin per pharmacy and IV meropenem 1 g Q 8 hours GASTROINTESTINAL: Hyperbilirubinemia and transaminitis likely due to sepsis Chronic vomiting and diarrhoea ,rule out cholelithiasis - U/S of abdomen showed echogenic liver possible hepatic steatosis/cirrhosis - CT abdomen pelvis revealed no acute intra-abdominal abnormality, moderate colonic diverticulosis and bibasilar atelectasis. ENDOCRINE: Type 2 diabetes mellitus, HbA1C 7% - Mild sliding scale of insulin METABOLIC: HypoKalemia and hypomagnesemia Morbid obesity, BMI 57.2 kg/m2 - Replenished HEME: Chronic Microcytic hypochromic anemia INFECTIOUS DISEASE: Sepsis likely due to aspiration pneumonia Leukocytosis and lactic acidosis likely due to sepsis - Preliminary blood culture revealed Enterococcus and urine and sputum culture are pending - IV bolus at 30 mL/hours given - IV vancomycin as per pharmacy and IV meropenem 1 g Q 8 HR MUSCULOSKELETAL: Chronic back pain DIET: Glucerna DVT prophylax: SCD GI prophylaxis: Protonix Bowel regimen: Code status: Full code LINES/DRAINS/ACCESS: Rt triple lumen central venous catheter placed on 08/16/24 ETT: Intubated on 08/16/24 IV access: Drips: Fentanyl , versed and propofol Gray catheter: placed on 08/16/24 DISPOSITION: ICU Plan discussed with: Other Date of Service: August 19, 2024 Billing Provider: ONEL DALTON MD Common Visit Codes: [id number] CARE 30-74 MIN ONEL DALTON MD August 19, 2024 09:17
--- NOTE | 2024-08-19 19:11 | DVHINCON2 ---
Date of service: August 19, 2024 Referring Physician Leticia Davila MD; Covering ICU team Reason for Consultation Acute hypoxic respiratory failure requiring mechanical ventilator. History of Present Illness A 64-year-old woman with past medical history of COPD on home oxygen, asthma ,TRENT, hypertension, DVT, PE, atrial fibrillation , chronic back pain, questionable heart failure, type 2 diabetes mellitus presented to the ED via EMS on 08/16/24 with chief complaint of ALOC and SOB. According to the daughter she went to the patents examiner yesterday and patents examiner mentioned that the patient blood pressure is uncontrolled and fluid overload and prescribed new antihypertensive with Bumex and later patient woke up middle of the night with gurgling and again went back to sleep. EMS reports that the patient was last seen well at 7am with patient complaining of some SOB, but went back to sleep. EMS relays that the patient was found by family 30 minutes ago gurgling in her sleep and unable to respond. EMS states that the patient is not able to move or answer questions, only opening her eyes to painful stimuli. EMS notes patient was at 64% O2 saturation on RA, but went up to 94% on 15L continuous. EMS reports that the patient's BP was 207/102, HR 129, and patient was given Nitroglycerin on route to the ED. Patient unable to answer any questions at this time due to her altered status. Patient underwent endotracheal intubation and started on mechanical ventilation to protect the airway. Daughter also mentioned the patient had a recent admission in [facility] [place], with exacerbation of COPD and after discharged the patient had intermittent vomiting and diarrhea for last 2 months and did not seek any medical attention for these symptoms. Patient was admitted for further care and pulmonary consultation is requested for evaluation and management of acute hypoxic respiratory failure requiring mechanical ventilator. Review of Systems: Unable to obtain d/t intubated status Past Medical History COPD on home oxygen, asthma , TRENT, hypertension, DVT, PE, atrial fibrillation , chronic back pain, questionable heart failure, type 2 diabetes mellitus Past Surgical History Hysterectomy, status post IVC filter in 2020 and cataract surgery. Medications: Reviewed. Allergies: Codeine Family History Significant for heart disease, chronic kidney disease Social History Former Smoker, 40 pack year smoking history, nonalcoholic and never tried any drugs Family History: Diabetes mellitus G8 MOTHER G8 FATHER FH: Parkinson's disease G8 MOTHER FH: uterine cancer G8 MOTHER Ischemic heart disease G8 FATHER Kidney stones G8 FATHER Allergies: Coded Allergies: Codeine (Verified Allergy, Unknown, 03/22/24) Home Meds Active Scripts Methylprednisolone (Medrol Dosepak) 4 Mg Jose, 4 MG PO UD, #21 TAB UAD Prov:ANABELL WYATT MD 05/30/24 Metoprolol Tartrate (Lopressor) 25 Mg Tb, 25 MG PO BID for 60 Days, #120 TAB Prov:CHAPIN ZEPEDA 01/13/24 Apixaban Base (ELIQUIS) 5 Mg Tab, 5 MG PO BID for 30 Days, #60 TAB Prov:CHAPIN ZEPEDA 01/13/24 Amiodarone HCl (Amiodarone HCl) 200 Mg Tab, 200 MG PO DAILY for 90 Days, #90 TAB Prov:CHAPIN ZEPEDA RESIDENT 01/13/24 Reported Medications Acetaminophen (Apap) 325 Mg Tab, 325 MG PO, TAB 05/24/24 Ibuprofen (Ibuprofen) 600 Mg Tab, 600 MG PO, TAB 05/24/24 Apixaban Base (ELIQUIS) 5 Mg Tab, 5 MG PO BID, TAB 05/24/24 Tizanidine Hydrochloride (Zanaflex) 4 Mg Cap, 1 CAP PO QPM, #30 CAP 05/24/24 Methocarbamol (Methocarbamol) 500 Mg Tab, 500 MG PO, TAB 05/24/24 Losartan Potassium (Losartan Potassium) 50 Mg Tab, 50 MG PO BID for 30 Days, MG 01/12/24 Glipizide (Glipizide) 10 Mg Tab, 10 MG PO QID for 30 Days, MG 01/12/24 Oxycodone W/ Acetaminophen (Percocet 5/325MG) 1 Tab Tb, 5-325 MG PO BIDPRN PRN 01/11/24 Pregabalin (Pregabalin) 25 Mg Cap, 1-2 CAP PO BID 01/11/24 Amlodipine Besylate (Amlodipine Besylate) 5 Mg Tab, 1 TAB PO DAILY 01/11/24 Amitriptyline HCl (Amitriptyline HCl) 10 Mg Tab, 1 TAB PO HS 01/11/24 Diclofenac Sodium (Topical) (Diclofenac Sodium) 1 % Gel, 1 % TOP TID 11/03/22 Atorvastatin Calcium (ATORVASTATIN CALCIUM) 10 Mg Tab, 1 TAB PO DAILY 11/03/22 Docusate Sodium (Dok) 100 Mg Cap, 100 MG PO BID 05/22/20 Albuterol Sulfate (VENTOLIN MDI) 90 Mcg Ih, 2 PUFF IN QIDP PRN for SHORTNESS OF BREATH 05/22/20 Vital Signs Vital Signs Date Time Temp Pulse Resp B/P (MAP) Pulse Ox O2 Delivery O2 Flow Rate FiO2 08/19/24 18:30 94 16 130/61 (84) 96 08/19/24 18:18 40 08/19/24 18:00 Mechanical Ventilator+ 08/19/24 16:00 98.8 98.8 Physical Exam Gen.: Patient lying in bed in medical ICU. Sedated, intubated on mechanical ventilator. Head: Normocephalic, atraumatic. Eyes: PERRLA. Ears: Normal external anatomy. Throat: Endotracheal tube and orogastric tube in place. Neck: Supple, trachea midline. Chest: Transmitted breath sounds bilaterally. Decreased air entry bilaterally. No wheezing. Bibasilar crackles. Cardiovascular: Positive S1, positive S2. Regular rate and rhythm. Abdomen: Positive bowel sounds in all 4 quadrants. Soft, nontender, nondistended. : Gray in place. Normal external genitalia. Rectal: Deferred. Skin: Warm, dry. Intact. Extremities: 2+ radial pulses bilaterally. No lower extremity edema. Neuro: Sedated. Labs/Diagnostic Data Labs Test 08/19/24 15:45 08/19/24 06:57 08/19/24 02:00 08/18/24 03:00 Range/Units POC Glucose 237 H 70-106 mg/dl Blood Gas Specimen Type Arterial Blood Gas Sample Site Right radial Blood Gas Patient Temperature 37.0 Arterial Blood Date Drawn [id number] Arterial Blood pH 7.458 H 7.350-7.450 Arterial Blood Partial Pressure CO2 35.1 32.0-45.0 mmHg Arterial Blood Partial Pressure O2 69.9 L 83.0-108.0 mmHg Arterial Blood HCO3 24.3 21.0-28.0 mmol/L Arterial Blood Oxygen Saturation 92.8 L 94.0-98.0 % Arterial Blood Base Excess 0.6 -2.0-3.0 mmol/L Arterial Blood Oxyhemoglobin 91.8 L 94.0-98.0 % Arterial Blood Carboxyhemoglobin 0.3 L 0.5-1.5 % Arterial Blood Methemoglobin 0.8 0.0-1.5 % Nathan Test Modified Blood Gas Total Hemoglobin 8.50 L 12.0-16.0 g/dL Blood Gas Set Respiration Rate 16.0 Blood Gas Modality Vent - ac FiO2 % 40.0 Blood Gas Tidal Volume 500.0 Blood Gas PEEP or CPAP 5.0 White Blood Count 19.1 #H 4.4-10.8 10^3/uL Red Blood Count 3.29 L 4.0-5.20 10^6/uL Hemoglobin 8.3 L 12.2-16.2 g/dL Hematocrit 25.6 #L 36.0-46.0 % Mean Corpuscular Volume 77.8 L 80.0-100.0 fL Mean Corpuscular Hemoglobin 25.4 L 28.0-32.0 pg Mean Corpuscular Hemoglobin Concent 32.6 32.0-36.0 g/dL Red Cell Distribution Width 19.5 H 11.8-14.3 % Platelet Count 199 140-450 10^3/uL Mean Platelet Volume 8.2 6.9-10.8 fL Neutrophils (%) (Auto) 89.8 H 37.0-80.0 % Lymphocytes (%) (Auto) 4.7 L 10.0-50.0 % Monocytes (%) (Auto) 5.2 0.0-12.0 % Eosinophils (%) (Auto) 0.0 0.0-7.0 % Basophils (%) (Auto) 0.3 0.0-2.0 % Neutrophils # (Auto) 17.2 H 1.6-8.6 10 ^3/uL Lymphocytes # (Auto) 0.9 0.4-5.4 10 ^3/uL Monocytes # (Auto) 1.0 0-1.3 10 ^3/uL Eosinophils # (Auto) 0 0-0.8 10 ^3/uL Basophils # (Auto) 0.1 0-0.2 10 ^3/uL Nucleated Red Blood Cells 0.1 % Sodium Level 141 136-145 mmol/L Potassium Level 3.8 3.5-5.1 mmol/L Chloride Level 105 98-107 mmol/L Carbon Dioxide Level 29 20-31 mmol/L Anion Gap 7 5-15 Blood Urea Nitrogen 25 H 9-23 mg/dL Creatinine 1.05 H 0.550-1.02 mg/dL Glomerular Filtration Rate Calc 59 >90 mL/min BUN/Creatinine Ratio 23.8 H 10.0-20.0 Serum Glucose 208 H 74-106 mg/dL Calcium Level 8.2 L 8.7-10.4 mg/dL Vancomycin Level Trough 25.9 H 5-10 ug/mL Differential Total Cells Counted 100.0 100 Neutrophils % (Manual) 90 H 37.0-80.0 Band Neutrophils % (Manual) 1 Lymphocytes % (Manual) 5 L 10.0-50.0 Monocytes % (Manual) 4 0-12 Eosinophils % (Manual) 0 0-7 Basophils % (Manual) 0 0.0-2.0 Metamyelocytes % (manual) 0 Myelocytes % (Manual) 0 Promyelocytes % (Manual) 0 Blast Cells % (Manual) 0 Reactive Lymphocytes 0 Platelet Estimate Adequate Large Platelets Few Microcytosis Slight Lactic Acid Level 1.1 0.4-2.0 mmol/L Test 08/17/24 03:15 08/16/24 18:00 08/16/24 17:02 08/16/24 12:58 Range/Units Giant Platelets Few Phosphorus Level 3.2 2.4-5.1 mg/dL Magnesium Level 1.8 1.6-2.6 mg/dL Total Bilirubin 0.9 0.2-1.0 mg/dL Aspartate Amino Transferase (AST) 48 H 13-40 U/L Alanine Aminotransferase (ALT) 68 H 7-40 U/L Alkaline Phosphatase 81 46-116 U/L Total Protein 6.8 5.7-8.2 g/dL Albumin 4.3 3.2-4.8 g/dL Random Vancomycin Level 19.2 H 5-10 ug/mL Influenza Type A Antigen Negative Negative Influenza Type B Antigen Negative Negative SARS-CoV-2 Antigen (Rapid) Negative NEGATIVE D-Dimer, Quantitative 4.78 H 0.0-0.49 mg/L FEU Ammonia < 10 L 11-32 umol/L Troponin I High Sensitivity 1404 *H </=34 ng/L Triglycerides Level 141 < 150 mg/dL Cholesterol Level 126 < 200 mg/dL LDL Cholesterol 50 < 100 mg/dL HDL Cholesterol 53 40-59 mg/dL Lipase 26 12-53 U/L Prothrombin Time 11.4 9.3-11.8 sec Prothrombin Time INR 1.08 0.9-1.15 Activated Partial Thromboplast Time 26.0 24.5-34.5 SEC Hemoglobin A1c 7.0 H <5.7 % A1C B-Type Natriuretic Peptide 280.79 0-100 pg/mL Vitamin B12 Level 351 211-911 pg/mL Vitamin D 25-Hydroxy 40.5 30.0-100 ng/mL Thyroid Stimulating Hormone (TSH) 2.42 0.55-4.78 uIU/mL Test 08/16/24 12:57 Range/Units Urine Color Colorless Yellow Urine Clarity Clear Clear Urine pH 7.0 5.0-9.0 Urine Specific [place] 1.007 1.001-1.035 Urine Protein Negative Negative Urine Ketones Trace Negative Urine Blood Negative Negative /uL Urine Nitrite Negative Negative Urine Bilirubin Negative Negative Urine Urobilinogen Normal Negative mg/dL Urine Leukocyte Esterase Negative Negative /uL Urine RBC 1 0 - 4 /hpf Urine Microscopic WBC 1 0-5 /HPF Urine Squamous Epithelial Cells None seen <5 /hpf Urine Bacteria None seen None Seen /hpf Urine Glucose Normal Normal mg/dL Urine Opiates Screen Neg NEGATIVE Urine Fentanyl Screen Neg NEGATIVE Urine Barbiturates Screen Neg NEGATIVE Urine Phencyclidine Screen Neg NEGATIVE Urine Amphetamines Screen Neg NEGATIVE Urine Benzodiazepines Screen Neg NEGATIVE Urine Cocaine Screen Neg NEGATIVE Urine Cannabinoids Screen Neg NEGATIVE Microbiology Date/Time Source Procedure Growth Status 08/16/24 16:50 Nose MRSA Screen - Final Methicillin Resistant S.aureus Complete 08/16/24 12:58 Blood Blood Culture - Preliminary S. agalactiae - Group B Resulted 08/16/24 12:57 Urine - Gray [place] Urine Culture - Final Complete 08/16/24 12:57 Sputum Expectorated Sputum Gram Stain - Final Complete 08/16/24 12:57 Sputum Expectorated Sputum Respiratory Culture - Final Complete Assessment Impression: Acute hypoxic respiratory failure On mechanical ventilator Bronchospasm Morbid obesity Hx of nicotine dependence Plan: s/p intubation on mechanical ventilator. CXR image and report reviewed. Devices in place. Moderate pulmonary vascular congestion. Possible trace left pleural effusion.. ABG reviewed, alkalemia. On AC mode; RR 16, VT 500, PEEP 5, FIO2 40% Titrate FIO2 to keep O2 saturation above 90%. VAP bundle. Daily ABG and CXR while intubated Sedate for ventilator synchrony - Versed/Fentanyl Continue bronchodilators. Continue antibiotics. F/u cultures. Tube feeds for nutritional support Pressors as necessary for hemodynamic support Titrate to keep mean arterial pressure greater than 65 mmHg. Monitor renal function Monitor electrolytes. Supplement as necessary. Monitor ins and outs. GI prophylaxis. DVT prophylaxis. Prognosis: Poor given patient's multiple co-morbidities. Condition: Critical Rest of plan per hospitalist and other consultants. A total of 35 minutes of critical care time was spent reviewing the patient record, examining the patient, making a diagnostic and therapeutic plan, discussing this plan with the medical personnel, following up on diagnostic studies and following the patient for clinical stability excluding any and all procedures. At least 50% of this time was spent in direct, [id number] contact. Thank you Dr. Davila for allowing me to participate in this patient's care. Further recommendations will depend on the patient's clinical course. Please do not hesitate to contact me if you have any questions or concerns. This medical document was created using an electronic medical record system with [employer] computerized dictation system. Although these documentations are being carefully reviewed, there may still be some phonetic and typographical changes. The errors are purely typographical, due to imperfection on the software program, and do not reflect any compromise in the patient's medical care. Dr. Davila, Plan discussed with: Other (KATE Benítez/Dr. Davila) NANCY LONGO MD August 19, 2024 19:11
[2024-08-20] VITALS (108 sets, daily range): BP systolic 108–166; BP diastolic 48–69; PULSE 61–100; RESP 12–20; TEMP 97.9–100.8; O2SAT 89–100
[2024-08-20 04:40] LABS: Hematocrit 24.8 % (36.0-46.0); Hemoglobin 8.1 g/dL (12.2-16.2); Mean Corpuscular Hemoglobin 25.5 pg (28.0-32.0); Mean Corpuscular Hgb Conc. 32.8 g/dL (32.0-36.0); Mean Corpuscular Volume 77.7 fL (80.0-100.0); Platelet Count (auto) 218 10^3/uL (140-450); Red Blood Cells 3.19 10^6/uL (4.0-5.20); Red Cell Distribution Width 19.2 % (11.8-14.3); White Blood Cell 15.6 10^3/uL (4.4-10.8)
[2024-08-20 04:43] LABS: Basophils % (manual) 0 (0.0-2.0); Blast Cells 0; Eosinophils % (manual) 0 (0-7); Metamyelocytes % 0; Myelocytes % 0; Promyelocytes % 0; Reactive Lymphocytes 0
[2024-08-20 05:04] LABS: Band Neutrophils % (manual) 2; Lymphocytes % (manual) 14 (10.0-50.0); Monocytes % (manual) 3 (0-12); Platelet Estimate Adequate
--- NOTE | 2024-08-20 10:06 | DVHPN2 ---
Subjective This is a 64-year-old female with past medical history of COPD on home oxygen, asthma ,TRENT, hypertension, DVT, PE, atrial fibrillation , chronic back pain, questionable heart failure, type 2 diabetes mellitus presented to the ED via EMS with chief complaint of ALOC and SOB. the daughter she went to the mold presser yesterday and mold presser mentioned that the patient blood pressure is uncontrolled and fluid overload and prescribed new antihypertensive with Bumex and later patient woke up middle of the night with gurgling and again went back to sleep. EMS reports that the patient was last seen well at 7am with patient complaining of some SOB, but went back to sleep. EMS relays that the patient was found by family 30 minutes ago gurgling in her sleep and unable to respond. EMS states that the patient is not able to move or answer questions, only opening her eyes to painful stimuli. EMS notes patient was at 64% O2 saturation on RA, but went up to 94% on 15L continuous. EMS reports that the patient's BP was 207/102, HR 129, and patient was given Nitroglycerin on route to the ED. Patient unable to answer any questions at this time due to her altered status. Patient underwent endotracheal intubation and started on mechanical ventilation to protect the airway. PMH: COPD on home oxygen, asthma , TRENT, hypertension, DVT, PE, atrial fibrillation , chronic back pain, questionable heart failure, type 2 diabetes mellitus PSH: Hysterectomy, status post IVC filter in 2020 and cataract surgery. Family history: Significant for heart disease, chronic kidney disease. Home medications: Acetaminophen 325 mg daily, amiodarone 200 mg daily, albuterol sulfate, amitriptyline 10 mg at HS, amlodipine 5 mg daily, Eliquis 5 mg b.i.d., atorvastatin 10 mg at HS, diclofenac sodium 1% gel topical TID, Colace 100 mg b.i.d., glipizide 10 mg q.i.d., ibuprofen 600 mg p.o. daily, losartan potassium 50 mg b.i.d., methocarbamol 500 mg p.o., Medrol Dosepak, metoprolol tartrate 25 mg b.i.d., Percocet 5/325 mg b.i.d., pregabalin 25 mg 1-2 capsules p.o. b.i.d., tizanidine hydrochloride 4 mg at q.p.m. Patient was seen and examined on the bedside. Reviewed: Care Plan, H&P Changes from previous H/P or p: No Changes General: Per HPI Objective Vitals Vital Signs Date Time Temp Pulse Resp B/P (MAP) Pulse Ox O2 Delivery O2 Flow Rate FiO2 08/20/24 09:30 90 16 162/49 (86) 95 08/20/24 08:10 35 08/20/24 08:00 Mechanical Ventilator+ 08/20/24 08:00 99.2 99.2 Intake/Output Intake and Output 08/20/24 07:00 Intake Total 1903.92 ml Output Total 1300 ml Balance 603.92 ml Intake Oral 110 ml IV Total 1333.92 ml Tube Feeding 460 ml Output Urine Total 1300 ml Stool Total 0 ml Exam General: RASS -3, afebrile, mucosae are moist Cardiovascular: Normal S1 and S2. No murmurs, gallops or rubs Respiratory: Mechanically assisted ventilation, equal bilateral airway entree. Bilateral crackles and wheezing. Abdomen: Soft, nontender, no organomegaly, normal bowel sounds MSK/skin: edema +, Mobilization of limbs cannot be evaluated. Skin is dry and warm. Neurological: Orientation cannot be assessed. No apparent motor no sensitive deficits. Pupils are isocoric and reactive Medications Current Medications Medications Dose Ordered Sig/Mahogany Route Start Time Stop Time Status Last Admin Dose Admin Midazolam HCl 50 ml @ 1 mls/hr Q24H IV 08/16/24 13:00 08/20/24 07:51 15 MLS/HR Norepinephrine Bitartrate 250 ml @ 3.75 mls/hr Q24H IV 08/16/24 15:45 Fentanyl Citrate 250 ml @ 2.5 mls/hr Q24H IV 08/16/24 16:45 08/20/24 01:44 27.5 MLS/HR Meropenem 50 ml @ 17 mls/hr Q8H IV 08/17/24 00:00 08/20/24 07:50 17 MLS/HR Vancomycin HCl 0 ml @ 0 mls/hr UD IV 08/16/24 16:45 Pantoprazole Sodium 40 mg DAILY IV 08/17/24 10:00 08/20/24 09:20 40 MG Diagnostic Test (Pha) 1 strip IQ4HR 08/16/24 20:00 08/20/24 07:51 1 STRIP Insulin Human Regular IQ4HR SC 08/16/24 20:00 08/20/24 07:52 2 UNITS Dextrose 50 ml UD PRN IV 08/16/24 16:45 Levalbuterol HCl 0.625 mg Q6HR NEB 08/16/24 18:00 08/20/24 06:22 0.625 MG Ipratropium [place] 0.5 mg Q6HWA NEB 08/16/24 18:00 08/20/24 06:22 0.5 MG Acetaminophen 650 mg Q6HP PRN PO 08/16/24 17:30 08/18/24 11:03 650 MG Amiodarone HCl 200 mg DAILY PO 08/17/24 10:00 08/20/24 09:20 200 MG Atorvastatin Calcium 10 mg HS PO 08/17/24 22:00 08/19/24 21:43 10 MG Enteral Nutritional Formula 1,000 ml 20ML/HR GT 08/17/24 14:15 08/17/24 20:51 1,000 ML Mupirocin 1 applic BID EACHNOSTRI 08/17/24 22:00 08/22/24 21:59 08/20/24 09:20 1 APPLIC Propofol 100 ml @ 3.705 mls/ hr Q24H IV 08/18/24 10:15 08/20/24 03:03 7.41 MLS/HR Acetaminophen 650 mg Q6HP PRN SD 08/18/24 18:00 08/18/24 20:22 650 MG Rocuronium [place] 50 mg PRN PRN IV 08/18/24 19:00 08/19/24 06:55 50 MG Laboratory Results Laboratory Tests 08/19/24 02:00 08/20/24 04:00 Urinalysis Test 08/16/24 12:57 Urine Color Colorless (Yellow) Urine Clarity Clear (Clear) Urine pH 7.0 (5.0-9.0) Urine Specific [place] 1.007 (1.001-1.035) Urine Protein Negative (Negative) Urine Ketones Trace (Negative) Urine Blood Negative /uL (Negative) Urine Nitrite Negative (Negative) Urine Bilirubin Negative (Negative) Urine Urobilinogen Normal mg/dL (Negative) Urine Leukocyte Esterase Negative /uL (Negative) Urine RBC 1 /hpf (0 - 4) Urine Microscopic WBC 1 /HPF (0-5) Urine Squamous Epithelial Cells None seen /hpf (<5) Urine Bacteria None seen /hpf (None Seen) Urine Glucose Normal mg/dL (Normal) Blood Gas Results Test 08/20/24 06:52 Arterial Blood pH 7.442 (7.350-7.450) FiO2 % 35.0 Microbiology Microbiology Date/Time Source Procedure Growth Status 08/16/24 16:50 Nose MRSA Screen - Final Methicillin Resistant S.aureus Complete 08/16/24 12:58 Blood Blood Culture - Preliminary S. agalactiae - Group B Resulted 08/16/24 12:57 Urine - [place] Urine Culture - Final Complete 08/16/24 12:57 Sputum Expectorated Sputum Gram Stain - Final Complete 08/16/24 12:57 Sputum Expectorated Sputum Respiratory Culture - Final Complete Labs and/or images reviewed: Labs reviewed by me, Image(s) reviewed by me Assessment/Plan Assessment/Plan 08/19 patient here for sepsis aspiration pneumonia blood cultures with Enterococcus getting IV antibiotics vanc/meropenem status post sepsis fluids. Patient was bleeding from central line access site in Lovenox was held she is on SCDs. Patient has history of diastolic heart failure COPD, history DVT on Eliquis with IVC filter. We need to get CVP to guide diuresis as x-rays have shown significant vascular congestion. Vascular congestion may have been from the IV fluids from sepsis.. Maintain patient deviated ventilated sedated. Ventilated a.c. 500/16/5.0/35%, patient drips include Diprivan, fentanyl, worsen. Weaned off Levophed. 08/20 no longer having any bleeds. Patient has history of AFib and DVT PE we will restart full-dose Lovenox. Patient has CXR patchy infiltrates possible volume overload state. We will get CVP today to assess volume status, no pitting edema, breath sounds bases bilaterally poor air movement, can not assess volume status. CVP is 10.. Continue IV antibiotics vancomycin/Merrem. Pulmonology following and concern for bronchospasms with any sedation vacation, defer sedation vacations/CPAP trial to point hope. Defer rest of treatment to primary team tomorrow. NEURO: Acute metabolic encephalopathy likely due to sepsis On mechanical ventilation RASS score: - 3 CARDIOVASCULAR: Possible acute on chronic diastolic heart failure NSTEMI type 2 likely due to above Paroxysmal Atrial fibrillation with secondary hypercoagulable state Hypertensive emergency on admission - [id number] score 6 - Currently Patient is in sinus tachycardia - Holding all antihypertensive because blood pressure is on the lower side and patient is in sepsis - Echo on 08/27 showed EF 63% and left ventricular function is preserved. RV function is normal - Mildly elevated BNP -CxR showed Multifocal consolidative opacities and Cardiomegaly. - Troponin trends are 336>801 - Resumed amiodarone 200 mg p.o. daily and Atorvastatin 10 mg at HS - Discontinued therapeutic Lovenox due to superficial bleeding from central line site - Monitor H&H PULMONARY: Acute hypoxic respiratory failure likely due to aspiration pneumonia Possible multifocal pneumonia On Mechanical ventilation History of DVT and PE, status post IVC filter in 2020 and was on Eliquis - CxR showed Multifocal consolidative opacities and Cardiomegaly. - CT chest revealed ground-glass and patchy opacities of bilateral lungs with left lower lobe consolidation which may represent multifocal pneumonia / pulmonary edema and suggested left lower lobe atelectasis with elevation of the left hemidiaphragm.Mediastinal lymphadenopathy which may be reactive/neoplastic. - Medneb with levalbuterol and ipratropium q.6 hours - Preliminary blood culture revealed Enterococcus and urine and sputum culture are pending - IV methylprednisolone 60 mg once. - IV vancomycin per pharmacy and IV meropenem 1 g Q 8 hours GASTROINTESTINAL: Hyperbilirubinemia and transaminitis likely due to sepsis Chronic vomiting and diarrhoea ,rule out cholelithiasis - U/S of abdomen showed echogenic liver possible hepatic steatosis/cirrhosis - CT abdomen pelvis revealed no acute intra-abdominal abnormality, moderate colonic diverticulosis and bibasilar atelectasis. ENDOCRINE: Type 2 diabetes mellitus, HbA1C 7% - Mild sliding scale of insulin METABOLIC: HypoKalemia and hypomagnesemia Morbid obesity, BMI 57.2 kg/m2 - Replenished HEME: Chronic Microcytic hypochromic anemia INFECTIOUS DISEASE: Sepsis likely due to aspiration pneumonia Leukocytosis and lactic acidosis likely due to sepsis - Preliminary blood culture revealed Enterococcus and urine and sputum culture are pending - IV bolus at 30 mL/hours given - IV vancomycin as per pharmacy and IV meropenem 1 g Q 8 HR MUSCULOSKELETAL: Chronic back pain DIET: Glucerna DVT prophylax: SCD GI prophylaxis: Protonix Bowel regimen: Code status: Full code LINES/DRAINS/ACCESS: Rt triple lumen central venous catheter placed on 08/16/24 ETT: Intubated on 08/16/24 IV access: Drips: Fentanyl , versed and propofol Gray catheter: placed on 08/16/24 DISPOSITION: ICU Plan discussed with: Patient Date of Service: August 20, 2024 Billing Provider: ONEL DALTON MD Common Visit Codes: 13556-FGIROUOU CARE 30-74 MIN ONEL DALTON MD August 20, 2024 10:06
[2024-08-20] MEDS: ENOXAPARIN SOD 120 MG/0.8 ML SYRINGE SC SCH (11:06)
--- NOTE | 2024-08-20 12:00 | DVHNC2 ---
Procedure - Bronchoscopy procedure note: Indications: Bilateral lower lobe atelectasis, Possible mucous plugging. Medicines: See PROGRAM DEVELOPMENT SPECIALIST notes. Complications: None Procedure: Patient medications and allergies reviewed. The risks and benefits of the procedure and the sedation options and risk were discussed with the patient's healthcare proxy. All questions were answered and informed consent was obtained. Patient identification and proposed procedure were verified prior to the procedure by the physician, and a nurse, and the respiratory therapist in ICU room. The heart rate, respiratory rate, oxygen saturations, blood pressure, adequacy of pulmonary ventilation, and response to care were monitored throughout the procedure. The physical status of the patient was reassessed after the procedure. After obtaining informed consent, the bronchoscope was introduced through the endotracheal tube and advanced into the trachea bronchial tree of both lungs. The procedure was accomplished without difficulty. The patient tolerated the procedure well. Findings: The trachea is in normal caliber. The karissa is sharp. The tracheobronchial tree of the right lung was examined to at least the first subsegmental level. The bronchial mucosa and anatomy in the right lung are normal. There are no endobronchial lesions. There was copious whitish secretions from right main stem bronchus onward throughout R6-R10. The left upper lobe, lingula, and left lower lobe were examined to at least the first subsegmental level. Bronchial mucosa and anatomy in the left upper lobe and lingula are normal. There were no endobronchial lesions. There was copious whitish secretions from left main stem bronchus onward throughout L6-L10. Mucous plugging removed from L6-L10. There was no active bleeding at the completion of the procedure. Estimated blood loss: Less than 5 mL. Impression: Bilateral lower lobe atelectasis due to mucous plugging Mucous plugging from L6-L10 and R6-R10 RML BAL performed Recommendation: Pulmonary toileting Procedure codes: 13571, bronchoscopy, rigid and flexible, including fluoroscopic guidance, one performed; with bronchial endobronchial broncho-alveolar lavage, single or multiple sites NANCY LONGO MD August 20, 2024 12:00
[2024-08-20] MEDS: VANCOMYCIN 1GM/200ML PM 200 ML IV SCH (17:55)
--- NOTE | 2024-08-20 22:43 | DVHPN2 ---
Progress Note - Dictate Date Seen: August 20, 2024 Medical Necessity Reason Pt with a Central, PICC or Fol: Yes The following are medically ne: Central Line, Alvarado Catheter Reason for alvarado catheter: Strict I&O Subjective Patient seen and examined at bedside. Sedated, intubated on mechanical ventilator. Overnight events reviewed. vital signs Vital Sign Date Time Temp Pulse Resp B/P (MAP) Pulse Ox O2 Delivery O2 Flow Rate FiO2 08/20/24 22:15 63 16 116/52 (73) 96 08/20/24 22:04 35 08/20/24 22:00 Mechanical Ventilator+ 08/20/24 20:00 98.8 98.8 Total Intake and Output 08/19/24 08/19/24 08/20/24 15:00 23:00 07:00 Intake Total 450 ml 914.55 ml 539.37 ml Output Total 600 ml 700 ml Balance 450 ml 314.55 ml -160.63 ml medications Current Medications Medications Dose Ordered Sig/Mahogany Route Start Time Stop Time Status Last Admin Dose Admin Midazolam HCl 50 ml @ 1 mls/hr Q24H IV 08/16/24 13:00 08/20/24 21:33 14 MLS/HR Norepinephrine Bitartrate 250 ml @ 3.75 mls/hr Q24H IV 08/16/24 15:45 Fentanyl Citrate 250 ml @ 2.5 mls/hr Q24H IV 08/16/24 16:45 08/20/24 18:36 27.5 MLS/HR Meropenem 50 ml @ 17 mls/hr Q8H IV 08/17/24 00:00 08/20/24 15:47 17 MLS/HR Vancomycin HCl 0 ml @ 0 mls/hr UD IV 08/16/24 16:45 Pantoprazole Sodium 40 mg DAILY IV 08/17/24 10:00 08/20/24 09:20 40 MG Diagnostic Test (Pha) 1 strip IQ4HR 08/16/24 20:00 08/20/24 20:25 1 STRIP Insulin Human Regular IQ4HR SC 08/16/24 20:00 08/20/24 20:26 2 UNITS Dextrose 50 ml UD PRN IV 08/16/24 16:45 Levalbuterol HCl 0.625 mg Q6HR NEB 08/16/24 18:00 08/20/24 18:14 0.625 MG Ipratropium [place] 0.5 mg Q6HWA NEB 08/16/24 18:00 08/20/24 18:14 0.5 MG Acetaminophen 650 mg Q6HP PRN PO 08/16/24 17:30 08/20/24 15:47 650 MG Amiodarone HCl 200 mg DAILY PO 08/17/24 10:00 08/20/24 09:20 200 MG Atorvastatin Calcium 10 mg HS PO 08/17/24 22:00 08/20/24 21:35 10 MG Enteral Nutritional Formula 1,000 ml 20ML/HR GT 08/17/24 14:15 08/17/24 20:51 1,000 ML Mupirocin 1 applic BID EACHNOSTRI 08/17/24 22:00 08/22/24 21:59 08/20/24 21:35 1 APPLIC Propofol 100 ml @ 3.705 mls/ hr Q24H IV 08/18/24 10:15 08/20/24 21:34 14.82 MLS/HR Acetaminophen 650 mg Q6HP PRN [place] 08/18/24 18:00 08/18/24 20:22 650 MG Rocuronium [place] 50 mg PRN PRN IV 08/18/24 19:00 08/19/24 06:55 50 MG Enoxaparin Sodium 120 mg Q12HR SC 08/20/24 10:23 08/20/24 21:35 120 MG Nifedipine 30 mg DAILY PO 08/21/24 10:00 Vancomycin HCl 200 ml @ 160 mls/hr Q12H IV 08/20/24 18:00 08/20/24 17:55 160 MLS/HR objective Gen.: Patient lying in bed in medical ICU. Sedated, intubated on mechanical ventilator. Head: Normocephalic, atraumatic. Eyes: PERRLA. Ears: Normal external anatomy. Throat: Endotracheal tube and orogastric tube in place. Neck: Supple, trachea midline. Chest: Transmitted breath sounds bilaterally. Decreased air entry bilaterally. No wheezing. Bibasilar crackles. Cardiovascular: Positive S1, positive S2. Regular rate and rhythm. Abdomen: Positive bowel sounds in all 4 quadrants. Soft, nontender, nondistended. : Alvarado in place. Normal external genitalia. Rectal: Deferred. Skin: Warm, dry. Intact. Extremities: 2+ radial pulses bilaterally. No lower extremity edema. Neuro: Sedated. laboratory and microbiology Laboratory Tests 08/20/24 04:00 08/19/24 02:00 Test 08/19/24 02:00 Range/Units Serum Glucose 208 H 74-106 mg/dL Assessment/Plan Impression: Acute hypoxic respiratory failure On mechanical ventilator Bronchospasm Morbid obesity Hx of nicotine dependence Events: Remains on vent support On AC mode; RR 16, VT 500, PEEP 5, FIO2 35% Sedated on Propofol, Fentanyl Therapeutic bronchoscopy with RML BAL performed today - cleared mucous plugging from L6-L10 and R6-R10 See separate procedure note for details CVP 11 cathed Tube feeds for nutritional support Started nifedipine Off pressors - monitor hemodynamics ABG reviewed, compensated. Labs and imaging reviewed. Rest of plan as noted below. Plan: s/p intubation on mechanical ventilator. CXR image and report reviewed. Devices in place. Moderate pulmonary vascular congestion. Possible trace left pleural effusion.. On AC mode; RR 16, VT 500, PEEP 5, FIO2 35% Titrate FIO2 to keep O2 saturation above 90%. VAP bundle. Daily ABG and CXR while intubated Sedate for ventilator synchrony Continue bronchodilators. Continue antibiotics. F/u cultures. Tube feeds for nutritional support Pressors as necessary for hemodynamic support Titrate to keep mean arterial pressure greater than 65 mmHg. Monitor renal function Monitor electrolytes. Supplement as necessary. Monitor ins and outs. GI prophylaxis. DVT prophylaxis. Prognosis: Poor given patient's multiple co-morbidities. Condition: Critical Rest of plan per hospitalist and other consultants. A total of 35 minutes of critical care time was spent reviewing the patient record, examining the patient, making a diagnostic and therapeutic plan, discussing this plan with the medical personnel, following up on diagnostic studies and following the patient for clinical stability excluding any and all procedures. At least 50% of this time was spent in direct, [id number] contact. Thank you Dr. Davila for allowing me to participate in this patient's care. Further recommendations will depend on the patient's clinical course. Please do not hesitate to contact me if you have any questions or concerns. This medical document was created using an electronic medical record system with [employer] dictation system. Although these documentations are being carefully reviewed, there may still be some phonetic and typographical changes. The errors are purely typographical, due to imperfection on the software program, and do not reflect any compromise in the patient's medical care. Dr. Davila, Dietary Evaluation Review Comments: 1. TF Glucerna 1.2Cal @ 70ml/hr along with Pro-stat 1 pk daily. Start @ 20ml/hr, increase 10ml/hr until goal is reached. Water flush 50ml q6h if allowed. 2. TPN if NPO x 7 days 3. Monitor labs, NPO status, BW, skin integrity, and I/O Expected Outcomes/Goals: To meet at least 75% of estimated needs within 7 days Fu 2-3 days Plan discussed with: Other (KATE Benítez) Critical Care Time(min): 35 NANCY LONGO MD August 20, 2024 22:43
[2024-08-21] VITALS (102 sets, daily range): BP systolic 113–193; BP diastolic 43–97; PULSE 61–117; RESP 9–19; TEMP 92.7–101.3; O2SAT 92–100
[2024-08-21 04:26] LABS: Alanine Aminotransferase 22 U/L (7-40); Albumin 3.4 g/dL (3.2-4.8); Alkaline Phosphatase 62 U/L (46-116); Anion Gap 9 (5-15); BUN/Creatinine Ratio 30.4 (10.0-20.0); Bilirubin, Total 0.4 mg/dL (0.2-1.0); Calcium 9.3 mg/dL (8.7-10.4); Carbon Dioxide 29 mmol/L (20-31); Potassium 3.8 mmol/L (3.5-5.1)
[2024-08-21 04:34] LABS: Mean Corpuscular Hemoglobin 25.6 pg (28.0-32.0)
[2024-08-21 04:36] LABS: Hematocrit 24.2 % (36.0-46.0); Mean Corpuscular Volume 77.6 fL (80.0-100.0); Platelet Count (auto) 209 10^3/uL (140-450); Red Blood Cells 3.11 10^6/uL (4.0-5.20); Red Cell Distribution Width 19.1 % (11.8-14.3); White Blood Cell 13.1 10^3/uL (4.4-10.8)
[2024-08-21 04:54] LABS: Band Neutrophils % (manual) 0; Basophils % (manual) 0 (0.0-2.0); Blast Cells 0; Eosinophils % (manual) 0 (0-7); Myelocytes % 0; Promyelocytes % 0; Reactive Lymphocytes 0
[2024-08-21 04:57] LABS: Aspartate Aminotransferase 11 U/L (13-40); Blood Urea Nitrogen 28 mg/dL (9-23); Chloride 110 mmol/L (98-107); Glucose 169 mg/dL (74-106); Sodium 148 mmol/L (136-145); Total Protein 5.5 g/dL (5.7-8.2)
--- NOTE | 2024-08-21 05:15 | DVH ---
EXAM: XR Chest, 1 View CLINICAL INDICATION: PROTOCOL FOR MECH VENT TECHNIQUE: Frontal view of the chest. COMPARISON: XY CHEST PORTABLE on DOS: 08/19/24, XY CHEST PORTABLE on DOS: 08/18/24, XY CHEST PORTABLE on DOS: 08/18/24, XY CHEST PORTABLE on DOS: 08/17/24, XY CHEST PORTABLE on DOS: 08/16/24 FINDINGS: LUNGS AND PLEURAL SPACES: See below. HEART: Cardiomegaly with pulmonary congestion and edema. Superimposed pneumonia cannot be excluded. MEDIASTINUM: Unremarkable. Normal mediastinal contour. BONES/JOINTS: Unremarkable. No acute fracture. TUBES, LINES AND DEVICES: Right internal jugular central venous catheter tip in the superior vena c giovanny. The endotracheal tube (ETT) is in satisfactory position. Enteric tube tip cannot be seen but i s below the diaphragm. OTHER FINDINGS: . . . IMPRESSION: Cardiomegaly with pulmonary congestion and edema. Superimposed pneumonia cannot be excluded.
[2024-08-21 05:50] LABS: Lymphocytes % (manual) 12 (10.0-50.0); Metamyelocytes % 2; Monocytes % (manual) 9 (0-12); Platelet Estimate Adequate
[2024-08-21 08:40] LABS: Base Excess 1.3 mmol/L (-2.0-3.0)
[2024-08-21] MEDS: NIFEdipine ER 30 MG TAB PO SCH (09:03)
[2024-08-21] MEDS: hydrALAZINE HCL 20 MG/ML VL IV PRN (10:01)
[2024-08-21] MEDS: hydrALAZINE HCL 20 MG/ML VL ONE (10:01)
[2024-08-21] MEDS: LABETALOL HCL 20 MG/4 ML VL IV ONE (10:58)
[2024-08-21] MEDS: LABETALOL HCL 20 MG/4 ML VL IV PRN (10:58)
[2024-08-21] MEDS: DEXMEDETOMIDINE HCL IN D5W 100 ML IV SCH (11:00)
[2024-08-21] MEDS: LACTULOSE 20Gm/30ML SOLN PO SCH (11:31)
[2024-08-21] MEDS: LOSARTAN POTASSIUM 50 MG TAB PO ONE (13:16)
[2024-08-21] MEDS: amLODIPine BESYLATE 5 MG TAB PO ONE (13:16)
[2024-08-21] MEDS: FLUCONAZOLE 200MG/100ML 100 ML IV ONE (17:23)
[2024-08-21] MEDS: FREE WATER GT SCH (17:24)
[2024-08-21] MEDS: MEROPENEM 1GM IVPB 50 ML IV SCH (17:24)
[2024-08-21] MEDS: methylPREDNISolone SOD SUCC 40 MG/ML VL IV ONE (17:43)
--- NOTE | 2024-08-21 19:44 | DVHPNRES ---
Progress Note Date Seen: August 21, 2024 Resident Creating Document: VERONICA QUINTERO RESIDENT Medical Necessity Reason Pt with a Central, PICC or Fol: Yes The following are medically ne: Central Line, Alvarado Catheter Reason for alvarado catheter: Strict I&O Subjective Review of Systems This is a 64-year-old female with past medical history of COPD on home oxygen, asthma ,TRENT, hypertension, DVT, PE, atrial fibrillation , chronic back pain, questionable heart failure, type 2 diabetes mellitus presented to the ED via EMS with chief complaint of ALOC and SOB. the daughter she went to the construction stonemason yesterday and construction stonemason mentioned that the patient blood pressure is uncontrolled and fluid overload and prescribed new antihypertensive with Bumex and later patient woke up middle of the night with gurgling and again went back to sleep. EMS reports that the patient was last seen well at 7am with patient complaining of some SOB, but went back to sleep. EMS relays that the patient was found by family 30 minutes ago gurgling in her sleep and unable to respond. EMS states that the patient is not able to move or answer questions, only opening her eyes to painful stimuli. EMS notes patient was at 64% O2 saturation on RA, but went up to 94% on 15L continuous. EMS reports that the patient's BP was 207/102, HR 129, and patient was given Nitroglycerin on route to the ED. Patient unable to answer any questions at this time due to her altered status. Patient underwent endotracheal intubation and started on mechanical ventilation to protect the airway. PMH: COPD on home oxygen, asthma , TRENT, hypertension, DVT, PE, atrial fibrillation , chronic back pain, questionable heart failure, type 2 diabetes mellitus PSH: Hysterectomy, status post IVC filter in 2020 and cataract surgery. Family history: Significant for heart disease, chronic kidney disease. Home medications: Acetaminophen 325 mg daily, amiodarone 200 mg daily, albuterol sulfate, amitriptyline 10 mg at HS, amlodipine 5 mg daily, Eliquis 5 mg b.i.d., atorvastatin 10 mg at HS, diclofenac sodium 1% gel topical TID, Colace 100 mg b.i.d., glipizide 10 mg q.i.d., ibuprofen 600 mg p.o. daily, losartan potassium 50 mg b.i.d., methocarbamol 500 mg p.o., Medrol Dosepak, metoprolol tartrate 25 mg b.i.d., Percocet 5/325 mg b.i.d., pregabalin 25 mg 1-2 capsules p.o. b.i.d., tizanidine hydrochloride 4 mg at q.p.m. Patient was seen and examined on the bedside. She is on mechanical ventilation with FiO2 35%,, respiratory rate 18, tidal volume 500 mL and PEEP 8. Patient is scheduled for CPAP trial tomorrow . Of sedation since morning and right now is only Precedex drip Objective vital signs Vital Sign Date Time Temp Pulse Resp B/P (MAP) Pulse Ox O2 Delivery O2 Flow Rate FiO2 08/21/24 19:00 99.7 87 16 149/72 (97) 94 211.5 08/21/24 18:30 35 08/21/24 18:00 Mechanical Ventilator+ Total Intake and Output 08/20/24 08/20/24 08/21/24 15:00 23:00 07:00 Intake Total 450 ml 1145.28 ml 660.02 ml Output Total 800 ml 850 ml Balance 450 ml 345.28 ml -189.98 ml medications Current Medications Medications Dose Ordered Sig/Mahogany Route Start Time Stop Time Status Last Admin Dose Admin Midazolam HCl 50 ml @ 1 mls/hr Q24H IV 08/16/24 13:00 08/21/24 01:31 9 MLS/HR Norepinephrine Bitartrate 250 ml @ 3.75 mls/hr Q24H IV 08/16/24 15:45 Fentanyl Citrate 250 ml @ 2.5 mls/hr Q24H IV 08/16/24 16:45 08/21/24 04:10 10 MLS/HR Vancomycin HCl 0 ml @ 0 mls/hr UD IV 08/16/24 16:45 Pantoprazole Sodium 40 mg DAILY IV 08/17/24 10:00 08/21/24 09:03 40 MG Diagnostic Test (Pha) 1 strip IQ4HR 08/16/24 20:00 08/21/24 16:00 1 STRIP Insulin Human Regular IQ4HR SC 08/16/24 20:00 08/21/24 04:10 3 UNITS Dextrose 50 ml UD PRN IV 08/16/24 16:45 Levalbuterol HCl 0.625 mg Q6HR NEB 08/16/24 18:00 08/21/24 18:34 0.625 MG Ipratropium [place] 0.5 mg Q6HWA NEB 08/16/24 18:00 08/21/24 18:34 0.5 MG Acetaminophen 650 mg Q6HP PRN PO 08/16/24 17:30 08/20/24 15:47 650 MG Amiodarone HCl 200 mg DAILY PO 08/17/24 10:00 08/21/24 09:03 200 MG Atorvastatin Calcium 10 mg HS PO 08/17/24 22:00 08/20/24 21:35 10 MG Enteral Nutritional Formula 1,000 ml 20ML/HR GT 08/17/24 14:15 08/17/24 20:51 1,000 ML Mupirocin 1 applic BID EACHNOSTRI 08/17/24 22:00 08/22/24 21:59 08/21/24 09:04 1 APPLIC Propofol 100 ml @ 3.705 mls/ hr Q24H IV 08/18/24 10:15 08/21/24 05:58 22.23 MLS/HR Acetaminophen 650 mg Q6HP PRN WI 08/18/24 18:00 08/21/24 10:59 650 MG Rocuronium [place] 50 mg PRN PRN IV 08/18/24 19:00 08/19/24 06:55 50 MG Vancomycin HCl 200 ml @ 160 mls/hr Q12H IV 08/20/24 18:00 08/21/24 17:24 160 MLS/HR Lactulose 30 ml Q6HR PO 08/21/24 12:00 Labetalol HCl 5 mg Q2HPRN PRN IV 08/21/24 11:00 08/21/24 10:58 5 MG Losartan Potassium 50 mg BID PO 08/21/24 22:00 Amlodipine Besylate 5 mg DAILY PO 08/22/24 10:00 Purified Water 200 ml Q6HR GT 08/21/24 18:00 08/21/24 17:24 200 ML Fluconazole 100 ml @ 100 mls/hr DAILY IV 08/22/24 10:00 Meropenem 50 ml @ 17 mls/hr Q8H IV 08/21/24 16:30 08/21/24 17:24 17 MLS/HR Methylprednisolone Sodium Succinate 20 mg BID IV 08/21/24 22:00 Hydralazine HCl 10 mg Q6HP PRN IV 08/21/24 19:30 08/21/24 10:01 10 MG Examination Physical exam: General: RASS -3, afebrile, mucosae are moist Cardiovascular: Normal S1 and S2. No murmurs, gallops or rubs Respiratory: Mechanically assisted ventilation, equal bilateral airway entree. Bilateral crackles and wheezing. Abdomen: Soft, nontender, no organomegaly, normal bowel sounds MSK/skin: edema +, Mobilization of limbs cannot be evaluated. Skin is dry and warm. Neurological: Orientation cannot be assessed. No apparent motor no sensitive deficits. Pupils are isocoric and reactive. laboratory and microbiology Laboratory Tests 08/21/24 03:43 Test 08/21/24 03:43 Range/Units Serum Glucose 169 H 74-106 mg/dL Microbiology Date/Time Source Procedure Growth Status 08/16/24 16:50 Nose MRSA Screen - Final Methicillin Resistant S.aureus Complete 08/16/24 12:58 Blood Blood Culture - Final S. agalactiae - Group B Complete 08/16/24 12:57 Urine - Alvarado Port Urine Culture - Final Complete 08/16/24 12:57 Sputum Expectorated Sputum Gram Stain - Final Complete 08/16/24 12:57 Sputum Expectorated Sputum Respiratory Culture - Final Complete Labs and/or images reviewed: Labs reviewed by me, Image(s) reviewed by me Problem List/Assessment/Plan Problem List/Assessment/Plan Assessment and plan: NEURO: Acute metabolic encephalopathy likely due to sepsis On mechanical ventilation RASS score: - 3 CARDIOVASCULAR: Possible acute on chronic diastolic heart failure NSTEMI type 2 likely due to above Paroxysmal Atrial fibrillation with secondary hypercoagulable state Hypertensive emergency on admission - CDQ2MW0-HGTt score 6 - Currently Patient is in sinus tachycardia - Holding all antihypertensive because blood pressure is on the lower side and patient is in sepsis - Echo on 08/27 showed EF 63% and left ventricular function is preserved. RV function is normal - Mildly elevated BNP -CxR showed Multifocal consolidative opacities and Cardiomegaly. - Troponin trends are 336>801 - Resumed amiodarone 200 mg p.o. daily and Atorvastatin 10 mg at HS - Discontinued therapeutic Lovenox due to superficial bleeding from central line site - Monitor H&H - ordered another TTE to exclude infective endocarditis . PULMONARY: Acute hypoxic respiratory failure likely due to aspiration pneumonia Possible multifocal pneumonia On Mechanical ventilation History of DVT and PE, status post IVC filter in 2020 and was on Eliquis - CxR showed Multifocal consolidative opacities and Cardiomegaly. - CT chest revealed ground-glass and patchy opacities of bilateral lungs with left lower lobe consolidation which may represent multifocal pneumonia / pulmonary edema and suggested left lower lobe atelectasis with elevation of the left hemidiaphragm.Mediastinal lymphadenopathy which may be reactive/neoplastic. - Medneb with levalbuterol and ipratropium q.6 hours - Pending new blood culture - IV methylprednisolone 20 mg bid. - IV vancomycin per pharmacy ,IV meropenem 1 g Q 8 hours and IV fluconazole 200 mg daily. GASTROINTESTINAL: Hyperbilirubinemia and transaminitis likely due to sepsis Chronic vomiting and diarrhoea ,ruled out cholelithiasis Slow transit constipation, rule out Ileus - U/S of abdomen showed echogenic liver possible hepatic steatosis/cirrhosis - CT abdomen pelvis revealed no acute intra-abdominal abnormality, moderate colonic diverticulosis and bibasilar atelectasis. - Ordered plain xray abdomen ENDOCRINE: Type 2 diabetes mellitus, HbA1C 7% - Mild sliding scale of insulin METABOLIC: HypoKalemia and hypomagnesemia Morbid obesity, BMI 57.2 kg/m2 Hypernatremia - Free water 200 mL q.6 hours HEME: Chronic Microcytic hypochromic anemia INFECTIOUS DISEASE: Sepsis likely due to aspiration pneumonia Leukocytosis and lactic acidosis likely due to sepsis Infectious vulvovaginitis - Pending new blood culture - IV vancomycin as per pharmacy, IV meropenem 1 g Q 8 HR and IV fluconazole 200 mg daily. MUSCULOSKELETAL: Chronic back pain DIET: Glucerna DVT prophylax: SCD GI prophylaxis: Protonix Bowel regimen: Lactulose Code status: Full code LINES/DRAINS/ACCESS: Rt triple lumen central venous catheter placed on 08/16/24 ETT: Intubated on 08/16/24 IV access: Drips: Precedex Alvarado catheter: placed on 08/16/24 DISPOSITION: ICU Patient's status discussed with RN, Gabriela Critical care time spent more than 81 minutes, including patient care, chart review, and updating the family. Excluding any procedures. Case discussed with Dr. Allen Plan discussed with: Daughter, Other (RN) My Orders My Orders Orders - VERONICA QUINTERO RESIDENT Procedure Category Date Status Time Stool Occult Blood LAB 08/21/24 Logged 06:58 Lactulose Oral PHA 08/21/24 In Process 12:00 Labetalol Hcl PHA 08/21/24 In Process (Labetalol Hcl) 11:00 Dexmedetomidine Hcl PHA 08/21/24 In Process In D5w (Precedex) 11:00 Losartan Tablet PHA 08/21/24 In Process (Cozaar Tablet) 22:00 Amlodipine Tablet PHA 08/22/24 In Process (Norvasc Tablet) 10:00 Methylprednisolone PHA 08/21/24 In Process Sod Succ (Solu Medrol 22:00 Hydralazine Injection PHA 08/21/24 In Process (Apresoline Inject 19:30 Dietary Evaluation Review Comments: 1. TF Glucerna 1.2Cal @ 70ml/hr along with Pro-stat 1 pk daily. Start @ 20ml/hr, increase 10ml/hr until goal is reached. Water flush 50ml q6h if allowed. 2. TPN if NPO x 7 days 3. Monitor labs, NPO status, BW, skin integrity, and I/O Expected Outcomes/Goals: To meet at least 75% of estimated needs within 7 days Fu 2-3 days Date of Service: August 21, 2024 Billing Provider: TORRES ALLEN MD Common Visit Codes: 91838-[id number] CARE 30-74 MIN, [id number]-[id number] CARE-EACH +30MIN VERONICA QUINTERO RESIDENT August 21, 2024 19:44 TORRES ALLEN MD August 22, 2024 13:15
[2024-08-21] MEDS: methylPREDNISolone SOD SUCC 40 MG/ML VL IV SCH (21:30)
[2024-08-21] MEDS: LOSARTAN POTASSIUM 50 MG TAB PO SCH (21:31)
[2024-08-22] VITALS (108 sets, daily range): BP systolic 119–180; BP diastolic 45–85; PULSE 72–111; RESP 12–20; TEMP 98.1–100.4; O2SAT 91–100
[2024-08-22 03:42] LABS: Hematocrit 29.1 % (36.0-46.0); Mean Corpuscular Hemoglobin 25.4 pg (28.0-32.0)
[2024-08-22 03:44] LABS: Hemoglobin 9.4 g/dL (12.2-16.2); Mean Corpuscular Hgb Conc. 32.5 g/dL (32.0-36.0); Mean Corpuscular Volume 78.2 fL (80.0-100.0); Platelet Count (auto) 318 10^3/uL (140-450); Red Blood Cells 3.71 10^6/uL (4.0-5.20); Red Cell Distribution Width 19.3 % (11.8-14.3); White Blood Cell 17.5 10^3/uL (4.4-10.8)
[2024-08-22 03:53] LABS: Potassium 4.7 mmol/L (3.5-5.1)
[2024-08-22 03:54] LABS: Anion Gap 8 (5-15); Carbon Dioxide 29 mmol/L (20-31)
[2024-08-22 03:55] LABS: Calcium 8.8 mg/dL (8.7-10.4)
[2024-08-22 03:59] LABS: BUN/Creatinine Ratio 32.1 (10.0-20.0)
[2024-08-22 04:08] LABS: Basophils % (manual) 0 (0.0-2.0); Blast Cells 0; Eosinophils % (manual) 0 (0-7); Myelocytes % 0; Reactive Lymphocytes 0
[2024-08-22 04:42] LABS: Blood Urea Nitrogen 26 mg/dL (9-23); Chloride 112 mmol/L (98-107); Glucose 203 mg/dL (74-106); Sodium 149 mmol/L (136-145)
[2024-08-22 05:55] LABS: Band Neutrophils % (manual) 2; Lymphocytes % (manual) 4 (10.0-50.0); Metamyelocytes % 1; Monocytes % (manual) 2 (0-12); Platelet Estimate Adequate; Promyelocytes % 1
--- NOTE | 2024-08-22 06:19 | DVH ---
EXAM: XR Chest, 1 View CLINICAL INDICATION: Mechanical ventilation TECHNIQUE: Frontal view of the chest. COMPARISON: XY CHEST PORTABLE on DOS: 08/21/24, XY CHEST PORTABLE on DOS: 08/19/24, XY CHEST PORTABLE on DOS: 08/18/24, XY CHEST PORTABLE on DOS: 08/18/24, XY CHEST PORTABLE on DOS: 08/17/24 FINDINGS: LUNGS AND PLEURAL SPACES: Mild congestive heart failure. No consolidation. No pneumothorax. HEART: Unremarkable. No cardiomegaly. MEDIASTINUM: Unremarkable. Normal mediastinal contour. BONES/JOINTS: Unremarkable. No acute fracture. TUBES, LINES AND DEVICES: Right internal jugular central venous catheter tip in the superior vena c giovanny. Enteric tube tip cannot be seen but is below the diaphragm. OTHER FINDINGS: . IMPRESSION: Mild congestive heart failure.
[2024-08-22 08:00] LABS: Base Excess 2.5 mmol/L (-2.0-3.0)
[2024-08-22] MEDS: FREE WATER GT SCH (08:45)
[2024-08-22] MEDS: FUROSEMIDE 40 MG/4 ML VIAL IV SCH (10:45)
[2024-08-22] MEDS: FLUCONAZOLE 200MG/100ML 100 ML IV SCH (10:45)
[2024-08-22] MEDS: amLODIPine BESYLATE 5 MG TAB PO SCH (10:47)
--- NOTE | 2024-08-22 10:59 | MEDREC ---
[facility] Intervention Section I [facility] Intervention: Deescalate AB based on CS (PLEASE CONSIDER DEESCALATING ANTIBIOTICS BASED ON CULTURE RESULTS ) ANT REAL PHARMACIST August 22, 2024 10:59
--- NOTE | 2024-08-22 11:29 | DVHSR ---
APPROVED REPORT EXAM: LIMITED Two-dimensional and M-mode echocardiogram. Blood Pressure: 148/81 mmHg INDICATION R/O infective endocarditis RISK FACTORS Obesity: Height: 4'11", Weight: 279 Mitral Valve MitralMitral Stenosis E/A ratio0.02D MVAcm2 Other Information Quality : Technically LimitedRhythm : Technically limited study due to body habitus, patient position and on vent Conclusion limited study lvef 55% normal rv function valves not well assessed normal atria echo free space likely pericardail fat pad noted, clinical correlate
--- NOTE | 2024-08-22 12:00 | DVH ---
Date: 08/22/2024 10:19 AM Examination: XY KUB ABDOMEN SINGLE VIEW History: To exclude Ileus Comparison: None TECHNIQUE: Frontal views of the abdomen was obtained. FINDINGS: No acute osseous abnormality identified. Small bowel loops measuring 5cm NG tube in stomach. IMPRESSION: Small bowel loops measuring 5cm IVC filter in situ.
[2024-08-22] MEDS: VANCOMYCIN 1GM/200ML PM 200 ML IV SCH (12:38)
[2024-08-22 15:54] LABS: INR 1.03 (0.9-1.15); Partial Thromboplastin Time 24.1 SEC (24.5-34.5); Prothrombin Time 10.9 sec (9.3-11.8)
[2024-08-22] MEDS: Glucerna 1.2 Cal 1Liter BOTTLE GT SCH (16:03)
--- NOTE | 2024-08-22 18:13 | DVHPNRES ---
Progress Note Date Seen: August 22, 2024 Resident Creating Document: VERONICA QUINTERO RESIDENT Medical Necessity Reason Pt with a Central, PICC or Fol: Yes The following are medically ne: Central Line, Alvarado Catheter Reason for alvarado catheter: Strict I&O Subjective Review of Systems This is a 64-year-old female with past medical history of COPD on home oxygen, asthma ,TRENT, hypertension, DVT, PE, atrial fibrillation , chronic back pain, questionable heart failure, type 2 diabetes mellitus presented to the ED via EMS with chief complaint of ALOC and SOB. the daughter she went to the insole rounder yesterday and insole rounder mentioned that the patient blood pressure is uncontrolled and fluid overload and prescribed new antihypertensive with Bumex and later patient woke up middle of the night with gurgling and again went back to sleep. EMS reports that the patient was last seen well at 7am with patient complaining of some SOB, but went back to sleep. EMS relays that the patient was found by family 30 minutes ago gurgling in her sleep and unable to respond. EMS states that the patient is not able to move or answer questions, only opening her eyes to painful stimuli. EMS notes patient was at 64% O2 saturation on RA, but went up to 94% on 15L continuous. EMS reports that the patient's BP was 207/102, HR 129, and patient was given Nitroglycerin on route to the ED. Patient unable to answer any questions at this time due to her altered status. Patient underwent endotracheal intubation and started on mechanical ventilation to protect the airway. PMH: COPD on home oxygen, asthma , TRENT, hypertension, DVT, PE, atrial fibrillation , chronic back pain, questionable heart failure, type 2 diabetes mellitus PSH: Hysterectomy, status post IVC filter in 2020 and cataract surgery. Family history: Significant for heart disease, chronic kidney disease. Home medications: Acetaminophen 325 mg daily, amiodarone 200 mg daily, albuterol sulfate, amitriptyline 10 mg at HS, amlodipine 5 mg daily, Eliquis 5 mg b.i.d., atorvastatin 10 mg at HS, diclofenac sodium 1% gel topical TID, Colace 100 mg b.i.d., glipizide 10 mg q.i.d., ibuprofen 600 mg p.o. daily, losartan potassium 50 mg b.i.d., methocarbamol 500 mg p.o., Medrol Dosepak, metoprolol tartrate 25 mg b.i.d., Percocet 5/325 mg b.i.d., pregabalin 25 mg 1-2 capsules p.o. b.i.d., tizanidine hydrochloride 4 mg at q.p.m. Patient was seen and examined on the bedside. She is on mechanical ventilation with FiO2 30%,, respiratory rate 18, tidal volume 500 mL and PEEP 8. Patient CPAP trial today and scheduled for another CPAP trial tomorrow . Of sedation since yesterday and on Precedex drip as needed. Objective vital signs Vital Sign Date Time Temp Pulse Resp B/P (MAP) Pulse Ox O2 Delivery O2 Flow Rate FiO2 08/22/24 17:00 98.4 95 16 127/58 (81) 96 209.1 08/22/24 16:21 30 08/22/24 16:00 Mechanical Ventilator+ Total Intake and Output 08/21/24 08/21/24 08/22/24 15:00 23:00 07:00 Intake Total 51 ml 751 ml 450 ml Output Total 1000 ml 1800 ml Balance 51 ml -249 ml -1350 ml medications Current Medications Medications Dose Ordered Sig/Mahogany Route Start Time Stop Time Status Last Admin Dose Admin Midazolam HCl 50 ml @ 1 mls/hr Q24H IV 08/16/24 13:00 08/21/24 01:31 9 MLS/HR Norepinephrine Bitartrate 250 ml @ 3.75 mls/hr Q24H IV 08/16/24 15:45 Fentanyl Citrate 250 ml @ 2.5 mls/hr Q24H IV 08/16/24 16:45 08/21/24 04:10 10 MLS/HR Vancomycin HCl 0 ml @ 0 mls/hr UD IV 08/16/24 16:45 Pantoprazole Sodium 40 mg DAILY IV 08/17/24 10:00 08/22/24 10:45 40 MG Diagnostic Test (Pha) 1 strip IQ4HR 08/16/24 20:00 08/22/24 15:49 1 STRIP Insulin Human Regular IQ4HR SC 08/16/24 20:00 08/22/24 16:00 2 UNITS Dextrose 50 ml UD PRN IV 08/16/24 16:45 Levalbuterol HCl 0.625 mg Q6HR NEB 08/16/24 18:00 08/22/24 11:50 0.625 MG Ipratropium [place] 0.5 mg Q6HWA NEB 08/16/24 18:00 08/22/24 11:49 0.5 MG Acetaminophen 650 mg Q6HP PRN PO 08/16/24 17:30 08/20/24 15:47 650 MG Amiodarone HCl 200 mg DAILY PO 08/17/24 10:00 08/22/24 10:46 200 MG Enteral Nutritional Formula 1,000 ml 20ML/HR GT 08/17/24 14:15 08/17/24 20:51 1,000 ML Mupirocin 1 applic BID EACHNOSTRI 08/17/24 22:00 08/22/24 21:59 08/22/24 10:48 1 APPLIC Acetaminophen 650 mg Q6HP PRN ME 08/18/24 18:00 08/21/24 10:59 650 MG Rocuronium [place] 50 mg PRN PRN IV 08/18/24 19:00 08/19/24 06:55 50 MG Lactulose 30 ml Q6HR PO 08/21/24 12:00 Labetalol HCl 5 mg Q2HPRN PRN IV 08/21/24 11:00 08/22/24 00:01 5 MG Losartan Potassium 50 mg BID PO 08/21/24 22:00 08/22/24 10:46 50 MG Amlodipine Besylate 5 mg DAILY PO 08/22/24 10:00 08/22/24 10:47 5 MG Fluconazole 100 ml @ 100 mls/hr DAILY IV 08/22/24 10:00 08/22/24 10:45 100 MLS/HR Meropenem 50 ml @ 17 mls/hr Q8H IV 08/21/24 16:30 08/22/24 16:01 17 MLS/HR Methylprednisolone Sodium Succinate 20 mg BID IV 08/21/24 22:00 08/22/24 10:45 20 MG Hydralazine HCl 10 mg Q6HP PRN IV 08/21/24 19:30 08/21/24 19:48 10 MG Purified Water 300 ml Q6HR GT 08/22/24 08:45 08/22/24 12:20 300 ML Furosemide 40 mg DAILY IV 08/22/24 10:00 08/22/24 10:45 40 MG Vancomycin HCl 200 ml @ 160 mls/hr Q12H IV 08/22/24 12:00 08/22/24 12:38 160 MLS/HR Enteral Nutritional Formula 1,000 ml 50ML/HR GT 08/22/24 13:45 08/22/24 16:03 1,000 ML Examination Physical exam: General: RASS -3, afebrile, mucosae are moist Cardiovascular: Normal S1 and S2. No murmurs, gallops or rubs Respiratory: Mechanically assisted ventilation, equal bilateral airway entree. Bilateral crackles and wheezing. Abdomen: Soft, nontender, no organomegaly, normal bowel sounds MSK/skin: edema +, Mobilization of limbs cannot be evaluated. Skin is dry and warm. Neurological: Orientation cannot be assessed. No apparent motor no sensitive deficits. Pupils are isocoric and reactive. laboratory and microbiology Laboratory Tests 08/22/24 03:23 Test 08/22/24 03:23 Range/Units Serum Glucose 203 H 74-106 mg/dL Microbiology Date/Time Source Procedure Growth Status 08/21/24 17:30 Urine - Alvarado Port Urine Culture - Preliminary Resulted 08/21/24 15:55 Blood Blood Culture - Preliminary NO GROWTH AFTER 24 HOURS OF INCUBATION. Resulted 08/16/24 16:50 Nose MRSA Screen - Final Methicillin Resistant S.aureus Complete 08/16/24 12:57 Sputum Expectorated Sputum Gram Stain - Final Complete 08/16/24 12:57 Sputum Expectorated Sputum Respiratory Culture - Final Complete Labs and/or images reviewed: Labs reviewed by me, Image(s) reviewed by me Problem List/Assessment/Plan Problem List/Assessment/Plan Assessment and plan: NEURO: Acute metabolic encephalopathy likely due to sepsis On mechanical ventilation RASS score: - 3 CARDIOVASCULAR: Possible acute on chronic diastolic heart failure NSTEMI type 2 likely due to above Paroxysmal Atrial fibrillation with secondary hypercoagulable state Hypertensive emergency on admission - IOI2TQ4-PTYw score 6 - Currently Patient is in sinus tachycardia - Holding all antihypertensive because blood pressure is on the lower side and patient is in sepsis - Echo on 08/27 showed EF 63% and left ventricular function is preserved. RV function is normal - Mildly elevated BNP -CxR showed Multifocal consolidative opacities and Cardiomegaly. - Troponin trends are 336>801 - Resumed amiodarone 200 mg p.o. daily and Atorvastatin 10 mg at HS - Discontinued therapeutic Lovenox due to superficial bleeding from central line site - Monitor H&H - ordered another TTE to exclude infective endocarditis . PULMONARY: Acute hypoxic respiratory failure likely due to aspiration pneumonia Possible multifocal pneumonia On Mechanical ventilation History of DVT and PE, status post IVC filter in 2020 and was on Eliquis - CxR showed Multifocal consolidative opacities and Cardiomegaly. - CT chest revealed ground-glass and patchy opacities of bilateral lungs with left lower lobe consolidation which may represent multifocal pneumonia / pulmonary edema and suggested left lower lobe atelectasis with elevation of the left hemidiaphragm.Mediastinal lymphadenopathy which may be reactive/neoplastic. - Medneb with levalbuterol and ipratropium q.6 hours - Pending new blood culture - IV methylprednisolone 20 mg bid. - IV vancomycin per pharmacy ,IV meropenem 1 g Q 8 hours and IV fluconazole 200 mg daily. GASTROINTESTINAL: Hyperbilirubinemia and transaminitis likely due to sepsis Chronic vomiting and diarrhoea ,ruled out cholelithiasis Slow transit constipation, rule out Ileus - U/S of abdomen showed echogenic liver possible hepatic steatosis/cirrhosis - CT abdomen pelvis revealed no acute intra-abdominal abnormality, moderate colonic diverticulosis and bibasilar atelectasis. - Ordered plain xray abdomen to rule out Ileus ENDOCRINE: Type 2 diabetes mellitus, HbA1C 7% - Mild sliding scale of insulin METABOLIC: Hypokalemia and hypomagnesemia Morbid obesity, BMI 57.2 kg/m2 Hypernatremia - Free water 300 mL q.6 hours HEME: Chronic Microcytic hypochromic anemia INFECTIOUS DISEASE: Sepsis likely due to aspiration pneumonia Leukocytosis and lactic acidosis likely due to sepsis Infectious vulvovaginitis - Pending new blood culture - IV vancomycin as per pharmacy, IV meropenem 1 g Q 8 HR and IV fluconazole 200 mg daily. MUSCULOSKELETAL: Chronic back pain DIET: Glucerna DVT prophylax: SCD GI prophylaxis: Protonix Bowel regimen: Lactulose Code status: Full code LINES/DRAINS/ACCESS: Rt triple lumen central venous catheter placed on 08/16/24 ETT: Intubated on 08/16/24 IV access: Drips: Precedex Alvarado catheter: placed on 08/16/24 DISPOSITION: ICU Patient's status discussed with RN, Daughter Critical care time spent more than 81 minutes, including CPAP trial, patient care, chart review, and updating the family. Excluding any procedures. Case discussed with Dr. Allen Plan discussed with: Daughter, Other (RN) My Orders My Orders Orders - VERONICA QUINTERO Procedure Category Date Status Time Hydralazine Injection PHA 08/21/24 In Process (Apresoline Inject 19:30 Chest Portable XY 08/22/24 Resulted 04:00 Abg W/ Co-Ox RT 08/22/24 Logged 04:00 Free Water PHA 08/22/24 In Process 08:45 Kub Abdomen Single XY 08/22/24 Resulted View 09:13 Furosemide Injection PHA 08/22/24 In Process (Lasix Injection) 10:00 Nutritional PHA 08/22/24 In Process Supplements (Glucerna 13:45 Dietary Evaluation Review Comments: 1. TF Glucerna 1.2Cal @ 70ml/hr along with Pro-stat 1 pk daily. Start @ 20ml/hr, increase 10ml/hr until goal is reached. Water flush 50ml q6h if allowed. 2. TPN if NPO x 7 days 3. Monitor labs, NPO status, BW, skin integrity, and I/O Expected Outcomes/Goals: To meet at least 75% of estimated needs within 7 days Fu 2-3 days Date of Service: August 22, 2024 Billing Provider: TORRES ALLEN MD Common Visit Codes: 73002-[id number] CARE 30-74 MIN, [id number] CARE-EACH +30MIN VERONICA QUINTERO August 22, 2024 18:13 TORRES ALLEN MD August 23, 2024 14:14
[2024-08-23] VITALS (107 sets, daily range): BP systolic 133–206; BP diastolic 61–112; PULSE 70–112; RESP 13–29; TEMP 99.1–99.9; O2SAT 91–100
[2024-08-23 03:45] LABS: Hematocrit 30.1 % (36.0-46.0); Mean Corpuscular Volume 78.3 fL (80.0-100.0); Red Blood Cells 3.84 10^6/uL (4.0-5.20); White Blood Cell 15.4 10^3/uL (4.4-10.8)
[2024-08-23 03:53] LABS: Anion Gap 11 (5-15); Carbon Dioxide 29 mmol/L (20-31); Potassium 4.3 mmol/L (3.5-5.1)
[2024-08-23 03:54] LABS: Calcium 8.8 mg/dL (8.7-10.4)
[2024-08-23 03:55] LABS: Hemoglobin 9.8 g/dL (12.2-16.2); Mean Corpuscular Hemoglobin 25.6 pg (28.0-32.0); Mean Corpuscular Hgb Conc. 32.7 g/dL (32.0-36.0); Platelet Count (auto) 375 10^3/uL (140-450); Red Cell Distribution Width 19.6 % (11.8-14.3)
[2024-08-23 03:57] LABS: Chloride 107 mmol/L (98-107); Sodium 147 mmol/L (136-145)
--- NOTE | 2024-08-23 03:57 | DVH ---
CHEST RADIOGRAPH Indication: mechanical ventilation Technique: Single frontal view of the chest was obtained Comparison: XY CHEST PORTABLE on DOS: 08/22/24, XY CHEST PORTABLE on DOS: 08/21/24, XY CHEST PORTABLE o n DOS: 08/19/24 IMPRESSION: The heart is enlarged. Endotracheal tube, enteric tube and right IJ catheter tip appear unchanged in satisfactory position. There is [id number] pulmonary vascular congestion. No sizable effusion or pneumothorax.
[2024-08-23 03:59] LABS: BUN/Creatinine Ratio 30.3 (10.0-20.0)
[2024-08-23 04:06] LABS: Basophils % (manual) 0 (0.0-2.0); Blast Cells 0; Myelocytes % 0; Reactive Lymphocytes 0
[2024-08-23 04:09] LABS: Blood Urea Nitrogen 27 mg/dL (9-23); Glucose 220 mg/dL (74-106)
[2024-08-23 05:30] LABS: Band Neutrophils % (manual) 3; Eosinophils % (manual) 1 (0-7); Lymphocytes % (manual) 2 (10.0-50.0); Metamyelocytes % 1; Monocytes % (manual) 6 (0-12); Platelet Estimate Adequate; Promyelocytes % 1
[2024-08-23 07:55] LABS: Base Excess 5.9 mmol/L (-2.0-3.0)
[2024-08-23] MEDS: LACTULOSE 20Gm/30ML SOLN PO SCH (08:15)
[2024-08-23] MEDS: VANCOMYCIN 1GM/200ML PM 200 ML IV SCH (12:40)
[2024-08-23] MEDS: ACCU-CHEK COMFORT CURVE STRIP VI SCH (12:41)
[2024-08-23] MEDS: InsuLIN REG 1unit/0.01ml Soln (100units/ml) SC SCH (12:59)
[2024-08-23] MEDS: LIDOCAINE 1% (LOCAL ANESTH.) PF 5ml SDV ID ONE (14:00)
--- NOTE | 2024-08-23 16:42 | DVH ---
EXAM: CT HEAD WITHOUT CONTRAST INDICATION: Unresponsiveness with no sedation EXAM DATE: 08/23/2024 04:14 PM COMPARISON: CT HEAD WITHOUT CONTRAST on DOS: 08/16/24, CT HEAD WITHOUT CONTRAST on DOS: 11/02/22 TECHNIQUE: CT of the head without intravenous contrast. Radiation Dose Information: CTDI volume is 67.45 mGy. Dose-length product is 1328.93 mGy*cm FINDINGS: There is no evidence of acute intracranial hemorrhage, extra-axial collection, mass effect, midline s hift, herniation or hydrocephalus. The ventricles, sulci and cisterns are age appropriate. The elizabeth-w stephanie differentiation is intact. The visualized paranasal sinuses and mastoid air cells are clear. The surrounding soft tissues and osseous structures are unremarkable. Patient's head is deviating toward s the right side IMPRESSION: 1. No evidence of acute intracranial hemorrhage, mass effect or hydrocephalus. END IMPRESSION:
--- NOTE | 2024-08-23 17:16 | DVHPNRES ---
Progress Note Date Seen: August 23, 2024 Resident Creating Document: VERONICA QUINTERO RESIDENT Medical Necessity Reason Pt with a Central, PICC or Fol: Yes The following are medically ne: Central Line, Alvarado Catheter Reason for alvarado catheter: Strict I&O Subjective Review of Systems This is a 64-year-old female with past medical history of COPD on home oxygen, asthma ,TRENT, hypertension, DVT, PE, atrial fibrillation , chronic back pain, questionable heart failure, type 2 diabetes mellitus presented to the ED via EMS with chief complaint of ALOC and SOB. the daughter she went to the forge tender yesterday and forge tender mentioned that the patient blood pressure is uncontrolled and fluid overload and prescribed new antihypertensive with Bumex and later patient woke up middle of the night with gurgling and again went back to sleep. EMS reports that the patient was last seen well at 7am with patient complaining of some SOB, but went back to sleep. EMS relays that the patient was found by family 30 minutes ago gurgling in her sleep and unable to respond. EMS states that the patient is not able to move or answer questions, only opening her eyes to painful stimuli. EMS notes patient was at 64% O2 saturation on RA, but went up to 94% on 15L continuous. EMS reports that the patient's BP was 207/102, HR 129, and patient was given Nitroglycerin on route to the ED. Patient unable to answer any questions at this time due to her altered status. Patient underwent endotracheal intubation and started on mechanical ventilation to protect the airway. PMH: COPD on home oxygen, asthma , TRENT, hypertension, DVT, PE, atrial fibrillation , chronic back pain, questionable heart failure, type 2 diabetes mellitus PSH: Hysterectomy, status post IVC filter in 2020 and cataract surgery. Family history: Significant for heart disease, chronic kidney disease. Home medications: Acetaminophen 325 mg daily, amiodarone 200 mg daily, albuterol sulfate, amitriptyline 10 mg at HS, amlodipine 5 mg daily, Eliquis 5 mg b.i.d., atorvastatin 10 mg at HS, diclofenac sodium 1% gel topical TID, Colace 100 mg b.i.d., glipizide 10 mg q.i.d., ibuprofen 600 mg p.o. daily, losartan potassium 50 mg b.i.d., methocarbamol 500 mg p.o., Medrol Dosepak, metoprolol tartrate 25 mg b.i.d., Percocet 5/325 mg b.i.d., pregabalin 25 mg 1-2 capsules p.o. b.i.d., tizanidine hydrochloride 4 mg at q.p.m. Patient was seen and examined on the bedside. She is on mechanical ventilation with FiO2 30%,, respiratory rate 18, tidal volume 500 mL and PEEP 8. Patient failed CPAP trial today and scheduled for another CPAP trial tomorrow . Of sedation since last 2 days and on Precedex drip as needed. Objective vital signs Vital Sign Date Time Temp Pulse Resp B/P (MAP) Pulse Ox O2 Delivery O2 Flow Rate FiO2 08/23/24 16:53 92 21 174/81 (112) 95 30 08/23/24 15:45 99.3 210.7 08/23/24 14:00 Mechanical Ventilator+ Total Intake and Output 08/22/24 08/22/24 08/23/24 15:00 23:00 07:00 Intake Total 351 ml 701 ml 710 ml Output Total 2800 ml 1200 ml Balance 351 ml -2099 ml -490 ml medications Current Medications Medications Dose Ordered Sig/Mahogany Route Start Time Stop Time Status Last Admin Dose Admin Midazolam HCl 50 ml @ 1 mls/hr Q24H IV 08/16/24 13:00 08/21/24 01:31 9 MLS/HR Norepinephrine Bitartrate 250 ml @ 3.75 mls/hr Q24H IV 08/16/24 15:45 Fentanyl Citrate 250 ml @ 2.5 mls/hr Q24H IV 08/16/24 16:45 08/21/24 04:10 10 MLS/HR Vancomycin HCl 0 ml @ 0 mls/hr UD IV 08/16/24 16:45 Pantoprazole Sodium 40 mg DAILY IV 08/17/24 10:00 08/23/24 09:18 40 MG Dextrose 50 ml UD PRN IV 08/16/24 16:45 Levalbuterol HCl 0.625 mg Q6HR NEB 08/16/24 18:00 08/23/24 12:03 0.625 MG Ipratropium [place] 0.5 mg Q6HWA NEB 08/16/24 18:00 08/23/24 12:04 0.5 MG Acetaminophen 650 mg Q6HP PRN PO 08/16/24 17:30 08/23/24 04:03 650 MG Amiodarone HCl 200 mg DAILY PO 08/17/24 10:00 08/23/24 09:20 200 MG Enteral Nutritional Formula 1,000 ml 20ML/HR GT 08/17/24 14:15 08/17/24 20:51 1,000 ML Acetaminophen 650 mg Q6HP PRN VA 08/18/24 18:00 08/21/24 10:59 650 MG Rocuronium [place] 50 mg PRN PRN IV 08/18/24 19:00 08/19/24 06:55 50 MG Labetalol HCl 5 mg Q2HPRN PRN IV 08/21/24 11:00 08/23/24 12:50 5 MG Losartan Potassium 50 mg BID PO 08/21/24 22:00 08/23/24 09:21 50 MG Amlodipine Besylate 5 mg DAILY PO 08/22/24 10:00 08/23/24 09:20 5 MG Fluconazole 100 ml @ 100 mls/hr DAILY IV 08/22/24 10:00 08/23/24 09:21 100 MLS/HR Meropenem 50 ml @ 17 mls/hr Q8H IV 08/21/24 16:30 08/23/24 16:55 17 MLS/HR Methylprednisolone Sodium Succinate 20 mg BID IV 08/21/24 22:00 08/23/24 09:18 20 MG Hydralazine HCl 10 mg Q6HP PRN IV 08/21/24 19:30 08/23/24 15:55 10 MG Purified Water 300 ml Q6HR GT 08/22/24 08:45 08/23/24 05:26 300 ML Furosemide 40 mg DAILY IV 08/22/24 10:00 08/23/24 09:19 40 MG Enteral Nutritional Formula 1,000 ml 50ML/HR GT 08/22/24 13:45 08/22/24 16:03 1,000 ML Vancomycin HCl 200 ml @ 160 mls/hr Q24H IV 08/23/24 12:00 08/23/24 12:40 160 MLS/HR Lactulose 30 ml DAILY PO 08/23/24 08:15 Insulin Human Regular Q6HR SC 08/23/24 12:00 08/23/24 12:59 3 UNITS Diagnostic Test (Pha) 1 strip Q6HR 08/23/24 12:00 08/23/24 12:41 1 STRIP Sodium Chloride 10 ml QSHIFT@10,22 IV 08/23/24 22:00 Examination Physical exam: General: RASS -3, afebrile, mucosae are moist Cardiovascular: Normal S1 and S2. No murmurs, gallops or rubs Respiratory: Mechanically assisted ventilation, equal bilateral airway entree. Bilateral crackles and wheezing. Abdomen: Soft, nontender, no organomegaly, normal bowel sounds MSK/skin: edema +, Mobilization of limbs cannot be evaluated. Skin is dry and warm. Neurological: Orientation cannot be assessed. No apparent motor no sensitive deficits. Pupils are isocoric and reactive. laboratory and microbiology Laboratory Tests 08/23/24 10:48 08/23/24 03:05 Test 08/23/24 03:05 Range/Units Serum Glucose 220 H 74-106 mg/dL Microbiology Date/Time Source Procedure Growth Status 08/21/24 17:30 Urine - Alvarado Port Urine Culture - Preliminary Resulted 08/21/24 15:55 Blood Blood Culture - Preliminary NO GROWTH AFTER 48 HOURS OF INCUBATION. Resulted 08/16/24 16:50 Nose MRSA Screen - Final Methicillin Resistant S.aureus Complete 08/16/24 12:57 Sputum Expectorated Sputum Gram Stain - Final Complete 08/16/24 12:57 Sputum Expectorated Sputum Respiratory Culture - Final Complete Labs and/or images reviewed: Labs reviewed by me, Image(s) reviewed by me Problem List/Assessment/Plan Problem List/Assessment/Plan Assessment and plan: NEURO: Acute metabolic encephalopathy likely due to sepsis On mechanical ventilation RASS score: - 3 CARDIOVASCULAR: Possible acute on chronic diastolic heart failure NSTEMI type 2 likely due to above Paroxysmal Atrial fibrillation with secondary hypercoagulable state Hypertensive emergency on admission - [id number] score 6 - Currently Patient is in sinus tachycardia - Continue amlodipine 10 mg daily and losartan 50 mg b.i.d. - Echo showed lvef 55%, normal rv function and valves not well assessed - Mildly elevated BNP -CxR showed Multifocal consolidative opacities and Cardiomegaly. - Troponin trends are 336>801 - Resumed amiodarone 200 mg p.o. daily and Atorvastatin 10 mg at HS - Discontinued therapeutic Lovenox due to superficial bleeding from central line site - Monitor H&H PULMONARY: Acute hypoxic respiratory failure likely due to aspiration pneumonia Possible multifocal pneumonia On Mechanical ventilation History of DVT and PE, status post IVC filter in 2020 and was on Eliquis - CxR showed Multifocal consolidative opacities and Cardiomegaly. - CT chest revealed ground-glass and patchy opacities of bilateral lungs with left lower lobe consolidation which may represent multifocal pneumonia / pulmonary edema and suggested left lower lobe atelectasis with elevation of the left hemidiaphragm.Mediastinal lymphadenopathy which may be reactive/neoplastic. - Medneb with levalbuterol and ipratropium q.6 hours - New blood c/s showed no growth in 24 hours of incubation - IV methylprednisolone 20 mg bid. - IV vancomycin per pharmacy ,IV meropenem 1 g Q 8 hours and IV fluconazole 200 mg daily. GASTROINTESTINAL: Hyperbilirubinemia and transaminitis likely due to sepsis Chronic vomiting and diarrhoea ,ruled out cholelithiasis Slow transit constipation, ruled out Ileus - U/S of abdomen showed echogenic liver possible hepatic steatosis/cirrhosis - CT abdomen pelvis revealed no acute intra-abdominal abnormality, moderate colonic diverticulosis and bibasilar atelectasis. - Plain xray abdomen ruled out Ileus. ENDOCRINE: Type 2 diabetes mellitus, HbA1C 7% - Mild sliding scale of insulin METABOLIC: Hypokalemia and hypomagnesemia Morbid obesity, BMI 57.2 kg/m2 Hypernatremia - Free water 300 mL q.6 hours HEME: Chronic Microcytic hypochromic anemia INFECTIOUS DISEASE: Sepsis likely due to aspiration pneumonia Leukocytosis and lactic acidosis likely due to sepsis Infectious vulvovaginitis - Pending new blood culture - IV vancomycin as per pharmacy, IV meropenem 1 g Q 8 HR and IV fluconazole 200 mg daily. MUSCULOSKELETAL: Chronic back pain DIET: Glucerna DVT prophylax: SCD GI prophylaxis: Protonix Bowel regimen: Lactulose Code status: Full code LINES/DRAINS/ACCESS: PICC line placed on 08/23/24 ETT: Intubated on 08/16/24 IV access: Drips: Precedex Alvarado catheter: placed on 08/16/24 DISPOSITION: ICU Patient's status discussed with RN, Daughter Critical care time spent more than 81 minutes, including CPAP trial, patient care, chart review, and updating the family. Excluding any procedures. Case discussed with Dr. Allen Plan discussed with: Other (RN) My Orders My Orders Orders - VERONICA QUINTERO Procedure Category Date Status Time Chest Portable XY 08/23/24 Resulted 04:00 Abg W/ Co-Ox RT 08/23/24 Logged 04:00 Urinalysis LAB 08/23/24 Logged 08:12 Lactulose Oral PHA 08/23/24 In Process 08:15 Insulin R (Human) PHA 08/23/24 In Process (Insulin R) 12:00 Glucose Blood PHA 08/23/24 In Process (Accu-Chek Comfort 12:00 Dietary Evaluation Review Comments: 1. TF Glucerna 1.2Cal @ 70ml/hr along with Pro-stat 1 pk daily. Start @ 20ml/hr, increase 10ml/hr until goal is reached. Water flush 50ml q6h if allowed. 2. TPN if NPO x 7 days 3. Monitor labs, NPO status, BW, skin integrity, and I/O Expected Outcomes/Goals: To meet at least 75% of estimated needs within 7 days Fu 2-3 days Date of Service: August 23, 2024 Billing Provider: TORRES ALLEN MD Common Visit Codes: [id number] CARE 30-74 MIN, [id number] CARE-EACH +30MIN VERONICA QUINTERO August 23, 2024 17:16 TORRES ALLEN MD August 24, 2024 11:38
--- NOTE | 2024-08-23 18:36 | DVH ---
INDICATION: NGT POSITION TECHNIQUE: Frontal view of the chest. COMPARISON: XY CHEST PORTABLE on DOS: 08/23/24, XY CHEST PORTABLE on DOS: 08/22/24, XY CHEST PORTABLE o n DOS: 08/21/24, XY CHEST PORTABLE on DOS: 08/19/24, XY CHEST PORTABLE on DOS: 08/18/24 FINDINGS: Findings:. The heart mildly enlarged. The mediastinal contours are grossly unremarkable the endotrac heal tube and nasogastric tube are in satisfactory position. Right-sided PICC catheter with tip in miles perior vena cava.. There is no evidence of pleural disease. The lungs are clear. The bony structu res of the chest are intact without fracture. IMPRESSION: 1. No evidence of acute disease. 2. Support lines are in satisfactory position.
[2024-08-23] MEDS: SODIUM CHLOR 0.9% PF (SALINE LOCK) 10ML VIAL/SYR IV SCH (22:47)
[2024-08-23] MEDS: amLODIPine BESYLATE 5 MG TAB PO SCH (22:50)
[2024-08-24] VITALS (104 sets, daily range): BP systolic 121–177; BP diastolic 37–100; PULSE 87–122; RESP 9–25; TEMP 98–99.9; O2SAT 91–100
[2024-08-24 04:27] LABS: Hematocrit 30.8 % (36.0-46.0); Mean Corpuscular Hemoglobin 25.3 pg (28.0-32.0); Mean Corpuscular Hgb Conc. 32.5 g/dL (32.0-36.0); Platelet Count (auto) 383 10^3/uL (140-450); Red Blood Cells 3.95 10^6/uL (4.0-5.20)
[2024-08-24 04:32] LABS: Anion Gap 11 (5-15); Calcium 9.1 mg/dL (8.7-10.4); Carbon Dioxide 30 mmol/L (20-31); Chloride 106 mmol/L (98-107); Potassium 4.3 mmol/L (3.5-5.1)
[2024-08-24 04:35] LABS: Sodium 147 mmol/L (136-145)
[2024-08-24 04:50] LABS: Blood Urea Nitrogen 27 mg/dL (9-23); Glucose 214 mg/dL (74-106)
[2024-08-24 05:02] LABS: Basophils % (manual) 0 (0.0-2.0); Blast Cells 0; Eosinophils % (manual) 0 (0-7); Metamyelocytes % 0; Myelocytes % 0; Reactive Lymphocytes 0
--- NOTE | 2024-08-24 05:37 | DVH ---
EXAM: XR Chest, 1 View CLINICAL INDICATION: Mechanical ventilation TECHNIQUE: Frontal view of the chest. COMPARISON: XY CHEST PORTABLE on DOS: 08/23/24, XY CHEST PORTABLE on DOS: 08/23/24, XY CHEST PORTABLE on DOS: 08/22/24, XY CHEST PORTABLE on DOS: 08/21/24, XY CHEST PORTABLE on DOS: 08/19/24 FINDINGS: LUNGS AND PLEURAL SPACES: See below. HEART: Cardiomegaly with mild congestion. MEDIASTINUM: Unremarkable. Normal mediastinal contour. BONES/JOINTS: Unremarkable. No acute fracture. TUBES, LINES AND DEVICES: The endotracheal tube (ETT) is in satisfactory position. Enteric tube ti p in the stomach. OTHER FINDINGS: . . IMPRESSION: Cardiomegaly with mild congestion.
[2024-08-24 06:08] LABS: Band Neutrophils % (manual) 2; Lymphocytes % (manual) 8 (10.0-50.0); Monocytes % (manual) 3 (0-12); Promyelocytes % 1
[2024-08-24 06:09] LABS: Platelet Estimate Adequate
[2024-08-24 07:13] LABS: Base Excess 5.1 mmol/L (-2.0-3.0)
[2024-08-24] MEDS: FREE WATER GT SCH (12:00)
[2024-08-24 12:04] LABS: Base Excess 8.5 mmol/L (-2.0-3.0)
[2024-08-24] MEDS: FUROSEMIDE 40 MG/4 ML VIAL IV ONE (12:04)
--- NOTE | 2024-08-24 18:15 | DVHPNRES ---
Progress Note Date Seen: August 24, 2024 Resident Creating Document: VERONICA QUINTERO RESIDENT Medical Necessity Reason Pt with a Central, PICC or Fol: Yes The following are medically ne: Central Line, Alvarado Catheter Reason for alvarado catheter: Strict I&O Subjective Review of Systems This is a 64-year-old female with past medical history of COPD on home oxygen, asthma ,TRENT, hypertension, DVT, PE, atrial fibrillation , chronic back pain, questionable heart failure, type 2 diabetes mellitus presented to the ED via EMS with chief complaint of ALOC and SOB. the daughter she went to the switchboard wirer yesterday and switchboard wirer mentioned that the patient blood pressure is uncontrolled and fluid overload and prescribed new antihypertensive with Bumex and later patient woke up middle of the night with gurgling and again went back to sleep. EMS reports that the patient was last seen well at 7am with patient complaining of some SOB, but went back to sleep. EMS relays that the patient was found by family 30 minutes ago gurgling in her sleep and unable to respond. EMS states that the patient is not able to move or answer questions, only opening her eyes to painful stimuli. EMS notes patient was at 64% O2 saturation on RA, but went up to 94% on 15L continuous. EMS reports that the patient's BP was 207/102, HR 129, and patient was given Nitroglycerin on route to the ED. Patient unable to answer any questions at this time due to her altered status. Patient underwent endotracheal intubation and started on mechanical ventilation to protect the airway. PMH: COPD on home oxygen, asthma , TRENT, hypertension, DVT, PE, atrial fibrillation , chronic back pain, questionable heart failure, type 2 diabetes mellitus PSH: Hysterectomy, status post IVC filter in 2020 and cataract surgery. Family history: Significant for heart disease, chronic kidney disease. Home medications: Acetaminophen 325 mg daily, amiodarone 200 mg daily, albuterol sulfate, amitriptyline 10 mg at HS, amlodipine 5 mg daily, Eliquis 5 mg b.i.d., atorvastatin 10 mg at HS, diclofenac sodium 1% gel topical TID, Colace 100 mg b.i.d., glipizide 10 mg q.i.d., ibuprofen 600 mg p.o. daily, losartan potassium 50 mg b.i.d., methocarbamol 500 mg p.o., Medrol Dosepak, metoprolol tartrate 25 mg b.i.d., Percocet 5/325 mg b.i.d., pregabalin 25 mg 1-2 capsules p.o. b.i.d., tizanidine hydrochloride 4 mg at q.p.m. Patient was seen and examined on the bedside. Passed the CPAP trial today and extubated and the procedure was uneventful, no stridor or no respiratory distress and currently patient is on nasal cannula. Objective vital signs Vital Sign Date Time Temp Pulse Resp B/P (MAP) Pulse Ox O2 Delivery O2 Flow Rate FiO2 08/24/24 18:05 95 160/73 08/24/24 16:45 99.9 16 95 211.8 08/24/24 16:00 Cool Aerosol 8 30 30 Total Intake and Output 08/23/24 08/23/24 08/24/24 15:00 23:00 07:00 Intake Total 351 ml 137 ml 200 ml Output Total 2350 ml 1550 ml Balance 351 ml -2213 ml -1350 ml medications Current Medications Medications Dose Ordered Sig/Mahogany Route Start Time Stop Time Status Last Admin Dose Admin Midazolam HCl 50 ml @ 1 mls/hr Q24H IV 08/16/24 13:00 08/21/24 01:31 9 MLS/HR Fentanyl Citrate 250 ml @ 2.5 mls/hr Q24H IV 08/16/24 16:45 08/21/24 04:10 10 MLS/HR Vancomycin HCl 0 ml @ 0 mls/hr UD IV 08/16/24 16:45 Pantoprazole Sodium 40 mg DAILY IV 08/17/24 10:00 08/24/24 09:21 40 MG Dextrose 50 ml UD PRN IV 08/16/24 16:45 Levalbuterol HCl 0.625 mg Q6HR NEB 08/16/24 18:00 08/24/24 14:04 0.625 MG Ipratropium [place] 0.5 mg Q6HWA NEB 08/16/24 18:00 08/24/24 14:04 0.5 MG Acetaminophen 650 mg Q6HP PRN PO 08/16/24 17:30 08/23/24 04:03 650 MG Amiodarone HCl 200 mg DAILY PO 08/17/24 10:00 08/24/24 09:19 200 MG Enteral Nutritional Formula 1,000 ml 20ML/HR GT 08/17/24 14:15 08/17/24 20:51 1,000 ML Acetaminophen 650 mg Q6HP PRN IN 08/18/24 18:00 08/21/24 10:59 650 MG Labetalol HCl 5 mg Q2HPRN PRN IV 08/21/24 11:00 08/24/24 18:05 5 MG Losartan Potassium 50 mg BID PO 08/21/24 22:00 08/24/24 09:20 50 MG Fluconazole 100 ml @ 100 mls/hr DAILY IV 08/22/24 10:00 08/24/24 09:20 100 MLS/HR Meropenem 50 ml @ 17 mls/hr Q8H IV 08/21/24 16:30 08/24/24 15:20 17 MLS/HR Methylprednisolone Sodium Succinate 20 mg BID IV 08/21/24 22:00 08/24/24 09:21 20 MG Hydralazine HCl 10 mg Q6HP PRN IV 08/21/24 19:30 08/23/24 15:55 10 MG Furosemide 40 mg DAILY IV 08/22/24 10:00 08/24/24 09:21 40 MG Enteral Nutritional Formula 1,000 ml 50ML/HR GT 08/22/24 13:45 08/22/24 16:03 1,000 ML Vancomycin HCl 200 ml @ 160 mls/hr Q24H IV 08/23/24 12:00 08/24/24 12:35 160 MLS/HR Lactulose 30 ml DAILY PO 08/23/24 08:15 Insulin Human Regular Q6HR SC 08/23/24 12:00 08/24/24 17:40 6 UNITS Diagnostic Test (Pha) 1 strip Q6HR 08/23/24 12:00 08/24/24 17:31 1 STRIP Sodium Chloride 10 ml QSHIFT@, IV 08/23/24 22:00 08/24/24 09:21 10 ML Amlodipine Besylate 10 mg DAILY PO 08/23/24 20:15 08/24/24 09:20 10 MG Purified Water 200 ml Q6HR GT 08/24/24 12:00 08/24/24 18:04 200 ML Examination Physical exam: General: RASS 0, afebrile, mucosae are moist Cardiovascular: Normal S1 and S2. No murmurs, gallops or rubs Respiratory: Mechanically assisted ventilation, equal bilateral airway entree. Bilateral crackles and wheezing. Abdomen: Soft, nontender, no organomegaly, normal bowel sounds MSK/skin: edema +, Mobilization of limbs cannot be evaluated. Skin is dry and warm. Neurological: Orientation cannot be assessed. No apparent motor no sensitive deficits. Pupils are isocoric and reactive. laboratory and microbiology Laboratory Tests 08/24/24 03:20 Test 08/24/24 03:20 Range/Units Serum Glucose 214 H 74-106 mg/dL Microbiology Date/Time Source Procedure Growth Status 08/21/24 17:30 Urine - [place] Urine Culture - Preliminary Resulted 08/21/24 15:55 Blood Blood Culture - Preliminary NO GROWTH AFTER 72 HOURS OF INCUBATION. Resulted 08/16/24 16:50 Nose MRSA Screen - Final Methicillin Resistant S.aureus Complete 08/16/24 12:57 Sputum Expectorated Sputum Gram Stain - Final Complete 08/16/24 12:57 Sputum Expectorated Sputum Respiratory Culture - Final Complete Labs and/or images reviewed: Labs reviewed by me, Image(s) reviewed by me Problem List/Assessment/Plan Problem List/Assessment/Plan Assessment and plan: NEURO: Acute metabolic encephalopathy likely due to sepsis On mechanical ventilation RASS score: - 3 CARDIOVASCULAR: Possible acute on chronic diastolic heart failure NSTEMI type 2 likely due to above Paroxysmal Atrial fibrillation with secondary hypercoagulable state Hypertensive emergency on admission - [id number] score 6 - Currently Patient is in sinus tachycardia - Continue amlodipine 10 mg daily and losartan 50 mg b.i.d. - Echo showed lvef 55%, normal rv function and valves not well assessed - Mildly elevated BNP -CxR showed Multifocal consolidative opacities and Cardiomegaly. - Troponin trends are 336>801 - Resumed amiodarone 200 mg p.o. daily and Atorvastatin 10 mg at HS - Discontinued therapeutic Lovenox due to superficial bleeding from central line site - Monitor H&H PULMONARY: Acute hypoxic respiratory failure likely due to aspiration pneumonia Possible multifocal pneumonia On Mechanical ventilation History of DVT and PE, status post IVC filter in 2020 and was on Eliquis - CxR showed Multifocal consolidative opacities and Cardiomegaly. - CT chest revealed ground-glass and patchy opacities of bilateral lungs with left lower lobe consolidation which may represent multifocal pneumonia / pulmonary edema and suggested left lower lobe atelectasis with elevation of the left hemidiaphragm.Mediastinal lymphadenopathy which may be reactive/neoplastic. - Medneb with levalbuterol and ipratropium q.6 hours - New blood c/s showed no growth in 24 hours of incubation - IV methylprednisolone 20 mg bid. - IV Lasix 40 mg once and daily - IV vancomycin per pharmacy ,IV meropenem 1 g Q 8 hours and IV fluconazole 200 mg daily. GASTROINTESTINAL: Hyperbilirubinemia and transaminitis likely due to sepsis Chronic vomiting and diarrhoea ,ruled out cholelithiasis Slow transit constipation, ruled out Ileus - U/S of abdomen showed echogenic liver possible hepatic steatosis/cirrhosis - CT abdomen pelvis revealed no acute intra-abdominal abnormality, moderate colonic diverticulosis and bibasilar atelectasis. - Plain xray abdomen ruled out Ileus. ENDOCRINE: Type 2 diabetes mellitus, HbA1C 7% - Mild sliding scale of insulin METABOLIC: Hypokalemia and hypomagnesemia Morbid obesity, BMI 57.2 kg/m2 Hypernatremia - Free water 200 mL q.6 hours HEME: Chronic Microcytic hypochromic anemia INFECTIOUS DISEASE: Sepsis likely due to aspiration pneumonia Leukocytosis and lactic acidosis likely due to sepsis Infectious vulvovaginitis - New blood c/s showed no growth in 24 hours of incubation - urinary culture showed >100,000 CFU/mL Yeast - IV vancomycin as per pharmacy, IV meropenem 1 g Q 8 HR and IV fluconazole 200 mg daily. MUSCULOSKELETAL: Chronic back pain DIET: Glucerna DVT prophylax: SCD GI prophylaxis: Protonix Bowel regimen: Lactulose Code status: Full code LINES/DRAINS/ACCESS: PICC line placed on 08/23/24 ETT: Intubated on 08/16/24 IV access: Drips: Precedex [place] catheter: placed on 08/16/24 DISPOSITION: ICU Patient's status discussed with RN, Daughter Critical care time spent more than 81 minutes, including CPAP trial, patient care, chart review, and updating the family. Excluding any procedures. Case discussed with Dr. lAlen Plan discussed with: Other (RN) My Orders My Orders Orders - VERONICA QUINTERO RESIDENT Procedure Category Date Status Time Amlodipine Tablet PHA 08/23/24 In Process (Norvasc Tablet) 20:15 Abg W/ Co-Ox RT 08/24/24 Logged 04:00 Chest Portable XY 08/24/24 Resulted 04:00 Dietary Evaluation Review Comments: 1. TF Glucerna 1.2Cal @ 70ml/hr along with Pro-stat 1 pk daily. Start @ 20ml/hr, increase 10ml/hr until goal is reached. Water flush 50ml q6h if allowed. 2. TPN if NPO x 7 days 3. Monitor labs, NPO status, BW, skin integrity, and I/O Expected Outcomes/Goals: To meet at least 75% of estimated needs within 7 days Fu 2-3 days Date of Service: August 24, 2024 Billing Provider: TORRES ALLEN MD Common Visit Codes: [id number] CARE 30-74 MIN, [id number] CARE-EACH +30MIN VERONICA QUINTERO RESIDENT August 24, 2024 18:15 TORRES ALLEN MD August 27, 2024 21:45
[2024-08-25] VITALS (105 sets, daily range): BP systolic 97–195; BP diastolic 50–109; PULSE 79–113; RESP 11–24; TEMP 98.1–98.7; O2SAT 87–100
[2024-08-25 03:57] LABS: Anion Gap 11 (5-15); Potassium 3.6 mmol/L (3.5-5.1)
[2024-08-25 04:04] LABS: BUN/Creatinine Ratio 29.8 (10.0-20.0)
[2024-08-25 04:06] LABS: Basophils # (auto) 0.1 10 ^3/uL (0-0.2); Eosinophils # (auto) 0 10 ^3/uL (0-0.8); Monocytes # (auto) 1.5 10 ^3/uL (0-1.3); Nucleated Red Blood Cells % 0.1 %
[2024-08-25 04:09] LABS: Basophils % (auto) 0.4 % (0.0-2.0); Eosinophils % (auto) 0.1 % (0.0-7.0); Hematocrit 30.4 % (36.0-46.0); Hemoglobin 9.9 g/dL (12.2-16.2); Lymphocytes % (auto) 7.7 % (10.0-50.0); Mean Corpuscular Hemoglobin 25.4 pg (28.0-32.0); Mean Corpuscular Hgb Conc. 32.6 g/dL (32.0-36.0); Mean Corpuscular Volume 77.8 fL (80.0-100.0); Monocytes % (auto) 11.1 % (0.0-12.0); Neutrophils # (auto) 10.9 10 ^3/uL (1.6-8.6); Neutrophils % (auto) 80.7 % (37.0-80.0); Platelet Count (auto) 384 10^3/uL (140-450); Red Cell Distribution Width 18.9 % (11.8-14.3); White Blood Cell 13.5 10^3/uL (4.4-10.8)
[2024-08-25 04:15] LABS: Blood Urea Nitrogen 28 mg/dL (9-23); Calcium 8.7 mg/dL (8.7-10.4); Carbon Dioxide 35 mmol/L (20-31); Chloride 107 mmol/L (98-107); Glucose 191 mg/dL (74-106); Sodium 153 mmol/L (136-145)
[2024-08-25] MEDS: FREE WATER GT SCH (05:39)
--- NOTE | 2024-08-25 05:51 | DVH ---
EXAM: XR Chest, 1 View CLINICAL INDICATION: s/p extubation TECHNIQUE: Frontal view of the chest. COMPARISON: XY CHEST PORTABLE on DOS: 08/24/24, XY CHEST PORTABLE on DOS: 08/23/24, XY CHEST PORTABLE on DOS: 08/23/24, XY CHEST PORTABLE on DOS: 08/22/24, XY CHEST PORTABLE on DOS: 08/21/24 FINDINGS: LUNGS AND PLEURAL SPACES: See below. HEART: Cardiomegaly with mild congestion. MEDIASTINUM: Unremarkable. Normal mediastinal contour. BONES/JOINTS: Unremarkable. No acute fracture. TUBES, LINES AND DEVICES: Right peripherally inserted central catheter (PICC) tip in the superior v aga cava. Enteric tube tip cannot be seen but is below the diaphragm. OTHER FINDINGS: . . . . IMPRESSION: Cardiomegaly with mild congestion.
--- NOTE | 2024-08-25 05:55 | DVH ---
Exam: US US GUIDED VASCULAR ACCESS Date: 08/23/2024 01:04 PM Clinical History: PICC LINE PLACEMENT Comparison: None Findings: Targeted sonographic evaluation of the arm vein was obtained utilizing grayscale and color Doppler im aging. IMPRESSION: Sonographic assistance for picc placement. Please refer to procedural report for detailed findings.
[2024-08-25] MEDS: FUROSEMIDE 40 MG TAB PO SCH (09:39)
[2024-08-25] MEDS: NIFEdipine ER 30 MG TAB PO ONE (13:25)
--- NOTE | 2024-08-25 16:18 | DVHPNRES ---
Progress Note Date Seen: August 25, 2024 Resident Creating Document: VERONICA QUINTERO RESIDENT Medical Necessity Reason Pt with a Central, PICC or Fol: Yes The following are medically ne: Central Line, Alvarado Catheter Reason for alvarado catheter: Strict I&O Subjective Review of Systems This is a 64-year-old female with past medical history of COPD on home oxygen, asthma ,TRENT, hypertension, DVT, PE, atrial fibrillation , chronic back pain, questionable heart failure, type 2 diabetes mellitus presented to the ED via EMS with chief complaint of ALOC and SOB. the daughter she went to the [facility] still operator yesterday and mva still operator mentioned that the patient blood pressure is uncontrolled and fluid overload and prescribed new antihypertensive with Bumex and later patient woke up middle of the night with gurgling and again went back to sleep. EMS reports that the patient was last seen well at 7am with patient complaining of some SOB, but went back to sleep. EMS relays that the patient was found by family 30 minutes ago gurgling in her sleep and unable to respond. EMS states that the patient is not able to move or answer questions, only opening her eyes to painful stimuli. EMS notes patient was at 64% O2 saturation on RA, but went up to 94% on 15L continuous. EMS reports that the patient's BP was 207/102, HR 129, and patient was given Nitroglycerin on route to the ED. Patient unable to answer any questions at this time due to her altered status. Patient underwent endotracheal intubation and started on mechanical ventilation to protect the airway. PMH: COPD on home oxygen, asthma , TRENT, hypertension, DVT, PE, atrial fibrillation , chronic back pain, questionable heart failure, type 2 diabetes mellitus PSH: Hysterectomy, status post IVC filter in 2020 and cataract surgery. Family history: Significant for heart disease, chronic kidney disease. Home medications: Acetaminophen 325 mg daily, amiodarone 200 mg daily, albuterol sulfate, amitriptyline 10 mg at HS, amlodipine 5 mg daily, Eliquis 5 mg b.i.d., atorvastatin 10 mg at HS, diclofenac sodium 1% gel topical TID, Colace 100 mg b.i.d., glipizide 10 mg q.i.d., ibuprofen 600 mg p.o. daily, losartan potassium 50 mg b.i.d., methocarbamol 500 mg p.o., Medrol Dosepak, metoprolol tartrate 25 mg b.i.d., Percocet 5/325 mg b.i.d., pregabalin 25 mg 1-2 capsules p.o. b.i.d., tizanidine hydrochloride 4 mg at q.p.m. Patient was seen and examined on the bedside. S/P extubation and currently patient is on nasal cannula 3L. Passed swallow evaluation today and on pureed diet. Downgraded to telemetry Objective vital signs Vital Sign Date Time Temp Pulse Resp B/P (MAP) Pulse Ox O2 Delivery O2 Flow Rate FiO2 08/25/24 14:45 108 14 116/55 (75) 92 08/25/24 14:00 Nasal Cannula* 3 32 08/25/24 08:01 98.1 98.1 Total Intake and Output 08/24/24 08/24/24 08/25/24 15:00 23:00 07:00 Intake Total 350 ml 300 ml 500 ml Output Total 3600 ml 800 ml Balance 350 ml -3300 ml -300 ml medications Current Medications Medications Dose Ordered Sig/Mahogany Route Start Time Stop Time Status Last Admin Dose Admin Vancomycin HCl 0 ml @ 0 mls/hr UD IV 08/16/24 16:45 Pantoprazole Sodium 40 mg DAILY IV 08/17/24 10:00 08/25/24 09:36 40 MG Dextrose 50 ml UD PRN IV 08/16/24 16:45 Levalbuterol HCl 0.625 mg Q6HR NEB 08/16/24 18:00 08/25/24 12:02 0.625 MG Ipratropium [place] 0.5 mg Q6HWA NEB 08/16/24 18:00 08/25/24 12:02 0.5 MG Acetaminophen 650 mg Q6HP PRN PO 08/16/24 17:30 08/23/24 04:03 650 MG Amiodarone HCl 200 mg DAILY PO 08/17/24 10:00 08/25/24 09:39 200 MG Enteral Nutritional Formula 1,000 ml 20ML/HR GT 08/17/24 14:15 08/17/24 20:51 1,000 ML Acetaminophen 650 mg Q6HP PRN NM 08/18/24 18:00 08/21/24 10:59 650 MG Labetalol HCl 5 mg Q2HPRN PRN IV 08/21/24 11:00 08/25/24 09:36 5 MG Losartan Potassium 50 mg BID PO 08/21/24 22:00 08/25/24 09:41 50 MG Fluconazole 100 ml @ 100 mls/hr DAILY IV 08/22/24 10:00 08/25/24 09:35 100 MLS/HR Methylprednisolone Sodium Succinate 20 mg BID IV 08/21/24 22:00 08/25/24 09:36 20 MG Hydralazine HCl 10 mg Q6HP PRN IV 08/21/24 19:30 08/23/24 15:55 10 MG Enteral Nutritional Formula 1,000 ml 50ML/HR GT 08/22/24 13:45 08/22/24 16:03 1,000 ML Vancomycin HCl 200 ml @ 160 mls/hr Q24H IV 08/23/24 12:00 08/25/24 23:59 08/25/24 13:26 160 MLS/HR Insulin Human Regular Q6HR SC 08/23/24 12:00 08/25/24 13:33 6 UNITS Diagnostic Test (Pha) 1 strip Q6HR 08/23/24 12:00 08/25/24 12:00 1 STRIP Sodium Chloride 10 ml QSHIFT@10,22 IV 08/23/24 22:00 08/25/24 09:36 10 ML Purified Water 200 ml Q4HR GT 08/25/24 06:00 08/25/24 13:26 200 ML Furosemide 40 mg DAILY PO 08/25/24 10:00 08/25/24 09:39 40 MG Nifedipine 60 mg DAILY PO 08/26/24 10:00 Vancomycin HCl 250 ml @ 200 mls/hr Q12H IV 08/26/24 12:00 Examination Physical examination: General Appearance: Alert, Oriented X3, Cooperative, No acute distress, nasal canula 3L HEENT: Atraumatic, PERRLA, EOMI, Mucous membrane moist/pink Respiratory: Bilateral mild wheezing and crackles Cardiovascular: Regular rate, Normal S1, Normal S2, No murmurs, no chest wall tenderness Abdominal: Normal bowel sounds, Soft, No tenderness, No hepatospenomegaly, No masses Extremities: No clubbing, No cyanosis, No edema, Normal pulses, No tenderness/swelling Skin: No rashes, No breakdown, No significant lesion Neuro: Normal speech, Strength at 5/5 X4 ext, Normal tone, Sensation intact, Cranial nerves 3-12 NL, Reflexes 2+ Psych/Mental Status: Mental status NL, Mood NL laboratory and microbiology Laboratory Tests 08/25/24 03:15 Test 08/25/24 03:15 Range/Units Serum Glucose 191 H 74-106 mg/dL Microbiology Date/Time Source Procedure Growth Status 08/21/24 17:30 Urine - Alvarado Port Urine Culture - Final Yeast, not Myesha albicans Complete 08/21/24 15:55 Blood Blood Culture - Preliminary NO GROWTH AFTER 72 HOURS OF INCUBATION. Resulted 08/16/24 16:50 Nose MRSA Screen - Final Methicillin Resistant S.aureus Complete 08/16/24 12:57 Sputum Expectorated Sputum Gram Stain - Final Complete 08/16/24 12:57 Sputum Expectorated Sputum Respiratory Culture - Final Complete Labs and/or images reviewed: Labs reviewed by me, Image(s) reviewed by me Problem List/Assessment/Plan Problem List/Assessment/Plan Assessment and plan: NEURO: Acute hypercapnic encephalopathy S/P extubation CARDIOVASCULAR: Possible acute on chronic diastolic heart failure NSTEMI type 2 likely due to above Paroxysmal Atrial fibrillation with secondary hypercoagulable state Hypertensive emergency on admission - [id number] score 6 - Currently Patient is in sinus tachycardia - Continue Nifedipine ER 60 mg daily and losartan 50 mg b.i.d. - Echo showed lvef 55%, normal rv function and valves not well assessed - Mildly elevated BNP -CxR showed Multifocal consolidative opacities and Cardiomegaly. - Troponin trends are 336>801 - Resumed amiodarone 200 mg p.o. daily and Atorvastatin 10 mg at HS - Discontinued therapeutic Lovenox due to superficial bleeding from central line site - Monitor H&H PULMONARY: Acute hypoxic respiratory failure likely due to aspiration pneumonia Possible multifocal pneumonia S/P extubation History of DVT and PE, status post IVC filter in 2020 and was on Eliquis - CxR showed Multifocal consolidative opacities and Cardiomegaly. - CT chest revealed ground-glass and patchy opacities of bilateral lungs with left lower lobe consolidation which may represent multifocal pneumonia / pulmonary edema and suggested left lower lobe atelectasis with elevation of the left hemidiaphragm.Mediastinal lymphadenopathy which may be reactive/neoplastic. - Medneb with levalbuterol and ipratropium q.6 hours - New blood c/s showed no growth in 24 hours of incubation - IV methylprednisolone 20 mg bid. - Lasix 40 mg po daily - Discontinued IV meropenem on the basis of culture - IV vancomycin per pharmacy and IV fluconazole 200 mg daily. GASTROINTESTINAL: Hyperbilirubinemia and transaminitis likely due to sepsis Chronic vomiting and diarrhoea ,ruled out cholelithiasis Slow transit constipation, ruled out Ileus - U/S of abdomen showed echogenic liver possible hepatic steatosis/cirrhosis - CT abdomen pelvis revealed no acute intra-abdominal abnormality, moderate colonic diverticulosis and bibasilar atelectasis. - Plain xray abdomen ruled out Ileus. ENDOCRINE: Type 2 diabetes mellitus, HbA1C 7% - Mild sliding scale of insulin METABOLIC: Hypokalemia and hypomagnesemia Morbid obesity, BMI 57.2 kg/m2 Hypernatremia - Free water 200 mL q.4 hours HEME: Chronic Microcytic hypochromic anemia INFECTIOUS DISEASE: Sepsis likely due to aspiration pneumonia Leukocytosis and lactic acidosis likely due to sepsis Infectious vulvovaginitis - New blood c/s showed no growth in 24 hours of incubation - urinary culture showed >100,000 CFU/mL Yeast - IV vancomycin as per pharmacy and IV fluconazole 200 mg daily. MUSCULOSKELETAL: Chronic back pain DIET: Pureed diet DVT prophylax: SCD GI prophylaxis: Protonix Bowel regimen: Lactulose Code status: Full code LINES/DRAINS/ACCESS: PICC line placed on 08/23/24 Extubated on 08/24/24 IV access: Alvarado catheter: placed on 08/16/24 Downgraded to telemetry Patient's status discussed with RN, Daughter Critical care time spent more than 41 minutes, including patient care, chart review, and updating the family. Excluding any procedures. Case discussed with Dr. Cherry Plan discussed with: Other (Daughter, RN) My Orders My Orders Orders - VERONICA QUINTERO RESIDENT Procedure Category Date Status Time Chest Portable XY 08/25/24 Resulted 04:00 Abg W/ Co-Ox RT 08/25/24 Logged 04:00 Furosemide Tablet PHA 08/25/24 In Process (Lasix Tablet) 10:00 * Swallow Request ST 08/25/24 Transmitted 10:34 Pt Request For Service PT 08/25/24 Logged 10:34 Nifedipine Er PHA 08/26/24 In Process (Procardia Xl 10:00 Pureed DIET 08/25/24 Transmitted Dinner Transfer Orders XFER 08/25/24 Transmitted 16:03 Dietary Evaluation Review Comments: 1. TF Glucerna 1.2Cal @ 70ml/hr along with Pro-stat 1 pk daily. Start @ 20ml/hr, increase 10ml/hr until goal is reached. Water flush 50ml q6h if allowed. 2. TPN if NPO x 7 days 3. Monitor labs, NPO status, BW, skin integrity, and I/O Expected Outcomes/Goals: To meet at least 75% of estimated needs within 7 days Fu 2-3 days VERONICA QUINTERO RESIDENT August 25, 2024 16:18
[2024-08-26] VITALS (60 sets, daily range): BP systolic 95–153; BP diastolic 54–85; PULSE 77–100; RESP 9–21; TEMP 98–98.6; O2SAT 87–100
[2024-08-26 03:58] LABS: Basophils # (auto) 0 10 ^3/uL (0-0.2); Basophils % (auto) 0.1 % (0.0-2.0); Eosinophils # (auto) 0 10 ^3/uL (0-0.8); Hematocrit 32.5 % (36.0-46.0); Hemoglobin 10.6 g/dL (12.2-16.2); Lymphocytes # (auto) 0.9 10 ^3/uL (0.4-5.4); Lymphocytes % (auto) 6.6 % (10.0-50.0); Mean Corpuscular Hemoglobin 25.5 pg (28.0-32.0); Mean Corpuscular Hgb Conc. 32.6 g/dL (32.0-36.0); Mean Corpuscular Volume 78.1 fL (80.0-100.0); Monocytes # (auto) 1.3 10 ^3/uL (0-1.3); Monocytes % (auto) 9.1 % (0.0-12.0); Neutrophils # (auto) 11.7 10 ^3/uL (1.6-8.6); Neutrophils % (auto) 84.2 % (37.0-80.0); Platelet Count (auto) 368 10^3/uL (140-450); Red Blood Cells 4.16 10^6/uL (4.0-5.20); Red Cell Distribution Width 18.8 % (11.8-14.3); White Blood Cell 13.9 10^3/uL (4.4-10.8)
[2024-08-26 04:06] LABS: Anion Gap 9 (5-15); Chloride 103 mmol/L (98-107); Potassium 3.6 mmol/L (3.5-5.1)
[2024-08-26 04:07] LABS: Carbon Dioxide 34 mmol/L (20-31); Sodium 146 mmol/L (136-145)
[2024-08-26 04:08] LABS: Calcium 9.6 mg/dL (8.7-10.4)
[2024-08-26 04:12] LABS: BUN/Creatinine Ratio 32.6 (10.0-20.0)
[2024-08-26 04:16] LABS: Blood Urea Nitrogen 30 mg/dL (9-23); Glucose 165 mg/dL (74-106)
[2024-08-26] MEDS: NIFEdipine ER 30 MG TAB PO SCH (08:59)
[2024-08-26] MEDS: VANCOMYCIN 1.25GM/250ML 250 ML IV SCH (11:08)
--- NOTE | 2024-08-26 17:19 | DVHPN2 ---
Progress Note - Dictate Date Seen: August 26, 2024 Medical Necessity Reason Pt with a Central, PICC or Fol: Yes The following are medically ne: Central Line, Alvarado Catheter Reason for alvarado catheter: Strict I&O vital signs Vital Sign Date Time Temp Pulse Resp B/P (MAP) Pulse Ox O2 Delivery O2 Flow Rate FiO2 08/26/24 12:00 14 100 Nasal Cannula* 3 32 08/26/24 12:00 91 08/26/24 12:00 98.3 151/70 (97) 98.3 Total Intake and Output 08/25/24 08/25/24 08/26/24 14:59 22:59 06:59 Intake Total 117 ml 800 ml 600 ml Output Total 2000 ml 750 ml Balance 117 ml -1200 ml -150 ml medications Current Medications Medications Dose Ordered Sig/Mahogany Route Start Time Stop Time Status Last Admin Dose Admin Vancomycin HCl 0 ml @ 0 mls/hr UD IV 08/16/24 16:45 Pantoprazole Sodium 40 mg DAILY IV 08/17/24 10:00 08/26/24 09:00 40 MG Dextrose 50 ml UD PRN IV 08/16/24 16:45 Levalbuterol HCl 0.625 mg Q6HR NEB 08/16/24 18:00 08/26/24 11:53 0.625 MG Ipratropium [place] 0.5 mg Q6HWA NEB 08/16/24 18:00 08/26/24 11:53 0.5 MG Acetaminophen 650 mg Q6HP PRN PO 08/16/24 17:30 08/26/24 02:17 650 MG Amiodarone HCl 200 mg DAILY PO 08/17/24 10:00 08/26/24 08:58 200 MG Enteral Nutritional Formula 1,000 ml 20ML/HR GT 08/17/24 14:15 08/17/24 20:51 1,000 ML Acetaminophen 650 mg Q6HP PRN [place] 08/18/24 18:00 08/21/24 10:59 650 MG Labetalol HCl 5 mg Q2HPRN PRN IV 08/21/24 11:00 08/25/24 09:36 5 MG Losartan Potassium 50 mg BID PO 08/21/24 22:00 08/26/24 08:59 50 MG Fluconazole 100 ml @ 100 mls/hr DAILY IV 08/22/24 10:00 08/26/24 09:00 100 MLS/HR Methylprednisolone Sodium Succinate 20 mg BID IV 08/21/24 22:00 08/26/24 09:00 20 MG Hydralazine HCl 10 mg Q6HP PRN IV 08/21/24 19:30 08/23/24 15:55 10 MG Enteral Nutritional Formula 1,000 ml 50ML/HR GT 08/22/24 13:45 08/22/24 16:03 1,000 ML Insulin Human Regular Q6HR SC 08/23/24 12:00 08/26/24 17:10 9 UNITS Diagnostic Test (Pha) 1 strip Q6HR 08/23/24 12:00 08/26/24 17:10 1 STRIP Sodium Chloride 10 ml QSHIFT@ IV 08/23/24 22:00 08/26/24 09:00 10 ML Purified Water 200 ml Q4HR GT 08/25/24 06:00 08/26/24 09:00 200 ML Furosemide 40 mg DAILY PO 08/25/24 10:00 08/26/24 08:58 40 MG Nifedipine 60 mg DAILY PO 08/26/24 10:00 08/26/24 08:59 60 MG Vancomycin HCl 250 ml @ 200 mls/hr Q12H IV 08/26/24 12:00 08/26/24 11:08 200 MLS/HR laboratory and microbiology Laboratory Tests 08/26/24 03:15 Test 08/26/24 03:15 Range/Units Serum Glucose 165 H 74-106 mg/dL Assessment/Plan Impression Acute hypoxemic respiratory failure Morbid obesity Bronchospasm COPD/asthma Patient seen and examined in ICU Events S/p downgrade Low oxygen requirements On 2 liters nasal cannula No acute events Labs and imaging reviewed Management Supplemental oxygen Titrate to maintain sats 90% or above Incentive spirometry Continue antibiotics Bronchodilators Monitor renal function Monitor electrolytes Supplement as needed Okay to downgrade from pulmonary standpoint DVT prophylaxis Critical care time 35 minutes Dietary Evaluation Review Comments: 1. TF Glucerna 1.2Cal @ 70ml/hr along with Pro-stat 1 pk daily. Start @ 20ml/hr, increase 10ml/hr until goal is reached. Water flush 50ml q6h if allowed. 2. TPN if NPO x 7 days 3. Monitor labs, NPO status, BW, skin integrity, and I/O Expected Outcomes/Goals: To meet at least 75% of estimated needs within 7 days Fu 2-3 days Plan discussed with: Patient KECIA BATISTA MD August 26, 2024 17:19
--- NOTE | 2024-08-26 20:33 | DVHPN2 ---
Subjective Was extubated 2 days ago Was downgraded to the floor today She is still on 3 L nasal cannula She wants to go home Reviewed: Care Plan, H&P Changes from previous H/P or p: Changes General: Per HPI Objective Vitals Vital Signs Date Time Temp Pulse Resp B/P (MAP) Pulse Ox O2 Delivery O2 Flow Rate FiO2 08/26/24 17:00 98.3 90 18 132/73 (92) 93 98.3 08/26/24 14:00 Nasal Cannula* 3 32 Intake/Output Intake and Output 08/26/24 06:59 Intake Total 1517 ml Output Total 2750 ml Balance -1233 ml Intake Oral 1200 ml IV Total 317 ml Output Urine Total 2750 ml General Appearance: Alert, Oriented X3, Cooperative, mild distress Lungs: Other (Bilateral rhonchi) Abdomen: Normal bowel sounds, Soft, No tenderness Extremities: No edema Medications Current Medications Medications Dose Ordered Sig/Mahogany Route Start Time Stop Time Status Last Admin Dose Admin Vancomycin HCl 0 ml @ 0 mls/hr UD IV 08/16/24 16:45 Pantoprazole Sodium 40 mg DAILY IV 08/17/24 10:00 08/26/24 09:00 40 MG Dextrose 50 ml UD PRN IV 08/16/24 16:45 Levalbuterol HCl 0.625 mg Q6HR NEB 08/16/24 18:00 08/26/24 20:14 0.625 MG Ipratropium [place] 0.5 mg Q6HWA NEB 08/16/24 18:00 08/26/24 20:14 0.5 MG Acetaminophen 650 mg Q6HP PRN PO 08/16/24 17:30 08/26/24 02:17 650 MG Amiodarone HCl 200 mg DAILY PO 08/17/24 10:00 08/26/24 08:58 200 MG Enteral Nutritional Formula 1,000 ml 20ML/HR GT 08/17/24 14:15 08/17/24 20:51 1,000 ML Acetaminophen 650 mg Q6HP PRN [place] 08/18/24 18:00 08/21/24 10:59 650 MG Labetalol HCl 5 mg Q2HPRN PRN IV 08/21/24 11:00 08/25/24 09:36 5 MG Losartan Potassium 50 mg BID PO 08/21/24 22:00 08/26/24 08:59 50 MG Fluconazole 100 ml @ 100 mls/hr DAILY IV 08/22/24 10:00 08/26/24 09:00 100 MLS/HR Methylprednisolone Sodium Succinate 20 mg BID IV 08/21/24 22:00 08/26/24 09:00 20 MG Hydralazine HCl 10 mg Q6HP PRN IV 08/21/24 19:30 08/23/24 15:55 10 MG Enteral Nutritional Formula 1,000 ml 50ML/HR GT 08/22/24 13:45 08/22/24 16:03 1,000 ML Insulin Human Regular Q6HR SC 08/23/24 12:00 08/26/24 17:10 9 UNITS Diagnostic Test (Pha) 1 strip Q6HR 08/23/24 12:00 08/26/24 17:10 1 STRIP Sodium Chloride 10 ml QSHIFT@10,22 IV 08/23/24 22:00 08/26/24 09:00 10 ML Purified Water 200 ml Q4HR GT 08/25/24 06:00 08/26/24 09:00 200 ML Furosemide 40 mg DAILY PO 08/25/24 10:00 08/26/24 08:58 40 MG Nifedipine 60 mg DAILY PO 08/26/24 10:00 08/26/24 08:59 60 MG Vancomycin HCl 250 ml @ 200 mls/hr Q12H IV 08/26/24 12:00 08/26/24 11:08 200 MLS/HR Laboratory Results Laboratory Tests 08/26/24 03:15 Chemistry Test 08/26/24 03:15 Calcium Level 9.6 mg/dL (8.7-10.4) Urinalysis Test 08/16/24 12:57 Urine Color Colorless (Yellow) Urine Clarity Clear (Clear) Urine pH 7.0 (5.0-9.0) Urine Specific [place] 1.007 (1.001-1.035) Urine Protein Negative (Negative) Urine Ketones Trace (Negative) Urine Blood Negative /uL (Negative) Urine Nitrite Negative (Negative) Urine Bilirubin Negative (Negative) Urine Urobilinogen Normal mg/dL (Negative) Urine Leukocyte Esterase Negative /uL (Negative) Urine RBC 1 /hpf (0 - 4) Urine Microscopic WBC 1 /HPF (0-5) Urine Squamous Epithelial Cells None seen /hpf (<5) Urine Bacteria None seen /hpf (None Seen) Urine Glucose Normal mg/dL (Normal) Microbiology Microbiology Date/Time Source Procedure Growth Status 08/21/24 17:30 Urine - [place] Urine Culture - Final Yeast, not Myesha albicans Complete 08/21/24 15:55 Blood Blood Culture - Final NO GROWTH AFTER 5 DAYS OF INCUBATION. Complete 08/16/24 16:50 Nose MRSA Screen - Final Methicillin Resistant S.aureus Complete 08/16/24 12:57 Sputum Expectorated Sputum Gram Stain - Final Complete 08/16/24 12:57 Sputum Expectorated Sputum Respiratory Culture - Final Complete Assessment/Plan Assessment/Plan Acute hypoxemic respiratory failure status post intubation and extubation Morbid obesity Bronchospasm COPD/asthma Type 2 diabetes Generalized weakness Hypernatremia Atrial fibrillation Plan Start physical therapy Out of bed as tolerated Free water Amiodarone IV antibiotics IV steroids Lasix Monitor closely Plan discussed with: Patient My Orders Orders - ANABELL WYATT MD Procedure Category Date Status Time Pt Request For Service PT 08/26/24 Logged 14:02 Pt Request For Service PT 08/26/24 Logged 14:02 Date of Service: August 26, 2024 Billing Provider: ANABELL WYATT MD Common Visit Codes: [id number] INP/OBS CARE(HIGH) ANABELL WYATT MD August 26, 2024 20:33
[2024-08-27] VITALS (13 sets, daily range): BP systolic 121–158; BP diastolic 62–75; PULSE 76–94; RESP 16–18; TEMP 98–98.6; O2SAT 93–100
[2024-08-27 08:01] LABS: Basophils # (auto) 0 10 ^3/uL (0-0.2); Basophils % (auto) 0.1 % (0.0-2.0); Eosinophils # (auto) 0 10 ^3/uL (0-0.8); Hemoglobin 11.3 g/dL (12.2-16.2); Mean Corpuscular Hemoglobin 25.4 pg (28.0-32.0); Mean Corpuscular Volume 78.8 fL (80.0-100.0); Nucleated Red Blood Cells % 0.1 %
[2024-08-27 08:04] LABS: Lymphocytes # (auto) 1.1 10 ^3/uL (0.4-5.4); Lymphocytes % (auto) 8.2 % (10.0-50.0); Mean Corpuscular Hgb Conc. 32.3 g/dL (32.0-36.0); Monocytes % (auto) 7.6 % (0.0-12.0); Neutrophils # (auto) 11.1 10 ^3/uL (1.6-8.6); Neutrophils % (auto) 84.1 % (37.0-80.0); Platelet Count (auto) 322 10^3/uL (140-450); Red Blood Cells 4.44 10^6/uL (4.0-5.20); Red Cell Distribution Width 18.6 % (11.8-14.3); White Blood Cell 13.2 10^3/uL (4.4-10.8)
[2024-08-27 08:23] LABS: Alanine Aminotransferase 15 U/L (7-40); Albumin 3.9 g/dL (3.2-4.8); Alkaline Phosphatase 62 U/L (46-116); Anion Gap 8 (5-15); Aspartate Aminotransferase < 8 U/L (13-40); BUN/Creatinine Ratio 32.6 (10.0-20.0); Bilirubin, Total 0.7 mg/dL (0.2-1.0); Blood Urea Nitrogen 30 mg/dL (9-23); Calcium 9.6 mg/dL (8.7-10.4); Carbon Dioxide 33 mmol/L (20-31); Chloride 100 mmol/L (98-107); Glucose 202 mg/dL (74-106); Potassium 4.1 mmol/L (3.5-5.1); Sodium 141 mmol/L (136-145); Total Protein 6.3 g/dL (5.7-8.2)
[2024-08-27 08:55] LABS: Magnesium 2.2 mg/dL (1.6-2.6)
--- NOTE | 2024-08-27 10:08 | DVHPN2 ---
Progress Note - Dictate Date Seen: August 27, 2024 Medical Necessity Reason Pt with a Central, PICC or Fol: Yes The following are medically ne: Central Line, Alvarado Catheter Reason for alvarado catheter: Strict I&O vital signs Vital Sign Date Time Temp Pulse Resp B/P (MAP) Pulse Ox O2 Delivery O2 Flow Rate FiO2 08/27/24 10:06 142/72 08/27/24 07:30 Nasal Cannula* 3 32 08/27/24 06:48 80 18 100 08/27/24 05:00 98.0 98.0 Total Intake and Output 08/26/24 08/26/24 08/27/24 15:00 23:00 07:00 Intake Total 700 ml 250 ml Output Total 850 ml Balance -150 ml 250 ml medications Current Medications Medications Dose Ordered Sig/Mahogany Route Start Time Stop Time Status Last Admin Dose Admin Vancomycin HCl 0 ml @ 0 mls/hr UD IV 08/16/24 16:45 Pantoprazole Sodium 40 mg DAILY IV 08/17/24 10:00 08/27/24 10:03 40 MG Dextrose 50 ml UD PRN IV 08/16/24 16:45 Levalbuterol HCl 0.625 mg Q6HR NEB 08/16/24 18:00 08/27/24 06:38 0.625 MG Ipratropium [place] 0.5 mg Q6HWA NEB 08/16/24 18:00 08/27/24 06:38 0.5 MG Acetaminophen 650 mg Q6HP PRN PO 08/16/24 17:30 08/26/24 22:19 650 MG Amiodarone HCl 200 mg DAILY PO 08/17/24 10:00 08/27/24 10:02 200 MG Enteral Nutritional Formula 1,000 ml 20ML/HR GT 08/17/24 14:15 08/17/24 20:51 1,000 ML Acetaminophen 650 mg Q6HP PRN [place] 08/18/24 18:00 08/21/24 10:59 650 MG Labetalol HCl 5 mg Q2HPRN PRN IV 08/21/24 11:00 08/25/24 09:36 5 MG Losartan Potassium 50 mg BID PO 08/21/24 22:00 08/27/24 10:05 50 MG Fluconazole 100 ml @ 100 mls/hr DAILY IV 08/22/24 10:00 08/27/24 09:50 100 MLS/HR Methylprednisolone Sodium Succinate 20 mg BID IV 08/21/24 22:00 08/27/24 10:02 20 MG Hydralazine HCl 10 mg Q6HP PRN IV 08/21/24 19:30 08/23/24 15:55 10 MG Enteral Nutritional Formula 1,000 ml 50ML/HR GT 08/22/24 13:45 08/22/24 16:03 1,000 ML Insulin Human Regular Q6HR SC 08/23/24 12:00 08/27/24 05:49 3 UNITS Diagnostic Test (Pha) 1 strip Q6HR 08/23/24 12:00 08/27/24 05:48 1 STRIP Sodium Chloride 10 ml QSHIFT@, IV 08/23/24 22:00 08/27/24 10:07 10 ML Purified Water 200 ml Q4HR GT 08/25/24 06:00 08/26/24 09:00 200 ML Furosemide 40 mg DAILY PO 08/25/24 10:00 08/27/24 10:06 40 MG Nifedipine 60 mg DAILY PO 08/26/24 10:00 08/27/24 10:06 60 MG Vancomycin HCl 250 ml @ 200 mls/hr Q12H IV 08/26/24 12:00 08/27/24 01:10 200 MLS/HR laboratory and microbiology Laboratory Tests 08/27/24 07:48 Test 08/27/24 07:48 Range/Units Serum Glucose 202 H 74-106 mg/dL Assessment/Plan Impression Acute hypoxemic respiratory failure Morbid obesity Bronchospasm COPD/asthma Patient seen and examined Events S/p downgrade Low oxygen requirements On 2 liters nasal cannula No distress Labs and imaging reviewed Management Supplemental oxygen Titrate to maintain sats 90% or above Incentive spirometry Continue antibiotics Bronchodilators Monitor renal function Monitor electrolytes Supplement as needed Disposition per primary DVT prophylaxis Dietary Evaluation Review Comments: 1. TF Glucerna 1.2Cal @ 70ml/hr along with Pro-stat 1 pk daily. Start @ 20ml/hr, increase 10ml/hr until goal is reached. Water flush 50ml q6h if allowed. 2. TPN if NPO x 7 days 3. Monitor labs, NPO status, BW, skin integrity, and I/O Expected Outcomes/Goals: To meet at least 75% of estimated needs within 7 days Fu 2-3 days Plan discussed with: Patient KECIA BATISTA MD August 27, 2024 10:08
--- NOTE | 2024-08-27 13:35 | DVHPN2 ---
Subjective No new complaints She is still on 3 L nasal cannula She has not been seen by PT yet Reviewed: Care Plan, H&P Changes from previous H/P or p: Changes General: Per HPI Objective Vitals Vital Signs Date Time Temp Pulse Resp B/P (MAP) Pulse Ox O2 Delivery O2 Flow Rate FiO2 08/27/24 10:06 142/72 08/27/24 09:00 98.6 76 17 93 98.6 08/27/24 07:30 Nasal Cannula* 3 32 Intake/Output Intake and Output 08/27/24 07:00 Intake Total 950 ml Output Total 850 ml Balance 100 ml Intake Oral 400 ml IV Total 550 ml Output Urine Total 850 ml General Appearance: Alert, Oriented X3, Cooperative, mild distress Lungs: Other (Bilateral rhonchi) Abdomen: Normal bowel sounds, Soft, No tenderness Extremities: No edema Medications Current Medications Medications Dose Ordered Sig/Mahogany Route Start Time Stop Time Status Last Admin Dose Admin Vancomycin HCl 0 ml @ 0 mls/hr UD IV 08/16/24 16:45 Pantoprazole Sodium 40 mg DAILY IV 08/17/24 10:00 08/27/24 10:03 40 MG Dextrose 50 ml UD PRN IV 08/16/24 16:45 Levalbuterol HCl 0.625 mg Q6HR NEB 08/16/24 18:00 08/27/24 11:28 0.625 MG Ipratropium [place] 0.5 mg Q6HWA NEB 08/16/24 18:00 08/27/24 11:28 0.5 MG Acetaminophen 650 mg Q6HP PRN PO 08/16/24 17:30 08/26/24 22:19 650 MG Amiodarone HCl 200 mg DAILY PO 08/17/24 10:00 08/27/24 10:02 200 MG Enteral Nutritional Formula 1,000 ml 20ML/HR GT 08/17/24 14:15 08/17/24 20:51 1,000 ML Acetaminophen 650 mg Q6HP PRN NV 08/18/24 18:00 08/21/24 10:59 650 MG Labetalol HCl 5 mg Q2HPRN PRN IV 08/21/24 11:00 08/25/24 09:36 5 MG Losartan Potassium 50 mg BID PO 08/21/24 22:00 08/27/24 10:05 50 MG Fluconazole 100 ml @ 100 mls/hr DAILY IV 08/22/24 10:00 08/27/24 09:50 100 MLS/HR Methylprednisolone Sodium Succinate 20 mg BID IV 08/21/24 22:00 08/27/24 10:02 20 MG Hydralazine HCl 10 mg Q6HP PRN IV 08/21/24 19:30 08/23/24 15:55 10 MG Enteral Nutritional Formula 1,000 ml 50ML/HR GT 08/22/24 13:45 08/22/24 16:03 1,000 ML Insulin Human Regular Q6HR SC 08/23/24 12:00 08/27/24 11:57 3 UNITS Diagnostic Test (Pha) 1 strip Q6HR 08/23/24 12:00 08/27/24 11:58 1 STRIP Sodium Chloride 10 ml QSHIFT@10,22 IV 08/23/24 22:00 08/27/24 10:07 10 ML Purified Water 200 ml Q4HR GT 08/25/24 06:00 08/26/24 09:00 200 ML Furosemide 40 mg DAILY PO 08/25/24 10:00 08/27/24 10:06 40 MG Nifedipine 60 mg DAILY PO 08/26/24 10:00 08/27/24 10:06 60 MG Vancomycin HCl 250 ml @ 200 mls/hr Q12H IV 08/26/24 12:00 08/27/24 12:33 200 MLS/HR Laboratory Results Laboratory Tests 08/27/24 07:48 Chemistry Test 08/27/24 07:48 Albumin 3.9 g/dL (3.2-4.8) Calcium Level 9.6 mg/dL (8.7-10.4) Magnesium Level 2.2 mg/dL (1.6-2.6) Total Protein 6.3 g/dL (5.7-8.2) LFT Test 08/27/24 07:48 Alanine Aminotransferase (ALT) 15 U/L (7-40) Alkaline Phosphatase 62 U/L (46-116) Aspartate Amino Transferase (AST) < 8 U/L (13-40) L Total Bilirubin 0.7 mg/dL (0.2-1.0) Urinalysis Test 08/16/24 12:57 Urine Color Colorless (Yellow) Urine Clarity Clear (Clear) Urine pH 7.0 (5.0-9.0) Urine Specific [place] 1.007 (1.001-1.035) Urine Protein Negative (Negative) Urine Ketones Trace (Negative) Urine Blood Negative /uL (Negative) Urine Nitrite Negative (Negative) Urine Bilirubin Negative (Negative) Urine Urobilinogen Normal mg/dL (Negative) Urine Leukocyte Esterase Negative /uL (Negative) Urine RBC 1 /hpf (0 - 4) Urine Microscopic WBC 1 /HPF (0-5) Urine Squamous Epithelial Cells None seen /hpf (<5) Urine Bacteria None seen /hpf (None Seen) Urine Glucose Normal mg/dL (Normal) Microbiology Microbiology Date/Time Source Procedure Growth Status 08/21/24 17:30 Urine - [place] Urine Culture - Final Yeast, not Myesha albicans Complete 08/21/24 15:55 Blood Blood Culture - Final NO GROWTH AFTER 5 DAYS OF INCUBATION. Complete 08/16/24 16:50 Nose MRSA Screen - Final Methicillin Resistant S.aureus Complete 08/16/24 12:57 Sputum Expectorated Sputum Gram Stain - Final Complete 08/16/24 12:57 Sputum Expectorated Sputum Respiratory Culture - Final Complete Assessment/Plan Assessment/Plan Acute hypoxemic respiratory failure status post intubation and extubation Morbid obesity Bronchospasm COPD/asthma Type 2 diabetes Generalized weakness Hypernatremia Atrial fibrillation Plan Start physical therapy Out of bed as tolerated Free water Amiodarone IV antibiotics IV steroids Lasix Monitor closely 08/27/2024: Physical therapy still pending Out of bed as tolerated Continue the current management The patient might need to go to an SNF for rehab Plan discussed with: Patient My Orders Orders - ANABELL WYATT MD Procedure Category Date Status Time Pt Request For Service PT 08/26/24 Logged 14:02 Pt Request For Service PT 08/26/24 Logged 14:02 Date of Service: August 27, 2024 Billing Provider: ANABELL WYATT MD Common Visit Codes: [id number] INP/OBS CARE(HIGH) ANABELL WYATT MD August 27, 2024 13:35
[2024-08-28] VITALS (14 sets, daily range): BP systolic 112–140; BP diastolic 59–75; PULSE 74–91; RESP 4–20; TEMP 97.8–98.3; O2SAT 94–100
[2024-08-28 09:12] LABS: Basophils # (auto) 0.1 10 ^3/uL (0-0.2); Basophils % (auto) 0.8 % (0.0-2.0); Eosinophils # (auto) 0 10 ^3/uL (0-0.8); Eosinophils % (auto) 0.1 % (0.0-7.0); Hemoglobin 11.3 g/dL (12.2-16.2); Lymphocytes # (auto) 1.2 10 ^3/uL (0.4-5.4); Lymphocytes % (auto) 7.6 % (10.0-50.0); Mean Corpuscular Hemoglobin 24.9 pg (28.0-32.0); Mean Corpuscular Hgb Conc. 32.4 g/dL (32.0-36.0); Mean Corpuscular Volume 76.9 fL (80.0-100.0); Monocytes # (auto) 1.3 10 ^3/uL (0-1.3); Monocytes % (auto) 8.4 % (0.0-12.0); Neutrophils # (auto) 12.7 10 ^3/uL (1.6-8.6); Neutrophils % (auto) 83.1 % (37.0-80.0); Platelet Count (auto) 213 10^3/uL (140-450); Red Blood Cells 4.55 10^6/uL (4.0-5.20); Red Cell Distribution Width 18.9 % (11.8-14.3); White Blood Cell 15.3 10^3/uL (4.4-10.8)
[2024-08-28 09:28] LABS: Large Platelets FEW; Platelet Estimate Adequate
[2024-08-28] MEDS ORDERED: APIXABAN 2.5 MG TAB PO SCH (10:00)
[2024-08-28] MEDS: PANTOPRAZOLE 40 MG TAB PO ONE (10:46)
[2024-08-28] MEDS: predniSONE 20 MG TAB PO SCH (10:46)
[2024-08-28] MEDS ORDERED: LACTULOSE 20Gm/30ML SOLN PO ONE (11:30)
[2024-08-28] MEDS: APIXABAN 2.5 MG TAB PO ONE (14:29)
--- NOTE | 2024-08-28 18:24 | DVHPN2 ---
Progress Note - Dictate Date Seen: August 28, 2024 Medical Necessity Reason Pt with a Central, PICC or Fol: Yes The following are medically ne: Central Line, Alvarado Catheter Reason for alvarado catheter: Strict I&O vital signs Vital Sign Date Time Temp Pulse Resp B/P (MAP) Pulse Ox O2 Delivery O2 Flow Rate FiO2 08/28/24 16:31 98.0 84 4 123/67 (85) 98 98.0 08/28/24 08:00 Nasal Cannula* 3 32 Total Intake and Output 08/27/24 08/27/24 08/28/24 15:00 23:00 07:00 Intake Total 100 ml 250 ml Balance 100 ml 250 ml medications Current Medications Medications Dose Ordered Sig/Mahogany Route Start Time Stop Time Status Last Admin Dose Admin Dextrose 50 ml UD PRN IV 08/16/24 16:45 Levalbuterol HCl 0.625 mg Q6HR NEB 08/16/24 18:00 08/28/24 12:10 0.625 MG Ipratropium [place] 0.5 mg Q6HWA NEB 08/16/24 18:00 08/28/24 12:10 0.5 MG Acetaminophen 650 mg Q6HP PRN PO 08/16/24 17:30 08/27/24 14:51 650 MG Amiodarone HCl 200 mg DAILY PO 08/17/24 10:00 08/28/24 10:42 200 MG Losartan Potassium 50 mg BID PO 08/21/24 22:00 08/28/24 10:42 50 MG Hydralazine HCl 10 mg Q6HP PRN IV 08/21/24 19:30 08/23/24 15:55 10 MG Insulin Human Regular Q6HR SC 08/23/24 12:00 08/28/24 17:56 6 UNITS Diagnostic Test (Pha) 1 strip Q6HR 08/23/24 12:00 08/28/24 17:56 1 STRIP Sodium Chloride 10 ml QSHIFT@, IV 08/23/24 22:00 08/28/24 10:43 10 ML Furosemide 40 mg DAILY PO 08/25/24 10:00 08/28/24 10:42 40 MG Nifedipine 60 mg DAILY PO 08/26/24 10:00 08/28/24 10:43 60 MG Vancomycin HCl 250 ml @ 200 mls/hr Q12H IV 08/26/24 12:00 08/28/24 12:42 200 MLS/HR Prednisone 30 mg DAILY PO 08/28/24 10:00 08/28/24 10:46 30 MG Pantoprazole Sodium 40 mg DAILY@0600 PO 08/29/24 06:00 Apixaban 2.5 mg BID PO 08/28/24 22:00 laboratory and microbiology Laboratory Tests 08/28/24 08:33 08/28/24 08:20 08/27/24 07:48 Test 08/27/24 07:48 Range/Units Serum Glucose 202 H 74-106 mg/dL Assessment/Plan Impression Acute hypoxemic respiratory failure Morbid obesity Bronchospasm COPD/asthma Patient seen and examined Events S/p downgrade Low oxygen requirements On 2 liters nasal cannula No acute events Labs and imaging reviewed Management Supplemental oxygen Titrate to maintain sats 90% or above Incentive spirometry Continue antibiotics Bronchodilators Monitor renal function Monitor electrolytes Supplement as needed Disposition per primary DVT prophylaxis Dietary Evaluation Review Comments: 1. TF Glucerna 1.2Cal @ 70ml/hr along with Pro-stat 1 pk daily. Start @ 20ml/hr, increase 10ml/hr until goal is reached. Water flush 50ml q6h if allowed. 2. TPN if NPO x 7 days 3. Monitor labs, NPO status, BW, skin integrity, and I/O Expected Outcomes/Goals: To meet at least 75% of estimated needs within 7 days Fu 2-3 days Plan discussed with: Patient KECIA BATISTA MD August 28, 2024 18:24
--- NOTE | 2024-08-28 18:55 | DVHPNRES ---
Progress Note Date Seen: August 28, 2024 Resident Creating Document: VERONICA QUINTERO RESIDENT Medical Necessity Reason Pt with a Central, PICC or Fol: Yes The following are medically ne: Central Line, Alvarado Catheter Reason for alvarado catheter: Strict I&O Subjective Review of Systems This is a 64-year-old female with past medical history of COPD on home oxygen, asthma ,TRENT, hypertension, DVT, PE, atrial fibrillation , chronic back pain, questionable heart failure, type 2 diabetes mellitus presented to the ED via EMS with chief complaint of ALOC and SOB. the daughter she went to the [employer] admin yesterday and [employer] admin mentioned that the patient blood pressure is uncontrolled and fluid overload and prescribed new antihypertensive with Bumex and later patient woke up middle of the night with gurgling and again went back to sleep. EMS reports that the patient was last seen well at 7am with patient complaining of some SOB, but went back to sleep. EMS relays that the patient was found by family 30 minutes ago gurgling in her sleep and unable to respond. EMS states that the patient is not able to move or answer questions, only opening her eyes to painful stimuli. EMS notes patient was at 64% O2 saturation on RA, but went up to 94% on 15L continuous. EMS reports that the patient's BP was 207/102, HR 129, and patient was given Nitroglycerin on route to the ED. Patient unable to answer any questions at this time due to her altered status. Patient underwent endotracheal intubation and started on mechanical ventilation to protect the airway. PMH: COPD on home oxygen, asthma , TRENT, hypertension, DVT, PE, atrial fibrillation , chronic back pain, questionable heart failure, type 2 diabetes mellitus PSH: Hysterectomy, status post IVC filter in 2020 and cataract surgery. Family history: Significant for heart disease, chronic kidney disease. Home medications: Acetaminophen 325 mg daily, amiodarone 200 mg daily, albuterol sulfate, amitriptyline 10 mg at HS, amlodipine 5 mg daily, Eliquis 5 mg b.i.d., atorvastatin 10 mg at HS, diclofenac sodium 1% gel topical TID, Colace 100 mg b.i.d., glipizide 10 mg q.i.d., ibuprofen 600 mg p.o. daily, losartan potassium 50 mg b.i.d., methocarbamol 500 mg p.o., Medrol Dosepak, metoprolol tartrate 25 mg b.i.d., Percocet 5/325 mg b.i.d., pregabalin 25 mg 1-2 capsules p.o. b.i.d., tizanidine hydrochloride 4 mg at q.p.m. Patient was seen and examined on the bedside. S/P extubation and currently patient is on nasal cannula 3L. She is now on consistent carbohydrate diet, PT recommended SNF for rehabilitation. Objective vital signs Vital Sign Date Time Temp Pulse Resp B/P (MAP) Pulse Ox O2 Delivery O2 Flow Rate FiO2 08/28/24 16:31 98.0 84 4 123/67 (85) 98 98.0 08/28/24 08:00 Nasal Cannula* 3 32 Total Intake and Output 08/27/24 08/27/24 08/28/24 15:00 23:00 07:00 Intake Total 100 ml 250 ml Balance 100 ml 250 ml medications Current Medications Medications Dose Ordered Sig/Mahogany Route Start Time Stop Time Status Last Admin Dose Admin Dextrose 50 ml UD PRN IV 08/16/24 16:45 Levalbuterol HCl 0.625 mg Q6HR NEB 08/16/24 18:00 08/28/24 12:10 0.625 MG Ipratropium [place] 0.5 mg Q6HWA NEB 08/16/24 18:00 08/28/24 12:10 0.5 MG Acetaminophen 650 mg Q6HP PRN PO 08/16/24 17:30 08/27/24 14:51 650 MG Amiodarone HCl 200 mg DAILY PO 08/17/24 10:00 08/28/24 10:42 200 MG Losartan Potassium 50 mg BID PO 08/21/24 22:00 08/28/24 10:42 50 MG Hydralazine HCl 10 mg Q6HP PRN IV 08/21/24 19:30 08/23/24 15:55 10 MG Insulin Human Regular Q6HR SC 08/23/24 12:00 08/28/24 17:56 6 UNITS Diagnostic Test (Pha) 1 strip Q6HR 08/23/24 12:00 08/28/24 17:56 1 STRIP Sodium Chloride 10 ml QSHIFT@ IV 08/23/24 22:00 08/28/24 10:43 10 ML Furosemide 40 mg DAILY PO 08/25/24 10:00 08/28/24 10:42 40 MG Nifedipine 60 mg DAILY PO 08/26/24 10:00 08/28/24 10:43 60 MG Vancomycin HCl 250 ml @ 200 mls/hr Q12H IV 08/26/24 12:00 08/28/24 12:42 200 MLS/HR Prednisone 30 mg DAILY PO 08/28/24 10:00 08/28/24 10:46 30 MG Pantoprazole Sodium 40 mg DAILY@0600 PO 08/29/24 06:00 Apixaban 2.5 mg BID PO 08/28/24 22:00 Examination Physical examination: General Appearance: Alert, Oriented X3, Cooperative, No acute distress, nasal canula 3L HEENT: Atraumatic, PERRLA, EOMI, Mucous membrane moist/pink Respiratory: Bilateral mild wheezing and crackles Cardiovascular: Regular rate, Normal S1, Normal S2, No murmurs, no chest wall tenderness Abdominal: Normal bowel sounds, Soft, No tenderness, No hepatospenomegaly, No masses Extremities: No clubbing, No cyanosis, No edema, Normal pulses, No tenderness/swelling Skin: No rashes, No breakdown, No significant lesion Neuro: Normal speech, Strength at 5/5 X4 ext, Normal tone, Sensation intact, Cranial nerves 3-12 NL, Reflexes 2+ Psych/Mental Status: Mental status NL, Mood NL laboratory and microbiology Laboratory Tests 08/28/24 08:33 08/28/24 08:20 08/27/24 07:48 Test 08/27/24 07:48 Range/Units Serum Glucose 202 H 74-106 mg/dL Microbiology Date/Time Source Procedure Growth Status 08/21/24 17:30 Urine - [place] Urine Culture - Final Yeast, not Myesha albicans Complete 08/21/24 15:55 Blood Blood Culture - Final NO GROWTH AFTER 5 DAYS OF INCUBATION. Complete 08/16/24 16:50 Nose MRSA Screen - Final Methicillin Resistant S.aureus Complete 08/16/24 12:57 Sputum Expectorated Sputum Gram Stain - Final Complete 08/16/24 12:57 Sputum Expectorated Sputum Respiratory Culture - Final Complete Labs and/or images reviewed: Labs reviewed by me, Image(s) reviewed by me Problem List/Assessment/Plan Problem List/Assessment/Plan Assessment and plan: NEURO: Acute hypercapnic encephalopathy S/P extubation CARDIOVASCULAR: Possible acute on chronic diastolic heart failure NSTEMI type 2 likely due to above Paroxysmal Atrial fibrillation with secondary hypercoagulable state Hypertensive emergency on admission - [id number] score 6 - Currently Patient is in sinus tachycardia - Continue Nifedipine ER 60 mg daily and losartan 50 mg b.i.d. - Echo showed lvef 55%, normal rv function and valves not well assessed - Mildly elevated BNP -CxR showed Multifocal consolidative opacities and Cardiomegaly. - Troponin trends are 336>801 - Resumed amiodarone 200 mg p.o. daily and Atorvastatin 10 mg at HS - Discontinued therapeutic Lovenox due to superficial bleeding from central line site - Monitor H&H PULMONARY: Acute hypoxic respiratory failure likely due to aspiration pneumonia Possible multifocal pneumonia S/P extubation History of DVT and PE, status post IVC filter in 2020 and was on Eliquis - CxR showed Multifocal consolidative opacities and Cardiomegaly. - CT chest revealed ground-glass and patchy opacities of bilateral lungs with left lower lobe consolidation which may represent multifocal pneumonia / pulmonary edema and suggested left lower lobe atelectasis with elevation of the left hemidiaphragm.Mediastinal lymphadenopathy which may be reactive/neoplastic. - Medneb with levalbuterol and ipratropium q.6 hours - New blood c/s showed no growth in 24 hours of incubation - IV methylprednisolone 20 mg bid. - Lasix 40 mg po daily - Discontinued IV meropenem on the basis of culture - IV vancomycin per pharmacy and IV fluconazole 200 mg daily. GASTROINTESTINAL: Hyperbilirubinemia and transaminitis likely due to sepsis Chronic vomiting and diarrhoea ,ruled out cholelithiasis Slow transit constipation, ruled out Ileus - U/S of abdomen showed echogenic liver possible hepatic steatosis/cirrhosis - CT abdomen pelvis revealed no acute intra-abdominal abnormality, moderate colonic diverticulosis and bibasilar atelectasis. - Plain xray abdomen ruled out Ileus. ENDOCRINE: Type 2 diabetes mellitus, HbA1C 7% - Mild sliding scale of insulin METABOLIC: Hypokalemia and hypomagnesemia Morbid obesity, BMI 57.2 kg/m2 Hypernatremia resolved HEME: Chronic Microcytic hypochromic anemia INFECTIOUS DISEASE: Sepsis likely due to aspiration pneumonia Leukocytosis and lactic acidosis likely due to sepsis Infectious vulvovaginitis - New blood c/s showed no growth in 24 hours of incubation - urinary culture showed >100,000 CFU/mL Yeast - Continue IV vancomycin as per pharmacy MUSCULOSKELETAL: Chronic back pain DIET: Pureed diet DVT prophylax: SCD GI prophylaxis: Protonix Bowel regimen: Lactulose Code status: Full code LINES/DRAINS/ACCESS: PICC line placed on 08/23/24 Extubated on 08/24/24 IV access: Alvarado catheter: placed on 08/16/24 Downgraded to telemetry PT Recommended SNF for rehabilitation Patient's status discussed with RN, Daughter Critical care time spent more than 41 minutes, including patient care, chart review, and updating the family. Excluding any procedures. Case discussed with Dr. Cherry Plan discussed with: Other (Daughter, RN) My Orders My Orders Orders - VERONICA QUINTERO Procedure Category Date Status Time * Cloth [place] CONS 08/28/24 Transmitted Consult Prednisone Tablet PHA 08/28/24 In Process 10:00 Pantoprazole Tablet PHA 08/29/24 In Process (Protonix Tablet) 06:00 Consistent DIET 08/28/24 Transmitted Carb(Ccho)Diabetes Lunch Apixaban (Eliquis) PHA 08/28/24 In Process 22:00 Dietary Evaluation Review Comments: 1. TF Glucerna 1.2Cal @ 70ml/hr along with Pro-stat 1 pk daily. Start @ 20ml/hr, increase 10ml/hr until goal is reached. Water flush 50ml q6h if allowed. 2. TPN if NPO x 7 days 3. Monitor labs, NPO status, BW, skin integrity, and I/O Expected Outcomes/Goals: To meet at least 75% of estimated needs within 7 days Fu 2-3 days VERONICA QUINTERO August 28, 2024 18:55
[2024-08-28] MEDS: APIXABAN 2.5 MG TAB PO SCH (22:34)
[2024-08-29] VITALS (19 sets, daily range): BP systolic 105–138; BP diastolic 63–81; PULSE 70–97; RESP 16–19; TEMP 84.3–98; O2SAT 91–100
[2024-08-29] MEDS: PANTOPRAZOLE 40 MG TAB PO SCH (05:54)
[2024-08-29 07:30] LABS: Basophils # (auto) 0 10 ^3/uL (0-0.2); Eosinophils # (auto) 0 10 ^3/uL (0-0.8); Mean Corpuscular Hemoglobin 25.4 pg (28.0-32.0); Nucleated Red Blood Cells % 0.1 %
[2024-08-29 07:33] LABS: Basophils % (auto) 0.4 % (0.0-2.0); Eosinophils % (auto) 0.1 % (0.0-7.0); Hematocrit 34.1 % (36.0-46.0); Hemoglobin 11.2 g/dL (12.2-16.2); Lymphocytes # (auto) 1.4 10 ^3/uL (0.4-5.4); Lymphocytes % (auto) 10.8 % (10.0-50.0); Mean Corpuscular Hgb Conc. 32.8 g/dL (32.0-36.0); Mean Corpuscular Volume 77.6 fL (80.0-100.0); Monocytes # (auto) 1.5 10 ^3/uL (0-1.3); Monocytes % (auto) 11.8 % (0.0-12.0); Neutrophils % (auto) 76.9 % (37.0-80.0); Platelet Count (auto) 224 10^3/uL (140-450); Red Blood Cells 4.39 10^6/uL (4.0-5.20); Red Cell Distribution Width 19.4 % (11.8-14.3)
[2024-08-29 07:41] LABS: Chloride 100 mmol/L (98-107); Potassium 3.6 mmol/L (3.5-5.1); Sodium 138 mmol/L (136-145)
[2024-08-29 07:42] LABS: Anion Gap 7 (5-15); Calcium 9.2 mg/dL (8.7-10.4); Carbon Dioxide 31 mmol/L (20-31)
[2024-08-29 07:47] LABS: BUN/Creatinine Ratio 27.8 (10.0-20.0)
[2024-08-29 07:48] LABS: Blood Urea Nitrogen 30 mg/dL (9-23); Glucose 208 mg/dL (74-106)
[2024-08-29] MEDS: APIXABAN 2.5 MG TAB PO SCH (09:17)
--- NOTE | 2024-08-29 10:49 | DVH ---
EXAM: XY CHEST PORTABLE Indication: s/p extubation Technique: Single frontal view of the chest was obtained Comparison: XY CHEST PORTABLE on DOS: 08/25/24, XY CHEST PORTABLE on DOS: 08/24/24, XY CHEST PORTABLE o n DOS: 08/23/24, XY CHEST PORTABLE on DOS: 08/23/24, XY CHEST PORTABLE on DOS: 08/22/24 FINDINGS: Lines and Tubes: Right PICC tip projects over the cavoatrial junction. Lungs: No focal consolidation. Low lung volumes. Pleura: No effusion. No pneumothorax. Cardiomediastinal contours: Cardiomegaly. Bones: No acute osseous abnormality. IMPRESSION: Cardiomegaly with low lung volumes. Right PICC in appropriate position.
--- NOTE | 2024-08-29 20:28 | DVHPNRES ---
Progress Note Date Seen: August 29, 2024 Resident Creating Document: VERONICA QUINTERO RESIDENT Medical Necessity Reason Pt with a Central, PICC or Fol: Yes The following are medically ne: Central Line, Alvarado Catheter Reason for alvarado catheter: Strict I&O Subjective Review of Systems This is a 64-year-old female with past medical history of COPD on home oxygen, asthma ,TRNET, hypertension, DVT, PE, atrial fibrillation , chronic back pain, questionable heart failure, type 2 diabetes mellitus presented to the ED via EMS with chief complaint of ALOC and SOB. the daughter she went to the laborer ammunition assembly yesterday and laborer ammunition assembly mentioned that the patient blood pressure is uncontrolled and fluid overload and prescribed new antihypertensive with Bumex and later patient woke up middle of the night with gurgling and again went back to sleep. EMS reports that the patient was last seen well at 7am with patient complaining of some SOB, but went back to sleep. EMS relays that the patient was found by family 30 minutes ago gurgling in her sleep and unable to respond. EMS states that the patient is not able to move or answer questions, only opening her eyes to painful stimuli. EMS notes patient was at 64% O2 saturation on RA, but went up to 94% on 15L continuous. EMS reports that the patient's BP was 207/102, HR 129, and patient was given Nitroglycerin on route to the ED. Patient unable to answer any questions at this time due to her altered status. Patient underwent endotracheal intubation and started on mechanical ventilation to protect the airway. PMH: COPD on home oxygen, asthma , TRENT, hypertension, DVT, PE, atrial fibrillation , chronic back pain, questionable heart failure, type 2 diabetes mellitus PSH: Hysterectomy, status post IVC filter in 2020 and cataract surgery. Family history: Significant for heart disease, chronic kidney disease. Home medications: Acetaminophen 325 mg daily, amiodarone 200 mg daily, albuterol sulfate, amitriptyline 10 mg at HS, amlodipine 5 mg daily, Eliquis 5 mg b.i.d., atorvastatin 10 mg at HS, diclofenac sodium 1% gel topical TID, Colace 100 mg b.i.d., glipizide 10 mg q.i.d., ibuprofen 600 mg p.o. daily, losartan potassium 50 mg b.i.d., methocarbamol 500 mg p.o., Medrol Dosepak, metoprolol tartrate 25 mg b.i.d., Percocet 5/325 mg b.i.d., pregabalin 25 mg 1-2 capsules p.o. b.i.d., tizanidine hydrochloride 4 mg at q.p.m. Patient was seen and examined on the bedside. S/P extubation and currently patient is on nasal cannula 3L. She is now on consistent carbohydrate diet, PT recommended SNF for rehabilitation. Objective vital signs Vital Sign Date Time Temp Pulse Resp B/P (MAP) Pulse Ox O2 Delivery O2 Flow Rate FiO2 08/29/24 18:43 70 16 99 08/29/24 18:34 Nasal Cannula 2.0 08/29/24 18:34 28 08/29/24 17:00 98.0 122/81 (95) 98.0 Total Intake and Output 08/28/24 08/28/24 08/29/24 15:00 23:00 07:00 Intake Total 350 ml 360 ml 250 ml Output Total 750 ml Balance 350 ml -390 ml 250 ml medications Current Medications Medications Dose Ordered Sig/Mahogany Route Start Time Stop Time Status Last Admin Dose Admin Dextrose 50 ml UD PRN IV 08/16/24 16:45 Levalbuterol HCl 0.625 mg Q6HR NEB 08/16/24 18:00 08/29/24 18:34 0.625 MG Ipratropium [place] 0.5 mg Q6HWA NEB 08/16/24 18:00 08/29/24 18:34 0.5 MG Acetaminophen 650 mg Q6HP PRN PO 08/16/24 17:30 08/27/24 14:51 650 MG Amiodarone HCl 200 mg DAILY PO 08/17/24 10:00 08/29/24 09:16 200 MG Losartan Potassium 50 mg BID PO 08/21/24 22:00 08/29/24 09:19 50 MG Hydralazine HCl 10 mg Q6HP PRN IV 08/21/24 19:30 08/23/24 15:55 10 MG Insulin Human Regular Q6HR SC 08/23/24 12:00 08/29/24 11:44 3 UNITS Diagnostic Test (Pha) 1 strip Q6HR 08/23/24 12:00 08/29/24 11:22 1 STRIP Sodium Chloride 10 ml QSHIFT@10,22 IV 08/23/24 22:00 08/29/24 09:17 10 ML Furosemide 40 mg DAILY PO 08/25/24 10:00 08/29/24 09:20 40 MG Nifedipine 60 mg DAILY PO 08/26/24 10:00 08/29/24 09:18 60 MG Prednisone 30 mg DAILY PO 08/28/24 10:00 08/29/24 09:18 30 MG Pantoprazole Sodium 40 mg DAILY@0600 PO 08/29/24 06:00 08/29/24 05:54 40 MG Apixaban 5 mg BID PO 08/29/24 08:45 08/29/24 09:17 5 MG Examination Physical examination: General Appearance: Alert, Oriented X3, Cooperative, No acute distress, nasal canula 3L HEENT: Atraumatic, PERRLA, EOMI, Mucous membrane moist/pink Respiratory: Bilateral mild wheezing and crackles Cardiovascular: Regular rate, Normal S1, Normal S2, No murmurs, no chest wall tenderness Abdominal: Normal bowel sounds, Soft, No tenderness, No hepatospenomegaly, No masses Extremities: No clubbing, No cyanosis, No edema, Normal pulses, No tenderness/swelling Skin: No rashes, No breakdown, No significant lesion Neuro: Normal speech, Strength at 5/5 X4 ext, Normal tone, Sensation intact, Cranial nerves 3-12 NL, Reflexes 2+ Psych/Mental Status: Mental status NL, Mood NL laboratory and microbiology Laboratory Tests 08/29/24 06:58 Test 08/29/24 06:58 Range/Units Serum Glucose 208 H 74-106 mg/dL Microbiology Date/Time Source Procedure Growth Status 08/21/24 17:30 Urine - Alvarado Port Urine Culture - Final Yeast, not Myesha albicans Complete 08/21/24 15:55 Blood Blood Culture - Final NO GROWTH AFTER 5 DAYS OF INCUBATION. Complete 08/16/24 16:50 Nose MRSA Screen - Final Methicillin Resistant S.aureus Complete 08/16/24 12:57 Sputum Expectorated Sputum Gram Stain - Final Complete 08/16/24 12:57 Sputum Expectorated Sputum Respiratory Culture - Final Complete Labs and/or images reviewed: Labs reviewed by me, Image(s) reviewed by me Problem List/Assessment/Plan Problem List/Assessment/Plan Assessment and plan: NEURO: Acute hypercapnic encephalopathy S/P extubation CARDIOVASCULAR: Possible acute on chronic diastolic heart failure NSTEMI type 2 likely due to above Paroxysmal Atrial fibrillation with secondary hypercoagulable state Hypertensive emergency on admission - [id number] score 6 - Currently Patient is in sinus tachycardia - Continue Nifedipine ER 60 mg daily and losartan 50 mg b.i.d. - Echo showed lvef 55%, normal rv function and valves not well assessed - Mildly elevated BNP -CxR showed Multifocal consolidative opacities and Cardiomegaly. - Troponin trends are 336>801 - Resumed amiodarone 200 mg p.o. daily and Atorvastatin 10 mg at HS - Discontinued therapeutic Lovenox due to superficial bleeding from central line site - Monitor H&H PULMONARY: Acute hypoxic respiratory failure likely due to aspiration pneumonia Possible multifocal pneumonia S/P extubation History of DVT and PE, status post IVC filter in 2020 and was on Eliquis - CxR showed Multifocal consolidative opacities and Cardiomegaly. - CT chest revealed ground-glass and patchy opacities of bilateral lungs with left lower lobe consolidation which may represent multifocal pneumonia / pulmonary edema and suggested left lower lobe atelectasis with elevation of the left hemidiaphragm.Mediastinal lymphadenopathy which may be reactive/neoplastic. - Medneb with levalbuterol and ipratropium q.6 hours - New blood c/s showed no growth in 24 hours of incubation - IV methylprednisolone 20 mg bid. - Lasix 40 mg po daily - Discontinued IV meropenem on the basis of culture - IV vancomycin per pharmacy and IV fluconazole 200 mg daily. GASTROINTESTINAL: Hyperbilirubinemia and transaminitis likely due to sepsis Chronic vomiting and diarrhoea ,ruled out cholelithiasis Slow transit constipation, ruled out Ileus - U/S of abdomen showed echogenic liver possible hepatic steatosis/cirrhosis - CT abdomen pelvis revealed no acute intra-abdominal abnormality, moderate colonic diverticulosis and bibasilar atelectasis. - Plain xray abdomen ruled out Ileus. ENDOCRINE: Type 2 diabetes mellitus, HbA1C 7% - Mild sliding scale of insulin METABOLIC: Hypokalemia and hypomagnesemia Morbid obesity, BMI 57.2 kg/m2 Hypernatremia resolved HEME: Chronic Microcytic hypochromic anemia INFECTIOUS DISEASE: Sepsis likely due to aspiration pneumonia Leukocytosis and lactic acidosis likely due to sepsis Infectious vulvovaginitis - New blood c/s showed no growth in 24 hours of incubation - urinary culture showed >100,000 CFU/mL Yeast MUSCULOSKELETAL: Chronic back pain DIET: Consistent carbohydrate diet DVT prophylax: SCD GI prophylaxis: Protonix Bowel regimen: Lactulose Code status: Full code LINES/DRAINS/ACCESS: PICC line placed on 08/23/24 Extubated on 08/24/24 IV access: Alvarado catheter: placed on 08/16/24 PT Recommended SNF for rehabilitation Patient's status discussed with RN, Daughter advance care planning- full code- time spent 21 mins Case discussed with Dr. Allen Plan discussed with: Patient, Other (Daughter, RN) My Orders My Orders Orders - VERONICA QUINTERO Procedure Category Date Status Time Chest Portable XY 08/29/24 Resulted 08:40 Apixaban (Eliquis) PHA 08/29/24 In Process 08:45 * Swimming Coach CONS 08/29/24 Transmitted Consult Dietary Evaluation Review Comments: 1. TF Glucerna 1.2Cal @ 70ml/hr along with Pro-stat 1 pk daily. Start @ 20ml/hr, increase 10ml/hr until goal is reached. Water flush 50ml q6h if allowed. 2. TPN if NPO x 7 days 3. Monitor labs, NPO status, BW, skin integrity, and I/O Expected Outcomes/Goals: To meet at least 75% of estimated needs within 7 days Fu 2-3 days Date of Service: August 29, 2024 Billing Provider: TORRES ALLEN MD Common Visit Codes: [id number] INP/OBS CARE(HIGH) Secondary Visit Codes: [id number] CARE PLAN 30 MINUTES VERONICA QUINTERO August 29, 2024 20:28 TORRES ALLEN MD August 30, 2024 16:23
[2024-08-30] VITALS (14 sets, daily range): BP systolic 116–130; BP diastolic 64–75; PULSE 76–100; RESP 16–18; TEMP 96.3–97.7; O2SAT 94–100
[2024-08-30 07:15] LABS: Basophils # (auto) 0 10 ^3/uL (0-0.2); Eosinophils # (auto) 0 10 ^3/uL (0-0.8); Hemoglobin 11.2 g/dL (12.2-16.2); Lymphocytes # (auto) 1.5 10 ^3/uL (0.4-5.4)
[2024-08-30 07:17] LABS: Basophils % (auto) 0.1 % (0.0-2.0); Eosinophils % (auto) 0.3 % (0.0-7.0); Hematocrit 34.3 % (36.0-46.0); Mean Corpuscular Hemoglobin 25.6 pg (28.0-32.0); Mean Corpuscular Hgb Conc. 32.7 g/dL (32.0-36.0); Mean Corpuscular Volume 78.4 fL (80.0-100.0); Monocytes # (auto) 1.6 10 ^3/uL (0-1.3); Monocytes % (auto) 11.6 % (0.0-12.0); Neutrophils # (auto) 10.7 10 ^3/uL (1.6-8.6); Platelet Count (auto) 212 10^3/uL (140-450); Red Blood Cells 4.37 10^6/uL (4.0-5.20); Red Cell Distribution Width 19.2 % (11.8-14.3); White Blood Cell 13.9 10^3/uL (4.4-10.8)
[2024-08-30 07:20] LABS: Chloride 101 mmol/L (98-107); Potassium 3.9 mmol/L (3.5-5.1)
[2024-08-30 07:21] LABS: Anion Gap 8 (5-15); Calcium 9.4 mg/dL (8.7-10.4); Carbon Dioxide 27 mmol/L (20-31)
[2024-08-30 07:26] LABS: BUN/Creatinine Ratio 27.4 (10.0-20.0)
[2024-08-30 07:29] LABS: Blood Urea Nitrogen 32 mg/dL (9-23); Glucose 209 mg/dL (74-106); Sodium 136 mmol/L (136-145)
[2024-08-30] MEDS: INSULIN LANTUS (GLARGINE) 1 /0.01ml (100units/ml) SC SCH ×2 (09:30→23:31)
[2024-08-30] MEDS: InsuLIN REG 1unit/0.01ml Soln (100units/ml) SC SCH (13:30)
--- NOTE | 2024-08-30 19:52 | DVHPNRES ---
Progress Note Date Seen: August 30, 2024 Resident Creating Document: VERONICA QUINTERO RESIDENT Medical Necessity Reason Pt with a Central, PICC or Fol: Yes The following are medically ne: Central Line, Alvarado Catheter Reason for alvarado catheter: Strict I&O Subjective Review of Systems This is a 64-year-old female with past medical history of COPD on home oxygen, asthma ,TRENT, hypertension, DVT, PE, atrial fibrillation , chronic back pain, questionable heart failure, type 2 diabetes mellitus presented to the ED via EMS with chief complaint of ALOC and SOB. the daughter she went to the building maintenance mechanic yesterday and building maintenance mechanic mentioned that the patient blood pressure is uncontrolled and fluid overload and prescribed new antihypertensive with Bumex and later patient woke up middle of the night with gurgling and again went back to sleep. EMS reports that the patient was last seen well at 7am with patient complaining of some SOB, but went back to sleep. EMS relays that the patient was found by family 30 minutes ago gurgling in her sleep and unable to respond. EMS states that the patient is not able to move or answer questions, only opening her eyes to painful stimuli. EMS notes patient was at 64% O2 saturation on RA, but went up to 94% on 15L continuous. EMS reports that the patient's BP was 207/102, HR 129, and patient was given Nitroglycerin on route to the ED. Patient unable to answer any questions at this time due to her altered status. Patient underwent endotracheal intubation and started on mechanical ventilation to protect the airway. PMH: COPD on home oxygen, asthma , TRENT, hypertension, DVT, PE, atrial fibrillation , chronic back pain, questionable heart failure, type 2 diabetes mellitus PSH: Hysterectomy, status post IVC filter in 2020 and cataract surgery. Family history: Significant for heart disease, chronic kidney disease. Home medications: Acetaminophen 325 mg daily, amiodarone 200 mg daily, albuterol sulfate, amitriptyline 10 mg at HS, amlodipine 5 mg daily, Eliquis 5 mg b.i.d., atorvastatin 10 mg at HS, diclofenac sodium 1% gel topical TID, Colace 100 mg b.i.d., glipizide 10 mg q.i.d., ibuprofen 600 mg p.o. daily, losartan potassium 50 mg b.i.d., methocarbamol 500 mg p.o., Medrol Dosepak, metoprolol tartrate 25 mg b.i.d., Percocet 5/325 mg b.i.d., pregabalin 25 mg 1-2 capsules p.o. b.i.d., tizanidine hydrochloride 4 mg at q.p.m. Patient was seen and examined on the bedside. S/P extubation and currently patient is on nasal cannula 3L. She is now on consistent carbohydrate diet, PT recommended SNF for rehabilitation. Objective vital signs Vital Sign Date Time Temp Pulse Resp B/P (MAP) Pulse Ox O2 Delivery O2 Flow Rate FiO2 08/30/24 18:54 88 18 100 08/30/24 18:48 Nasal Cannula 2.0 08/30/24 18:48 28 08/30/24 12:10 97.7 129/73 (91) 97.7 medications Current Medications Medications Dose Ordered Sig/Mahogany Route Start Time Stop Time Status Last Admin Dose Admin Dextrose 50 ml UD PRN IV 08/16/24 16:45 Levalbuterol HCl 0.625 mg Q6HR NEB 08/16/24 18:00 08/30/24 18:48 0.625 MG Ipratropium [place] 0.5 mg Q6HWA NEB 08/16/24 18:00 08/30/24 18:48 0.5 MG Acetaminophen 650 mg Q6HP PRN PO 08/16/24 17:30 08/27/24 14:51 650 MG Amiodarone HCl 200 mg DAILY PO 08/17/24 10:00 08/30/24 11:06 200 MG Losartan Potassium 50 mg BID PO 08/21/24 22:00 08/30/24 11:05 50 MG Hydralazine HCl 10 mg Q6HP PRN IV 08/21/24 19:30 08/23/24 15:55 10 MG Diagnostic Test (Pha) 1 strip Q6HR 08/23/24 12:00 08/30/24 18:05 1 STRIP Sodium Chloride 10 ml QSHIFT@ IV 08/23/24 22:00 08/30/24 11:03 10 ML Furosemide 40 mg DAILY PO 08/25/24 10:00 08/30/24 11:10 40 MG Nifedipine 60 mg DAILY PO 08/26/24 10:00 08/30/24 11:05 60 MG Prednisone 30 mg DAILY PO 08/28/24 10:00 08/30/24 11:04 30 MG Pantoprazole Sodium 40 mg DAILY@0600 PO 08/29/24 06:00 08/30/24 05:20 40 MG Apixaban 5 mg BID PO 08/29/24 08:45 Hold 08/29/24 21:30 5 MG Insulin Glargine 10 units HS SC 08/30/24 22:00 Insulin Human Regular ACHS SC 08/30/24 11:30 08/30/24 18:11 8 UNITS Examination Physical examination: General Appearance: Alert, Oriented X3, Cooperative, No acute distress, nasal canula 3L HEENT: Atraumatic, PERRLA, EOMI, Mucous membrane moist/pink Respiratory: Bilateral mild wheezing and crackles Cardiovascular: Regular rate, Normal S1, Normal S2, No murmurs, no chest wall tenderness Abdominal: Normal bowel sounds, Soft, No tenderness, No hepatospenomegaly, No masses Extremities: No clubbing, No cyanosis, No edema, Normal pulses, No tenderness/swelling Skin: No rashes, No breakdown, No significant lesion Neuro: Normal speech, Strength at 5/5 X4 ext, Normal tone, Sensation intact, Cranial nerves 3-12 NL, Reflexes 2+ Psych/Mental Status: Mental status NL, Mood NL laboratory and microbiology Laboratory Tests 08/30/24 06:35 Test 08/30/24 06:35 Range/Units Serum Glucose 209 H 74-106 mg/dL Microbiology Date/Time Source Procedure Growth Status 08/21/24 17:30 Urine - Alvarado [place] Urine Culture - Final Yeast, not Myesha albicans Complete 08/21/24 15:55 Blood Blood Culture - Final NO GROWTH AFTER 5 DAYS OF INCUBATION. Complete 08/16/24 16:50 Nose MRSA Screen - Final Methicillin Resistant S.aureus Complete 08/16/24 12:57 Sputum Expectorated Sputum Gram Stain - Final Complete 08/16/24 12:57 Sputum Expectorated Sputum Respiratory Culture - Final Complete Labs and/or images reviewed: Labs reviewed by me, Image(s) reviewed by me Problem List/Assessment/Plan Problem List/Assessment/Plan Assessment and plan: NEURO: Acute hypercapnic encephalopathy S/P extubation CARDIOVASCULAR: Possible acute on chronic diastolic heart failure NSTEMI type 2 likely due to above Paroxysmal Atrial fibrillation with secondary hypercoagulable state Hypertensive emergency on admission - [id number] score 6 - Currently Patient is in sinus tachycardia - Continue Nifedipine ER 60 mg daily and losartan 50 mg b.i.d. - Echo showed lvef 55%, normal rv function and valves not well assessed - Mildly elevated BNP -CxR showed Multifocal consolidative opacities and Cardiomegaly. - Troponin trends are 336>801 - Resumed amiodarone 200 mg p.o. daily and Atorvastatin 10 mg at HS - Discontinued therapeutic Lovenox due to superficial bleeding from central line site - Monitor H&H PULMONARY: Acute hypoxic respiratory failure likely due to aspiration pneumonia Possible multifocal pneumonia S/P extubation History of DVT and PE, status post IVC filter in 2020 and was on Eliquis - CxR showed Multifocal consolidative opacities and Cardiomegaly. - CT chest revealed ground-glass and patchy opacities of bilateral lungs with left lower lobe consolidation which may represent multifocal pneumonia / pulmonary edema and suggested left lower lobe atelectasis with elevation of the left hemidiaphragm.Mediastinal lymphadenopathy which may be reactive/neoplastic. - Medneb with levalbuterol and ipratropium q.6 hours - New blood c/s showed no growth in 24 hours of incubation - IV methylprednisolone 20 mg bid. - Lasix 40 mg po daily - Discontinued IV meropenem on the basis of culture - IV vancomycin per pharmacy and IV fluconazole 200 mg daily. GASTROINTESTINAL: Hyperbilirubinemia and transaminitis likely due to sepsis Chronic vomiting and diarrhoea ,ruled out cholelithiasis Slow transit constipation, ruled out Ileus - U/S of abdomen showed echogenic liver possible hepatic steatosis/cirrhosis - CT abdomen pelvis revealed no acute intra-abdominal abnormality, moderate colonic diverticulosis and bibasilar atelectasis. - Plain xray abdomen ruled out Ileus. ENDOCRINE: Type 2 diabetes mellitus, HbA1C 7% - Mild sliding scale of insulin METABOLIC: Hypokalemia and hypomagnesemia Morbid obesity, BMI 57.2 kg/m2 Hypernatremia resolved HEME: Chronic Microcytic hypochromic anemia INFECTIOUS DISEASE: Sepsis likely due to aspiration pneumonia Leukocytosis and lactic acidosis likely due to sepsis Infectious vulvovaginitis - New blood c/s showed no growth in 24 hours of incubation - urinary culture showed >100,000 CFU/mL Yeast MUSCULOSKELETAL: Chronic back pain DIET: Consistent carbohydrate diet DVT prophylax: SCD GI prophylaxis: Protonix Bowel regimen: Lactulose Code status: Full code LINES/DRAINS/ACCESS: PICC line placed on 08/23/24 Extubated on 08/24/24 IV access: Alvarado catheter: placed on 08/16/24 PT Recommended SNF for rehabilitation Patient's status discussed with RN, Daughter Case discussed with Dr. Allen Plan discussed with: Patient, Other My Orders My Orders Orders - VERONICA QUINTERO Procedure Category Date Status Time Insulin Lantus PHA 08/30/24 In Process (Glargine) (Lantus) 22:00 Insulin R (Human) PHA 08/30/24 In Process (Insulin R) 11:30 Discontinue Alvarado NICKI 08/30/24 In Process Catheter 11:37 Discontinue Tele NICKI 08/30/24 In Process 19:27 Transfer Orders XFER 08/30/24 Transmitted 19:27 Dietary Evaluation Review Comments: 1. TF Glucerna 1.2Cal @ 70ml/hr along with Pro-stat 1 pk daily. Start @ 20ml/hr, increase 10ml/hr until goal is reached. Water flush 50ml q6h if allowed. 2. TPN if NPO x 7 days 3. Monitor labs, NPO status, BW, skin integrity, and I/O Expected Outcomes/Goals: To meet at least 75% of estimated needs within 7 days Fu 2-3 days Date of Service: August 30, 2024 Billing Provider: TORRES ALLEN MD Common Visit Codes: [id number] INP/OBS CARE(HIGH) VERONICA QUINTERO RESIDENT August 30, 2024 19:52 TORRES ALLEN MD August 31, 2024 12:29
[2024-08-31] VITALS (16 sets, daily range): BP systolic 114–138; BP diastolic 67–74; PULSE 70–90; RESP 17–20; TEMP 81.7–97.9; O2SAT 91–100
[2024-08-31 06:27] LABS: Anion Gap 9 (5-15); Calcium 9.1 mg/dL (8.7-10.4); Carbon Dioxide 28 mmol/L (20-31); Potassium 4.3 mmol/L (3.5-5.1)
[2024-08-31 06:31] LABS: Basophils # (auto) 0 10 ^3/uL (0-0.2); Eosinophils # (auto) 0 10 ^3/uL (0-0.8); Monocytes # (auto) 1.3 10 ^3/uL (0-1.3); Nucleated Red Blood Cells % 0.1 %
[2024-08-31 06:33] LABS: BUN/Creatinine Ratio 29.5 (10.0-20.0)
[2024-08-31 06:35] LABS: Basophils % (auto) 0.2 % (0.0-2.0); Blood Urea Nitrogen 36 mg/dL (9-23); Chloride 97 mmol/L (98-107); Eosinophils % (auto) 0.1 % (0.0-7.0); Glucose 273 mg/dL (74-106); Hemoglobin 11.9 g/dL (12.2-16.2); Lymphocytes % (auto) 8.2 % (10.0-50.0); Mean Corpuscular Hemoglobin 25.9 pg (28.0-32.0); Mean Corpuscular Volume 78.6 fL (80.0-100.0); Monocytes % (auto) 10.5 % (0.0-12.0); Neutrophils # (auto) 10.2 10 ^3/uL (1.6-8.6); Platelet Count (auto) 213 10^3/uL (140-450); Red Blood Cells 4.58 10^6/uL (4.0-5.20); Red Cell Distribution Width 19.2 % (11.8-14.3); Sodium 134 mmol/L (136-145); White Blood Cell 12.6 10^3/uL (4.4-10.8)
[2024-08-31] MEDS: FUROSEMIDE 40 MG TAB PO SCH (17:03)
[2024-08-31] MEDS: predniSONE 20 MG TAB PO SCH (17:04)
--- NOTE | 2024-08-31 18:45 | DVHDSRES ---
Discharge Summary Date of Admission Resident Creating Document: VERONICA QUINTERO RESIDENT August 16, 2024 at 16:03 Date of Discharge: August 31, 2024 Admitting Diagnosis Acute hypercapnic encephalopathy Wounds: No open wound was present Labs/Diagnostic Data: Laboratory Results Test 08/31/24 16:17 08/31/24 05:16 08/29/24 10:55 08/28/24 08:20 POC Glucose 288 mg/dl (70-106) White Blood Count 12.6 10^3/uL (4.4-10.8) Red Blood Count 4.58 10^6/uL (4.0-5.20) Hemoglobin 11.9 g/dL (12.2-16.2) Hematocrit 36.0 % (36.0-46.0) Mean Corpuscular Volume 78.6 fL (80.0-100.0) Mean Corpuscular Hemoglobin 25.9 pg (28.0-32.0) Mean Corpuscular Hemoglobin Concent 33.0 g/dL (32.0-36.0) Red Cell Distribution Width 19.2 % (11.8-14.3) Platelet Count 213 10^3/uL (140-450) Mean Platelet Volume 8.6 fL (6.9-10.8) Neutrophils (%) (Auto) 81.0 % (37.0-80.0) Lymphocytes (%) (Auto) 8.2 % (10.0-50.0) Monocytes (%) (Auto) 10.5 % (0.0-12.0) Eosinophils (%) (Auto) 0.1 % (0.0-7.0) Basophils (%) (Auto) 0.2 % (0.0-2.0) Neutrophils # (Auto) 10.2 10 ^3/uL (1.6-8.6) Lymphocytes # (Auto) 1.0 10 ^3/uL (0.4-5.4) Monocytes # (Auto) 1.3 10 ^3/uL (0-1.3) Eosinophils # (Auto) 0 10 ^3/uL (0-0.8) Basophils # (Auto) 0 10 ^3/uL (0-0.2) Nucleated Red Blood Cells 0.1 % Sodium Level 134 mmol/L (136-145) Potassium Level 4.3 mmol/L (3.5-5.1) Chloride Level 97 mmol/L (98-107) Carbon Dioxide Level 28 mmol/L (20-31) Anion Gap 9 (5-15) Blood Urea Nitrogen 36 mg/dL (9-23) Creatinine 1.22 mg/dL (0.550-1.02) Glomerular Filtration Rate Calc 50 mL/min (>90) BUN/Creatinine Ratio 29.5 (10.0-20.0) Serum Glucose 273 mg/dL (74-106) Calcium Level 9.1 mg/dL (8.7-10.4) Vancomycin Level Trough 35.3 ug/mL (5-10) Platelet Estimate Adequate Clumped Platelets Few Large Platelets Few Test 08/27/24 07:48 08/24/24 11:57 08/24/24 07:04 08/24/24 03:20 Magnesium Level 2.2 mg/dL (1.6-2.6) Total Bilirubin 0.7 mg/dL (0.2-1.0) Aspartate Amino Transferase (AST) < 8 U/L (13-40) Alanine Aminotransferase (ALT) 15 U/L (7-40) Alkaline Phosphatase 62 U/L (46-116) Total Protein 6.3 g/dL (5.7-8.2) Albumin 3.9 g/dL (3.2-4.8) Blood Gas Specimen Type Arterial Blood Gas Sample Site Right radial Blood Gas Patient Temperature 37.0 Arterial Blood Date Drawn [id number] Arterial Blood pH 7.512 (7.350-7.450) Arterial Blood Partial Pressure CO2 41.1 mmHg (32.0-45.0) Arterial Blood Partial Pressure O2 74.7 mmHg (83.0-108.0) Arterial Blood HCO3 32.2 mmol/L (21.0-28.0) Arterial Blood Oxygen Saturation 93.9 % (94.0-98.0) Arterial Blood Base Excess 8.5 mmol/L (-2.0-3.0) Arterial Blood Oxyhemoglobin 93.1 % (94.0-98.0) Arterial Blood Carboxyhemoglobin 0.3 % (0.5-1.5) Arterial Blood Methemoglobin 0.5 % (0.0-1.5) Nathan Test Modified Blood Gas Total Hemoglobin 11.90 g/dL (12.0-16.0) Blood Gas Modality Vent - cpap Blood Gas Spontaneous Rate 20 FiO2 % 30.0 Blood Gas Spontaneous Tidal Volume 415 Blood Gas Pressure Support 8 Blood Gas PEEP or CPAP 5.0 Blood Gas Set Respiration Rate 16.0 Blood Gas Tidal Volume 500.0 Differential Total Cells Counted 100.0 (100) Neutrophils % (Manual) 86 (37.0-80.0) Band Neutrophils % (Manual) 2 Lymphocytes % (Manual) 8 (10.0-50.0) Monocytes % (Manual) 3 (0-12) Eosinophils % (Manual) 0 (0-7) Basophils % (Manual) 0 (0.0-2.0) Metamyelocytes % (manual) 0 Myelocytes % (Manual) 0 Promyelocytes % (Manual) 1 Blast Cells % (Manual) 0 Reactive Lymphocytes 0 Microcytosis Slight Test 08/22/24 15:27 08/22/24 10:44 08/22/24 07:36 08/18/24 03:00 Prothrombin Time 10.9 sec (9.3-11.8) Prothrombin Time INR 1.03 (0.9-1.15) Activated Partial Thromboplast Time 24.1 SEC (24.5-34.5) Random Vancomycin Level 17.1 ug/mL (5-10) Specimen Drawn By Kalyani buttermaker Lactic Acid Level 1.1 mmol/L (0.4-2.0) Test 08/17/24 03:15 08/16/24 18:00 08/16/24 17:02 08/16/24 12:58 Giant Platelets Few Phosphorus Level 3.2 mg/dL (2.4-5.1) Influenza Type A Antigen Negative (Negative) Influenza Type B Antigen Negative (Negative) SARS-CoV-2 Antigen (Rapid) Negative (NEGATIVE) D-Dimer, Quantitative 4.78 mg/L FEU (0.0-0.49) Ammonia < 10 umol/L (11-32) Troponin I High Sensitivity 1404 ng/L (</=34) Triglycerides Level 141 mg/dL (< 150) Cholesterol Level 126 mg/dL (< 200) LDL Cholesterol 50 mg/dL (< 100) HDL Cholesterol 53 mg/dL (40-59) Lipase 26 U/L (12-53) Hemoglobin A1c 7.0 % A1C (<5.7) B-Type Natriuretic Peptide 280.79 pg/mL (0-100) Vitamin B12 Level 351 pg/mL (211-911) Vitamin D 25-Hydroxy 40.5 ng/mL (30.0-100) Thyroid Stimulating Hormone (TSH) 2.42 uIU/mL (0.55-4.78) Test 08/16/24 12:57 Urine Color Colorless (Yellow) Urine Clarity Clear (Clear) Urine pH 7.0 (5.0-9.0) Urine Specific [place] 1.007 (1.001-1.035) Urine Protein Negative (Negative) Urine Ketones Trace (Negative) Urine Blood Negative /uL (Negative) Urine Nitrite Negative (Negative) Urine Bilirubin Negative (Negative) Urine Urobilinogen Normal mg/dL (Negative) Urine Leukocyte Esterase Negative /uL (Negative) Urine RBC 1 /hpf (0 - 4) Urine Microscopic WBC 1 /HPF (0-5) Urine Squamous Epithelial Cells None seen /hpf (<5) Urine Bacteria None seen /hpf (None Seen) Urine Glucose Normal mg/dL (Normal) Urine Opiates Screen Neg (NEGATIVE) Urine Fentanyl Screen Neg (NEGATIVE) Urine Barbiturates Screen Neg (NEGATIVE) Urine Phencyclidine Screen Neg (NEGATIVE) Urine Amphetamines Screen Neg (NEGATIVE) Urine Benzodiazepines Screen Neg (NEGATIVE) Urine Cocaine Screen Neg (NEGATIVE) Urine Cannabinoids Screen Neg (NEGATIVE) Other Laboratory Tests 08/31/24 05:16 Brief Hx & Hospital Course: This is a 64-year-old female with past medical history of COPD on home oxygen, asthma ,TRENT, hypertension, DVT, PE, atrial fibrillation , chronic back pain, questionable heart failure, type 2 diabetes mellitus presented to the ED via EMS with chief complaint of ALOC and SOB. the daughter she went to the dressmaking teacher yesterday and dressmaking teacher mentioned that the patient blood pressure is uncontrolled and fluid overload and prescribed new antihypertensive with Bumex and later patient woke up middle of the night with gurgling and again went back to sleep. EMS reports that the patient was last seen well at 7am with patient complaining of some SOB, but went back to sleep. EMS relays that the patient was found by family 30 minutes ago gurgling in her sleep and unable to respond. EMS states that the patient is not able to move or answer questions, only opening her eyes to painful stimuli. EMS notes patient was at 64% O2 saturation on RA, but went up to 94% on 15L continuous. EMS reports that the patient's BP was 207/102, HR 129, and patient was given Nitroglycerin on route to the ED. Patient unable to answer any questions at this time due to her altered status. Patient underwent endotracheal intubation and started on mechanical ventilation to protect the airway. PMH: COPD on home oxygen, asthma , TRENT, hypertension, DVT, PE, atrial fibrillation , chronic back pain, questionable heart failure, type 2 diabetes mellitus PSH: Hysterectomy, status post IVC filter in 2020 and cataract surgery. Family history: Significant for heart disease, chronic kidney disease. Home medications: Acetaminophen 325 mg daily, amiodarone 200 mg daily, albuterol sulfate, amitriptyline 10 mg at HS, amlodipine 5 mg daily, Eliquis 5 mg b.i.d., atorvastatin 10 mg at HS, diclofenac sodium 1% gel topical TID, Colace 100 mg b.i.d., glipizide 10 mg q.i.d., ibuprofen 600 mg p.o. daily, losartan potassium 50 mg b.i.d., methocarbamol 500 mg p.o., Medrol Dosepak, metoprolol tartrate 25 mg b.i.d., Percocet 5/325 mg b.i.d., pregabalin 25 mg 1-2 capsules p.o. b.i.d., tizanidine hydrochloride 4 mg at q.p.m. Hospital course: Initially patient was presented with acute hypercapnic encephalopathy and underwent emergency endotracheal intubation. Patient was treated for sepsis Likely due to possible aspiration pneumonia.CxR showed Multifocal consolidative opacities and Cardiomegaly.CT chest revealed ground- glass and patchy opacities of bilateral lungs with left lower lobe consolidation which may represent multifocal pneumonia / pulmonary edema and suggested left lower lobe atelectasis with elevation of the left hemidiaphragm.Mediastinal lymphadenopathy which may be reactive/neoplastic.Echo showed lvef 55%, normal rv function and valves not well assessed. blood culture was positive for Streptococcus agalactiae, MRSA nose was positive and urine culture was positive for yeast. follow up blood culture showed no growth in 24 hours of incubation. Patient was treated with IV vancomycin as per pharmacy, IV meropenem 1 g Q 8 hours, IV fluconazole 200 mg daily, Solu-Medrol 20 mg IV b.i.d. was controlled with nifedipine ER 60 mg daily and losartan 50 mg bid and blood sugar was maintained with Lantus 15 units at H HS and mild sliding scale of insulin. Blood thinner was hold because patient developed superficial skin bleeding . Patient was extubated on 08/24/2024 and post extubation period was uneventful. Patient was saturating 96% with nasal cannula 3 L. PT recommended SNF for rehabilitation and drug abuse social worker was consulted for arranging SNF placement. Patient is being discharged to SNF today. Physical examination: General Appearance: Alert, Oriented X3, Cooperative, No acute distress, nasal canula 3L HEENT: Atraumatic, PERRLA, EOMI, Mucous membrane moist/pink Respiratory: Bilateral mild wheezing and crackles Cardiovascular: Regular rate, Normal S1, Normal S2, No murmurs, no chest wall tenderness Abdominal: Normal bowel sounds, Soft, No tenderness, No hepatosplenomegaly, No masses Extremities: No clubbing, No cyanosis, No edema, Normal pulses, No tenderness/swelling Skin: No rashes, No breakdown, No significant lesion Neuro: Normal speech, Strength at 5/5 X4 ext., Normal tone, Sensation intact, Cranial nerves 3-12 NL, Reflexes 2+ Psych/Mental Status: Mental status NL, Mood NL Diagnosis: Acute hypercapnic encephalopathy Possible acute on chronic diastolic heart failure NSTEMI type 2 likely due to above Paroxysmal Atrial fibrillation with secondary hypercoagulable state Hypertensive emergency on admission Acute hypoxic respiratory failure likely due to aspiration pneumonia Possible multifocal pneumonia Sepsis likely due to aspiration pneumonia Leukocytosis and lactic acidosis likely due to sepsis History of DVT and PE, status post IVC filter in 2020 and was on Eliquis Hyperbilirubinemia and transaminitis likely due to sepsis Chronic vomiting and diarrhea ,ruled out cholelithiasis Slow transit constipation, ruled out Ileus Type 2 diabetes mellitus, HbA1C 7% Hypokalemia and hypomagnesemia Morbid obesity, BMI 57.2 kg/m2 Hypernatremia resolved Chronic Microcytic hypochromic anemia Infectious vulvovaginitis Chronic back pain time spent in discharge planning was 42 mins Consults/Reason for consult No consultation was done Operations or Procedures EXAM: XY CHEST XRAY 1 VIEW Indication: INTUBATION AND CENTRAL LINE PLACEMENT FINDINGS: Lines and Tubes: Endotracheal tube projects 1 cm above level the karissa. Recommend retraction. Enteric tube tip projects over the expected region of the stomach. Right internal jugular central venous catheter tip projects over the superior vena cava. Lungs: Multifocal consolidative opacities. Pleura: No effusion. No pneumothorax. Cardiomediastinal contours: Cardiomegaly. Bones: No acute osseous abnormality. IMPRESSION: Multifocal consolidative opacities. Cardiomegaly. Procedure: CT CHEST WITHOUT CONTRAST history: R/O PNEUMONIA Findings: Mild prominence of the right thyroid lobe. Otherwise, the thyroid gland is unremarkable. The endotracheal tube extends into the right mainstem bronchus. Recommend pulling back about 3 cm for more optimal positioning. Enteric tube is in satisfactory position. Mild cardiomegaly. No evidence of aortic aneurysm. Pulmonary trunk is normal in size. Trace pericardial effusion. Mediastinal lymphadenopathy measuring up to 1.7 cm. Ground-glass patchy opacities of bilateral lungs with ground-glass and patchy opacities of the left upper lobe and left lower lobe consolidation. There is elevation of the left hemidiaphragm. No pneumothorax or pleural effusion. Mild gastric wall thickening. Otherwise, Partial view of the upper abdomen is unremarkable. Soft tissues are unremarkable. No destructive osseous lesions are noted. Impression: Malpositioned endotracheal tube within the right mainstem bronchus. Recommend pulling back about 3 cm. Enteric tube is in satisfactory position. Ground-glass and patchy opacities of bilateral lungs with left lower lobe consolidation which may represent multifocal pneumonia / pulmonary edema and suggested left lower lobe atelectasis with elevation of the left hemidiaphragm. Mediastinal lymphadenopathy which may be reactive/neoplastic. Critical Result: Malpositioned ET tube Findings discussed with ANTONIETTA LARA at 08/16/2024 05:04 PM, and acknowledged receipt and understanding of the findings. BILATERAL LOWER EXTREMITY VENOUS DOPPLER ULTRASOUND CLINICAL HISTORY: To rule out DVT FINDINGS: Right common femoral vein: Negative. Right greater saphenous vein: Negative. Right deep femoral vein: Negative. Right femoral vein: Negative. Right popliteal vein: Negative. Left common femoral vein: Negative. Left greater saphenous vein: Negative. Left deep femoral vein: Negative. Left femoral vein: Negative. Left popliteal vein: Negative. Other: Visualized bilateral popliteal bifurcation and posterior tibial veins demonstrate color flow. IMPRESSION: No sonographic evidence of deep venous thrombosis in either lower extremity at this time. CT CT AB PEL WO CON-NO ORAL OR IV INDICATION: N/V/D FINDINGS: LUNG BASE: Bibasilar consolidation. LIVER: Normal. GALLBLADDER AND BILIARY TREE: No calcified gallstones. Normal caliber wall. No intra- or extrahepatic biliary ductal dilation. PANCREAS: Normal. SPLEEN: Normal. BOWEL: Moderate colonic diverticulosis. Normal appendix. ADRENALS: Normal. KIDNEYS AND URETER: Normal. BLADDER: Gray. REPRODUCTIVE ORGANS: Absent. LYMPH NODES:No lymphadenopathy. PERITONEUM: No ascites or free air. No other fluid collection. VESSELS: Scattered atherosclerotic calcifications are noted. IVC filter is seen. RETROPERITONEUM: Normal. ABDOMINAL WALL: Normal. BONES: Scattered osseous degenerative changes are noted. IMPRESSION: No acute intraabdominal abnormality. Moderate colonic diverticulosis. Normal appendix. Bibasilar consolidation. EXAM: CT HEAD WITHOUT CONTRAST INDICATION: Unresponsiveness with no sedation EXAM DATE: 08/23/2024 04:14 PM COMPARISON: CT HEAD WITHOUT CONTRAST on DOS: 08/16/24, CT HEAD WITHOUT CONTRAST on DOS: 11/02/22 FINDINGS: There is no evidence of acute intracranial hemorrhage, extra-axial collection, mass effect, midline shift, herniation or hydrocephalus. The ventricles, sulci and cisterns are age appropriate. The elizabeth-white differentiation is intact. The visualized paranasal sinuses and mastoid air cells are clear. The surrounding soft tissues and osseous structures are unremarkable. Patient's head is deviating towards the right side IMPRESSION: 1. No evidence of acute intracranial hemorrhage, mass effect or hydrocephalus. Condition at Discharge: Guarded Final Diagnosis/Problems List Acute hypercapnic encephalopathy Possible acute on chronic diastolic heart failure NSTEMI type 2 likely due to above Paroxysmal Atrial fibrillation with secondary hypercoagulable state Hypertensive emergency on admission Acute hypoxic respiratory failure likely due to aspiration pneumonia Possible multifocal pneumonia Sepsis likely due to aspiration pneumonia Leukocytosis and lactic acidosis likely due to sepsis History of DVT and PE, status post IVC filter in 2020 and was on Eliquis Hyperbilirubinemia and transaminitis likely due to sepsis Chronic vomiting and diarrhea ,ruled out cholelithiasis Slow transit constipation, ruled out Ileus Type 2 diabetes mellitus, HbA1C 7% Hypokalemia and hypomagnesemia Morbid obesity, BMI 57.2 kg/m2 Hypernatremia resolved Chronic Microcytic hypochromic anemia Infectious vulvovaginitis Chronic back pain Discharge Disposition: Shelter Facility Discharge Instruct/Medications Diet: Consistent carbohydrate, Cardiac 2g Na,low cholest Activity: No Restrictions, As Tolerated Follow Up/Referral: Follow up with PCP in 1 week. Medications: As per EMR Discharge Statement: "Patient was advised to return to the ER or call 911 if any headaches, dizziness, shortness of breath, chest pain, abdominal pain, bleeding, fevers, or worsening of medical condition. Patient was counseled about treatment plan, medications, possible side effects, patientverbalized understanding. All questions were answered to the best of my ability. This discharge took greater then 30 minutes in planning, reviewing documentation, counseling the patient, and discussing with other team members." ASSESSMENT ASSESSMENT Assessment Acute Metabolic encephalopathy secondary to acute hypercapnic respiratory failure Date of Service: August 31, 2024 Billing Provider: TORRES ALLEN MD Common Visit Codes: 88169-AHB/OBS DISCH DAY >30min VERONICA QUINTERO RESIDENT August 31, 2024 18:45 TORRES ALLEN MD Sep 03, 2024 11:31
[2024-09-01] VITALS (16 sets, daily range): BP systolic 103–136; BP diastolic 63–81; PULSE 73–89; RESP 16–20; TEMP 97.6–98.5; O2SAT 94–100
[2024-09-01 07:42] LABS: Basophils # (auto) 0 10 ^3/uL (0-0.2); Basophils % (auto) 0.1 % (0.0-2.0); Eosinophils # (auto) 0 10 ^3/uL (0-0.8); Hemoglobin 11.4 g/dL (12.2-16.2); Lymphocytes # (auto) 0.9 10 ^3/uL (0.4-5.4); White Blood Cell 10.7 10^3/uL (4.4-10.8)
[2024-09-01 07:45] LABS: Hematocrit 34.1 % (36.0-46.0); Mean Corpuscular Hgb Conc. 33.5 g/dL (32.0-36.0); Mean Corpuscular Volume 77.7 fL (80.0-100.0); Monocytes # (auto) 1.1 10 ^3/uL (0-1.3); Monocytes % (auto) 10.2 % (0.0-12.0); Neutrophils # (auto) 8.7 10 ^3/uL (1.6-8.6); Neutrophils % (auto) 81.7 % (37.0-80.0); Platelet Count (auto) 214 10^3/uL (140-450); Red Blood Cells 4.39 10^6/uL (4.0-5.20); Red Cell Distribution Width 19.7 % (11.8-14.3)
[2024-09-01 07:51] LABS: Anion Gap 7 (5-15); Carbon Dioxide 28 mmol/L (20-31); Chloride 103 mmol/L (98-107); Potassium 4.6 mmol/L (3.5-5.1); Sodium 138 mmol/L (136-145)
[2024-09-01 07:57] LABS: BUN/Creatinine Ratio 31.7 (10.0-20.0)
[2024-09-01 07:58] LABS: Blood Urea Nitrogen 38 mg/dL (9-23); Glucose 232 mg/dL (74-106)
--- NOTE | 2024-09-01 17:27 | DVHPNRES ---
Progress Note Date Seen: September 01, 2024 Resident Creating Document: VERONICA QUINTERO RESIDENT Medical Necessity Reason Pt with a Central, PICC or Fol: Yes The following are medically ne: Central Line, Alvarado Catheter Reason for alvarado catheter: Strict I&O Subjective Review of Systems This is a 64-year-old female with past medical history of COPD on home oxygen, asthma ,TRENT, hypertension, DVT, PE, atrial fibrillation , chronic back pain, questionable heart failure, type 2 diabetes mellitus presented to the ED via EMS with chief complaint of ALOC and SOB. the daughter she went to the senior pharmacy technician yesterday and senior pharmacy technician mentioned that the patient blood pressure is uncontrolled and fluid overload and prescribed new antihypertensive with Bumex and later patient woke up middle of the night with gurgling and again went back to sleep. EMS reports that the patient was last seen well at 7am with patient complaining of some SOB, but went back to sleep. EMS relays that the patient was found by family 30 minutes ago gurgling in her sleep and unable to respond. EMS states that the patient is not able to move or answer questions, only opening her eyes to painful stimuli. EMS notes patient was at 64% O2 saturation on RA, but went up to 94% on 15L continuous. EMS reports that the patient's BP was 207/102, HR 129, and patient was given Nitroglycerin on route to the ED. Patient unable to answer any questions at this time due to her altered status. Patient underwent endotracheal intubation and started on mechanical ventilation to protect the airway. PMH: COPD on home oxygen, asthma , TRENT, hypertension, DVT, PE, atrial fibrillation , chronic back pain, questionable heart failure, type 2 diabetes mellitus PSH: Hysterectomy, status post IVC filter in 2020 and cataract surgery. Family history: Significant for heart disease, chronic kidney disease. Home medications: Acetaminophen 325 mg daily, amiodarone 200 mg daily, albuterol sulfate, amitriptyline 10 mg at HS, amlodipine 5 mg daily, Eliquis 5 mg b.i.d., atorvastatin 10 mg at HS, diclofenac sodium 1% gel topical TID, Colace 100 mg b.i.d., glipizide 10 mg q.i.d., ibuprofen 600 mg p.o. daily, losartan potassium 50 mg b.i.d., methocarbamol 500 mg p.o., Medrol Dosepak, metoprolol tartrate 25 mg b.i.d., Percocet 5/325 mg b.i.d., pregabalin 25 mg 1-2 capsules p.o. b.i.d., tizanidine hydrochloride 4 mg at q.p.m. Patient was seen and examined on the bedside. S/P extubation and currently patient is on nasal cannula 3L. She is now on consistent carbohydrate diet, PT recommended SNF for rehabilitation. Patient is awaiting for SNF placement. Objective vital signs Vital Sign Date Time Temp Pulse Resp B/P (MAP) Pulse Ox O2 Delivery O2 Flow Rate FiO2 09/01/24 17:00 98.2 78 18 112/63 (79) 95 98.2 09/01/24 12:58 Nasal Cannula* 2 28 Total Intake and Output 08/31/24 08/31/24 09/01/24 15:00 23:00 07:00 Intake Total 250 ml Balance 250 ml medications Current Medications Medications Dose Ordered Sig/Mahogany Route Start Time Stop Time Status Last Admin Dose Admin Dextrose 50 ml UD PRN IV 08/16/24 16:45 Levalbuterol HCl 0.625 mg Q6HR NEB 08/16/24 18:00 09/01/24 12:57 0.625 MG Ipratropium [place] 0.5 mg Q6HWA NEB 08/16/24 18:00 09/01/24 12:57 0.5 MG Acetaminophen 650 mg Q6HP PRN PO 08/16/24 17:30 08/27/24 14:51 650 MG Amiodarone HCl 200 mg DAILY PO 08/17/24 10:00 09/01/24 08:49 200 MG Losartan Potassium 50 mg BID PO 08/21/24 22:00 09/01/24 08:51 50 MG Hydralazine HCl 10 mg Q6HP PRN IV 08/21/24 19:30 08/23/24 15:55 10 MG Diagnostic Test (Pha) 1 strip Q6HR 08/23/24 12:00 09/01/24 17:02 1 STRIP Sodium Chloride 10 ml QSHIFT@10,22 IV 08/23/24 22:00 09/01/24 08:49 10 ML Nifedipine 60 mg DAILY PO 08/26/24 10:00 09/01/24 08:50 60 MG Pantoprazole Sodium 40 mg DAILY@0600 PO 08/29/24 06:00 09/01/24 06:19 40 MG Apixaban 5 mg BID PO 08/29/24 08:45 09/01/24 09:58 5 MG Insulin Human Regular ACHS SC 08/30/24 11:30 09/01/24 17:00 4 UNITS Insulin Glargine 15 units HS SC 08/31/24 09:30 08/31/24 21:09 15 UNITS Furosemide 20 mg DAILY PO 08/31/24 14:00 09/01/24 08:51 20 MG Prednisone 20 mg DAILY PO 08/31/24 14:00 09/01/24 08:50 20 MG Examination Physical examination: General Appearance: Alert, Oriented X3, Cooperative, No acute distress, nasal canula 3L HEENT: Atraumatic, PERRLA, EOMI, Mucous membrane moist/pink Respiratory: Bilateral mild wheezing and crackles Cardiovascular: Regular rate, Normal S1, Normal S2, No murmurs, no chest wall tenderness Abdominal: Normal bowel sounds, Soft, No tenderness, No hepatospenomegaly, No masses Extremities: No clubbing, No cyanosis, No edema, Normal pulses, No tenderness/swelling Skin: No rashes, No breakdown, No significant lesion Neuro: Normal speech, Strength at 5/5 X4 ext, Normal tone, Sensation intact, Cranial nerves 3-12 NL, Reflexes 2+ Psych/Mental Status: Mental status NL, Mood NL laboratory and microbiology Laboratory Tests 09/01/24 06:41 Test 09/01/24 06:41 Range/Units Serum Glucose 232 H 74-106 mg/dL Microbiology Date/Time Source Procedure Growth Status 08/21/24 17:30 Urine - [place] Urine Culture - Final Yeast, not Myesha albicans Complete 08/21/24 15:55 Blood Blood Culture - Final NO GROWTH AFTER 5 DAYS OF INCUBATION. Complete 08/16/24 16:50 Nose MRSA Screen - Final Methicillin Resistant S.aureus Complete 08/16/24 12:57 Sputum Expectorated Sputum Gram Stain - Final Complete 08/16/24 12:57 Sputum Expectorated Sputum Respiratory Culture - Final Complete Labs and/or images reviewed: Labs reviewed by me, Image(s) reviewed by me Problem List/Assessment/Plan Problem List/Assessment/Plan Assessment and plan: NEURO: Acute hypercapnic encephalopathy S/P extubation CARDIOVASCULAR: Possible acute on chronic diastolic heart failure NSTEMI type 2 likely due to above Paroxysmal Atrial fibrillation with secondary hypercoagulable state Hypertensive emergency on admission - [id number] score 6 - Currently Patient is in sinus tachycardia - Continue Nifedipine ER 60 mg daily and losartan 50 mg b.i.d. - Echo showed lvef 55%, normal rv function and valves not well assessed - Mildly elevated BNP -CxR showed Multifocal consolidative opacities and Cardiomegaly. - Troponin trends are 336>801 - Resumed amiodarone 200 mg p.o. daily and Atorvastatin 10 mg at HS - Discontinued therapeutic Lovenox due to superficial bleeding from central line site - Monitor H&H PULMONARY: Acute hypoxic respiratory failure likely due to aspiration pneumonia Possible multifocal pneumonia S/P extubation History of DVT and PE, status post IVC filter in 2020 and was on Eliquis - CxR showed Multifocal consolidative opacities and Cardiomegaly. - CT chest revealed ground-glass and patchy opacities of bilateral lungs with left lower lobe consolidation which may represent multifocal pneumonia / pulmonary edema and suggested left lower lobe atelectasis with elevation of the left hemidiaphragm.Mediastinal lymphadenopathy which may be reactive/neoplastic. - Medneb with levalbuterol and ipratropium q.6 hours - New blood c/s showed no growth in 24 hours of incubation - IV methylprednisolone 20 mg bid. - Lasix 40 mg po daily - Discontinued IV meropenem on the basis of culture - IV vancomycin per pharmacy and IV fluconazole 200 mg daily. GASTROINTESTINAL: Hyperbilirubinemia and transaminitis likely due to sepsis Chronic vomiting and diarrhoea ,ruled out cholelithiasis Slow transit constipation, ruled out Ileus - U/S of abdomen showed echogenic liver possible hepatic steatosis/cirrhosis - CT abdomen pelvis revealed no acute intra-abdominal abnormality, moderate colonic diverticulosis and bibasilar atelectasis. - Plain xray abdomen ruled out Ileus. ENDOCRINE: Type 2 diabetes mellitus, HbA1C 7% - Mild sliding scale of insulin METABOLIC: Hypokalemia and hypomagnesemia Morbid obesity, BMI 57.2 kg/m2 Hypernatremia resolved HEME: Chronic Microcytic hypochromic anemia INFECTIOUS DISEASE: Sepsis likely due to aspiration pneumonia Leukocytosis and lactic acidosis likely due to sepsis Infectious vulvovaginitis - New blood c/s showed no growth in 24 hours of incubation - urinary culture showed >100,000 CFU/mL Yeast MUSCULOSKELETAL: Chronic back pain DIET: Consistent carbohydrate diet DVT prophylax: SCD GI prophylaxis: Protonix Bowel regimen: Lactulose Code status: Full code LINES/DRAINS/ACCESS: PICC line placed on 08/23/24 Extubated on 08/24/24 IV access: PICC line PT Recommended SNF for rehabilitation Patient's status discussed with RN, Daughter Advanced care planning spent time more than 41 minutes. Case discussed with Dr. Cherry Plan discussed with: Patient, Other (Daughter, RN) Dietary Evaluation Review Comments: 1. TF Glucerna 1.2Cal @ 70ml/hr along with Pro-stat 1 pk daily. Start @ 20ml/hr, increase 10ml/hr until goal is reached. Water flush 50ml q6h if allowed. 2. TPN if NPO x 7 days 3. Monitor labs, NPO status, BW, skin integrity, and I/O Expected Outcomes/Goals: To meet at least 75% of estimated needs within 7 days Fu 2-3 days VERONICA QUINTERO RESIDENT September 01, 2024 17:27
[2024-09-02] VITALS (15 sets, daily range): BP systolic 107–129; BP diastolic 64–73; PULSE 74–100; RESP 16–18; TEMP 36.6–36.9; O2SAT 94–100
[2024-09-02 07:45] LABS: Basophils # (auto) 0 10 ^3/uL (0-0.2); Eosinophils # (auto) 0.1 10 ^3/uL (0-0.8); Hemoglobin 11.1 g/dL (12.2-16.2)
[2024-09-02 07:51] LABS: Eosinophils % (auto) 1.2 % (0.0-7.0); Hematocrit 34.3 % (36.0-46.0); Lymphocytes # (auto) 1.7 10 ^3/uL (0.4-5.4); Mean Corpuscular Hemoglobin 25.8 pg (28.0-32.0); Mean Corpuscular Hgb Conc. 32.4 g/dL (32.0-36.0); Mean Corpuscular Volume 79.7 fL (80.0-100.0); Monocytes # (auto) 1.3 10 ^3/uL (0-1.3); Monocytes % (auto) 12.4 % (0.0-12.0); Neutrophils # (auto) 7.1 10 ^3/uL (1.6-8.6); Neutrophils % (auto) 69.4 % (37.0-80.0); Nucleated Red Blood Cells % 0.2 %; Platelet Count (auto) 207 10^3/uL (140-450); Red Cell Distribution Width 19.3 % (11.8-14.3); White Blood Cell 10.2 10^3/uL (4.4-10.8)
--- NOTE | 2024-09-02 10:54 | DVHPN2 ---
Progress Note - Dictate Date Seen: September 02, 2024 Medical Necessity Reason Pt with a Central, PICC or Fol: Yes The following are medically ne: Central Line, Alvarado Catheter Reason for alvarado catheter: Strict I&O vital signs Vital Sign Date Time Temp Pulse Resp B/P (MAP) Pulse Ox O2 Delivery O2 Flow Rate FiO2 09/02/24 10:16 112/64 09/02/24 09:00 98.6 79 18 94 98.6 09/02/24 06:00 Nasal Cannula 2.0 09/02/24 06:00 28 Total Intake and Output 09/01/24 09/01/24 09/02/24 15:00 23:00 07:00 Intake Total 450 ml Balance 450 ml medications Current Medications Medications Dose Ordered Sig/Mahogany Route Start Time Stop Time Status Last Admin Dose Admin Dextrose 50 ml UD PRN IV 08/16/24 16:45 Levalbuterol HCl 0.625 mg Q6HR NEB 08/16/24 18:00 09/02/24 06:00 0.625 MG Ipratropium [place] 0.5 mg Q6HWA NEB 08/16/24 18:00 09/02/24 06:00 0.5 MG Acetaminophen 650 mg Q6HP PRN PO 08/16/24 17:30 08/27/24 14:51 650 MG Amiodarone HCl 200 mg DAILY PO 08/17/24 10:00 09/02/24 10:15 200 MG Losartan Potassium 50 mg BID PO 08/21/24 22:00 09/02/24 10:15 50 MG Hydralazine HCl 10 mg Q6HP PRN IV 08/21/24 19:30 08/23/24 15:55 10 MG Diagnostic Test (Pha) 1 strip Q6HR 08/23/24 12:00 09/02/24 06:13 1 STRIP Sodium Chloride 10 ml QSHIFT@ IV 08/23/24 22:00 09/02/24 10:16 10 ML Nifedipine 60 mg DAILY PO 08/26/24 10:00 09/02/24 10:15 60 MG Pantoprazole Sodium 40 mg DAILY@0600 PO 08/29/24 06:00 09/02/24 06:17 40 MG Apixaban 5 mg BID PO 08/29/24 08:45 09/02/24 10:16 5 MG Insulin Human Regular ACHS SC 08/30/24 11:30 09/01/24 22:13 4 UNITS Insulin Glargine 15 units HS SC 08/31/24 09:30 09/01/24 22:14 15 UNITS Furosemide 20 mg DAILY PO 08/31/24 14:00 09/02/24 10:16 20 MG Prednisone 20 mg DAILY PO 08/31/24 14:00 09/02/24 10:15 20 MG laboratory and microbiology Laboratory Tests 09/02/24 07:05 09/01/24 06:41 Test 09/01/24 06:41 Range/Units Serum Glucose 232 H 74-106 mg/dL Assessment/Plan Impression Acute hypoxemic respiratory failure Morbid obesity Bronchospasm COPD/asthma Patient seen and examined Events S/p downgrade Low oxygen requirements On 2 liters nasal cannula No acute events Labs and imaging reviewed Management Supplemental oxygen Titrate to maintain sats 90% or above Incentive spirometry Continue antibiotics Bronchodilators Monitor renal function Monitor electrolytes Supplement as needed Disposition per primary DVT prophylaxis Dietary Evaluation Review Comments: 1. TF Glucerna 1.2Cal @ 70ml/hr along with Pro-stat 1 pk daily. Start @ 20ml/hr, increase 10ml/hr until goal is reached. Water flush 50ml q6h if allowed. 2. TPN if NPO x 7 days 3. Monitor labs, NPO status, BW, skin integrity, and I/O Expected Outcomes/Goals: To meet at least 75% of estimated needs within 7 days Fu 2-3 days Plan discussed with: Patient, Other KECIA BATISTA MD September 02, 2024 10:54
--- NOTE | 2024-09-02 15:25 | DVHPN2 ---
Subjective Patient denies any symptoms. Reviewed: Care Plan, H&P Changes from previous H/P or p: No Changes General: Per HPI Objective Vitals Vital Signs Date Time Temp Pulse Resp B/P (MAP) Pulse Ox O2 Delivery O2 Flow Rate FiO2 09/02/24 14:57 36.9 100 09/02/24 12:38 17 129/65 (86) 94 09/02/24 11:23 Nasal Cannula 2.0 09/02/24 11:23 28 Intake/Output Intake and Output 09/02/24 07:00 Intake Total 450 ml Balance 450 ml Intake Oral 450 ml # Voids 3 General Appearance: Alert, Oriented X3, Cooperative, mild distress HEENT: PERRLA Lungs: Other (Bilateral rhonchi) Abdomen: Normal bowel sounds, Soft, No tenderness Extremities: No edema Skin: Dry, Intact Medications Current Medications Medications Dose Ordered Sig/Mahogany Route Start Time Stop Time Status Last Admin Dose Admin Dextrose 50 ml UD PRN IV 08/16/24 16:45 Levalbuterol HCl 0.625 mg Q6HR NEB 08/16/24 18:00 09/02/24 11:22 0.625 MG Ipratropium [place] 0.5 mg Q6HWA NEB 08/16/24 18:00 09/02/24 11:22 0.5 MG Acetaminophen 650 mg Q6HP PRN PO 08/16/24 17:30 08/27/24 14:51 650 MG Amiodarone HCl 200 mg DAILY PO 08/17/24 10:00 09/02/24 10:15 200 MG Losartan Potassium 50 mg BID PO 08/21/24 22:00 09/02/24 10:15 50 MG Hydralazine HCl 10 mg Q6HP PRN IV 08/21/24 19:30 08/23/24 15:55 10 MG Diagnostic Test (Pha) 1 strip Q6HR 08/23/24 12:00 09/02/24 12:15 1 STRIP Sodium Chloride 10 ml QSHIFT@ IV 08/23/24 22:00 09/02/24 10:16 10 ML Nifedipine 60 mg DAILY PO 08/26/24 10:00 09/02/24 10:15 60 MG Pantoprazole Sodium 40 mg DAILY@0600 PO 08/29/24 06:00 09/02/24 06:17 40 MG Apixaban 5 mg BID PO 08/29/24 08:45 09/02/24 10:16 5 MG Insulin Human Regular ACHS SC 08/30/24 11:30 09/01/24 22:13 4 UNITS Insulin Glargine 15 units HS SC 08/31/24 09:30 09/01/24 22:14 15 UNITS Furosemide 20 mg DAILY PO 08/31/24 14:00 09/02/24 10:16 20 MG Prednisone 20 mg DAILY PO 08/31/24 14:00 09/02/24 10:15 20 MG Laboratory Results Laboratory Tests 09/01/24 06:41 09/02/24 07:05 Urinalysis Test 08/16/24 12:57 Urine Color Colorless (Yellow) Urine Clarity Clear (Clear) Urine pH 7.0 (5.0-9.0) Urine Specific Delta 1.007 (1.001-1.035) Urine Protein Negative (Negative) Urine Ketones Trace (Negative) Urine Blood Negative /uL (Negative) Urine Nitrite Negative (Negative) Urine Bilirubin Negative (Negative) Urine Urobilinogen Normal mg/dL (Negative) Urine Leukocyte Esterase Negative /uL (Negative) Urine RBC 1 /hpf (0 - 4) Urine Microscopic WBC 1 /HPF (0-5) Urine Squamous Epithelial Cells None seen /hpf (<5) Urine Bacteria None seen /hpf (None Seen) Urine Glucose Normal mg/dL (Normal) Microbiology Microbiology Date/Time Source Procedure Growth Status 08/21/24 17:30 Urine - [place] Urine Culture - Final Yeast, not Myesha albicans Complete 08/21/24 15:55 Blood Blood Culture - Final NO GROWTH AFTER 5 DAYS OF INCUBATION. Complete 08/16/24 16:50 Nose MRSA Screen - Final Methicillin Resistant S.aureus Complete 08/16/24 12:57 Sputum Expectorated Sputum Gram Stain - Final Complete 08/16/24 12:57 Sputum Expectorated Sputum Respiratory Culture - Final Complete Labs and/or images reviewed: Labs reviewed by me, Image(s) reviewed by me Assessment/Plan Assessment/Plan Impression: -Acute hypercapnic encephalopathy Possible acute on chronic diastolic heart failure NSTEMI type 2 likely due to above Paroxysmal Atrial fibrillation with secondary hypercoagulable state Hypertensive emergency on admission Acute hypoxic respiratory failure likely due to aspiration pneumonia Possible multifocal pneumonia Sepsis likely due to aspiration pneumonia Leukocytosis and lactic acidosis likely due to sepsis History of DVT and PE, status post IVC filter in 2020 and was on Eliquis Hyperbilirubinemia and transaminitis likely due to sepsis Chronic vomiting and diarrhea ,ruled out cholelithiasis Slow transit constipation, ruled out Ileus Type 2 diabetes mellitus, HbA1C 7% Hypokalemia and hypomagnesemia Morbid obesity, BMI 57.2 kg/m2 Hypernatremia resolved Chronic Microcytic hypochromic anemia Infectious vulvovaginitis Chronic back pain Course of hospitalization: Continue current plan of care until being transferred to long-term facility. Total time spent with patient discussing and formulating plan of care: 35 minutes. This medical document was created using an electronic medical record system with [employer] dictation system. Although this document has been carefully reviewed, there may still be some phonetic and typographical errors. These areas are purely typographical due to imperfections of the software programs, and do not reflect any compromise in the patient's medical care. Plan discussed with: Patient, Other (RN) Date of Service: September 02, 2024 Billing Provider: TRINH JAMISON NP Common Visit Codes: [id number] INP/OBS CARE(MOD) TRINH JAMISON NP September 02, 2024 15:25
[2024-09-02] MEDS: DOCUSATE SOD 100 MG CAP PO SCH (21:37)
[2024-09-03] VITALS (13 sets, daily range): BP systolic 109–132; BP diastolic 53–70; PULSE 72–88; RESP 15–18; TEMP 97.7–98; O2SAT 92–100
[2024-09-03 06:37] LABS: Chloride 105 mmol/L (98-107); Potassium 3.7 mmol/L (3.5-5.1); Sodium 141 mmol/L (136-145)
[2024-09-03 06:38] LABS: Anion Gap 6 (5-15); Calcium 9.2 mg/dL (8.7-10.4); Carbon Dioxide 30 mmol/L (20-31)
[2024-09-03 06:43] LABS: BUN/Creatinine Ratio 25.2 (10.0-20.0)
[2024-09-03 06:46] LABS: Blood Urea Nitrogen 29 mg/dL (9-23); Glucose 72 mg/dL (74-106)
--- NOTE | 2024-09-03 14:44 | DVHPN2 ---
Progress Note - Dictate Date Seen: Sep 03, 2024 Medical Necessity Reason Pt with a Central, PICC or Fol: Yes The following are medically ne: Central Line, Alvarado Catheter Reason for alvarado catheter: Strict I&O vital signs Vital Sign Date Time Temp Pulse Resp B/P (MAP) Pulse Ox O2 Delivery O2 Flow Rate FiO2 09/03/24 13:00 97.8 82 16 118/69 (85) 100 97.8 09/03/24 12:31 Nasal Cannula 2.0 09/03/24 12:31 28 medications Current Medications Medications Dose Ordered Sig/Mahogany Route Start Time Stop Time Status Last Admin Dose Admin Dextrose 50 ml UD PRN IV 08/16/24 16:45 Levalbuterol HCl 0.625 mg Q6HR NEB 08/16/24 18:00 09/03/24 12:31 0.625 MG Ipratropium [place] 0.5 mg Q6HWA NEB 08/16/24 18:00 09/03/24 12:31 0.5 MG Acetaminophen 650 mg Q6HP PRN PO 08/16/24 17:30 08/27/24 14:51 650 MG Amiodarone HCl 200 mg DAILY PO 08/17/24 10:00 09/03/24 10:19 200 MG Losartan Potassium 50 mg BID PO 08/21/24 22:00 09/03/24 10:21 50 MG Hydralazine HCl 10 mg Q6HP PRN IV 08/21/24 19:30 08/23/24 15:55 10 MG Diagnostic Test (Pha) 1 strip Q6HR 08/23/24 12:00 09/03/24 12:00 1 STRIP Sodium Chloride 10 ml QSHIFT@10, IV 08/23/24 22:00 09/03/24 10:26 10 ML Nifedipine 60 mg DAILY PO 08/26/24 10:00 09/03/24 10:21 60 MG Pantoprazole Sodium 40 mg DAILY@0600 PO 08/29/24 06:00 09/03/24 05:39 40 MG Apixaban 5 mg BID PO 08/29/24 08:45 09/03/24 10:19 5 MG Insulin Human Regular ACHS SC 08/30/24 11:30 09/03/24 12:30 2 UNITS Insulin Glargine 15 units HS SC 08/31/24 09:30 09/02/24 21:41 15 UNITS Furosemide 20 mg DAILY PO 08/31/24 14:00 09/03/24 10:20 20 MG Prednisone 20 mg DAILY PO 08/31/24 14:00 09/03/24 10:21 20 MG Docusate Sodium 100 mg BID PO 09/02/24 22:00 09/03/24 10:19 100 MG laboratory and microbiology Laboratory Tests 09/03/24 06:00 09/02/24 07:05 Test 09/03/24 06:00 Range/Units Serum Glucose 72 L 74-106 mg/dL Assessment/Plan Impression Acute hypoxemic respiratory failure Morbid obesity Bronchospasm COPD/asthma Patient seen and examined Events S/p downgrade Low oxygen requirements On 2 liters nasal cannula No acute events Labs and imaging reviewed Management Supplemental oxygen Titrate to maintain sats 90% or above Incentive spirometry Continue antibiotics Bronchodilators Monitor renal function Monitor electrolytes Supplement as needed Disposition per primary DVT prophylaxis Dietary Evaluation Review Comments: 1. TF Glucerna 1.2Cal @ 70ml/hr along with Pro-stat 1 pk daily. Start @ 20ml/hr, increase 10ml/hr until goal is reached. Water flush 50ml q6h if allowed. 2. TPN if NPO x 7 days 3. Monitor labs, NPO status, BW, skin integrity, and I/O Expected Outcomes/Goals: To meet at least 75% of estimated needs within 7 days Fu 2-3 days Plan discussed with: Patient KECIA BATISTA MD Sep 03, 2024 14:44
== END 2024-09-03 23:50 | DRG 720 ==
LOC: EDBD 12:31 → ER 12:38 → OVERFLOW 16:03 → ICU WEST 16:25 → TELE-WESTW 08-26 13:15 → WEST WING 08-31 03:17
PROVIDERS: ADMIT Internal Medicine Pulmonary Disease; ATTEND Emergency Medicine
PROC: 0BH17EZ Insertion of Endotracheal Airway into Trachea, Via Natural or Artificial Opening (ICD-10-PCS; principal; 2024-08-16)
PROC: 5A1955Z Respiratory Ventilation, Greater than 96 Consecutive Hours (ICD-10-PCS; 2024-08-16)
PROC: 02HV33Z Insertion of Infusion Device into Superior Vena Cava, Percutaneous Approach (ICD-10-PCS; 2024-08-16)
PROC: 0B9D8ZX Drainage of Right Middle Lung Lobe, Via Natural or Artificial Opening Endoscopic, Diagnostic (ICD-10-PCS; 2024-08-20)
PROC: 0BC78ZZ Extirpation of Matter from Left Main Bronchus, Via Natural or Artificial Opening Endoscopic (ICD-10-PCS; 2024-08-20)
PROC: 0BC38ZZ Extirpation of Matter from Right Main Bronchus, Via Natural or Artificial Opening Endoscopic (ICD-10-PCS; 2024-08-20)
PROC: 02HV33Z Insertion of Infusion Device into Superior Vena Cava, Percutaneous Approach (ICD-10-PCS; 2024-08-23)
PROC: B548ZZA Ultrasonography of Superior Vena Cava, Guidance (ICD-10-PCS; 2024-08-23)
DX: A41.81 Sepsis due to Enterococcus (principal); J96.01 Acute respiratory failure with hypoxia; J69.0 Pneumonitis due to inhalation of food and vomit; G93.41 Metabolic encephalopathy; I50.33 Acute on chronic diastolic (congestive) heart failure; E87.20 Acidosis, unspecified; I21.A1 Myocardial infarction type 2; D68.69 Other thrombophilia; I48.0 Paroxysmal atrial fibrillation; I16.1 Hypertensive emergency; M54.9 Dorsalgia, unspecified; E11.9 Type 2 diabetes mellitus without complications; E87.6 Hypokalemia; D50.9 Iron deficiency anemia, unspecified; L76.22 Postprocedural hemorrhage of skin and subcutaneous tissue following other procedure; E83.42 Hypomagnesemia; J44.0 Chronic obstructive pulmonary disease with (acute) lower respiratory infection; G89.29 Other chronic pain; K59.01 Slow transit constipation; G47.33 Obstructive sleep apnea (adult) (pediatric); I11.0 Hypertensive heart disease with heart failure; Z20.822 Contact with and (suspected) exposure to COVID-19; E87.0 Hyperosmolality and hypernatremia; E66.01 Morbid (severe) obesity due to excess calories; R74.01 Elevation of levels of liver transaminase levels; J15.9 Unspecified bacterial pneumonia; J98.01 Acute bronchospasm; N76.0 Acute vaginitis; Z68.43 Body mass index [BMI] 50.0-59.9, adult; Z88.5 Allergy status to narcotic agent; Z79.01 Long term (current) use of anticoagulants; Z79.899 Other long term (current) drug therapy; Z79.1 Long term (current) use of non-steroidal anti-inflammatories (NSAID); Z79.891 Long term (current) use of opiate analgesic; Z87.891 Personal history of nicotine dependence; Z82.49 Family history of ischemic heart disease and other diseases of the circulatory system; Z84.1 Family history of disorders of kidney and ureter; Z90.710 Acquired absence of both cervix and uterus; Z81.8 Family history of other mental and behavioral disorders; Z80.8 Family history of malignant neoplasm of other organs or systems; Z86.711 Personal history of pulmonary embolism; Z86.718 Personal history of other venous thrombosis and embolism
CPT/HCPCS: 31500; 36415; 36556; 36569; 36600; 70450; 71045; 71250; 74018; 74176; 76700; 76937; 80048; 80053; 80061; 80202; 80307; 81001; 82140; 82306; 82565; 82607; 82805; 82962; 83036; 83605; 83690; 83735; 83880; 84100; 84443; 84484; 85007; 85014; 85018; 85025; 85027; 85379; 85610; 85730; 87040; 87070; 87077; 87081; 87086; 87088; 87186; 87205; 87426; 87804; 92610; 93005; 93306; 93970; 94002; 94003; 94640; 96365; 96372; 97110; 97116; 97163; 97530; 99291; 99292; G0378; J1450; J1815; J2003; J2185; J2470; J2704; J3480